=== PATIENT | male | born 1945 | race Caucasian/White ===

== ENCOUNTER 2017-06-18 17:20 | Inpatient (IN) | payer OTHER ==
[2017-06-18] MEDS ORDERED: FUROSEMIDE 40 MG/4 ML INJECTABLE VIAL IVPUSH ONE ×2 (18:33→22:31)
--- NOTE | 2017-06-18 18:37 | PDOC ---
History of Present Illness - History of Present Illness Initial Comments: 06/18/17 18:48 The patient is a 71 year old male, with a significant past medical history of diabetes, HTN, AV fistula shunt in left arm (placed 2 weeks ago), CHF, who presents to the emergency department with weakness, abdominal pain, and lower extremity edema. He kept on stating that he has a bad heart. He says he lives alone and takes care of himself. He stated that his palms and soles of his feet feel unusually warm. He says that he ran out of his water pills. He denies any recent cough fevers, chills, headache or dizziness. He denies any recent nausea, vomit, diarrhea or constipation. He denies any recent chest pain or shortness of breath. He denies any recent dysuria, frequency, urgency or hematuria. Allergies: [employer] Long Haul Truck Driver: Rhett Whaley PCP: Fiona Bermudez <Kailee Puga - Last Filed: 06/18/17 18:47> <Shanta Montanez - Last Filed: 06/21/17 22:35> - General Chief Complaint: Pain Stated Complaint: weakness,abd pain, edema Time Seen by Provider: 06/18/17 18:06 Past History <Kailee Puga - Last Filed: 06/18/17 18:47> - Past Medical History Cardiac Disorders: Yes Diabetes: Yes Disorders: Yes (kidney failure, left arm fistula (not on dialysis yet)) HTN: Yes - Suicide/Smoking/Psychosocial Hx Smoking History: Never smoked Information on smoking cessation initiated: No Hx Alcohol Use: No Drug/Substance Use Hx: No Substance Use Type: None <Shanta Montanez - Last Filed: 06/21/17 22:35> - Past Medical History Allergies/Adverse Reactions: Allergies Allergy/AdvReac Type Severity Reaction Status Date / Time No Known Allergies Allergy Verified 06/18/17 18:30 Home Medications: Ambulatory Orders Aspirin [ASA -] 81 mg PO DAILY 06/18/17 Hydralazine HCl 10 mg PO Q8H 06/18/17 Isosorbide Mononitrate 10 mg PO Q8H 06/18/17 Metoprolol Succinate [Toprol Xl -] 25 mg PO DAILY 06/18/17 Review of Systems - Review of Systems Able to Perform ROS?: Yes Comments:: 06/18/17 18:50 GENERAL/CONSTITUTIONAL: No fever or chills. +weakness. + swelling in legs. HEAD, EYES, EARS, NOSE AND THROAT: No change in vision. No ear pain or discharge. No sore throat. CARDIOVASCULAR: No chest pain or shortness of breath. RESPIRATORY: No cough, wheezing, or hemoptysis. GASTROINTESTINAL: + abdominal pain. No nausea, vomiting, diarrhea or constipation. GENITOURINARY: No dysuria, frequency, or change in urination. MUSCULOSKELETAL: No joint or muscle swelling or pain. No neck or back pain. SKIN: No rash NEUROLOGIC: No headache, vertigo, loss of consciousness, or change in strength/ sensation. ENDOCRINE: No increased thirst. No abnormal weight change. HEMATOLOGIC/LYMPHATIC: No anemia, easy bleeding, or history of blood clots. ALLERGIC/IMMUNOLOGIC: No hives or skin allergy. <Kailee Puga - Last Filed: 06/18/17 18:47> *Physical Exam - Vital Signs Last Vital Signs Temp Pulse Resp BP Pulse Ox 97.6 F 77 18 135/75 100 06/18/17 17:25 06/18/17 17:25 06/18/17 17:25 06/18/17 17:25 06/18/17 17:25 - Physical Exam Comments: 06/18/17 18:50 GENERAL: Awake, alert, and fully oriented, in no acute distress HEAD: No signs of trauma EYES: PERRLA, EOMI, sclera anicteric, conjunctiva clear ENT: Auricles normal inspection, hearing grossly normal, nares patent, oropharynx clear without exudates. Moist mucosa NECK: Normal ROM, supple, no lymphadenopathy, JVD, or masses LUNGS: +Bilateral rales, right worse than left. No wheezes, and no crackles HEART: Irregularly irregular heart rate. A-fib. No murmurs, rubs or gallops ABDOMEN: Soft, nontender, normoactive bowel sounds. No guarding, no rebound. No masses. No flank tenderness EXTREMITIES: + Bilateral pitting edema up to knee. Right more swollen than left. +Left upper arm has recently placed dialysis shunt (2 weeks ago). No clubbing or cyanosis. No cords, erythema, or tenderness NEUROLOGICAL: +Decreased ambulation. Cranial nerves II through XII grossly intact. Normal speech, normal gait . SKIN: +Hematoma on right arm.Warm, Dry, normal turgor, no rashes or lesions noted. <Kailee Puga - Last Filed: 06/18/17 18:47> - Vital Signs Last Vital Signs Temp Pulse Resp BP Pulse Ox 97.6 F 77 18 135/75 100 06/18/17 17:25 06/18/17 17:25 06/18/17 17:25 06/18/17 17:25 06/18/17 17:25 <Shanta Montanez - Last Filed: 06/21/17 22:35> ED Treatment Course - LABORATORY CBC & Chemistry Diagram: 06/21/17 18:30 06/21/17 06:40 <Shanta Montanez - Last Filed: 06/21/17 22:35> Medical Decision Making - Medical Decision Making 06/18/17 18:42 Pt comes with multiple problems and multiple complaints. He states that he has difficulty walking that his legs are swollen, that he has a bad heart and that he ran out of his water pill. States that he recently had a dialysis shunt placed in the left arm and that he needs to have dialysis. His PMD is Dr. Rhett Whaley (cardiology) His PCP is Fiona Bermudez . Pt recently moved to [place]. He seems to be in pain. Pt lives alone and cares for himself. Pt is clean and well kept. Today we will check basic labs. He has bilateral leg swelling and pain and I will check for DVTs bilaterally. Pt will be signed out to the night time ER doc, who will follow lab results and radiology results. <Shanta Montanez - Last Filed: 06/21/17 22:35> *DC/Admit/Observation/Transfer - Attestations Scribe Attestion: 06/18/17 18:51 Documentation prepared by Kailee Puga, acting as medical assistant ob gyn for Shanta Montanez MD. <Kailee Puga - Last Filed: 06/18/17 18:47> <Shanta Montanez - Last Filed: 06/21/17 22:35> Diagnosis at time of Disposition: CHF (congestive heart failure), Bilateral lower extremity edema
[2017-06-18] MEDS ORDERED: FUROSEMIDE 40 MG/4 ML INJECTABLE VIAL ONE (18:51)
[2017-06-18 18:56] LABS: BASOPHIL 0.7 % (0-2.0); EOSINOPHIL 1.8 % (0-4.5); MCH 29.1 pg (25.7-33.7); MCHC 33.4 g/dl (32.0-35.9); MEAN CELL VOLUME 87.2 fl (80-96); MEAN PLT VOLUME 7.1 fl (7.5-11.1); NEUTROPHILS 67.7 % (42.8-82.8); PLATELET COUNT 180 K/MM3 (134-434); RDW 16.1 % (11.9-15.9); WHITE BLOOD COUNT 5.8 K/mm3 (4.0-10.0)
[2017-06-18 19:31] LABS: ALBUMIN 3.2 g/dl (3.4-5.0); ANION GAP 16 (8-16); BILIRUBIN,TOTAL 0.4 mg/dL (0.2-1.0); CO2 18 mmol/L (21-32); CREATININE 6.5 mg/dL (0.7-1.3); GLUCOSE,RANDOM 136 mg/dL (74-106); SGOT/AST 17 U/L (15-37); SGPT/ALT 20 U/L (12-78); TOT PROT 6.8 g/dl (6.4-8.2)
[2017-06-18 19:47] LABS: ALK PHOS 122 U/L (45-117); CPK 94 IU/L (39-308); TROPONIN I 0.06 ng/ml (0.00-0.05)
--- NOTE | 2017-06-18 20:06 | PDOC ---
*Physical Exam - Vital Signs Last Vital Signs Temp Pulse Resp BP Pulse Ox 97.6 F 77 18 135/75 100 06/18/17 17:25 06/18/17 17:25 06/18/17 17:25 06/18/17 17:25 06/18/17 17:25 ED Treatment Course - LABORATORY CBC & Chemistry Diagram: 06/18/17 18:32 06/18/17 18:32 - ADDITIONAL ORDERS Additional order review: Laboratory Results 06/18/17 18:32 Sodium 141 Potassium 4.1 Chloride 107 Carbon Dioxide 18 L Anion Gap 16 BUN 124 H* Creatinine 6.5 H Creat Clearance w eGFR 8.45 Random Glucose 136 H Calcium 8.0 L Total Bilirubin 0.4 AST 17 ALT 20 Alkaline Phosphatase 122 H Creatine Kinase 94 Troponin I 0.06 H B-Natriuretic Peptide 28215.96 H Total Protein 6.8 Albumin 3.2 L 06/18/17 18:32 RBC 2.42 L MCV 87.2 MCHC 33.4 RDW 16.1 H MPV 7.1 L Neutrophils % 67.7 Lymphocytes % 21.0 Monocytes % 8.8 Eosinophils % 1.8 Basophils % 0.7 - Medications Given in the ED: ED Medications Discontinued Medications Generic Name Dose Route Start Last Admin Trade Name Freq PRN Reason Stop Dose Admin Furosemide 40 mg 06/18/17 18:33 06/18/17 18:55 Lasix Injection - IVPUSH 06/18/17 18:34 40 mg ONCE ONE Administration *DC/Admit/Observation/Transfer Diagnosis at time of Disposition: Congestive heart failure, Bilateral edema of lower extremity - Discharge Dispostion Condition at time of disposition: Stable Admit: Yes - Referrals Referrals: Fiona Bermudez MD [Primary Care Provider] - - Patient Instructions - Post Discharge Activity
[2017-06-18 20:56] LABS: MAGNESIUM 2.5 mg/dL (1.8-2.4); PHOSPHOROUS 8.3 mg/dL (2.5-4.9)
--- NOTE | 2017-06-18 22:42 | PN ---
Teaching Attending Note Name of Resident: Kiesha Ortega ATTENDING PHYSICIAN STATEMENT I saw and evaluated the patient. I reviewed the resident's note and discussed the case with the resident. I agree with the resident's findings and plan as documented. SUBJECTIVE: 71 year old male presents for worsening LE edema . Poor historian, refusing to discuss his medical health . States that he is feeling tired and cant speak. Apparently has recently placed AV fistula with plan to initiate HD in a month . Does not recall name of his portfolio architect PMD Dr Bermudez in [facility] however he recently moved to [place] and changed PMD Denies fever No prior records available PMH reports as positive when questioned about CHF DM HTN Renal insufficiency Anemia OBJECTIVE: Vital Signs Temperature 97.6 F 06/18/17 17:25 Pulse Rate 89 06/18/17 20:53 Respiratory Rate 19 06/18/17 20:53 Blood Pressure 143/75 06/18/17 20:53 O2 Sat by Pulse Oximetry (%) 100 06/18/17 17:25 RS - b/l rales ABD soft NT EXT 3+ edema CBC, BMP 06/18/17 18:32 06/18/17 18:32 CMP Sodium 141 mmol/L (136-145) 06/18/17 18:32 Potassium 4.1 mmol/L (3.5-5.1) 06/18/17 18:32 Chloride 107 mmol/L (98-107) 06/18/17 18:32 Carbon Dioxide 18 mmol/L (21-32) L 06/18/17 18:32 Anion Gap 16 (8-16) 06/18/17 18:32 BUN 124 mg/dL (7-18) H* 06/18/17 18:32 Creatinine 6.5 mg/dL (0.7-1.3) H 06/18/17 18:32 Creat Clearance w eGFR 8.45 (>60) 06/18/17 18:32 Random Glucose 136 mg/dL (74-106) H 06/18/17 18:32 Calcium 8.0 mg/dL (8.5-10.1) L 06/18/17 18:32 Phosphorus 8.3 mg/dL (2.5-4.9) H 06/18/17 18:32 Magnesium 2.5 mg/dL (1.8-2.4) H 06/18/17 18:32 Total Bilirubin 0.4 mg/dL (0.2-1.0) 06/18/17 18:32 AST 17 U/L (15-37) 06/18/17 18:32 ALT 20 U/L (12-78) 06/18/17 18:32 Alkaline Phosphatase 122 U/L (45-117) H 06/18/17 18:32 Creatine Kinase 94 IU/L (39-308) 06/18/17 18:32 Troponin I 0.06 ng/ml (0.00-0.05) H 06/18/17 18:32 B-Natriuretic Peptide 09054.96 pg/ml (5-125) H 06/18/17 18:32 Total Protein 6.8 g/dl (6.4-8.2) 06/18/17 18:32 Albumin 3.2 g/dl (3.4-5.0) L 06/18/17 18:32 cxr Mild cardiomegaly with bilateral increased interstitial markings that may represent mild pulmonary venous congestion. Right lung base consolidation/ pneumonia with a small right pleural effusion. There are also mild atelectatic changes in the left lung base with possible infiltrates. dopplers le There is no evidence of deep venous thromboses in both lower extremities. Soft tissue swelling in the popliteal fossa and calf region of both legs, left more than right EKG NSR 1st degree av block no prior EKG to compare ASSESSMENT AND PLAN: 1. Dyspnea - secondary to fluid overload. Factors could be worsening renal function , non compliance with diuretics and underlying exacerbation of heart failure ( unknown EF ) . Pneumonia reported on CXR . - Diurese Lasix 40 IV BID - strict I&O - O2 - telemetry - ECHO - obtain records - one dose of IV antibiotics for coverage of suspected CAP - will repeat CXR after diuretics and re evaluate for presence of RLL infiltrate 2. ESRD - nephrology evaluation 3. Anemia - AOCD - will need procrit - repeat cbc in am - transfuse if further drop / low threshold for transfusion however already fluid overloaded and unclear if diuresis will be effective 4. DM - starte with * units of Lantus and cover with SS 5. DVT PPX - heparin SQ
[2017-06-18] MEDS ORDERED: AZITHROMYCIN IVPB 500 MG in DEXTROSE 5%-WATER - 250 ML IVPB ONE (23:15)
[2017-06-18] MEDS ORDERED: CEFTRIAXONE 50 ML IVPB ONE (23:15)
--- NOTE | 2017-06-18 23:26 | HP ---
CHIEF COMPLAINT: toro LE edema, weakness PCP: Fiona Bennett Dust Box Worker: Rhett Mistry HISTORY OF PRESENT ILLNESS: 71yo M with PMH of chf, esrd (with Left arm AV fistula placed 2 weeks ago), dm, htn, anemia, cva 3 yrs ago, presents c/o toro LE edema x 1 day. Pt reports running out of his Furosemide yesterday. Pt reports recent hospitalization in [facility] for chest pain that came on suddenly, was unprovoked, and was relieved with O2. Pt also reports receiving a blood transfusion for his anemia during this hospitalization. Pt denies recent illness, sick contacts, fever, chills, cough, difficulty breathing, chest pain, palpitations, nausea, vomiting. ER course was notable for: (1) CXR -> possible Right lung base pna (2) Lasix 40mg IVpush (3) H/H 7.0/21.1, BUN/Cr 124/6.5, trop (+), bnp 62,000 PAST MEDICAL HISTORY: chf htn dm esrd, with Left arm AV fistula placed 2 weeks ago anemia cva 3 yrs ago, with no residual deficits PAST SURGICAL HISTORY: Left arm AV fistula placed 2 weeks ago Social History: Lives alone and cares for self. Smoking: never Alcohol: none Drugs: none Allergies No Known Allergies Allergy (Verified 06/18/17 18:30) HOME MEDICATIONS: Home Medications Medication Instructions Recorded Aspirin [ASA -] 81 mg PO DAILY 06/18/17 Hydralazine HCl 10 mg PO Q8H 06/18/17 Isosorbide Mononitrate 10 mg PO Q8H 06/18/17 Metoprolol Succinate [Toprol Xl -] 25 mg PO DAILY 06/18/17 REVIEW OF SYSTEMS CONSTITUTIONAL: Absent: fever, chills, diaphoresis HEENT: Present: c/o dry mucous membranes Absent: rhinorrhea, nasal congestion, throat swelling, difficulty swallowing, ear pain, visual changes CARDIOVASCULAR: Present: toro LE 1+ pitting edema and mild pain/numbness Absent: chest pain, syncope, palpitations, irregular heart rate, lightheadedness RESPIRATORY: Present: orthopnea Absent: cough, shortness of breath, stridor, hemoptysis GASTROINTESTINAL: Absent: abdominal pain, abdominal distension, nausea, vomiting, diarrhea, constipation, melena, hematochezia GENITOURINARY: Absent: dysuria, frequency, urgency, hematuria MUSCULOSKELETAL: Absent: myalgia, arthralgia SKIN: Absent: rash, itching, pallor HEMATOLOGIC/IMMUNOLOGIC: Absent: easy bleeding, easy bruising NEUROLOGIC: Absent: headache, focal weakness or paresthesias, dizziness PHYSICAL EXAMINATION Last Vital Signs Temp Pulse Resp BP Pulse Ox 97.6 F 89 19 143/75 100 06/18/17 17:25 06/18/17 20:53 06/18/17 20:53 06/18/17 20:53 06/18/17 17:25 GENERAL: Awake, alert, and fully oriented, in no acute distress. HEAD: Normal with no signs of trauma. EYES: Extraocular movements intact, sclera anicteric, conjunctiva clear. No lid lag. EARS, NOSE, THROAT: Oropharynx clear without exudates. NECK: Normal range of motion, supple without lymphadenopathy, JVD, or masses. LUNGS: toro rales appreciated. No accessory muscle use. HEART: Regular rate and rhythm, normal S1 and S2 without murmur, rub or gallop. ABDOMEN: Soft, nontender, not distended, normoactive bowel sounds, no guarding, no rebound, no masses. Ecchymosis noted from insulin injections per pt. UPPER EXTREMITIES: Left upper arm AV fistula (2 weeks old) for initiation of dialysis. LOWER EXTREMITIES: 2+ pulses, warm, well-perfused. No calf tenderness. 3+ pitting edema. NEUROLOGICAL: Cranial nerves II-XII intact. Normal speech. PSYCHIATRIC: Cooperative. Good eye contact. Appropriate mood and affect. SKIN: Warm, dry, normal turgor, no rashes or lesions noted. Laboratory Last Values WBC 5.8 K/mm3 (4.0-10.0) 06/18/17 18:32 RBC 2.42 M/mm3 (4.00-5.60) L 06/18/17 18:32 Hgb 7.0 GM/dL (11.7-16.9) L 06/18/17 18:32 Hct 21.1 % (35.4-49) L 06/18/17 18:32 MCV 87.2 fl (80-96) 06/18/17 18:32 MCH 29.1 pg (25.7-33.7) 06/18/17 18:32 MCHC 33.4 g/dl (32.0-35.9) 06/18/17 18:32 RDW 16.1 % (11.9-15.9) H 06/18/17 18:32 Plt Count 180 K/MM3 (134-434) 06/18/17 18:32 MPV 7.1 fl (7.5-11.1) L 06/18/17 18:32 Neutrophils % 67.7 % (42.8-82.8) 06/18/17 18:32 Lymphocytes % 21.0 % (8-40) 06/18/17 18:32 Monocytes % 8.8 % (3.8-10.2) 06/18/17 18:32 Eosinophils % 1.8 % (0-4.5) 06/18/17 18:32 Basophils % 0.7 % (0-2.0) 06/18/17 18:32 Sodium 141 mmol/L (136-145) 06/18/17 18:32 Potassium 4.1 mmol/L (3.5-5.1) 06/18/17 18:32 Chloride 107 mmol/L (98-107) 06/18/17 18:32 Carbon Dioxide 18 mmol/L (21-32) L 06/18/17 18:32 Anion Gap 16 (8-16) 06/18/17 18:32 BUN 124 mg/dL (7-18) H* 06/18/17 18:32 Creatinine 6.5 mg/dL (0.7-1.3) H 06/18/17 18:32 Creat Clearance w eGFR 8.45 (>60) 06/18/17 18:32 Random Glucose 136 mg/dL (74-106) H 06/18/17 18:32 Calcium 8.0 mg/dL (8.5-10.1) L 06/18/17 18:32 Phosphorus 8.3 mg/dL (2.5-4.9) H 06/18/17 18:32 Magnesium 2.5 mg/dL (1.8-2.4) H 06/18/17 18:32 Total Bilirubin 0.4 mg/dL (0.2-1.0) 06/18/17 18:32 AST 17 U/L (15-37) 06/18/17 18:32 ALT 20 U/L (12-78) 06/18/17 18:32 Alkaline Phosphatase 122 U/L (45-117) H 06/18/17 18:32 Creatine Kinase 94 IU/L (39-308) 06/18/17 18:32 Troponin I 0.06 ng/ml (0.00-0.05) H 06/18/17 18:32 B-Natriuretic Peptide 99282.96 pg/ml (5-125) H 06/18/17 18:32 Total Protein 6.8 g/dl (6.4-8.2) 06/18/17 18:32 Albumin 3.2 g/dl (3.4-5.0) L 06/18/17 18:32 IMAGIN06/18/17 EKG -> NSR, 1st degree AV block 06/18/17 CXR -> R lung base consolidation / possible pna, and small pleural effusion. Mild atelactatic changes in Left lower lung with possible infiltrates. Toro increased interstitial markings suggesting mild pulmonary venous congestion. Mild cardiomegaly. 06/18/17 Duplex toro LE -> no DVTs ASSESSMENT/PLAN: 71yo M with PMH of chf, esrd (with Left arm AV fistula placed 2 weeks ago), dm, htn, anemia, cva 3 yrs ago, presents c/o toro LE edema admitted to Telemetry for CHF exacerbation, ESRD. 1) dyspnea 2/2 fluid overload - likely multifactorial causes such as worsening renal function vs diuretics non-compliance vs CHF exacerbation - suspected Right lower lung CAP on CXR - Rocephin and Azithromycin - f/u CXR - Lasix given in ER, another dose of 40mg IVpush Lasix given overnight - strict I&O's - daily wts - 2L O2 via nasal cannula - f/u echo - Day Team to f/u with Dust Box Worker (Dr. Whaley) and/or [facility] regarding recent adm, medical records, most recent echo/stress test/cardiac work -up. - lipid panel - trend trops 2) esrd - hemodialysis anticipated, AV fistula recently placed - diurese and reassess need for dialysis - Renal Consult - consider procrit 2/2 anemia - elevated phosphorus noted, consider a phosphate binder such as Renvela 3) anemia of chronic disease - b12, folate, iron studies - type and screen - transfuse for hgb < 7 4) dm - f/u hgba1c - bgm achs - sliding scale insulin - Levemir 8U SQ HS, as pt reports taking Lantus 10U SQ HS at home 5) FEN - Fluids: po - Electrolytes: continue to monitor - Nutrition: diabetic, renal, low sodium diet 6) Prophylaxis - DVT prophylaxis with Heparin 5,000U SQ q8hr Visit type - Emergency Visit Emergency Visit: Yes ED Registration Date: 06/18/17 Care time: The patient presented to the Emergency Department on the above date and was hospitalized for further evaluation of their emergent condition. - New Patient This patient is new to me today: Yes Date on this admission: 06/18/17 - Critical Care Critical Care patient: No
[2017-06-19] MEDS: HEPARIN NA (PORCINE) 5,000 UNITS/ML 1ML VIAL SQ SCH ×4 (00:41→18:03)
[2017-06-19 02:47] LABS: MCH 29.6 pg (25.7-33.7); MCHC 34.2 g/dl (32.0-35.9); MEAN CELL VOLUME 86.5 fl (80-96); MEAN PLT VOLUME 7.5 fl (7.5-11.1); PLATELET COUNT 184 K/MM3 (134-434)
[2017-06-19] MEDS ORDERED: FUROSEMIDE 40 MG/4 ML INJECTABLE VIAL ONE (02:47)
[2017-06-19] MEDS ORDERED: HEPARIN NA (PORCINE) 5,000 UNITS/ML 1ML VIAL ONE (02:47)
[2017-06-19] MEDS ORDERED: AZITHROMYCIN IVPB 250 ML IVPB ONE (02:53)
[2017-06-19] MEDS ORDERED: CEFTRIAXONE 50 ML ONE (02:53)
[2017-06-19] MEDS: INSULIN SLIDING SCALE (NOVOLOG) 1 VIAL SQ SCH ×5 (03:09→21:13)
[2017-06-19 03:13] LABS: TROPONIN I 0.06 ng/ml (0.00-0.05)
[2017-06-19] MEDS ORDERED: INSULIN (NOVOLOG) ASPART 100 UNITS/ML 10ML VIAL ONE ×2 (03:16→21:05)
[2017-06-19 04:58] VITALS: BMI 22.2
[2017-06-19] MEDS ORDERED: ISOSORBIDE MONONITRATE 10 MG TABLET PO SCH (06:00)
[2017-06-19 07:01] LABS: BASOPHIL 0.7 % (0-2.0); EOSINOPHIL 2.3 % (0-4.5); MCH 29.1 pg (25.7-33.7); MCHC 33.3 g/dl (32.0-35.9); MEAN CELL VOLUME 87.5 fl (80-96); MEAN PLT VOLUME 7.5 fl (7.5-11.1); NEUTROPHILS 69.5 % (42.8-82.8); PLATELET COUNT 185 K/MM3 (134-434); WHITE BLOOD COUNT 6.6 K/mm3 (4.0-10.0)
[2017-06-19] MEDS: hydrALAZINE HCL 10 MG TABLET PO SCH ×3 (07:11→21:13)
[2017-06-19 07:12] LABS: ANION GAP 15 (8-16); CALCIUM 7.9 mg/dL (8.5-10.1); CO2 19 mmol/L (21-32); GLUCOSE,RANDOM 149 mg/dL (74-106)
[2017-06-19 07:26] LABS: ALK PHOS 117 U/L (45-117); BILIRUBIN,TOTAL 0.3 mg/dL (0.2-1.0); CHOLESTEROL 118 mg/dL (50-200); CREATININE 6.3 mg/dL (0.7-1.3); SGOT/AST 16 U/L (15-37); SGPT/ALT 18 U/L (12-78); TOT PROT 6.4 g/dl (6.4-8.2)
[2017-06-19] MEDS ORDERED: FUROSEMIDE 40 MG/4 ML INJECTABLE VIAL IVPUSH ONE (08:30)
[2017-06-19] MEDS: METOPROLOL SUCCINATE 25 MG TAB.SR.24H (FP) PO SCH (09:38)
[2017-06-19] MEDS: ASPIRIN 81 MG CHEWABLE TABLETS PO SCH (09:39)
[2017-06-19 10:47] LABS: TROPONIN I 0.06 ng/ml (0.00-0.05)
--- NOTE | 2017-06-19 10:56 | CON.NEP ---
Consult Consult Specialty:: Nephrology Referred by:: Dr. Bolivar Reason for Consultation:: CKD stage 5 with volume overload - History of Present Illness Chief Complaint: SOB History of Present Illness: This is a 71 year old gentleman with PMhx of CKD stage 5 not yet on dialysis, DM Type 2 > 20 years, Hypertension, CHF who presented to the ED with complaints of SOB and found to have fluid overload and BUN/Cr of 129/6.3. Pt had been following with a market sales manager in the city but could not recall his name. Had a AVF placed in the left arm 2 weeks ago. Pt reports running out of his lasix and having worsening swelling and sob for 2-3 days. Pt denies any N/V but is having diarrhea. Denies any confusion, lethargy or weakness. Denies any sleep disturbance. No flank pain. Does report urine output. - History Source History Provided By: Patient Limitations to Obtaining History: No Limitations - Past Medical History Cardio/Vascular: Yes: CHF, HTN Renal/: Yes: Renal Inusuff Endocrine: Yes: Diabetes Mellitus - Alcohol/Substance Use Hx Alcohol Use: No - Smoking History Smoking history: Never smoked Have you smoked in the past 12 months: No Home Medications - Allergies Allergies/Adverse Reactions: Allergies Allergy/AdvReac Type Severity Reaction Status Date / Time No Known Allergies Allergy Verified 06/18/17 18:30 - Home Medications Home Medications: Ambulatory Orders Aspirin [ASA -] 81 mg PO DAILY 06/18/17 Hydralazine HCl 10 mg PO Q8H 06/18/17 Isosorbide Mononitrate 10 mg PO Q8H 06/18/17 Metoprolol Succinate [Toprol Xl -] 25 mg PO DAILY 06/18/17 Family Disease History - Family Disease History Family History: Unremarkable Review of Systems - Review of Systems Constitutional: reports: No Symptoms Eyes: reports: No Symptoms HENT: reports: No Symptoms Neck: reports: No Symptoms Cardiovascular: reports: Edema, Shortness of Breath. denies: Chest Pain, Palpitations Respiratory: reports: Orthopnea, SOB, SOB on Exertion. denies: Hemoptysis, Wheezing Gastrointestinal: reports: Diarrhea. denies: Abdominal Pain, Constipation, Melena, Nausea, Vomiting Genitourinary: reports: No Symptoms Musculoskeletal: denies: Back Pain, Extremity Pain Neurological: denies: Change in LOC, Change in Speech, Confusion Nephrology Consult - Height Height: 6 ft - Weight Weight: 164 lb 2 oz - BMI Body Mass Index (BMI): 22.2 - Lab Results CBC,BMP: CBC, BMP 06/19/17 06:15 06/19/17 06:15 Anion Gap: Anion Gap Anion Gap 15 (8-16) 06/19/17 06:15 - Imaging Chest X-ray: Report Reviewed - Physical Examination Vital Signs: Vital Signs Temperature 97.6 F 06/19/17 09:02 Pulse Rate 100 H 06/19/17 09:02 Respiratory Rate 18 06/19/17 09:02 Blood Pressure 133/65 06/19/17 09:02 O2 Sat by Pulse Oximetry (%) 96 06/19/17 09:00 Constitutional: Yes: No Distress, Calm Eyes: Yes: Conjunctiva Clear HENT: Yes: Atraumatic, Normocephalic Neck: Yes: Supple Cardiovascular: Yes: Regular Rate and Rhythm, JVD, S1, S2. No: Murmur, Rub Respiratory: Yes: Regular, CTA Bilaterally. No: Rales, Rhonchi, SOB Gastrointestinal: Yes: Normal Bowel Sounds, Soft. No: Tenderness Renal/: No: Anuria, Bladder Distention, CVA Tenderness - Left, CVA Tenderness - Right, Larsen Present Access for Hemodialysis: AV Fistula Edema: Yes Edema: RLE: 2+ Neurological: Yes: Alert, Oriented Problem List - Problems (1) Bilateral lower extremity edema Code(s): R60.0 - LOCALIZED EDEMA (2) CHF (congestive heart failure) Code(s): I50.9 - HEART FAILURE, UNSPECIFIED (3) CKD (chronic kidney disease) stage 5, GFR less than 15 ml/min Code(s): N18.5 - CHRONIC KIDNEY DISEASE, STAGE 5 (4) Volume overload Code(s): E87.70 - FLUID OVERLOAD, UNSPECIFIED (5) Metabolic acidosis Code(s): E87.2 - ACIDOSIS (6) Anemia Code(s): D64.9 - ANEMIA, UNSPECIFIED Assessment/Plan 71 year old gentleman with PMhx of CKD stage 5 not yet on dialysis, DM Type 2 > 20 years, Hypertension, CHF who presented to the ED with complaints of SOB and found to have fluid overload and BUN/Cr of 129/6.3. #JAIMIE vs. Progressive CKD stage 5 with volume overload Attempted to call PMD but did not get a answer, called Filling And Stapling Machine Operator office to obtain labs and ECHO (awaiting fax) Check Urine studies and renal US to r/o obstruction If baseline labs are significantly better then the labs seen this admission will likely need dialysis this admission consulted vascular sx to eval and to schedule permacath placement Increase Lasix to 80mg IV BID Dose all meds for CrCl less then 10 #CHF continue IV lasix check ECHO (obtaining prior echo report from market sales manager) Trend daily weights #Acute vs. Chronic Anemia pt with normal MCV Check iron studies and stool occult blood likely anemia of CKD and will require EDWINA #DM Check Hgb A1C #Hypertension continue hydralazine #Anion gap Metabolic acidosis start sodium bicarbonate 650mg BID goal bicarb > 22 Thank you Will follow case discussed with Blurb Writer Ant Martino DO Current Medications Aspirin (Asa -) 81 mg PO DAILY [facility] Last Admin: 06/19/17 09:39 Dose: 81 mg Furosemide (Lasix Injection -) 20 mg IVPUSH ESCALATOR MECHANIC [facility] Stop: 06/19/17 14:00 Furosemide (Lasix Injection -) 80 mg IVPB BID@0600,1400 [facility] Heparin Sodium (Porcine) (Heparin -) 5,000 unit SQ Q8H-IV [facility] Last Admin: 06/19/17 02:42 Dose: 5,000 unit Hydralazine HCl (Apresoline -) 10 mg PO TID [facility] Last Admin: 06/19/17 07:11 Dose: 10 mg Insulin Aspart (Novolog Vial Sliding Scale -) 1 vial SQ ACHS [facility] PRN Reason: Protocol Last Admin: 06/19/17 07:11 Dose: 2 units Insulin Detemir (Levemir Vial) 8 units SQ HS [facility] Isosorbide Mononitrate (Ismo -) 10 mg PO TIDISORDIL [facility] Metoprolol Succinate (Toprol Xl -) 25 mg PO DAILY [facility] Last Admin: 06/19/17 09:38 Dose: 25 mg Sevelamer Carbonate (Renvela -) 800 mg PO TIDCM [facility]
[2017-06-19] MEDS ORDERED: FUROSEMIDE 40 MG/4 ML INJECTABLE VIAL IVPUSH SCH (11:00)
[2017-06-19 11:34] LABS: ACANTHOCYTES 1+
--- NOTE | 2017-06-19 11:53 | EKG ---
Test Reason : Blood Pressure : / mmHG Vent. Rate : 084 BPM Atrial Rate : 084 BPM P-R Int : 308 ms QRS Dur : 104 ms QT Int : 404 ms P-R-T Axes : 049 038 135 degrees QTc Int : 477 ms SINUS RHYTHM WITH MARKED SINUS ARRHYTHMIA WITH 1ST DEGREE A-V BLOCK T WAVE ABNORMALITY, CONSIDER INFERIOR ISCHEMIA PROLONGED QT ABNORMAL ECG WHEN COMPARED WITH ECG OF 18-JUN-2017 18:49, PREMATURE ATRIAL COMPLEXES ARE NO LONGER PRESENT T WAVE INVERSION NOW EVIDENT IN INFERIOR LEADS Confirmed by RAÚL DUGGAN MD ([id number]) on 06/19/2017 11:53:18 AM Referred By: Confirmed By:RAÚL DUGGAN MD
--- NOTE | 2017-06-19 11:58 | EKG ---
Test Reason : Blood Pressure : / mmHG Vent. Rate : 077 BPM Atrial Rate : 077 BPM P-R Int : 336 ms QRS Dur : 100 ms QT Int : 404 ms P-R-T Axes : 062 042 102 degrees QTc Int : 457 ms SINUS RHYTHM WITH 1ST DEGREE A-V BLOCK WITH PREMATURE ATRIAL COMPLEXES NONSPECIFIC T WAVE ABNORMALITY ABNORMAL ECG NO PREVIOUS ECGS AVAILABLE Confirmed by RAÚL DUGGAN MD ([id number]) on 06/19/2017 11:58:37 AM Referred By: Confirmed By:RAÚL DUGGAN MD
[2017-06-19] MEDS: SEVELAMER CARBONATE 800 MG TAB (FP) PO SCH ×2 (12:18→18:03)
[2017-06-19] MEDS: ISOSORBIDE MONONITRATE 20 MG TABLET PO SCH ×2 (12:25→18:03)
[2017-06-19 12:33] LABS: FERRITIN 220.816 ng/ml (16.4-293.9)
[2017-06-19] MEDS: FUROSEMIDE 100 MG/10 ML INJECTABLE VIAL IVPB SCH (14:23)
[2017-06-19 14:24] LABS: URINE APPEARANCE CLEAR; URINE BILIRUBIN NEGATIVE (NEGATIVE); URINE BLOOD 1+ (NEGATIVE); URINE COLOR LTYELLOW; URINE GLUCOSE (UA) 1+ (NEGATIVE); URINE KETONE NEGATIVE (NEGATIVE); URINE NITRITE NEGATIVE (NEGATIVE); URINE UROBILINOGEN NEGATIVE mg/dL (0.2-1.0)
[2017-06-19 14:28] LABS: URINE PROTEIN 2+ (NEGATIVE)
[2017-06-19 14:30] LABS: URINE MUCUS RARE; URINE RBC 1 /hpf (0-3); URINE WBC 3 /hpf (3-5)
--- NOTE | 2017-06-19 15:42 | PN ---
Physical Exam: SUBJECTIVE: Patient seen and examined Less dyspneic than on admission. Still c/o pain in legs. OBJECTIVE: Vital Signs Period Temp Pulse Resp BP Sys/Reeder Pulse Ox Last 24 Hr 97.0 F-97.8 F 75-100 17-20 133-146/65-75 92-96 GENERAL: The patient is awake, alert, and fully oriented, in mild acute distress. HEAD: Normal with no signs of trauma. Neck: JVD present EYES: PERRL, extraocular movements intact, sclera anicteric, conjunctiva clear. No ptosis. ENT: Ears normal, nares patent, oropharynx clear without exudates, moist mucous membranes. LUNGS: rales, wheezes, crackles, bilaterally HEART: Tachycardic, S1, S2, S3, with 2/6 RSB murmur, rub or gallop. ABDOMEN: Soft, nontender, nondistended, normoactive bowel sounds, no guarding, no rebound, no hepatosplenomegaly, no masses. EXTREMITIES: 2+ pulses, warm, well-perfused, bilateral pitting edema up to [place]son . NEUROLOGICAL: No facial droop, no neurological deficits. Cranial nerves II through XII grossly intact. Normal speech, gait not observed. PSYCH: Normal mood, normal affect. Laboratory Results - last 24 hr 06/19/17 06/19/17 06/19/17 02:37 02:37 02:37 WBC 5.0 RBC 2.50 L Hgb 7.4 L Hct 21.6 L MCV 86.5 MCH 29.6 MCHC 34.2 RDW 16.0 H Plt Count 184 MPV 7.5 Neutrophils % Lymphocytes % Monocytes % Eosinophils % Basophils % Acanthocytes (Spur) Fragmented RBCs Sodium Potassium Chloride Carbon Dioxide Anion Gap BUN Creatinine Creat Clearance w eGFR POC Glucometer Random Glucose Hemoglobin A1c % Calcium Ferritin Total Bilirubin AST ALT Alkaline Phosphatase Creatine Kinase 88 Troponin I 0.06 H Total Protein Albumin Triglycerides Cholesterol Total LDL Cholesterol HDL Cholesterol Vitamin B12 Serum Folate Urine Color Urine Appearance Urine pH Urine Protein Urine Glucose (UA) Urine Ketones Urine Blood Urine Nitrite Urine Bilirubin Urine Urobilinogen Urine RBC Urine WBC Urine Mucus U Random Total Protein Ur Random Urea Nitrogn Urine Creatinine Blood Type O POSITIVE Antibody Screen Negative Crossmatch See Detail 06/19/17 06/19/17 06/19/17 03:06 06:15 06:15 WBC 6.6 D RBC 2.38 L Hgb 6.9 L* Hct 20.9 L MCV 87.5 MCH 29.1 MCHC 33.3 RDW 16.0 H Plt Count 185 MPV 7.5 Neutrophils % 69.5 Lymphocytes % 19.4 Monocytes % 8.1 Eosinophils % 2.3 Basophils % 0.7 Acanthocytes (Spur) 1+ Fragmented RBCs 1+ Sodium 141 Potassium 3.6 Chloride 107 Carbon Dioxide 19 L Anion Gap 15 BUN 129 H* Creatinine 6.3 H Creat Clearance w eGFR 8.76 POC Glucometer [id number] Random Glucose 149 H Hemoglobin A1c % Calcium 7.9 L Ferritin Total Bilirubin 0.3 D AST 16 ALT 18 Alkaline Phosphatase 117 Creatine Kinase Troponin I Total Protein 6.4 Albumin 3.0 L Triglycerides 81 Cholesterol 118 Total LDL Cholesterol 57 HDL Cholesterol 45 Vitamin B12 Serum Folate 17 Urine Color Urine Appearance Urine pH Urine Protein Urine Glucose (UA) Urine Ketones Urine Blood Urine Nitrite Urine Bilirubin Urine Urobilinogen Urine RBC Urine WBC Urine Mucus U Random Total Protein Ur Random Urea Nitrogn Urine Creatinine Blood Type Antibody Screen Crossmatch 06/19/17 06/19/17 06/19/17 06:15 06:15 06:15 WBC RBC Hgb Hct MCV MCH MCHC RDW Plt Count MPV Neutrophils % Lymphocytes % Monocytes % Eosinophils % Basophils % Acanthocytes (Spur) Fragmented RBCs Sodium Potassium Chloride Carbon Dioxide Anion Gap BUN Creatinine Creat Clearance w eGFR POC Glucometer Random Glucose Hemoglobin A1c % 5.4 Calcium Ferritin 220.816 Total Bilirubin AST ALT Alkaline Phosphatase Creatine Kinase 76 Troponin I 0.06 H Total Protein Albumin Triglycerides Cholesterol Total LDL Cholesterol HDL Cholesterol Vitamin B12 1086 H Serum Folate Urine Color Urine Appearance Urine pH Urine Protein Urine Glucose (UA) Urine Ketones Urine Blood Urine Nitrite Urine Bilirubin Urine Urobilinogen Urine RBC Urine WBC Urine Mucus U Random Total Protein Ur Random Urea Nitrogn Urine Creatinine Blood Type Antibody Screen Crossmatch 06/19/17 06/19/17 06/19/17 08:54 11:09 11:17 WBC RBC Hgb Hct MCV MCH MCHC RDW Plt Count MPV Neutrophils % Lymphocytes % Monocytes % Eosinophils % Basophils % Acanthocytes (Spur) Fragmented RBCs Sodium Potassium Chloride Carbon Dioxide Anion Gap BUN Creatinine Creat Clearance w eGFR POC Glucometer 161 Random Glucose Hemoglobin A1c % Calcium Ferritin Total Bilirubin AST ALT Alkaline Phosphatase Creatine Kinase Troponin I Total Protein Albumin Triglycerides Cholesterol Total LDL Cholesterol HDL Cholesterol Vitamin B12 Serum Folate Urine Color Ltyellow Urine Appearance Clear Urine pH 5.0 Urine Protein 2+ H Urine Glucose (UA) 1+ H Urine Ketones Negative Urine Blood 1+ H Urine Nitrite Negative Urine Bilirubin Negative Urine Urobilinogen Negative Urine RBC 1 Urine WBC 3 Urine Mucus Rare U Random Total Protein Ur Random Urea Nitrogn Urine Creatinine Blood Type O POSITIVE Antibody Screen Crossmatch 06/19/17 06/19/17 06/19/17 11:17 11:17 11:17 WBC RBC Hgb Hct MCV MCH MCHC RDW Plt Count MPV Neutrophils % Lymphocytes % Monocytes % Eosinophils % Basophils % Acanthocytes (Spur) Fragmented RBCs Sodium Potassium Chloride Carbon Dioxide Anion Gap BUN Creatinine Creat Clearance w eGFR POC Glucometer Random Glucose Hemoglobin A1c % Calcium Ferritin Total Bilirubin AST ALT Alkaline Phosphatase Creatine Kinase Troponin I Total Protein Albumin Triglycerides Cholesterol Total LDL Cholesterol HDL Cholesterol Vitamin B12 Serum Folate Urine Color Urine Appearance Urine pH Urine Protein Urine Glucose (UA) Urine Ketones Urine Blood Urine Nitrite Urine Bilirubin Urine Urobilinogen Urine RBC Urine WBC Urine Mucus U Random Total Protein 209 H Ur Random Urea Nitrogn 553 Urine Creatinine 50.8 Blood Type Antibody Screen Crossmatch Echo: Mildly dilated L ventricle, mildly reduced L ventricular systemic function. Mild global hypokinesis of L ventricle . Normal size and function of R ventricle. Moderate MR, mild TR, severe pulmonary hypertension and pleural effusion. Active Medications Generic Name Dose Route Start Last Admin Trade Name Freq PRN Reason Stop Dose Admin Aspirin 81 mg 06/19/17 10:00 06/19/17 09:39 Asa - PO 81 mg DAILY ANDREW Administration Furosemide 80 mg 06/19/17 14:00 06/19/17 14:23 Lasix Injection - IVPB 80 mg BID@0600,1400 ANDREW Administration Heparin Sodium (Porcine) 5,000 unit 06/18/17 22:15 06/19/17 11:21 Heparin - SQ Not Given Q8H-IV ANDREW Hydralazine HCl 10 mg 06/19/17 06:00 06/19/17 14:01 Apresoline - PO 10 mg TID ANDREW Administration Insulin Aspart 1 vial 06/18/17 22:00 06/19/17 12:18 Novolog Vial Sliding Scale - SQ 2 units ACHS ANDREW Administration Protocol Insulin Detemir 8 units 06/19/17 22:00 Levemir Vial SQ HS ANDREW Isosorbide Mononitrate 10 mg 06/19/17 09:37 06/19/17 12:25 Ismo - PO 10 mg TIDISORDIL ANDREW Administration Metoprolol Succinate 25 mg 06/19/17 10:00 06/19/17 09:38 Toprol Xl - PO 25 mg DAILY ANDREW Administration Sevelamer Carbonate 800 mg 06/19/17 12:00 06/19/17 12:18 Renvela - PO 800 mg TIDCM ANDREW Administration ASSESSMENT/PLAN: 71 year old gentleman with PMhx of CKD stage 5 not yet on dialysis, DM Type 2 > 20 years, Hypertension, CHF who presented to the ED with complaints of SOB and found to have fluid overload and BUN/Cr of 129/6.3. # volume overload 2/2 ESRD R/O JAIMIE R/O PNA Per Dr Martino- called Microwave Supervisor office to obtain labs and ECHO (awaiting fax) Urine studies - Renal US - no obstruction Dr Martino is considering dialysis this admission Dr Martino-consulted vascular sx to eval and to schedule permacath placement NPO after midnight Lasix to 80mg IV BID Dose all meds for CrCl less then 10 Repeat CXR- worsening effusions- for dialysis tomorrow #CHF continue IV lasix check ECHO -hypokinesis documented Trend daily weights #Acute vs. Chronic Anemia Type and match done pt with normal MCV Check iron studies and stool occult blood likely anemia of CKD and will require EDWINA D/W Dr Martino- Patient is not hypoxic from the anemia, transfusion is on hold considering his volume status, it could be given before dialysis tomorrow #DM Hgb A1C #Hypertension continue hydralazine #Anion gap Metabolic acidosis sodium bicarbonate 650mg BID goal bicarb > 22 Visit type - Emergency Visit Emergency Visit: Yes ED Registration Date: 06/18/17 Care time: The patient presented to the Emergency Department on the above date and was hospitalized for further evaluation of their emergent condition. - New Patient This patient is new to me today: Yes Date on this admission: 06/19/17 - Critical Care Critical Care patient: No - Discharge Referral Referred to [facility] No
[2017-06-19 17:24] LABS: URINE LEUK ESTERASE Negative (NEGATIVE)
[2017-06-19] MEDS ORDERED: PT OWN MED DRAWER 7, Y5N ONE (17:26)
--- NOTE | 2017-06-19 17:29 | PN ---
Teaching Attending Note Name of Resident: Catherine Lee ATTENDING PHYSICIAN STATEMENT I saw and evaluated the patient. I reviewed the resident's note and discussed the case with the resident. I agree with the resident's findings and plan as documented. SUBJECTIVE: Patient denies any shortness of breath. No fever or chills, no nausea or vomiting. OBJECTIVE: Vital Signs Temperature 97.0 F L 06/19/17 14:04 Pulse Rate 76 06/19/17 14:04 Respiratory Rate 18 06/19/17 14:04 Blood Pressure 138/72 06/19/17 14:04 O2 Sat by Pulse Oximetry (%) 96 06/19/17 09:00 CBCD WBC 6.6 K/mm3 (4.0-10.0) D 06/19/17 06:15 RBC 2.38 M/mm3 (4.00-5.60) L 06/19/17 06:15 Hgb 6.9 GM/dL (11.7-16.9) L* 06/19/17 06:15 Hct 20.9 % (35.4-49) L 06/19/17 06:15 MCV 87.5 fl (80-96) 06/19/17 06:15 MCHC 33.3 g/dl (32.0-35.9) 06/19/17 06:15 RDW 16.0 % (11.9-15.9) H 06/19/17 06:15 Plt Count 185 K/MM3 (134-434) 06/19/17 06:15 MPV 7.5 fl (7.5-11.1) 06/19/17 06:15 CMP Sodium 141 mmol/L (136-145) 06/19/17 06:15 Potassium 3.6 mmol/L (3.5-5.1) 06/19/17 06:15 Chloride 107 mmol/L (98-107) 06/19/17 06:15 Carbon Dioxide 19 mmol/L (21-32) L 06/19/17 06:15 Anion Gap 15 (8-16) 06/19/17 06:15 BUN 129 mg/dL (7-18) H* 06/19/17 06:15 Creatinine 6.3 mg/dL (0.7-1.3) H 06/19/17 06:15 Creat Clearance w eGFR 8.76 (>60) 06/19/17 06:15 Random Glucose 149 mg/dL (74-106) H 06/19/17 06:15 Calcium 7.9 mg/dL (8.5-10.1) L 06/19/17 06:15 Total Bilirubin 0.3 mg/dL (0.2-1.0) D 06/19/17 06:15 AST 16 U/L (15-37) 06/19/17 06:15 ALT 18 U/L (12-78) 06/19/17 06:15 Alkaline Phosphatase 117 U/L (45-117) 06/19/17 06:15 Total Protein 6.4 g/dl (6.4-8.2) 06/19/17 06:15 Albumin 3.0 g/dl (3.4-5.0) L 06/19/17 06:15 CARDIAC ENZYMES Creatine Kinase 76 IU/L (39-308) 06/19/17 06:15 Troponin I 0.06 ng/ml (0.00-0.05) H 06/19/17 06:15 Current Medications Generic Name Dose Route Start Last Admin Trade Name Lvq PRN Reason Stop Dose Admin Aspirin 81 mg 06/19/17 10:00 06/19/17 09:39 Asa - PO 81 mg DAILY ANDREW Administration Furosemide 80 mg 06/19/17 14:00 06/19/17 14:23 Lasix Injection - IVPB 80 mg BID@0600,1400 ANDREW Administration Heparin Sodium (Porcine) 5,000 unit 06/18/17 22:15 06/19/17 11:21 Heparin - SQ Not Given Q8H-IV [facility] Hydralazine HCl 10 mg 06/19/17 06:00 06/19/17 14:01 Apresoline - PO 10 mg TID [facility] Administration Insulin Aspart 1 vial 06/18/17 22:00 06/19/17 17:01 Novolog Vial Sliding Scale - SQ Not Given ACHS [facility] Protocol Insulin Detemir 8 units 06/19/17 22:00 Levemir Vial SQ HS [facility] Isosorbide Mononitrate 10 mg 06/19/17 09:37 06/19/17 12:25 Ismo - PO 10 mg TIDISORDIL ANDREW Administration Metoprolol Succinate 25 mg 06/19/17 10:00 06/19/17 09:38 Toprol Xl - PO 25 mg DAILY ANDREW Administration Sevelamer Carbonate 800 mg 06/19/17 12:00 06/19/17 12:18 Renvela - PO 800 mg TIDCM ANDREW Administration Home Medications Medication Instructions Recorded Aspirin [ASA -] 81 mg PO DAILY 06/18/17 Hydralazine HCl 10 mg PO Q8H 06/18/17 Isosorbide Mononitrate 10 mg PO Q8H 06/18/17 Metoprolol Succinate [Toprol Xl -] 25 mg PO DAILY 06/18/17 PE: per resident's note. LUNG: positive for rales at the basis BL. Heart positive for S3, S1S2 positive cxr:Mild cardiomegaly with bilateral increased interstitial markings that may represent mild pulmonary venous congestion. Right lung base consolidation/ pneumonia with a small right pleural effusion. There are also mild atelectatic changes in the left lung base with possible infiltrates. Dopplers le :There is no evidence of deep venous thromboses in both lower extremities. 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 #JIAMIE with Progressive CKD stage 5 with volume overload, Nephrology consult appreciated. given IV LAsix , As per nephrology's notes will try to get his baseline labs. from his route returner. 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
--- NOTE | 2017-06-19 18:34 | PN ---
Progress Note (short form) - Note Progress Note: VAscular Surgery Pt seen and examined. Will place pc in am. NPO past midnight. Chato Flower DO
[2017-06-19 19:33] LABS: ANION GAP 16 (8-16); CO2 16 mmol/L (21-32); CREATININE 6.3 mg/dL (0.7-1.3); GLUCOSE,RANDOM 187 mg/dL (74-106)
[2017-06-19] MEDS ORDERED: INSULIN DETEMIR 100 UNITS/ML MDV SQ SCH (22:00)
[2017-06-20] MEDS ORDERED: diphenhydrAMINE HCL 25 MG CAPSULE (FP) PO ONE (00:15)
[2017-06-20] MEDS: HEPARIN NA (PORCINE) 5,000 UNITS/ML 1ML VIAL SQ SCH ×4 (03:01→22:34)
[2017-06-20] MEDS: hydrALAZINE HCL 10 MG TABLET PO SCH ×3 (05:50→21:50)
[2017-06-20] MEDS: FUROSEMIDE 100 MG/10 ML INJECTABLE VIAL IVPB SCH ×2 (05:50→16:42)
[2017-06-20] MEDS: INSULIN SLIDING SCALE (NOVOLOG) 1 VIAL SQ SCH ×4 (06:03→21:50)
[2017-06-20 06:06] LABS: SERUM IRON 27 ug/dL (38-169); TOTAL IRON BINDING CAPACITY 248 ug/dL (250-450); UIBC 221 ug/dL (111-343)
[2017-06-20 08:07] LABS: TRANSFERRIN 203 mg/dL (200-370)
--- NOTE | 2017-06-20 08:23 | PN ---
Physical Exam: SUBJECTIVE: Patient seen and examined Still compalining about pain in his legs, although he is less dyspneic. Being prepped for permacath-Dr Flower saw and then dialysis -Dr Martino confirmed. OBJECTIVE: Vital Signs Period Temp Pulse Resp BP Sys/Reeder Pulse Ox Last 24 Hr 97.0 F-98.1 F 76-100 18-20 124-144/65-81 96-96 GENERAL: The patient is awake, alert, and fully oriented, in no acute respiratory distress. EYES: sclera anicteric, conjunctiva clear ENT: moist mucous membranes. LUNGS: No wheezes, coarse crackles scattered bilaterally. HEART: Regular rate and rhythm, S1, S2, murmur RUSB, rub or gallop. ABDOMEN: Soft, nontender, nondistended, normoactive bowel sounds, no guarding, no rebound, no hepatosplenomegaly, no masses. EXTREMITIES: 2+ pulses, warm, well-perfused,2+ bilateral pitting edema up to shins. NEUROLOGICAL: AOx3, No facial droop. Cranial nerves II through XII grossly intact. Normal speech, gait not observed. PSYCH: Normal mood, normal affect. SKIN: upper arm healed bruises Laboratory Results - last 24 hr 06/19/17 06/19/17 06/19/17 02:37 06:15 06:15 WBC 6.6 D RBC 2.38 L Hgb 6.9 L* Hct 20.9 L MCV 87.5 MCH 29.1 MCHC 33.3 RDW 16.0 H Plt Count 185 MPV 7.5 Neutrophils % 69.5 Lymphocytes % 19.4 Monocytes % 8.1 Eosinophils % 2.3 Basophils % 0.7 Acanthocytes (Spur) 1+ Fragmented RBCs 1+ Sodium Potassium Chloride Carbon Dioxide Anion Gap BUN Creatinine POC Glucometer Random Glucose Hemoglobin A1c % 5.4 Calcium Iron TIBC Iron Saturation Ferritin Creatine Kinase Troponin I Vitamin B12 Urine Color Urine Appearance Urine pH Ur Specific [place] Urine Protein Urine Glucose (UA) Urine Ketones Urine Blood Urine Nitrite Urine Bilirubin Urine Urobilinogen Ur Leukocyte Esterase Urine RBC Urine WBC Urine Mucus U Random Total Protein Ur Random Urea Nitrogn Urine Creatinine Blood Type O POSITIVE Antibody Screen Negative Crossmatch See Detail 06/19/17 06/19/17 06/19/17 06:15 06:15 06:15 WBC RBC Hgb Hct MCV MCH MCHC RDW Plt Count MPV Neutrophils % Lymphocytes % Monocytes % Eosinophils % Basophils % Acanthocytes (Spur) Fragmented RBCs Sodium Potassium Chloride Carbon Dioxide Anion Gap BUN Creatinine POC Glucometer Random Glucose Hemoglobin A1c % Calcium Iron 27 L TIBC 248 L Iron Saturation 11 L Ferritin 220.816 Creatine Kinase 76 Troponin I 0.06 H Vitamin B12 1086 H Urine Color Urine Appearance Urine pH Ur Specific [place] Urine Protein Urine Glucose (UA) Urine Ketones Urine Blood Urine Nitrite Urine Bilirubin Urine Urobilinogen Ur Leukocyte Esterase Urine RBC Urine WBC Urine Mucus U Random Total Protein Ur Random Urea Nitrogn Urine Creatinine Blood Type Antibody Screen Crossmatch 06/19/17 06/19/17 06/19/17 08:54 11:09 11:17 WBC RBC Hgb Hct MCV MCH MCHC RDW Plt Count MPV Neutrophils % Lymphocytes % Monocytes % Eosinophils % Basophils % Acanthocytes (Spur) Fragmented RBCs Sodium Potassium Chloride Carbon Dioxide Anion Gap BUN Creatinine POC Glucometer 161 Random Glucose Hemoglobin A1c % Calcium Iron TIBC Iron Saturation Ferritin Creatine Kinase Troponin I Vitamin B12 Urine Color Ltyellow Urine Appearance Clear Urine pH 5.0 Ur Specific [place] 1.015 Urine Protein 2+ H Urine Glucose (UA) 1+ H Urine Ketones Negative Urine Blood 1+ H Urine Nitrite Negative Urine Bilirubin Negative Urine Urobilinogen Negative Ur Leukocyte Esterase Negative Urine RBC 1 Urine WBC 3 Urine Mucus Rare U Random Total Protein Ur Random Urea Nitrogn Urine Creatinine Blood Type O POSITIVE Antibody Screen Crossmatch 06/19/17 06/19/17 06/19/17 11:17 11:17 11:17 WBC RBC Hgb Hct MCV MCH MCHC RDW Plt Count MPV Neutrophils % Lymphocytes % Monocytes % Eosinophils % Basophils % Acanthocytes (Spur) Fragmented RBCs Sodium Potassium Chloride Carbon Dioxide Anion Gap BUN Creatinine POC Glucometer Random Glucose Hemoglobin A1c % Calcium Iron TIBC Iron Saturation Ferritin Creatine Kinase Troponin I Vitamin B12 Urine Color Urine Appearance Urine pH Ur Specific [place] Urine Protein Urine Glucose (UA) Urine Ketones Urine Blood Urine Nitrite Urine Bilirubin Urine Urobilinogen Ur Leukocyte Esterase Urine RBC Urine WBC Urine Mucus U Random Total Protein 209 H Ur Random Urea Nitrogn 553 Urine Creatinine 50.8 Blood Type Antibody Screen Crossmatch 06/19/17 06/19/17 06/19/17 15:37 18:10 21:09 WBC RBC Hgb Hct MCV MCH MCHC RDW Plt Count MPV Neutrophils % Lymphocytes % Monocytes % Eosinophils % Basophils % Acanthocytes (Spur) Fragmented RBCs Sodium 140 Potassium 4.1 Chloride 108 H Carbon Dioxide 16 L Anion Gap 16 BUN 123 H* Creatinine 6.3 H POC Glucometer 140 187 Random Glucose 187 H D Hemoglobin A1c % Calcium 8.0 L Iron TIBC Iron Saturation Ferritin Creatine Kinase Troponin I Vitamin B12 Urine Color Urine Appearance Urine pH Ur Specific [place] Urine Protein Urine Glucose (UA) Urine Ketones Urine Blood Urine Nitrite Urine Bilirubin Urine Urobilinogen Ur Leukocyte Esterase Urine RBC Urine WBC Urine Mucus U Random Total Protein Ur Random Urea Nitrogn Urine Creatinine Blood Type Antibody Screen Crossmatch 06/20/17 05:49 WBC RBC Hgb Hct MCV MCH MCHC RDW Plt Count MPV Neutrophils % Lymphocytes % Monocytes % Eosinophils % Basophils % Acanthocytes (Spur) Fragmented RBCs Sodium Potassium Chloride Carbon Dioxide Anion Gap BUN Creatinine POC Glucometer 139 Random Glucose Hemoglobin A1c % Calcium Iron TIBC Iron Saturation Ferritin Creatine Kinase Troponin I Vitamin B12 Urine Color Urine Appearance Urine pH Ur Specific [place] Urine Protein Urine Glucose (UA) Urine Ketones Urine Blood Urine Nitrite Urine Bilirubin Urine Urobilinogen Ur Leukocyte Esterase Urine RBC Urine WBC Urine Mucus U Random Total Protein Ur Random Urea Nitrogn Urine Creatinine Blood Type Antibody Screen Crossmatch Repeat CXR- worsening effusions ECHO -hypokinesis documented Active Medications Generic Name Dose Route Start Last Admin Trade Name Freq PRN Reason Stop Dose Admin Aspirin 81 mg 06/19/17 10:00 06/19/17 09:39 Asa - PO 81 mg DAILY ANDREW Administration Furosemide 80 mg 06/19/17 14:00 06/20/17 05:50 Lasix Injection - IVPB 80 mg BID@0600,1400 ANDREW Administration Heparin Sodium (Porcine) 5,000 unit 06/18/17 22:15 06/20/17 03:01 Heparin - SQ Not Given Q8H-IV ANDREW Hydralazine HCl 10 mg 06/19/17 06:00 06/20/17 05:50 Apresoline - PO 10 mg TID ANDREW Administration Insulin Aspart 1 vial 06/18/17 22:00 06/20/17 06:03 Novolog Vial Sliding Scale - SQ Not Given ACHS [facility] Protocol Insulin Detemir 8 units 06/19/17 22:00 06/19/17 21:13 Levemir Vial SQ 8 units HS ANDREW Administration Isosorbide Mononitrate 10 mg 06/19/17 09:37 10/12/17 18:03 Ismo - PO 10 mg TIDISORDIL ANDREW Administration Metoprolol Succinate 25 mg 06/19/17 10:00 06/19/17 09:38 Toprol Xl - PO 25 mg DAILY ANDREW Administration Sevelamer Carbonate 800 mg 06/19/17 12:00 06/19/17 18:03 Renvela - PO 800 mg TIDCM ANDREW Administration ASSESSMENT/PLAN: 71 year old gentleman with PMhx of CKD stage 5 not yet on dialysis, DM Type 2 > 20 years, Hypertension, CHF who presented to the ED with complaints of SOB and found to have fluid overload and BUN/Cr of 129/6.3. # volume overload : less pedal edema this am,creps reduced For permacath then dialysis today Renal US - no obstruction Cont. Lasix to 80mg IV BID Dose all meds for CrCl less then 10 #CHF continue IV lasix Trend daily weights #Acute vs. Chronic Anemia Type and match done pt with normal MCV iron studies not clear Fe def or ACD, maybe mixed picture 2/2 CKD and will require EDWINA #DM Hgb A1C #Hypertension continue hydralazine #Anion gap Metabolic acidosis sodium bicarbonate 650mg BID goal bicarb > 22 Visit type - Emergency Visit Emergency Visit: Yes ED Registration Date: 06/18/17 Care time: The patient presented to the Emergency Department on the above date and was hospitalized for further evaluation of their emergent condition. - New Patient This patient is new to me today: No - Critical Care Critical Care patient: No - Discharge Referral Referred to [facility] No
--- NOTE | 2017-06-20 09:19 | PN ---
Physical Exam: SUBJECTIVE: Patient seen and examined at bed side this morning. Complaints of chronic b/l lower extremity pain. Denies chest pain, sob, cough, palpitation, abdominal pain, nausea or vomiting. Last moved his bowel 2 days ago. No urinary symptoms. NPO since midnight for permacath placement today followed by Dialysis. As per RN, no acute overnight events. OBJECTIVE: Vital Signs Period Temp Pulse Resp BP Sys/Reeder Pulse Ox Last 24 Hr 97.0 F-98.1 F 76-90 18-20 124-144/67-81 96 GENERAL: Elderly male, is awake, alert, and fully oriented, in no acute distress. HEAD: Normal with no signs of trauma. EYES: EOM intact, pallor +, no icterus. ENT: Ears normal, moist mucous membranes. NECK: Supple. LUNGS: B/L breath sounds equal, occasional wheezes, b/l coarse breath sounds. HEART: Regular rate and rhythm, S1, S2 with grade 3/6 systolic murmur. ABDOMEN: Multiple superficial ecchymosis, Soft, nontender, nondistended, normoactive bowel sounds, no guarding, no rebound, no hepatosplenomegaly, no masses. UPPER EXTREMITIES: 2+ pulses, warm, well-perfused, no edema. LOWER EXTREMITIES: 2+ pulses, warm, well-perfused, B/L pitting edema. NEUROLOGICAL: No facial droop. Normal speech, gait not observed. PSYCH: Normal mood, normal affect. SKIN: Warm, dry, normal turgor, no rashes or lesions noted Laboratory Results - last 24 hr 06/19/17 06/19/17 06/19/17 02:37 06:15 06:15 WBC 6.6 D RBC 2.38 L Hgb 6.9 L* Hct 20.9 L MCV 87.5 MCH 29.1 MCHC 33.3 RDW 16.0 H Plt Count 185 MPV 7.5 Neutrophils % 69.5 Lymphocytes % 19.4 Monocytes % 8.1 Eosinophils % 2.3 Basophils % 0.7 Acanthocytes (Spur) 1+ Fragmented RBCs 1+ Sodium Potassium Chloride Carbon Dioxide Anion Gap BUN Creatinine POC Glucometer Random Glucose Hemoglobin A1c % 5.4 Calcium Iron TIBC Iron Saturation Transferrin Ferritin Creatine Kinase Troponin I Vitamin B12 Urine Color Urine Appearance Urine pH Ur Specific Avinger Urine Protein Urine Glucose (UA) Urine Ketones Urine Blood Urine Nitrite Urine Bilirubin Urine Urobilinogen Ur Leukocyte Esterase Urine RBC Urine WBC Urine Mucus U Random Total Protein Ur Random Urea Nitrogn Urine Creatinine Blood Type O POSITIVE Antibody Screen Negative Crossmatch See Detail 06/19/17 06/19/17 06/19/17 06:15 06:15 06:15 WBC RBC Hgb Hct MCV MCH MCHC RDW Plt Count MPV Neutrophils % Lymphocytes % Monocytes % Eosinophils % Basophils % Acanthocytes (Spur) Fragmented RBCs Sodium Potassium Chloride Carbon Dioxide Anion Gap BUN Creatinine POC Glucometer Random Glucose Hemoglobin A1c % Calcium Iron 27 L TIBC 248 L Iron Saturation 11 L Transferrin 203 Ferritin 220.816 Creatine Kinase 76 Troponin I 0.06 H Vitamin B12 1086 H Urine Color Urine Appearance Urine pH Ur Specific Avinger Urine Protein Urine Glucose (UA) Urine Ketones Urine Blood Urine Nitrite Urine Bilirubin Urine Urobilinogen Ur Leukocyte Esterase Urine RBC Urine WBC Urine Mucus U Random Total Protein Ur Random Urea Nitrogn Urine Creatinine Blood Type Antibody Screen Crossmatch 06/19/17 06/19/17 06/19/17 08:54 11:09 11:17 WBC RBC Hgb Hct MCV MCH MCHC RDW Plt Count MPV Neutrophils % Lymphocytes % Monocytes % Eosinophils % Basophils % Acanthocytes (Spur) Fragmented RBCs Sodium Potassium Chloride Carbon Dioxide Anion Gap BUN Creatinine POC Glucometer 161 Random Glucose Hemoglobin A1c % Calcium Iron TIBC Iron Saturation Transferrin Ferritin Creatine Kinase Troponin I Vitamin B12 Urine Color Ltyellow Urine Appearance Clear Urine pH 5.0 Ur Specific Avinger 1.015 Urine Protein 2+ H Urine Glucose (UA) 1+ H Urine Ketones Negative Urine Blood 1+ H Urine Nitrite Negative Urine Bilirubin Negative Urine Urobilinogen Negative Ur Leukocyte Esterase Negative Urine RBC 1 Urine WBC 3 Urine Mucus Rare U Random Total Protein Ur Random Urea Nitrogn Urine Creatinine Blood Type O POSITIVE Antibody Screen Crossmatch 06/19/17 06/19/17 06/19/17 11:17 11:17 11:17 WBC RBC Hgb Hct MCV MCH MCHC RDW Plt Count MPV Neutrophils % Lymphocytes % Monocytes % Eosinophils % Basophils % Acanthocytes (Spur) Fragmented RBCs Sodium Potassium Chloride Carbon Dioxide Anion Gap BUN Creatinine POC Glucometer Random Glucose Hemoglobin A1c % Calcium Iron TIBC Iron Saturation Transferrin Ferritin Creatine Kinase Troponin I Vitamin B12 Urine Color Urine Appearance Urine pH Ur Specific Avinger Urine Protein Urine Glucose (UA) Urine Ketones Urine Blood Urine Nitrite Urine Bilirubin Urine Urobilinogen Ur Leukocyte Esterase Urine RBC Urine WBC Urine Mucus U Random Total Protein 209 H Ur Random Urea Nitrogn 553 Urine Creatinine 50.8 Blood Type Antibody Screen Crossmatch 06/19/17 06/19/17 06/19/17 15:37 18:10 21:09 WBC RBC Hgb Hct MCV MCH MCHC RDW Plt Count MPV Neutrophils % Lymphocytes % Monocytes % Eosinophils % Basophils % Acanthocytes (Spur) Fragmented RBCs Sodium 140 Potassium 4.1 Chloride 108 H Carbon Dioxide 16 L Anion Gap 16 BUN 123 H* Creatinine 6.3 H POC Glucometer 140 187 Random Glucose 187 H D Hemoglobin A1c % Calcium 8.0 L Iron TIBC Iron Saturation Transferrin Ferritin Creatine Kinase Troponin I Vitamin B12 Urine Color Urine Appearance Urine pH Ur Specific Avinger Urine Protein Urine Glucose (UA) Urine Ketones Urine Blood Urine Nitrite Urine Bilirubin Urine Urobilinogen Ur Leukocyte Esterase Urine RBC Urine WBC Urine Mucus U Random Total Protein Ur Random Urea Nitrogn Urine Creatinine Blood Type Antibody Screen Crossmatch 06/20/17 05:49 WBC RBC Hgb Hct MCV MCH MCHC RDW Plt Count MPV Neutrophils % Lymphocytes % Monocytes % Eosinophils % Basophils % Acanthocytes (Spur) Fragmented RBCs Sodium Potassium Chloride Carbon Dioxide Anion Gap BUN Creatinine POC Glucometer 139 Random Glucose Hemoglobin A1c % Calcium Iron TIBC Iron Saturation Transferrin Ferritin Creatine Kinase Troponin I Vitamin B12 Urine Color Urine Appearance Urine pH Ur Specific Avinger Urine Protein Urine Glucose (UA) Urine Ketones Urine Blood Urine Nitrite Urine Bilirubin Urine Urobilinogen Ur Leukocyte Esterase Urine RBC Urine WBC Urine Mucus U Random Total Protein Ur Random Urea Nitrogn Urine Creatinine Blood Type Antibody Screen Crossmatch Active Medications Generic Name Dose Route Start Last Admin Trade Name Lvq PRN Reason Stop Dose Admin Aspirin 81 mg 06/19/17 10:00 06/19/17 09:39 Asa - PO 81 mg DAILY ANDREW Administration Furosemide 80 mg 06/19/17 14:00 06/20/17 05:50 Lasix Injection - IVPB 80 mg BID@0600,1400 ANDREW Administration Heparin Sodium (Porcine) 5,000 unit 06/18/17 22:15 06/20/17 03:01 Heparin - SQ Not Given Q8H-IV ANDREW Hydralazine HCl 10 mg 06/19/17 06:00 06/20/17 05:50 Apresoline - PO 10 mg TID ANDREW Administration Insulin Aspart 1 vial 06/18/17 22:00 06/20/17 06:03 Novolog Vial Sliding Scale - SQ Not Given ACHS [facility] Protocol Insulin Detemir 8 units 06/19/17 22:00 06/19/17 21:13 Levemir Vial SQ 8 units HS ANDREW Administration Isosorbide Mononitrate 10 mg 06/19/17 09:37 06/19/17 18:03 Ismo - PO 10 mg TIDISORDIL AND[facility] Administration Metoprolol Succinate 25 mg 06/19/17 10:00 06/19/17 09:38 Toprol Xl - PO 25 mg DAILY AND[facility] Administration Sevelamer Carbonate 800 mg 06/19/17 12:00 06/19/17 18:03 Renvela - PO 800 mg TIDCM ANDREW Administration ASSESSMENT/PLAN: Patient is a 86 year old Female with significant past medical hx of CAD, COPD/ asthma on home O2, dementia, pulmonary lymphoma s/p lobectomy, HTN, HLD, GERD, hypothyroidism, 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 1. Sepsis secondary to hospital acquired pneumonia-Improving 2. Acute on chronic kidney injury with fluid overload 3. Metabolic acidosis with anion gap 4. CHF 5. HTN 6. HLD 7. DM 8. COPD on home o2 9. Wegeners granulomatosis Acute on chronic kidney injury-CKD stage 5 with fluid overload On presentation creatinine was 6.5. patient refused to draw labs today. Will try to get labs when he goes for permacath placement Got records from [facility], old records with recent labs are attached in the chart. Plan: Permacath placement today, vascular surgeon has been consulted, NPO since midnight Dialysis today, patient verbalized understanding of the risks and benefits of Dialysis. No IV fluids Continue with IV Lasix 80mg BID (still looks volume overloaded-has bibasilar crackles and pitting edema), after dialysis would consider changing BID to once daily IV Lasix 80mg I's and O's Daily weight Avoid Nephrotoxic drugs Anion gap Metabolic acidosis Continue Sodium Bicarbonate 650mg PO BID Normocytic anemia most likely secondary to Kidney disease However, r/o other causes like GI source Plan is to transfuse one unit during dialysis today after permacath placement. Illness, Investigation and plan of care involving his kidney issues has been explained. He verbalized understanding. Case seen and discussed with Dr. Martino. Visit type - Emergency Visit Emergency Visit: Yes ED Registration Date: 06/18/17 Care time: The patient presented to the Emergency Department on the above date and was hospitalized for further evaluation of their emergent condition. - New Patient This patient is new to me today: Yes Date on this admission: 06/20/17 - Critical Care Critical Care patient: No
[2017-06-20] MEDS ORDERED: EPOETIN ALFA 10,000 UNIT/1 ML VIAL IVPUSH ONE ×2 (09:53→15:30)
[2017-06-20] MEDS ORDERED: SODIUM BICARBONATE 650 MG TABLET PO SCH (10:00)
[2017-06-20] MEDS: METOPROLOL SUCCINATE 25 MG TAB.SR.24H (FP) PO SCH (10:05)
[2017-06-20 10:41] LABS: MCH 29.1 pg (25.7-33.7); MCHC 33.6 g/dl (32.0-35.9); MEAN CELL VOLUME 86.8 fl (80-96); PLATELET COUNT 201 K/MM3 (134-434); RDW 15.9 % (11.9-15.9); WHITE BLOOD COUNT 7.2 K/mm3 (4.0-10.0)
[2017-06-20] MEDS: ASPIRIN 81 MG CHEWABLE TABLETS PO SCH (11:03)
[2017-06-20] MEDS: SEVELAMER CARBONATE 800 MG TAB (FP) PO SCH ×3 (11:03→18:17)
[2017-06-20] MEDS: ISOSORBIDE MONONITRATE 20 MG TABLET PO SCH ×3 (11:03→18:17)
[2017-06-20 11:06] LABS: ALBUMIN 3.2 g/dl (3.4-5.0); ANION GAP 12 (8-16); BILIRUBIN,TOTAL 0.5 mg/dL (0.2-1.0); CALCIUM 8.4 mg/dL (8.5-10.1); CO2 21 mmol/L (21-32); CREATININE 6.1 mg/dL (0.7-1.3); GLUCOSE,RANDOM 101 mg/dL (74-106); PHOSPHOROUS 7.4 mg/dL (2.5-4.9); SGOT/AST 12 U/L (15-37); SGPT/ALT 17 U/L (12-78)
[2017-06-20 11:07] LABS: ALK PHOS 118 U/L (45-117)
--- NOTE | 2017-06-20 11:16 | PN ---
Teaching Attending Note Name of Resident: Catherine Lee ATTENDING PHYSICIAN STATEMENT I saw and evaluated the patient. I reviewed the resident's note and discussed the case with the resident. I agree with the resident's findings and plan as documented. SUBJECTIVE: Patient continues to complain having BL lower extremity pain. Otherwise has no other complain except no appetite to eat. OBJECTIVE: Vital Signs Temperature 98.1 F 06/20/17 05:51 Pulse Rate 87 06/20/17 10:40 Respiratory Rate 20 06/20/17 05:51 Blood Pressure 124/67 06/20/17 05:51 O2 Sat by Pulse Oximetry (%) 97 06/20/17 10:40 CBCD WBC 7.2 K/mm3 (4.0-10.0) 06/20/17 10:25 RBC 2.64 M/mm3 (4.00-5.60) L 06/20/17 10:25 Hgb 7.7 GM/dL (11.7-16.9) L D 06/20/17 10:25 Hct 22.9 % (35.4-49) L 06/20/17 10:25 MCV 86.8 fl (80-96) 06/20/17 10:25 MCHC 33.6 g/dl (32.0-35.9) 06/20/17 10:25 RDW 15.9 % (11.9-15.9) 06/20/17 10:25 Plt Count 201 K/MM3 (134-434) 06/20/17 10:25 MPV 7.0 fl (7.5-11.1) L 06/20/17 10:25 CMP Sodium 141 mmol/L (136-145) 06/20/17 10:25 Potassium 3.8 mmol/L (3.5-5.1) 06/20/17 10:25 Chloride 108 mmol/L (98-107) H 06/20/17 10:25 Carbon Dioxide 21 mmol/L (21-32) D 06/20/17 10:25 Anion Gap 12 (8-16) 06/20/17 10:25 BUN 123 mg/dL (7-18) H* 06/19/17 18:10 Creatinine 6.1 mg/dL (0.7-1.3) H 06/20/17 10:25 Creat Clearance w eGFR 9.09 (>60) 06/20/17 10:25 Random Glucose 101 mg/dL (74-106) D 06/20/17 10:25 Calcium 8.4 mg/dL (8.5-10.1) L 06/20/17 10:25 Total Bilirubin 0.5 mg/dL (0.2-1.0) D 06/20/17 10:25 AST 12 U/L (15-37) L D 06/20/17 10:25 ALT 17 U/L (12-78) 06/20/17 10:25 Alkaline Phosphatase 118 U/L (45-117) H 06/20/17 10:25 Total Protein 7.0 g/dl (6.4-8.2) 06/20/17 10:25 Albumin 3.2 g/dl (3.4-5.0) L 06/20/17 10:25 CARDIAC ENZYMES Creatine Kinase 76 IU/L (39-308) 06/19/17 06:15 Troponin I 0.06 ng/ml (0.00-0.05) H 06/19/17 06:15 Current Medications Generic Name Dose Route Start Last Admin Trade Name Hans PRN Reason Stop Dose Admin Aspirin 81 mg 06/19/17 10:00 06/20/17 11:03 Asa - PO Not Given DAILY [facility] Epoetin Fransisco 10,000 unit 06/20/17 09:53 Procrit - IVPUSH 06/20/17 09:54 ONCE ONE Furosemide 80 mg 06/19/17 14:00 06/20/17 05:50 Lasix Injection - IVPB 80 mg BID@0600,1400 [facility] Administration Heparin Sodium (Porcine) 5,000 unit 06/18/17 22:15 06/20/17 11:04 Heparin - SQ Not Given Q8H-IV [facility] Hydralazine HCl 10 mg 06/19/17 06:00 06/20/17 05:50 Apresoline - PO 10 mg TID [facility] Administration Insulin Aspart 1 vial 06/18/17 22:00 06/20/17 06:03 Novolog Vial Sliding Scale - SQ Not Given ACHS [facility] Protocol Insulin Detemir 8 units 06/19/17 22:00 06/19/17 21:13 Levemir Vial SQ 8 units HS [facility] Administration Isosorbide Mononitrate 10 mg 06/19/17 09:37 06/20/17 11:03 Ismo - PO Not Given TIDISORDIL AND[facility] Metoprolol Succinate 25 mg 06/19/17 10:00 06/20/17 10:05 Toprol Xl - PO 25 mg DAILY ANDERW Administration Sevelamer Carbonate 800 mg 06/19/17 12:00 06/20/17 11:03 Renvela - PO Not Given TIDCM ANDREW Sodium Bicarbonate 650 mg 06/20/17 10:00 06/20/17 11:03 Sodium Bicarbonate - PO Not Given BID ANDREW Home Medications Medication Instructions Recorded Aspirin [ASA -] 81 mg PO DAILY 06/18/17 Hydralazine HCl 10 mg PO Q8H 06/18/17 Isosorbide Mononitrate 10 mg PO Q8H 06/18/17 Metoprolol Succinate [Toprol Xl -] 25 mg PO DAILY 06/18/17 PE: per resident's note. LUNG: positive for rales at the basis BL. Heart positive for S3, S1S2 positive cxr:Mild cardiomegaly with bilateral increased interstitial markings that may represent mild pulmonary venous congestion. Right lung base consolidation/ pneumonia with a small right pleural effusion. There are also mild atelectatic changes in the left lung base with possible infiltrates. Dopplers le :There is no evidence of deep venous thromboses in both lower extremities. 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 #JAIMIE with Progressive CKD stage 5 with volume overload, Nephrology consult appreciated. given IV Lasix , As per nephrology's notes will try to get his baseline labs. from his applications support engineer. Patient will have dialysis in am. is arranging the dialysis and the chair. hep.panel is pending. #Acute CHF continue IV lasix , daily weights #Anemia of chronic disease with normal MCV, will order iron studies and stool occult blood #DM: SS with coverage, check Hgb A1C #Hypertension continue hydralazine #Anion gap Metabolic acidosis , patient was started on sodium bicarbonate 650mg BID, goal bicarb > 22 Patient does not have chair, and Hepatitis panel is pending.
[2017-06-20 11:28] LABS: INR 1.17 (0.82-1.09); PROTHROMBIN TIME (PATIENT) 13.2 SEC (9.98-11.88)
[2017-06-20] MEDS ORDERED: LIDOCAINE HCL 1%, 10 MG/ML (20ML VIAL) ONE (12:08)
--- NOTE | 2017-06-20 12:17 | PN ---
Teaching Attending Note Name of Resident: Solange Beebe (Nephrology) ATTENDING PHYSICIAN STATEMENT I saw and evaluated the patient. I reviewed the resident's note and discussed the case with the resident. I agree with the resident's findings and plan as documented. SUBJECTIVE: Pt seen and examined at the bedside awake and alert no acute complaints no sob, chest pain pt is NPO for permacath placement today, dialysis to follow OBJECTIVE: Vital Signs Temperature 98.1 F 06/20/17 05:51 Pulse Rate 87 06/20/17 10:40 Respiratory Rate 20 06/20/17 05:51 Blood Pressure 124/67 06/20/17 05:51 O2 Sat by Pulse Oximetry (%) 97 06/20/17 10:40 Intake & Output 06/17/17 06/18/17 06/19/17 06/20/17 23:59 23:59 23:59 23:59 Intake Total 10 200 Output Total 300 Balance -290 200 Weight 165 lb 164 lb 2 oz 164 lb 6.4 oz NAD awake and alert RRR, No M/R Dec BS at lung bases soft NT/ND no bladder distension 1+ LE edema CBC, BMP 06/20/17 10:25 06/20/17 10:25 Current Medications Aspirin (Asa -) 81 mg PO DAILY [facility] Last Admin: 06/20/17 11:03 Dose: Not Given Epoetin Fransisco (Procrit -) 10,000 unit IVPUSH ONCE ONE Stop: 06/20/17 09:54 Furosemide (Lasix Injection -) 80 mg IVPB BID@0600,1400 [facility] Last Admin: 06/20/17 05:50 Dose: 80 mg Heparin Sodium (Porcine) (Heparin -) 5,000 unit SQ Q8H-IV ANDRE[facility] Last Admin: 06/20/17 11:04 Dose: Not Given Hydralazine HCl (Apresoline -) 10 mg PO TID [facility] Last Admin: 06/20/17 05:50 Dose: 10 mg Insulin Aspart (Novolog Vial Sliding Scale -) 1 vial SQ ACHS ANDREW PRN Reason: Protocol Last Admin: 06/20/17 11:48 Dose: Not Given Insulin Detemir (Levemir Vial) 8 units SQ HS [facility] Last Admin: 06/19/17 21:13 Dose: 8 units Isosorbide Mononitrate (Ismo -) 10 mg PO TIDISORDIL [facility] Last Admin: 06/20/17 11:03 Dose: Not Given Metoprolol Succinate (Toprol Xl -) 25 mg PO DAILY [facility] Last Admin: 06/20/17 10:05 Dose: 25 mg Sevelamer Carbonate (Renvela -) 800 mg PO TIDCM [facility] Last Admin: 06/20/17 11:48 Dose: Not Given Sodium Bicarbonate (Sodium Bicarbonate -) 650 mg PO BID [facility] Last Admin: 06/20/17 11:03 Dose: Not Given ASSESSMENT AND PLAN: 71 year old gentleman with PMhx of CKD stage 5 not yet on dialysis, DM Type 2 > 20 years, Hypertension, CHF who presented to the ED with complaints of SOB and found to have fluid overload and BUN/Cr of 129/6.3. #CKD stage 5 with nephrotic range proteinuria likely secondary to diabetic nephropathy Outside records obtained [facility] showing BUN > 100 and Cr > 5 on last admission a few weeks ago pt warrants dialysis and is agreeable to start the risks of dialysis including but not limited to bleeding, hypotension, weakness, anaphylaxis explained to the patient and he expressed understanding for permacath placement by Sx (AVF not mature yet) for Hd today, 2 hr treatment, followed by 2.5 hour Tx tomorrow UF as toleated once on dialysis can change Lasix to 80mg PO once daily #CHF continue IV lasix, transition to oral lasix once on dialysis #Acute vs. Chronic Anemia will transfuse 1 unit prbc with Hd today iron stuides show low iron saturation will give IV iron with subequent dialysis will need GI eval for screening colonoscopy if not already done #Anion gap Metabolic acidosis start sodium bicarbonate 650mg BID goal bicarb > 22 Ant Martino DO Problem List - Problems (1) Bilateral lower extremity edema Code(s): R60.0 - LOCALIZED EDEMA (2) CHF (congestive heart failure) Code(s): I50.9 - HEART FAILURE, UNSPECIFIED (3) CKD (chronic kidney disease) stage 5, GFR less than 15 ml/min Code(s): N18.5 - CHRONIC KIDNEY DISEASE, STAGE 5 (4) Volume overload Code(s): E87.70 - FLUID OVERLOAD, UNSPECIFIED (5) Metabolic acidosis Code(s): E87.2 - ACIDOSIS (6) Anemia Code(s): D64.9 - ANEMIA, UNSPECIFIED
[2017-06-20] MEDS ORDERED: MIDAZOLAM HCL 2 MG/2 ML SINGLE DOSE VIAL ONE (13:11)
[2017-06-20] MEDS ORDERED: ceFAZolin SODIUM 1 GM VIAL IVPB ONE ×2 (14:02)
[2017-06-20] MEDS ORDERED: LIDOCAINE HCL 1%, 10 MG/ML (50 mL VIAL) IJ ONE ×2 (14:07)
[2017-06-20] MEDS ORDERED: ceFAZolin SODIUM 1 GM VIAL ONE (14:20)
--- NOTE | 2017-06-20 14:25 | OP ---
Operative Note - Note: Operative Date: 06/20/17 Pre-Operative Diagnosis: ESRD Operation: insertion of permacath Post-Operative Diagnosis: Same as Pre-op Surgeon: Chato Flower Anesthesia: Fractional Estimated Blood Loss (mls): 20 Operative Report Dictated: Yes
[2017-06-20] MEDS ORDERED: INSULIN (NOVOLOG) ASPART 100 UNITS/ML 10ML VIAL ONE (20:47)
[2017-06-20] MEDS: INSULIN DETEMIR 100 UNITS/ML MDV SQ SCH (21:50)
[2017-06-20] MEDS: SODIUM BICARBONATE 650 MG TABLET PO SCH (21:51)
[2017-06-21] MEDS ORDERED: IRON SUCROSE INJECTION 100 MG in SODIUM CHLORIDE 95 ML IVPB ONE (06:00)
[2017-06-21] MEDS: hydrALAZINE HCL 10 MG TABLET PO SCH ×4 (06:10→21:34)
[2017-06-21] MEDS: FUROSEMIDE 40 MG/4 ML INJECTABLE VIAL IVPB SCH ×2 (06:10→06:49)
[2017-06-21] MEDS: INSULIN SLIDING SCALE (NOVOLOG) 1 VIAL SQ SCH ×4 (06:11→21:34)
[2017-06-21] MEDS ORDERED: MICROFIBRILLAR COLLAGEN 1 GM EACH TP ONE (06:47)
[2017-06-21] MEDS ORDERED: DESMOPRESSIN ACETATE 4 MCG/ML AMP IVPB ONE (07:38)
[2017-06-21 07:40] LABS: BASOPHIL 0.9 % (0-2.0); EOSINOPHIL 1.5 % (0-4.5); MCH 29.4 pg (25.7-33.7); MCHC 34.4 g/dl (32.0-35.9); MEAN CELL VOLUME 85.5 fl (80-96); MEAN PLT VOLUME 7.5 fl (7.5-11.1); NEUTROPHILS 71.8 % (42.8-82.8); PLATELET COUNT 167 K/MM3 (134-434); RDW 15.2 % (11.9-15.9); WHITE BLOOD COUNT 5.8 K/mm3 (4.0-10.0)
[2017-06-21] MEDS ORDERED: DESMOPRESSIN ACETATE 20 MCG in SODIUM CHLORIDE 50 ML IVPB ONE (07:45)
[2017-06-21 08:00] LABS: INR 1.15 (0.82-1.09)
[2017-06-21 08:03] LABS: ACTIVATED PTT 27.5 SECONDS (26.9-34.4)
[2017-06-21 08:19] LABS: ALBUMIN 2.6 g/dl (3.4-5.0); ALK PHOS 97 U/L (45-117); ANION GAP 11 (8-16); BILIRUBIN,TOTAL 0.7 mg/dL (0.2-1.0); CO2 24 mmol/L (21-32); CREATININE 4.6 mg/dL (0.7-1.3); GLUCOSE,RANDOM 94 mg/dL (74-106); MAGNESIUM 2.1 mg/dL (1.8-2.4); SGOT/AST 11 U/L (15-37); SGPT/ALT 12 U/L (12-78); TOT PROT 5.8 g/dl (6.4-8.2)
--- NOTE | 2017-06-21 08:27 | PN ---
Progress Note (short form) - Note Progress Note: Renal Follow up for CKD stage 5 now on dialysis Pt seen and examined at the bedside pt has been having bleeding from his permacath insertion site overnight pressure dressings have been applied but bleeding continued pt tolerated first dialysis well yesterday no acute complaints this am OBJECTIVE: Vital Signs Temperature 98.1 F 06/21/17 06:00 Pulse Rate 73 06/21/17 06:00 Respiratory Rate 16 06/21/17 06:00 Blood Pressure 138/58 06/21/17 06:00 O2 Sat by Pulse Oximetry (%) 98 06/20/17 21:00 Intake & Output 06/18/17 06/19/17 06/20/17 06/21/17 23:59 23:59 23:59 23:59 Intake Total 10 300 220 Output Total 300 820 Balance -290 -520 220 Weight 165 lb 164 lb 2 oz 164 lb 6.4 oz NAD awake and alert RRR, No M/R Dec BS at lung bases soft NT/ND ozzing blood from the permacath insertion site no bladder distension 1+ LE edema CBC, BMP 06/21/17 06:40 Laboratory Tests 06/21/17 06:40 BUN Pending Creatinine Pending Current Medications Aspirin (Asa -) 81 mg PO DAILY [facility] Fentanyl (Sublimaze Injection -) 25 mcg IVPUSH [id number] PRN PRN Reason: PAIN Stop: 06/23/17 13:51 Furosemide (Lasix Injection -) 80 mg IVPB BID@0600,1400 [facility] Last Admin: 06/21/17 06:49 Dose: Not Given Heparin Sodium (Porcine) (Heparin -) 5,000 unit SQ TID [facility] Last Admin: 06/20/17 22:34 Dose: Not Given Hydralazine HCl (Apresoline -) 10 mg PO TID [facility] Last Admin: 06/21/17 06:49 Dose: Not Given Iron Sucrose 100 mg/ Sodium (Chloride) 100 mls @ 200 mls/hr IVPB ONCE ONE Stop: 06/21/17 06:29 Insulin Aspart (Novolog Vial Sliding Scale -) 1 vial SQ ACHS ANDREW PRN Reason: Protocol Last Admin: 06/21/17 06:11 Dose: Not Given Insulin Detemir (Levemir Vial) 8 units SQ HS [facility] Last Admin: 06/20/17 21:50 Dose: 8 units Isosorbide Mononitrate (Ismo -) 10 mg PO TIDISORDIL [facility] Last Admin: 06/20/17 18:17 Dose: 10 mg Metoprolol Succinate (Toprol Xl -) 25 mg PO DAILY [facility] Sevelamer Carbonate (Renvela -) 800 mg PO TIDCM [facility] Last Admin: 06/20/17 18:17 Dose: 800 mg Sodium Bicarbonate (Sodium Bicarbonate -) 650 mg PO BID [facility] Last Admin: 06/20/17 21:51 Dose: 650 mg ASSESSMENT AND PLAN: 71 year old gentleman with PMhx of CKD stage 5 not yet on dialysis, DM Type 2 > 20 years, Hypertension, CHF who presented to the ED with complaints of SOB and found to have fluid overload and BUN/Cr of 129/6.3. #CKD stage 5 with nephrotic range proteinuria likely secondary to diabetic nephropathy tolerated first dialysis well w/o complication for 2nd dialysis today #Bleeding likely related to uremic platelet dysfunction to get DDAVP this am further dialysis to bring down BUN pressure dressing vascular sx follow up #CHF change lasix to 80mg PO daily #Acute vs. Chronic Anemia Hgb 7.7-> 7.1 despite 1 unit prbc transfusion blood loss from catheter site? will transfuse 2 additional units of blood today s/p epogen yesterday with HD #Anion gap Metabolic acidosis continue sodium bicarbonate 650mg BID goal bicarb > 22 Ant Martino DO Problem List - Problems (1) Bilateral lower extremity edema Code(s): R60.0 - LOCALIZED EDEMA (2) CHF (congestive heart failure) Code(s): I50.9 - HEART FAILURE, UNSPECIFIED (3) CKD (chronic kidney disease) stage 5, GFR less than 15 ml/min Code(s): N18.5 - CHRONIC KIDNEY DISEASE, STAGE 5 (4) Volume overload Code(s): E87.70 - FLUID OVERLOAD, UNSPECIFIED (5) Metabolic acidosis Code(s): E87.2 - ACIDOSIS (6) Anemia Code(s): D64.9 - ANEMIA, UNSPECIFIED
[2017-06-21] MEDS: SEVELAMER CARBONATE 800 MG TAB (FP) PO SCH ×3 (08:55→16:30)
[2017-06-21] MEDS: ISOSORBIDE MONONITRATE 20 MG TABLET PO SCH ×4 (08:55→17:00)
[2017-06-21] MEDS: METOPROLOL SUCCINATE 25 MG TAB.SR.24H (FP) PO SCH (09:20)
[2017-06-21] MEDS: ASPIRIN 81 MG CHEWABLE TABLETS PO SCH (09:20)
[2017-06-21] MEDS: SODIUM BICARBONATE 650 MG TABLET PO SCH ×2 (09:20→21:34)
--- NOTE | 2017-06-21 09:39 | PN ---
Progress Note (short form) - Note Progress Note: Anesthesia Post Op Pt seen and examined S;alert and awake O: Vital Signs Temperature 98.1 F 06/21/17 06:00 Pulse Rate 73 06/21/17 06:00 Respiratory Rate 16 06/21/17 06:00 Blood Pressure 138/58 06/21/17 06:00 O2 Sat by Pulse Oximetry (%) 98 06/20/17 21:00 CBC, BMP 06/21/17 06:40 06/21/17 06:40 A/P: Current Active Problems Anemia (Acute) Bilateral lower extremity edema (Acute) CHF (congestive heart failure) (Acute) CKD (chronic kidney disease) stage 5, GFR less than 15 ml/min (Acute) Metabolic acidosis (Acute) Volume overload (Acute) s/p permancath insertion woozing from the incision site to be evaluated Doing well post op otherwise Continue current care Medhat Pritchett MD
--- NOTE | 2017-06-21 13:20 | PN ---
Problem List - Problems (1) Anemia Assessment/Plan: anemia of chronic kidney disease follow up with renal recommendation Code(s): D64.9 - ANEMIA, UNSPECIFIED Qualifiers: Anemia type: due to chronic kidney disease Chronic kidney disease stage : on chronic dialysis Qualified Code(s): N18.6 - End stage renal disease ; N18.6 - End stage renal disease; N18.6 - End stage renal disease; N18.6 - End stage renal disease; D63.1 - Anemia in chronic kidney disease; D63.1 - Anemia in chronic kidney disease; Z99.2 - Dependence on renal dialysis; Z99.2 - Dependence on renal dialysis; Z99.2 - Dependence on renal dialysis; Z99.2 - Dependence on renal dialysis (2) Bilateral lower extremity edema Assessment/Plan: 2/2 fluid overload patient is imprved with dialysis Code(s): R60.0 - LOCALIZED EDEMA (3) CHF (congestive heart failure) Assessment/Plan: systolic dysfunction with EF of 45% will follow up with cardiology for medical optimization Code(s): I50.9 - HEART FAILURE, UNSPECIFIED Qualifiers: Congestive heart failure type: systolic (4) CKD (chronic kidney disease) stage 5, GFR less than 15 ml/min Code(s): N18.5 - CHRONIC KIDNEY DISEASE, STAGE 5 (5) Volume overload Code(s): E87.70 - FLUID OVERLOAD, UNSPECIFIED Qualifiers: Hypervolemia type: other Qualified Code(s): E87.79 - Other fluid overload; E87.79 - Other fluid overload (6) Bleeding at insertion site Assessment/Plan: patient is bleeding from the site of insertion of the perma-cath pressure dressing applied 1 unit pRBC was guiven during dialysis repeat the CBC in the evening labs DDAVP was given over night will repeat if needed Code(s): L76.82 - OTH POSTPROCEDURAL COMPLICATIONS OF SKIN, SUBCU
--- NOTE | 2017-06-21 15:49 | PN ---
Progress Note (short form) - Note Progress Note: Vascular Surgery Pt seen and examined. Bleeding from puncture site. Suture placed at site. no more bleeding. cont present care Chato dunlap DO
[2017-06-21 19:03] LABS: MCH 29.9 pg (25.7-33.7); MCHC 34.5 g/dl (32.0-35.9); MEAN CELL VOLUME 86.7 fl (80-96); MEAN PLT VOLUME 7.3 fl (7.5-11.1); PLATELET COUNT 164 K/MM3 (134-434); RDW 14.9 % (11.9-15.9); WHITE BLOOD COUNT 6.9 K/mm3 (4.0-10.0)
[2017-06-21] MEDS ORDERED: diphenhydrAMINE HCL 25 MG CAPSULE (FP) PO ONE (21:29)
[2017-06-21] MEDS: INSULIN DETEMIR 100 UNITS/ML MDV SQ SCH (21:37)
[2017-06-22] MEDS ORDERED: MICROFIBRILLAR COLLAGEN 1 GM EACH TP ONE ×2 (01:36→03:15)
[2017-06-22] MEDS: hydrALAZINE HCL 10 MG TABLET PO SCH ×3 (06:35→22:13)
[2017-06-22] MEDS: INSULIN SLIDING SCALE (NOVOLOG) 1 VIAL SQ SCH ×4 (06:37→22:14)
[2017-06-22 07:53] LABS: BASOPHIL 0.9 % (0-2.0); EOSINOPHIL 2.5 % (0-4.5); MCH 29.6 pg (25.7-33.7); MCHC 34.2 g/dl (32.0-35.9); MEAN CELL VOLUME 86.4 fl (80-96); MEAN PLT VOLUME 7.4 fl (7.5-11.1); NEUTROPHILS 60.1 % (42.8-82.8); PLATELET COUNT 171 K/MM3 (134-434); WHITE BLOOD COUNT 7.1 K/mm3 (4.0-10.0)
[2017-06-22] MEDS ORDERED: PT OWN MED DRAWER 7, Y5N ONE ×2 (08:14→09:50)
[2017-06-22] MEDS: SEVELAMER CARBONATE 800 MG TAB (FP) PO SCH ×3 (08:18→16:52)
[2017-06-22 08:22] LABS: ANION GAP 11 (8-16); CALCIUM 8.1 mg/dL (8.5-10.1); CO2 27 mmol/L (21-32); GLUCOSE,RANDOM 126 mg/dL (74-106); MAGNESIUM 2.2 mg/dL (1.8-2.4)
[2017-06-22 08:23] LABS: CREATININE 4.5 mg/dL (0.7-1.3); PHOSPHOROUS 3.8 mg/dL (2.5-4.9)
--- NOTE | 2017-06-22 09:27 | PN ---
Progress Note (short form) - Note Progress Note: Renal Follow up for CKD stage 5 now on dialysis Pt seen and examined at the bedside no acute complaints s/p 2nd HD yesterday w/o complication bleeding from catheter site is now resolved OBJECTIVE: Vital Signs Temperature 98 F 06/22/17 06:00 Pulse Rate 72 06/22/17 06:00 Respiratory Rate 19 06/22/17 06:00 Blood Pressure 152/76 06/22/17 06:00 O2 Sat by Pulse Oximetry (%) 98 06/21/17 21:00 Intake & Output 06/19/17 06/20/17 06/21/17 06/22/17 23:59 23:59 23:59 23:59 Intake Total 10 300 600 130 Output Total 300 820 200 Balance -290 -520 400 130 Weight 164 lb 2 oz 164 lb 6.4 oz NAD awake and alert RRR, No M/R Dec BS at lung bases soft NT/ND ozzing blood from the permacath insertion site no bladder distension 1+ LE edema CBC, BMP 06/22/17 05:15 06/22/17 05:15 Current Medications Aspirin (Asa -) 81 mg PO DAILY [facility] Last Admin: 06/21/17 09:20 Dose: Not Given Fentanyl (Sublimaze Injection -) 25 mcg IVPUSH [id number] PRN PRN Reason: PAIN Stop: 06/23/17 13:51 Furosemide (Lasix -) 80 mg PO DAILY [facility] Hydralazine HCl (Apresoline -) 10 mg PO TID [facility] Last Admin: 06/22/17 06:35 Dose: 10 mg Insulin Aspart (Novolog Vial Sliding Scale -) 1 vial SQ ACHS [facility] PRN Reason: Protocol Last Admin: 06/22/17 06:37 Dose: Not Given Insulin Detemir (Levemir Vial) 8 units SQ HS [facility] Last Admin: 06/21/17 21:37 Dose: 8 units Isosorbide Mononitrate (Ismo -) 10 mg PO TIDISORDIL [facility] Last Admin: 06/21/17 17:00 Dose: Not Given Metoprolol Succinate (Toprol Xl -) 25 mg PO DAILY [facility] Last Admin: 06/21/17 09:20 Dose: Not Given Sevelamer Carbonate (Renvela -) 800 mg PO TIDCM [facility] Last Admin: 06/22/17 08:18 Dose: 800 mg Sodium Bicarbonate (Sodium Bicarbonate -) 650 mg PO BID [facility] Last Admin: 06/21/17 21:34 Dose: 650 mg ASSESSMENT AND PLAN: 71 year old gentleman with PMhx of CKD stage 5 not yet on dialysis, DM Type 2 > 20 years, Hypertension, CHF who presented to the ED with complaints of SOB and found to have fluid overload and BUN/Cr of 129/6.3. #CKD stage 5 with nephrotic range proteinuria likely secondary to diabetic nephropathy now ESRD on HD s/p 2nd HD w/o complication plan for next HD tomorrow outpatient HD unit placement pending dose all meds for intermittent HD Renal Diet #Bleeding likely related to uremic platelet dysfunction no resolved s/p prbc transfusion #CHF lasix 80mg PO daily UF with HD as tolerated #Acute vs. Chronic Anemia Hgb improved s/p transfusion continue EDWINA with HD #Anion gap Metabolic acidosis improve s/p Hd d/c sodium bicarbonate Ant Martino DO Problem List - Problems (1) Bilateral lower extremity edema Code(s): R60.0 - LOCALIZED EDEMA (2) CHF (congestive heart failure) Code(s): I50.9 - HEART FAILURE, UNSPECIFIED Qualifiers: Congestive heart failure type: systolic (3) CKD (chronic kidney disease) stage 5, GFR less than 15 ml/min Code(s): N18.5 - CHRONIC KIDNEY DISEASE, STAGE 5 (4) Volume overload Code(s): E87.70 - FLUID OVERLOAD, UNSPECIFIED Qualifiers: Hypervolemia type: other Qualified Code(s): E87.79 - Other fluid overload; E87.79 - Other fluid overload (5) Metabolic acidosis Code(s): E87.2 - ACIDOSIS (6) Anemia Code(s): D64.9 - ANEMIA, UNSPECIFIED Qualifiers: Anemia type: due to chronic kidney disease Chronic kidney disease stage : on chronic dialysis Qualified Code(s): N18.6 - End stage renal disease ; N18.6 - End stage renal disease; N18.6 - End stage renal disease; N18.6 - End stage renal disease; D63.1 - Anemia in chronic kidney disease; D63.1 - Anemia in chronic kidney disease; Z99.2 - Dependence on renal dialysis; Z99.2 - Dependence on renal dialysis; Z99.2 - Dependence on renal dialysis; Z99.2 - Dependence on renal dialysis
[2017-06-22] MEDS: FUROSEMIDE 40 MG TABLET (FP) PO SCH (09:53)
[2017-06-22] MEDS: ASPIRIN 81 MG CHEWABLE TABLETS PO SCH (09:53)
[2017-06-22] MEDS: METOPROLOL SUCCINATE 25 MG TAB.SR.24H (FP) PO SCH (09:53)
[2017-06-22] MEDS: ISOSORBIDE MONONITRATE 20 MG TABLET PO SCH ×3 (09:54→17:35)
--- NOTE | 2017-06-22 11:08 | PN ---
Progress Note, Physician - Current Medication List Current Medications: Active Medications Aspirin (Asa -) 81 mg PO DAILY [facility] Last Admin: 06/22/17 09:53 Dose: 81 mg Epoetin [place]ans[place] (Procrit -) 20,000 unit IVPUSH ONCE ONE Stop: 06/23/17 06:01 Fentanyl (Sublimaze Injection -) 25 mcg IVPUSH [id number] PRN PRN Reason: PAIN Stop: 06/23/17 13:51 Furosemide (Lasix -) 80 mg PO DAILY [facility] Last Admin: 06/22/17 09:53 Dose: 80 mg Hydralazine HCl (Apresoline -) 10 mg PO TID [facility] Last Admin: 06/22/17 06:35 Dose: 10 mg Insulin Aspart (Novolog Vial Sliding Scale -) 1 vial SQ ACHS [facility] PRN Reason: Protocol Last Admin: 06/22/17 06:37 Dose: Not Given Insulin Detemir (Levemir Vial) 8 units SQ HS [facility] Last Admin: 06/21/17 21:37 Dose: 8 units Isosorbide Mononitrate (Ismo -) 10 mg PO TIDISORDIL [facility] Last Admin: 06/22/17 09:54 Dose: 10 mg Metoprolol Succinate (Toprol Xl -) 25 mg PO DAILY [facility] Last Admin: 06/22/17 09:53 Dose: 25 mg Sevelamer Carbonate (Renvela -) 800 mg PO TIDCM [facility] Last Admin: 06/22/17 08:18 Dose: 800 mg - Objective Vital Signs: Vital Signs Temperature 98 F 06/22/17 10:00 Pulse Rate 86 06/22/17 10:00 Respiratory Rate 18 06/22/17 10:00 Blood Pressure 145/64 06/22/17 10:00 O2 Sat by Pulse Oximetry (%) 98 06/21/17 21:00 Constitutional: Yes: Well Nourished, No Distress, Calm Eyes: Yes: WNL, Conjunctiva Clear, EOM Intact HENT: Yes: WNL, Atraumatic, Normocephalic Neck: Yes: WNL, Supple, Trachea Midline Cardiovascular: Yes: WNL, Regular Rate and Rhythm Respiratory: Yes: WNL, Regular, CTA Bilaterally Gastrointestinal: Yes: WNL, Normal Bowel Sounds Musculoskeletal: Yes: Other (patient has no oozing from the site of the insertion of the catheter) Edema: LUE: Trace, RUE: Trace, LLE: Trace, RLE: Trace Peripheral Pulses: Left Radial: 2+, Right Radial: 2+, Left Doralis Pedis: 2+, Right Dorsalis Pedis: 2+, Left Femoral: 2+, Right Femoral: 2+ Wound/Incision: Yes: Clean/Dry, Dressing Dry and Intact Neurological: Yes: WNL, Alert, Oriented Labs: CBC, BMP 06/22/17 05:15 06/22/17 05:15 INR, PTT INR 1.15 (0.82-1.09) H 06/21/17 06:40 Problem List - Problems (1) Anemia Assessment/Plan: chronic anemia 2/2 CKD will follow renal recommendation Code(s): D64.9 - ANEMIA, UNSPECIFIED Qualifiers: Anemia type: due to chronic kidney disease Chronic kidney disease stage : on chronic dialysis Qualified Code(s): N18.6 - End stage renal disease ; N18.6 - End stage renal disease; N18.6 - End stage renal disease; N18.6 - End stage renal disease; D63.1 - Anemia in chronic kidney disease; D63.1 - Anemia in chronic kidney disease; Z99.2 - Dependence on renal dialysis; Z99.2 - Dependence on renal dialysis; Z99.2 - Dependence on renal dialysis; Z99.2 - Dependence on renal dialysis (2) Bilateral lower extremity edema Assessment/Plan: resolved with dialysis Code(s): R60.0 - LOCALIZED EDEMA (3) CHF (congestive heart failure) Assessment/Plan: patient is clinically dry at this time, not in acute DCHF will continue medical therapy will continue toprol xl 25mg c.w hydralazine patient might benefit from an MARGARITA or ARB for his CHF but if cleared by renal Code(s): I50.9 - HEART FAILURE, UNSPECIFIED Qualifiers: Congestive heart failure type: systolic (4) Volume overload Assessment/Plan: patient is in normal state after dialysis Code(s): E87.70 - FLUID OVERLOAD, UNSPECIFIED Qualifiers: Hypervolemia type: other Qualified Code(s): E87.79 - Other fluid overload; E87.79 - Other fluid overload (5) Bleeding at insertion site Assessment/Plan: wound looks ood no blood was noted on the dressing hb is 8.9 dropped from 9.4, will repeat the hb in at 5pm and transfuse if needed Code(s): L76.82 - OTH POSTPROCEDURAL COMPLICATIONS OF SKIN, SUBCU
[2017-06-22 17:30] LABS: MCH 29.7 pg (25.7-33.7); MCHC 33.8 g/dl (32.0-35.9); MEAN CELL VOLUME 87.9 fl (80-96); MEAN PLT VOLUME 7.4 fl (7.5-11.1); PLATELET COUNT 165 K/MM3 (134-434); RDW 15.5 % (11.9-15.9); WHITE BLOOD COUNT 7.2 K/mm3 (4.0-10.0)
[2017-06-22] MEDS ORDERED: POTASSIUM CHLORIDE TABS 20 MEQ TABLET.ER (FP) PO ONE (18:03)
[2017-06-22] MEDS: INSULIN DETEMIR 100 UNITS/ML MDV SQ SCH (22:13)
[2017-06-23] MEDS: hydrALAZINE HCL 10 MG TABLET PO SCH (05:54)
[2017-06-23] MEDS: INSULIN SLIDING SCALE (NOVOLOG) 1 VIAL SQ SCH ×4 (06:11→21:25)
[2017-06-23 07:32] LABS: BASOPHIL 0.6 % (0-2.0); EOSINOPHIL 3.2 % (0-4.5); MCH 29.7 pg (25.7-33.7); MCHC 33.9 g/dl (32.0-35.9); MEAN CELL VOLUME 87.5 fl (80-96); MEAN PLT VOLUME 7.5 fl (7.5-11.1); NEUTROPHILS 67.3 % (42.8-82.8); PLATELET COUNT 185 K/MM3 (134-434); RDW 15.1 % (11.9-15.9)
[2017-06-23 07:47] LABS: MAGNESIUM 2.3 mg/dL (1.8-2.4)
[2017-06-23] MEDS ORDERED: PT OWN MED DRAWER 7, Y5N ONE (08:09)
[2017-06-23] MEDS: ISOSORBIDE MONONITRATE 20 MG TABLET PO SCH ×3 (08:40→17:21)
[2017-06-23 08:45] LABS: ANION GAP 13 (8-16); CALCIUM 8.1 mg/dL (8.5-10.1); CO2 27 mmol/L (21-32); CREATININE 4.8 mg/dL (0.7-1.3); GLUCOSE,RANDOM 103 mg/dL (74-106); PHOSPHOROUS 4.3 mg/dL (2.5-4.9)
[2017-06-23] MEDS: SEVELAMER CARBONATE 800 MG TAB (FP) PO SCH ×3 (08:45→17:20)
[2017-06-23] MEDS: ASPIRIN 81 MG CHEWABLE TABLETS PO SCH (09:46)
[2017-06-23] MEDS: FUROSEMIDE 40 MG TABLET (FP) PO SCH (10:42)
[2017-06-23] MEDS: METOPROLOL SUCCINATE 25 MG TAB.SR.24H (FP) PO SCH (10:42)
--- NOTE | 2017-06-23 11:37 | PN ---
Physical Exam: SUBJECTIVE: Patient seen and examined at bed side this morning. He complaints of chronic b/l lower extremity pain. Denies chest pain, sob, cough, palpitation , abdominal pain, nausea or vomiting. No urinary symptoms. As per RN, no acute overnight events. OBJECTIVE: Vital Signs Period Temp Pulse Resp BP Sys/Reeder Pulse Ox Last 24 Hr 97.8 F-98.8 F 71-97 18-20 129-155/59-76 94 GENERAL: Elderly male, is awake, alert, and fully oriented, in no acute distress. HEAD: Normal with no signs of trauma. EYES: EOM intact, pallor +, no icterus. ENT: Ears normal, moist mucous membranes. NECK: Supple. LUNGS: B/L breath sounds equal, b/l coarse breath sounds, no wheeze. HEART: Regular rate and rhythm, S1, S2 with grade 3/6 systolic murmur. ABDOMEN: Multiple superficial ecchymosis, Soft, nontender, nondistended, normoactive bowel sounds, no guarding, no rebound, no hepatosplenomegaly, no masses. UPPER EXTREMITIES: 2+ pulses, warm, well-perfused, no edema. LOWER EXTREMITIES: 2+ pulses, warm, well-perfused, B/L pitting edema. NEUROLOGICAL: No facial droop. Normal speech, gait not observed. PSYCH: Normal mood, normal affect. SKIN: Warm, dry, normal turgor, no rashes or lesions noted Laboratory Results - last 24 hr 06/22/17 06/22/17 06/22/17 11:52 16:50 17:15 WBC 7.2 RBC 2.96 L Hgb 8.8 L Hct 26.0 L MCV 87.9 MCH 29.7 MCHC 33.8 RDW 15.5 Plt Count 165 MPV 7.4 L Neutrophils % Lymphocytes % Monocytes % Eosinophils % Basophils % Sodium Potassium Chloride Carbon Dioxide Anion Gap BUN Creatinine POC Glucometer 212 150 Random Glucose Calcium Phosphorus Magnesium 06/22/17 06/23/17 06/23/17 22:11 05:37 06:35 WBC 8.0 RBC 3.13 L Hgb 9.3 L Hct 27.4 L MCV 87.5 MCH 29.7 MCHC 33.9 RDW 15.1 Plt Count 185 MPV 7.5 Neutrophils % 67.3 Lymphocytes % 19.7 D Monocytes % 9.2 Eosinophils % 3.2 Basophils % 0.6 Sodium Potassium Chloride Carbon Dioxide Anion Gap BUN Creatinine POC Glucometer 221 118 Random Glucose Calcium Phosphorus Magnesium 06/23/17 06/23/17 06:35 06:35 WBC RBC Hgb Hct MCV MCH MCHC RDW Plt Count MPV Neutrophils % Lymphocytes % Monocytes % Eosinophils % Basophils % Sodium 143 Cancelled Potassium 3.7 Cancelled Chloride 103 Cancelled Carbon Dioxide 27 Cancelled Anion Gap 13 Cancelled BUN 74 H Cancelled Creatinine 4.8 H Cancelled POC Glucometer Random Glucose 103 Cancelled Calcium 8.1 L Cancelled Phosphorus 4.3 Cancelled Magnesium 2.3 Active Medications Generic Name Dose Route Start Last Admin Trade Name Freq PRN Reason Stop Dose Admin Aspirin 81 mg 06/21/17 10:00 06/23/17 09:46 Asa - PO 81 mg DAILY [facility] Administration Epoetin Fransisco 20,000 unit 06/23/17 06:00 Procrit - IVPUSH 06/23/17 06:01 ONCE ONE Fentanyl 25 mcg 06/20/17 14:42 Sublimaze Injection - IVPUSH 06/23/17 13:51 [id number] PRN PAIN Furosemide 80 mg 06/22/17 10:00 06/22/17 09:53 Lasix - PO 80 mg DAILY [facility] Administration Insulin Aspart 1 vial 06/20/17 16:30 06/23/17 06:11 Novolog Vial Sliding Scale - SQ Not Given ACHS [facility] Protocol Insulin Detemir 8 units 06/20/17 22:00 06/22/17 22:13 Levemir Vial SQ 8 units HS [facility] Administration Isosorbide Mononitrate 10 mg 06/20/17 18:00 06/23/17 08:40 Ismo - PO 10 mg TIDISORDIL [facility] Administration Losartan Potassium 25 mg 06/23/17 10:00 Cozaar - PO DAILY [facility] Metoprolol Succinate 25 mg 06/21/17 10:00 06/22/17 09:53 Toprol Xl - PO 25 mg DAILY [facility] Administration Sevelamer Carbonate 800 mg 06/20/17 17:30 06/23/17 08:45 Renvela - PO 800 mg TIDCM [facility] Administration ASSESSMENT/PLAN: Patient is a 86 year old Female with significant past medical hx of CAD, COPD/ asthma on home O2, dementia, pulmonary lymphoma s/p lobectomy, HTN, HLD, GERD, hypothyroidism, 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 who presented with lightheadedness leading to a fall, was found to have sepsis likely secondary to HAP. 1. Sepsis secondary to hospital acquired pneumonia-Improving 2. Acute on chronic kidney injury with fluid overload 3. Normocytic Anemia 4. Metabolic acidosis with anion gap 5. CHF 6. HTN 7. HLD 8. DM 9. COPD on home o2 10. Wegeners granulomatosis Acute on chronic kidney injury-CKD stage 5 with fluid overload now on HD (s/p second HD without any complications) Permacath was placed this admission and HD was started and tolerating well on HD. Creatinine improving but still looks volume overloaded-has bibasilar crackles and b/l pitting edema No IV fluids Changed IV to PO Lasix 80mg Daily, post dialysis. I's and O's Daily weight Avoid Nephrotoxic drugs HD as outpatient, spoke with the nursing home social worker, they are working on finding an HD placement. Stable from renal stand point once outpatient HD is arranged. Hypertension-controlled Changed Hydralazine to Losartan 25mg PO Daily. Anion gap Metabolic acidosis Continue Sodium Bicarbonate 650mg PO BID Normocytic anemia requiring transfusion likely due to platelet dysfunction in the setting of uremia s/p Transfusion this admission. Most likely it will improve after dialysis. EPO to be given on dialysis days. Repeat CBC in am and to tranfuse if Hb < 7gm/dl Illness, Investigation and plan of care involving his kidney issues has been explained. He verbalized understanding. Case seen and discussed with Dr. Martino. Visit type - Emergency Visit Emergency Visit: Yes ED Registration Date: 06/18/17 Care time: The patient presented to the Emergency Department on the above date and was hospitalized for further evaluation of their emergent condition. - New Patient This patient is new to me today: No - Critical Care Critical Care patient: No
--- NOTE | 2017-06-23 11:40 | PN ---
Teaching Attending Note Name of Resident: Solange Beebe (Nephrology) ATTENDING PHYSICIAN STATEMENT I saw and evaluated the patient. I reviewed the resident's note and discussed the case with the resident. I agree with the resident's findings and plan as documented. SUBJECTIVE: Pt reports feeling unwell. Reports SOB and LE pain below the level of the knee. Last dialysis was Friday making urine OBJECTIVE: Vital Signs Temperature 97.8 F 06/23/17 10:00 Pulse Rate 97 H 06/23/17 10:00 Respiratory Rate 20 06/23/17 10:00 Blood Pressure 149/71 06/23/17 10:00 O2 Sat by Pulse Oximetry (%) 94 L 06/22/17 21:00 Intake & Output 06/20/17 06/21/17 06/22/17 06/23/17 23:59 23:59 23:59 23:59 Intake Total 300 600 670 50 Output Total 820 200 600 100 Balance -520 400 70 -50 Weight 164 lb 6.4 oz 160 lb NAD RRR, no M/R Dec BS at lung bases Soft NT/ND 1+ edema in LE bilaterally right IJ tunneled catheter in place CBC, BMP 06/23/17 06:35 06/23/17 06:35 Laboratory Tests 06/23/17 06:35 Calcium 8.1 L Phosphorus 4.3 Magnesium 2.3 Current Medications Aspirin (Asa -) 81 mg PO DAILY [facility] Last Admin: 06/23/17 09:46 Dose: 81 mg Epoetin [place]ans[place] (Procrit -) 20,000 unit IVPUSH ONCE ONE Stop: 06/23/17 06:01 Fentanyl (Sublimaze Injection -) 25 mcg IVPUSH [id number] PRN PRN Reason: PAIN Stop: 06/23/17 13:51 Furosemide (Lasix -) 80 mg PO DAILY [facility] Last Admin: 06/22/17 09:53 Dose: 80 mg Insulin Aspart (Novolog Vial Sliding Scale -) 1 vial SQ ACHS [facility] PRN Reason: Protocol Last Admin: 06/23/17 06:11 Dose: Not Given Insulin Detemir (Levemir Vial) 8 units SQ HS [facility] Last Admin: 06/22/17 22:13 Dose: 8 units Isosorbide Mononitrate (Ismo -) 10 mg PO TIDISORDIL [facility] Last Admin: 06/23/17 08:40 Dose: 10 mg Losartan Potassium (Cozaar -) 25 mg PO DAILY [facility] Metoprolol Succinate (Toprol Xl -) 25 mg PO DAILY [facility] Last Admin: 06/22/17 09:53 Dose: 25 mg Sevelamer Carbonate (Renvela -) 800 mg PO TIDCM [facility] Last Admin: 06/23/17 08:45 Dose: 800 mg ASSESSMENT AND PLAN: 71 year old gentleman with PMhx of CKD stage 5 not yet on dialysis, DM Type 2 > 20 years, Hypertension, CHF who presented to the ED with complaints of SOB and found to have fluid overload and BUN/Cr of 129/6.3. #CKD stage 5 with nephrotic range proteinuria likely secondary to diabetic nephropathy now ESRD on HD for Hd today wt planned 2.5-3L UF as tolerated continue Lasix 80mg Daily Start Losartan 25mg Daily outpatient HD unit placement pending #Bleeding likely related to uremic platelet dysfunction Hgb stable continue EDWINA with HD #CHF lasix 80mg PO daily UF with HD as tolerated #Acute vs. Chronic Anemia Hgb improved s/p transfusion continue EDWINA with HD Ant Martino DO Problem List - Problems (1) Bilateral lower extremity edema Code(s): R60.0 - LOCALIZED EDEMA (2) CHF (congestive heart failure) Code(s): I50.9 - HEART FAILURE, UNSPECIFIED (3) CKD (chronic kidney disease) stage 5, GFR less than 15 ml/min Code(s): N18.5 - CHRONIC KIDNEY DISEASE, STAGE 5 (4) Volume overload Code(s): E87.70 - FLUID OVERLOAD, UNSPECIFIED Qualifiers: Qualified Code(s): E87.79 - Other fluid overload; E87.79 - Other fluid overload (5) Metabolic acidosis Code(s): E87.2 - ACIDOSIS (6) Anemia Code(s): D64.9 - ANEMIA, UNSPECIFIED Qualifiers: Qualified Code(s): N18.6 - End stage renal disease; N18.6 - End stage renal disease; N18.6 - End stage renal disease; N18.6 - End stage renal disease ; D63.1 - Anemia in chronic kidney disease; D63.1 - Anemia in chronic kidney disease; Z99.2 - Dependence on renal dialysis; Z99.2 - Dependence on renal dialysis; Z99.2 - Dependence on renal dialysis; Z99.2 - Dependence on renal dialysis
[2017-06-23] MEDS ORDERED: EPOETIN ALFA 20,000 UNIT/1 ML VIAL IVPUSH ONE (12:30)
[2017-06-23] MEDS: LOSARTAN POTASSIUM 25 MG TABLET PO SCH (15:50)
--- NOTE | 2017-06-23 15:50 | PN ---
Teaching Attending Note Name of Resident: Catherine Lee ATTENDING PHYSICIAN STATEMENT I saw and evaluated the patient. I reviewed the resident's note and discussed the case with the resident. I agree with the resident's findings and plan as documented. SUBJECTIVE: c/o feeling week frustrated denies pain continues having SOB not ambulating past 2 days OBJECTIVE: Vital Signs Temperature 97.7 F 06/23/17 15:00 Pulse Rate 81 06/23/17 15:00 Respiratory Rate 18 06/23/17 15:00 Blood Pressure 141/74 06/23/17 15:00 O2 Sat by Pulse Oximetry (%) 94 L 06/22/17 21:00 NAD RRR, no M/R Dec BS at lung bases Soft NT/ND 1+ edema in LE bilaterally right IJ tunneled catheter in place CBC, BMP 06/23/17 06:35 06/23/17 06:35 ASSESSMENT AND PLAN: 1. Dyspnea - secondary to fluid overload. Factors could be worsening renal function , non compliance with diuretics and underlying exacerbation of heart failure ( unknown EF ) .Improved with HD and diuretics - c/w lasix daily 2. ESRD CKD stage 5 with nephrotic range proteinuria likely secondary to diabetic nephropathy Pcath placed on this admission s/p HD Left arm AVF - not mature HD outpatient 3. Anemia - AOCD - stable s/p transfusion 4. DM - c/w Insulin SS and Lantus D/C planning in progress. Awaiting Hepatitis Panel results to be placed in SNF with HD
--- NOTE | 2017-06-23 16:44 | PN ---
Physical Exam: SUBJECTIVE: Patient seen and examined Seen sitting up and eating. Was said to have been walking down the hallway over the weekend. Says is SOB when he lies down. No more bleeding from permacath site. OBJECTIVE: Vital Signs Period Temp Pulse Resp BP Sys/Reeder Pulse Ox Last 24 Hr 97.7 F-98.8 F 70-97 18-20 129-155/66-97 94 GENERAL: The patient is awake, alert. EYES: PERRL, extraocular movements intact, sclera anicteric, conjunctiva clear. No ptosis. ENT: moist mucous membranes. NECK: Catheter in place on R neck, blood stained tape in place. Clean gauze dressing above catheter, dry. supple neck. LUNGS: Reduced breath sounds , no wheezes, no crackles HEART: Regular rate and rhythm, S1, S2 without murmur, ABDOMEN: Soft, nontender, nondistended, normoactive bowel sounds EXTREMITIES: 2+ pulses, warm, well-perfused, bilateral pedal edema 1+. NEUROLOGICAL: Normal speech, gait not observed. PSYCH: Pt appears irritated. Laboratory Results - last 24 hr 06/22/17 06/22/17 06/22/17 16:50 17:15 22:11 WBC 7.2 RBC 2.96 L Hgb 8.8 L Hct 26.0 L MCV 87.9 MCH 29.7 MCHC 33.8 RDW 15.5 Plt Count 165 MPV 7.4 L Neutrophils % Lymphocytes % Monocytes % Eosinophils % Basophils % Sodium Potassium Chloride Carbon Dioxide Anion Gap BUN Creatinine POC Glucometer 150 221 Random Glucose Calcium Phosphorus Magnesium 06/23/17 06/23/17 06/23/17 05:37 06:35 06:35 WBC 8.0 RBC 3.13 L Hgb 9.3 L Hct 27.4 L MCV 87.5 MCH 29.7 MCHC 33.9 RDW 15.1 Plt Count 185 MPV 7.5 Neutrophils % 67.3 Lymphocytes % 19.7 D Monocytes % 9.2 Eosinophils % 3.2 Basophils % 0.6 Sodium 143 Potassium 3.7 Chloride 103 Carbon Dioxide 27 Anion Gap 13 BUN 74 H Creatinine 4.8 H POC Glucometer 118 Random Glucose 103 Calcium 8.1 L Phosphorus 4.3 Magnesium 2.3 06/23/17 06:35 WBC RBC Hgb Hct MCV MCH MCHC RDW Plt Count MPV Neutrophils % Lymphocytes % Monocytes % Eosinophils % Basophils % Sodium Cancelled Potassium Cancelled Chloride Cancelled Carbon Dioxide Cancelled Anion Gap Cancelled BUN Cancelled Creatinine Cancelled POC Glucometer Random Glucose Cancelled Calcium Cancelled Phosphorus Cancelled Magnesium Active Medications Generic Name Dose Route Start Last Admin Trade Name Hans PRN Reason Stop Dose Admin Aspirin 81 mg 06/21/17 10:00 06/23/17 09:46 Asa - PO 81 mg DAILY ANDREW Administration Furosemide 80 mg 06/22/17 10:00 06/22/17 09:53 Lasix - PO 80 mg DAILY ANDREW Administration Insulin Aspart 1 vial 06/20/17 16:30 06/23/17 15:51 Novolog Vial Sliding Scale - SQ Not Given ACHS ANDREW Protocol Insulin Detemir 8 units 06/20/17 22:00 06/22/17 22:13 Levemir Vial SQ 8 units HS ANDREW Administration Isosorbide Mononitrate 10 mg 06/20/17 18:00 06/23/17 08:40 Ismo - PO 10 mg TIDISORDIL ANDREW Administration Losartan Potassium 25 mg 06/23/17 10:00 06/23/17 15:50 Cozaar - PO 25 mg DAILY ANDREW Administration Metoprolol Succinate 25 mg 06/21/17 10:00 06/22/17 09:53 Toprol Xl - PO 25 mg DAILY ANDREW Administration Sevelamer Carbonate 800 mg 06/20/17 17:30 06/23/17 15:51 Renvela - PO 800 mg TIDCM ANDREW Administration ASSESSMENT/PLAN: 71 year old gentleman with PMhx of CKD stage 5 not yet on dialysis, DM Type 2 > 20 years, Hypertension, CHF who presented to the ED with complaints of SOB and found to have fluid overload and BUN/Cr of 129/6.3. # volume overload : In CKD stage 5 now on dialysis s/p hemodialysis 2 sessions Less overload, pedal edema improved, creps reduced On Lasix to 80mg daily Dose all meds for CrCl less then 10 #CHF continue lasix Trend daily weights # Anemia Stable s/p transfusion Received procrit #DM On Insulin #Hypertension continue hydralazine #Dispo Awaiting Hepatitis screen for d/c to SNF with dialysis Visit type - Emergency Visit Emergency Visit: Yes ED Registration Date: 06/18/17 Care time: The patient presented to the Emergency Department on the above date and was hospitalized for further evaluation of their emergent condition. - New Patient This patient is new to me today: No - Critical Care Critical Care patient: No - Discharge Referral Referred to [facility] No
[2017-06-23] MEDS: INSULIN DETEMIR 100 UNITS/ML MDV SQ SCH (21:25)
[2017-06-23] MEDS ORDERED: diphenhydrAMINE HCL 50 MG CAPSULE PO ONE (23:01)
[2017-06-23] MEDS ORDERED: diphenhydrAMINE HCL 25 MG CAPSULE (FP) PO ONE (23:15)
[2017-06-24] MEDS: INSULIN SLIDING SCALE (NOVOLOG) 1 VIAL SQ SCH ×2 (06:30→14:05)
[2017-06-24] MEDS: ISOSORBIDE MONONITRATE 20 MG TABLET PO SCH ×2 (08:17→14:02)
[2017-06-24] MEDS: SEVELAMER CARBONATE 800 MG TAB (FP) PO SCH ×2 (08:17→12:29)
--- NOTE | 2017-06-24 08:46 | PN ---
Physical Exam: SUBJECTIVE: Patient seen and examined Patient said to wander over the floors at night, refusing to sleep in bed. He complained about a bed alarm that he did not want. OBJECTIVE: Vital Signs Period Temp Pulse Resp BP Sys/Reeder Pulse Ox Last 24 Hr 97.7 F-98.6 F 70-97 18-20 133-158/63-97 97 GENERAL: The patient is awake, in no acute distress. EYES: sclera anicteric, conjunctiva clear. ENT:moist mucous membranes. NECK: Catheter inplace and dressing over neck on the R dry, no more bleeding. supple. LUNGS: Few creps lung bases HEART: Regular rate and rhythm, S1, S2 without murmur ABDOMEN: Soft, nontender, nondistended, normoactive bowel sounds EXTREMITIES: Bilateral pedal edema, 1+, not as tender. 2+ pulses, warm, well- perfused NEUROLOGICAL: Normal speech, gait not observed. PSYCH: Improved mood, better communication with me this am. Laboratory Results - last 24 hr 06/19/17 06/22/17 06/23/17 02:37 11:40 06:35 Sodium 143 Potassium 3.7 Chloride 103 Carbon Dioxide 27 Anion Gap 13 BUN 74 H Creatinine 4.8 H POC Glucometer Random Glucose 103 Calcium 8.1 L Phosphorus 4.3 Magnesium 2.3 Hepatitis A IgM Ab Hep Bs Antigen Hep Bs Ab Concentration Reactive Hep B Core IgM Ab Hepatitis C Ab (EIA) Blood Type O POSITIVE Antibody Screen Negative Crossmatch See Detail 06/23/17 06/23/17 06/23/17 10:30 16:46 21:17 Sodium Potassium Chloride Carbon Dioxide Anion Gap BUN Creatinine POC Glucometer 143 272 Random Glucose Calcium Phosphorus Magnesium Hepatitis A IgM Ab Negative Hep Bs Antigen Negative Hep Bs Ab Concentration Hep B Core IgM Ab Positive H Hepatitis C Ab (EIA) >11.0 H Blood Type Antibody Screen Crossmatch 06/24/17 05:37 Sodium Potassium Chloride Carbon Dioxide Anion Gap BUN Creatinine POC Glucometer 115 Random Glucose Calcium Phosphorus Magnesium Hepatitis A IgM Ab Hep Bs Antigen Hep Bs Ab Concentration Hep B Core IgM Ab Hepatitis C Ab (EIA) Blood Type Antibody Screen Crossmatch Active Medications Generic Name Dose Route Start Last Admin Trade Name Freq PRN Reason Stop Dose Admin Aspirin 81 mg 06/21/17 10:00 06/23/17 09:46 Asa - PO 81 mg DAILY ANDREW Administration Furosemide 80 mg 06/22/17 10:00 06/23/17 10:42 Lasix - PO Not Given DAILY ANDREW Insulin Aspart 1 vial 06/20/17 16:30 06/24/17 06:30 Novolog Vial Sliding Scale - SQ Not Given ACHS [facility] Protocol Insulin Detemir 8 units 06/20/17 22:00 06/23/17 21:25 Levemir Vial SQ 8 units HS ANDREW Administration Isosorbide Mononitrate 10 mg 06/20/17 18:00 06/24/17 08:17 Ismo - PO 10 mg TIDISORDIL ANDREW Administration Losartan Potassium 25 mg 06/23/17 10:00 06/23/17 15:50 Cozaar - PO 25 mg DAILY ANDREW Administration Metoprolol Succinate 25 mg 06/21/17 10:00 06/23/17 10:42 Toprol Xl - PO Not Given DAILY ANDREW Sevelamer Carbonate 800 mg 06/20/17 17:30 06/24/17 08:17 Renvela - PO 800 mg TIDCM ANDREW Administration ASSESSMENT/PLAN: 71 year old gentleman with PMhx of CKD stage 5 not yet on dialysis, DM Type 2 > 20 years, Hypertension, CHF who presented to the ED with complaints of SOB and found to have fluid overload and BUN/Cr of 129/6.3. # volume overload : In CKD stage 5 now on dialysis s/p hemodialysis 2 sessions Less overload, pedal edema improved, creps reduced On Lasix to 80mg daily Dose all meds for CrCl less then 10 D/W Dr Martino patient may be discharged #CHF continue lasix Trend daily weights # Anemia Stable s/p transfusion Receive procrit weekly with dialysis #DM Not diabetic - HgbA1c within normal- discontinue #Hypertension continue hydralazine losartan metoprolol #Chronic Bilateral lower extremity pain Could be neuropathic pain, but patient is not diabetic, could be osteoarthritis Gabapentin 100mg daily trial #Dispo d/c to SNF with dialysis
[2017-06-24] MEDS ORDERED: PT OWN MED DRAWER 7, Y5N ONE (10:07)
[2017-06-24] MEDS: METOPROLOL SUCCINATE 25 MG TAB.SR.24H (FP) PO SCH (10:08)
[2017-06-24] MEDS: LOSARTAN POTASSIUM 25 MG TABLET PO SCH (10:08)
[2017-06-24] MEDS: ASPIRIN 81 MG CHEWABLE TABLETS PO SCH (10:08)
[2017-06-24] MEDS: FUROSEMIDE 40 MG TABLET (FP) PO SCH (10:09)
[2017-06-24] MEDS ORDERED: GABAPENTIN 100 MG CAPSULE (FP) PO SCH (12:00)
[2017-06-24 14:22] VITALS: BP 141/64; PULSE 70; TEMP 98.9
--- NOTE | 2017-06-24 15:13 | DS ---
Physical Exam: SUBJECTIVE: Patient seen and examined Patient said to wander over the floors at night, refusing to sleep in bed. He complained about a bed alarm that he did not want. OBJECTIVE: Vital Signs Period Temp Pulse Resp BP Sys/Reeder Pulse Ox Last 24 Hr 97.8 F-98.9 F 70-92 19-20 119-158/58-75 97-97 PHYSICAL EXAM GENERAL: The patient is awake, in no acute distress. EYES: sclera anicteric, conjunctiva clear. ENT:moist mucous membranes. NECK: Catheter inplace and dressing over neck on the R dry, no more bleeding. supple. LUNGS: Few creps lung bases HEART: Regular rate and rhythm, S1, S2 without murmur ABDOMEN: Soft, nontender, nondistended, normoactive bowel sounds EXTREMITIES: Bilateral pedal edema, 1+, not as tender. 2+ pulses, warm, well- perfused NEUROLOGICAL: Normal speech, gait not observed. PSYCH: Improved mood, better communication with me this am. LABS Laboratory Results - last 24 hr 06/19/17 06/21/17 06/22/17 02:37 06:40 11:40 POC Glucometer Hepatitis A IgM Ab Hep Bs Antigen Hep Bs Ab Concentration Reactive Hep B Core IgM Ab Hepatitis C Ab (EIA) Blood Type O POSITIVE O POSITIVE Antibody Screen Negative Negative Crossmatch See Detail See Detail 06/23/17 06/23/17 06/23/17 10:30 16:46 21:17 POC Glucometer 143 272 Hepatitis A IgM Ab Negative Hep Bs Antigen Negative Hep Bs Ab Concentration Hep B Core IgM Ab Positive H Hepatitis C Ab (EIA) >11.0 H Blood Type Antibody Screen Crossmatch 06/24/17 06/24/17 05:37 11:01 POC Glucometer 115 206 Hepatitis A IgM Ab Hep Bs Antigen Hep Bs Ab Concentration Hep B Core IgM Ab Hepatitis C Ab (EIA) Blood Type Antibody Screen Crossmatch HOSPITAL COURSE: Date of Admission:06/18/17 Date of Discharge: 06/24/17 89 year old gentleman with PMhx of CKD stage 5 not yet on dialysis, DM Type 2 > 20 years, Hypertension, CHF who presented to the ED with complaints of SOB and found to have fluid overload and BUN/Cr of 129/6.3 at presentation # volume overload : In CKD stage 5 now on dialysis s/p hemodialysis 2 sessions Less overload, pedal edema improved, creps reduced On Lasix to 80mg daily Dose all meds for CrCl less then 10 D/W Dr Martino patient may be discharged Dialysis Schedule Friday, Friday, Friday #CHF continue lasix Trend daily weights # Anemia Stable s/p transfusion Receive procrit weekly with dialysis #DM Not diabetic - HgbA1c within normal- discontinue insulin #Hypertension continue hydralazine losartan metoprolol #Chronic Bilateral lower extremity pain Could be neuropathic pain, but patient is not diabetic Gabapentin 100mg daily trial #Dispo d/c to SNF to continue dialysis Minutes to complete discharge: 45 Discharge Summary Reason For Visit: BILATERAL EDEMA OF LOWER EXTREMITY Current Active Problems Volume overload (Acute) Anemia (Chronic) CHF (congestive heart failure) (Chronic) Condition: Improved - Instructions Diet, Activity, Other Instructions: You came in with a lot of fluid in your lungs and body because your kidneys were not working as well as they should You have been placed on lasix 80mg daily, a water pill to help control the fluid in your body You got a permacatheter put in and have had 2 sessions of hemodialysis since you have been here Your dialysis schedule is Friday, Friday, Friday You received medication to help with your low blood level-Procrit You were also transfused while here You were put on medicine to help with excess phosphorus in your body-sevelamir For your heart condition and high blood pressure, you were continued on metoprolol 25mg daily You are receiving hydralazine [id number] three times a day Losartan 25mg daily Aspirin 81 mg daily Please follow up with your post hole digger Follow up with your software systems engineer- Dr Rhett Whaley Follow up with your primary care doctor If you feel increasing breathless or you feel like your symptoms are not getting better, please go to your primary care doctor, or to the nearest emergency room Referrals: Fiona Bermudez MD [Primary Care Provider] - 1 Week (To follow up after the admission for your esrd and chf ) [facility]position: [facility] - Home Medications Comprehensive Discharge Medication List: Ambulatory Orders Aspirin [ASA -] 81 mg PO DAILY 06/18/17 Hydralazine HCl 10 mg PO Q8H 06/18/17 Isosorbide Mononitrate 10 mg PO Q8H 06/18/17 Metoprolol Succinate [Toprol XL -] 25 mg PO DAILY 06/18/17 Furosemide [Lasix -] 80 mg PO DAILY #20 tablet 06/24/17 Gabapentin [Neurontin -] 100 mg PO DAILY #30 mg 06/24/17 Losartan Potassium [Cozaar -] 25 mg PO DAILY #30 tablet 06/24/17 Sevelamer Carbonate [Renvela -] 800 mg PO TIDCM #21 tab 06/24/17 This patient is new to me today: No Emergency Visit: Yes ED Registration Date: 06/18/17 Care time: The patient presented to the Emergency Department on the above date and was hospitalized for further evaluation of their emergent condition. Critical Care patient: No - Discharge Referral Referred to [facility].: No
--- NOTE | 2017-06-24 15:22 | PN ---
Progress Note (short form) - Note Progress Note: Renal Follow up for CKD stage 5 now on dialysis Pt seen and examined at the bedside awake and alert continues to have pain in b/l LE extending from above he knee no pain with walking sob and edema are improved OBJECTIVE: Vital Signs Temperature 98.9 F 06/24/17 14:21 Pulse Rate 70 06/24/17 14:21 Respiratory Rate 20 06/24/17 14:21 Blood Pressure 141/64 06/24/17 14:21 O2 Sat by Pulse Oximetry (%) 97 06/24/17 10:31 Intake & Output 06/21/17 06/22/17 06/23/17 06/24/17 23:59 23:59 23:59 23:59 Intake Total 600 670 420 710 Output Total 200 600 350 275 Balance 400 70 70 435 Weight 160 lb 155 lb 12.8 oz NAD awake and alert RRR, No M/R Dec BS at lung bases soft NT/ND ozzing blood from the permacath insertion site no bladder distension 1+ LE edema CBC, BMP 06/23/17 06:35 06/23/17 06:35 Current Medications Aspirin (Asa -) 81 mg PO DAILY [facility] Last Admin: 06/24/17 10:08 Dose: 81 mg Furosemide (Lasix -) 80 mg PO DAILY [facility] Last Admin: 06/24/17 10:09 Dose: 80 mg Gabapentin (Neurontin -) 100 mg PO DAILY [facility] Last Admin: 06/24/17 12:29 Dose: 100 mg Isosorbide Mononitrate (Ismo -) 10 mg PO TIDISORDIL [facility] Last Admin: 06/24/17 14:02 Dose: 10 mg Losartan Potassium (Cozaar -) 25 mg PO DAILY [facility] Last Admin: 06/24/17 10:08 Dose: 25 mg Metoprolol Succinate (Toprol Xl -) 25 mg PO DAILY [facility] Last Admin: 06/24/17 10:08 Dose: 25 mg Sevelamer Carbonate (Renvela -) 800 mg PO TIDCM [facility] Last Admin: 06/24/17 12:29 Dose: 800 mg ASSESSMENT AND PLAN: 71 year old gentleman with PMhx of CKD stage 5 not yet on dialysis, DM Type 2 > 20 years, Hypertension, CHF who presented to the ED with complaints of SOB and found to have fluid overload and BUN/Cr of 129/6.3. 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 Chronic Anemia Hgb improved s/p transfusion continue EDWINA with HD #LE pain not a diabetic start gabapentin 100mg daily and monitor clinically Ant Martino DO Problem List - Problems (1) Bilateral lower extremity edema Code(s): R60.0 - LOCALIZED EDEMA (2) CHF (congestive heart failure) Code(s): I50.9 - HEART FAILURE, UNSPECIFIED Qualifiers: Congestive heart failure type: systolic (3) CKD (chronic kidney disease) stage 5, GFR less than 15 ml/min Code(s): N18.5 - CHRONIC KIDNEY DISEASE, STAGE 5 (4) Volume overload Code(s): E87.70 - FLUID OVERLOAD, UNSPECIFIED Qualifiers: Hypervolemia type: other Qualified Code(s): E87.79 - Other fluid overload; E87.79 - Other fluid overload (5) Metabolic acidosis Code(s): E87.2 - ACIDOSIS (6) Anemia Code(s): D64.9 - ANEMIA, UNSPECIFIED Qualifiers: Anemia type: due to chronic kidney disease Chronic kidney disease stage : on chronic dialysis Qualified Code(s): N18.6 - End stage renal disease ; N18.6 - End stage renal disease; N18.6 - End stage renal disease; N18.6 - End stage renal disease; D63.1 - Anemia in chronic kidney disease; D63.1 - Anemia in chronic kidney disease; Z99.2 - Dependence on renal dialysis; Z99.2 - Dependence on renal dialysis; Z99.2 - Dependence on renal dialysis; Z99.2 - Dependence on renal dialysis
--- NOTE | 2017-06-24 17:45 | PN ---
Teaching Attending Note Name of Resident: Catherine Lee ATTENDING PHYSICIAN STATEMENT I saw and evaluated the patient. I reviewed the resident's note and discussed the case with the resident. I agree with the resident's findings and plan as documented. SUBJECTIVE: Patient complains of chronic ankle pain. OBJECTIVE: Vital Signs Period Temp Pulse Resp BP Sys/Reeder Pulse Ox Last 24 Hr 97.8 F-98.9 F 70-92 19-20 119-158/58-75 97-97 HEART: S1S2, RRR LUNGS: Clear ABDOMEN: Soft, non-tender, non-distended, normal BS EXTREMITIES: Trace edema Current Medications Generic Name Dose Route Start Last Admin Trade Name Freq PRN Reason Stop Dose Admin Aspirin 81 mg 06/21/17 10:00 06/24/17 10:08 Asa - PO 81 mg DAILY ANDREW Administration Furosemide 80 mg 06/22/17 10:00 06/24/17 10:09 Lasix - PO 80 mg DAILY ANDREW Administration Gabapentin 100 mg 06/24/17 12:00 06/24/17 12:29 Neurontin - PO 100 mg DAILY ANDREW Administration Isosorbide Mononitrate 10 mg 06/20/17 18:00 06/24/17 14:02 Ismo - PO 10 mg TIDISORDIL ANDREW Administration Losartan Potassium 25 mg 06/23/17 10:00 06/24/17 10:08 Cozaar - PO 25 mg DAILY ANDREW Administration Metoprolol Succinate 25 mg 06/21/17 10:00 06/24/17 10:08 Toprol Xl - PO 25 mg DAILY ANDREW Administration Sevelamer Carbonate 800 mg 06/20/17 17:30 06/24/17 12:29 Renvela - PO 800 mg TIDCM ANDREW Administration ASSESSMENT AND PLAN: 1. ESRD - Had HD 06/21, 06/23 - Outpatient HD M/W/F at [facility] - Continue Renvela 2. Chronic systolic heart failure - Continue Lasix, HD for fluid management - Continue Cozaar 3. Anemia, likely secondary to CKD - Hemoglobin stable - Continue Procrit 4. HTN - Continue Cozaar, Toprol XL, Ismo, Lasix 5. History of CVA - Continue aspirin
--- NOTE | 2017-07-01 12:45 | OP ---
DATE OF OPERATION: 06/20/2017 PREOPERATIVE DIAGNOSIS: End-stage renal disease. POSTOPERATIVE DIAGNOSIS: End-stage renal disease. PROCEDURE: Insertion of Perma-Cath. SURGEON: Chato Blanco DO ANESTHESIA: Fractional. ESTIMATED BLOOD LOSS: 10 mL. INDICATIONS: The patient is a 71-year-old male with acute renal failure and needs temporary dialysis catheter placement. The patient was consented for the procedure understanding all risks, benefits, and alternatives and was then taken to the operating room. DESCRIPTION OF PROCEDURE: Once in the operating room, he was laid on the operating room table in supine manner. The area of the right neck and chest were prepped and draped in a sterile surgical manner. We then went ahead and under ultrasound guidance visualized the right internal jugular vein, and 10 mL of lidocaine 1% was injected there. We then took our micropuncture needle and punctured the right internal jugular vein under ultrasound guidance. Micropuncture wire was inserted under fluoroscopy. We then placed our 5-Malian sheath. We then placed a 0.035 floppy guidewire. We then injected 10 mL of lidocaine 1% above and below the clavicle. We then using our 11 blade made a 1-cm incision at the puncture site. Using a 15 blade, we made a 1-cm incision below the clavicle. We then tunneled the Perma-Cath up to the puncture site. We then placed our brachioradial sheath over the guidewire into the vein under fluoroscopy. The inner cannula and guidewire were removed. The catheter was placed inside the sheath. The sheath was broken away. The catheter was placed inside the vein. The neck of the catheter was nice and smooth. The tip of the catheter was located outside the right atrium. We then jeronimo back on each port of the catheter, and there was good flow. Heparinized saline was injected, and 2000 units of IV heparin was injected into each port. Using 4-0 Biosyn, 2 simple sutures were placed at the puncture site, 3-0 nylon was used, and the catheter was attached to the skin. Biopatch, Steri-Strips, 4x4s, and Tegaderms were placed. The patient tolerated the procedure well with no complications. The patient was transferred to the PACU in stable condition where a chest x-ray will be obtained. CHATO BLANCO DO MECHANICAL DESIGN TECHNICIAN/[id number]
== END 2017-06-24 17:56 | DRG 291 ==
LOC: JER 17:20 → JERBED 20:15 → OBSVTOIN 21:41 → J4W 06-19 03:40
PROVIDERS: ADMIT Internal Medicine; ATTEND Internal Medicine
PROC: B513YZA Fluoroscopy of Right Jugular Veins using Other Contrast, Guidance (ICD-10-PCS; 2017-06-20)
PROC: 3E043GC Introduction of Other Therapeutic Substance into Central Vein, Percutaneous Approach (ICD-10-PCS; 2017-06-20)
PROC: 5A1D70Z Performance of Urinary Filtration, Intermittent, Less than 6 Hours Per Day (ICD-10-PCS; 2017-06-20)
PROC: 30233N1 Transfusion of Nonautologous Red Blood Cells into Peripheral Vein, Percutaneous Approach (ICD-10-PCS; 2017-06-20)
PROC: 05HM33Z Insertion of Infusion Device into Right Internal Jugular Vein, Percutaneous Approach (ICD-10-PCS; principal; 2017-06-20 10:30)
DX: I13.2 Hypertensive heart and chronic kidney disease with heart failure and with stage 5 chronic kidney disease, or end stage renal disease (principal); N18.6 End stage renal disease; I50.21 Acute systolic (congestive) heart failure; J18.9 Pneumonia, unspecified organism; N17.8 Other acute kidney failure; E87.2 Acidosis; D63.1 Anemia in chronic kidney disease; E11.22 Type 2 diabetes mellitus with diabetic chronic kidney disease; I44.0 Atrioventricular block, first degree; R60.0 Localized edema; D69.1 Qualitative platelet defects; K21.9 Gastro-esophageal reflux disease without esophagitis; J44.9 Chronic obstructive pulmonary disease, unspecified; E78.5 Hyperlipidemia, unspecified; I25.10 Atherosclerotic heart disease of native coronary artery without angina pectoris; Z86.73 Personal history of transient ischemic attack (TIA), and cerebral infarction without residual deficits; Z99.81 Dependence on supplemental oxygen; Z91.15 Patient's noncompliance with renal dialysis; Z99.2 Dependence on renal dialysis
CPT/HCPCS: 36415; 36430; 71010-TC; 76000-TC; 76775-TC; 80048; 80053; 80061; 80074; 81003; 81015; 82550; 82570; 82607; 82728; 82746; 83036; 83540; 83550; 83721; 83735; 83880; 83970; 84100; 84156; 84466; 84484; 84540; 85025; 85027; 85610; 85730; 86706; 86707; 86850; 86900; 86901; 86922; 87086; 87340; 87522; 93005; 93010; 93306-TC; 93970-TC; 94760; 97116-GP; 97161-GP; 99284-25; G0378; J0885; J1644; J2597; P9038; P9058

== ENCOUNTER 2017-09-05 18:19 | Observation (INO) | payer OTHER, MEDICARE ==
--- NOTE | 2017-09-05 19:01 | PDOC ---
Attending Attestation - Resident Resident Name: Aleksey Ariza - ED Attending Attestation I have performed the following: I have examined & evaluated the patient, The case was reviewed & discussed with the resident, I agree w/resident's findings & plan, Exceptions are as noted - HPI HPI: 09/05/17 19:01 Unable to walk due to right groin pain - Physicial Exam PE: 09/05/17 19:01 VSS NAD - Medical Decision Making 09/05/17 19:[address] Ariza Assessment and Plan
[2017-09-05] MEDS ORDERED: morphine CARPU-JECT 4 MG/1 ML DISP.SYRIN IVPUSH ONE (19:17)
--- NOTE | 2017-09-05 19:45 | PDOC ---
History of Present Illness - General Chief Complaint: Pain Stated Complaint: PAIN Time Seen by Provider: 09/05/17 19:00 History Source: Patient Exam Limitations: No Limitations - History of Present Illness Initial Comments: 09/05/17 19:45 Patient is a 71M with PMH of CHF, ESRD on dialysis, htn, anemia, and cva 3 yrs ago is here today with pain in his inguinal region. Patient states that he had a sudden onset of pain along his right inguinal region that caused him to fall down several hours ago. He denies any trauma to the joint. He says that the pain continues now, and is very painful. Denies nausea, vomiting, fevers, and chills. Last bowel movement today. Patient still makes some urine, endorses some dysuria. Patient has a penile implant, placed 5 years ago. Denies sexual activity. Denies history of hernia. Denies LOC. Past History - Past Medical History Allergies/Adverse Reactions: Allergies Allergy/AdvReac Type Severity Reaction Status Date / Time No Known Allergies Allergy Verified 09/05/17 18:53 Home Medications: Ambulatory Orders Aspirin [ASA -] 81 mg PO DAILY 06/18/17 Hydralazine HCl 10 mg PO DAILY 06/18/17 Isosorbide Mononitrate 10 mg PO DAILY 06/18/17 Metoprolol Succinate [Toprol XL -] 25 mg PO DAILY 06/18/17 Losartan Potassium [Cozaar -] 25 mg PO DAILY #30 tablet 06/24/17 Cardiac Disorders: Yes COPD: No Diabetes: Yes Disorders: Yes (kidney failure, left arm fistula (not on dialysis yet)) HTN: Yes - Suicide/Smoking/Psychosocial Hx Smoking History: Never smoked Have you smoked in the past 12 months: No Information on smoking cessation initiated: No Hx Alcohol Use: No Drug/Substance Use Hx: No Substance Use Type: None Review of Systems - Review of Systems Comments:: 09/05/17 19:48 GENERAL/CONSTITUTIONAL: No fever or chills. HEAD, EYES, EARS, NOSE AND THROAT: No change in vision. No sore throat. CARDIOVASCULAR: No chest pain or shortness of breath RESPIRATORY: No cough, wheezing, or hemoptysis. GASTROINTESTINAL: No nausea, vomiting, diarrhea or constipation. GENITOURINARY: Positive for dysuria and frequency SKIN: No rash NEUROLOGIC: No headache, vertigo, loss of consciousness, or change in strength/ sensation. ENDOCRINE: No increased thirst. No abnormal weight change HEMATOLOGIC/LYMPHATIC: No anemia, easy bleeding, or history of blood clots. ALLERGIC/IMMUNOLOGIC: No hives or skin allergy. *Physical Exam - Vital Signs Last Vital Signs Temp Pulse Resp BP Pulse Ox 98.1 F 62 18 132/59 97 09/05/17 18:20 09/05/17 18:20 09/05/17 18:20 09/05/17 18:20 09/05/17 18:20 - Physical Exam Comments: 09/05/17 19:49 GENERAL: Awake, alert, and fully oriented, in no acute distress HEAD: No signs of trauma, normocephalic, atraumatic EYES: PERRLA, EOMI, sclera anicteric, conjunctiva clear ENT: Auricles normal inspection, hearing grossly normal, nares patent, oropharynx clear without exudates. Moist mucosa LUNGS: No distress, speaks full sentences, clear to auscultation bilaterally HEART: Regular rate and rhythm, normal S1 and S2, no murmurs, rubs or gallops, peripheral pulses normal and equal bilaterally. ABDOMEN: Soft, nontender, normoactive bowel sounds. No guarding, no rebound. No masses : Two testicles in scrotum, no other masses appreciated, tender to palpation along inguinal region on right side with possible mass. Testicles nontender, not swollen, not erythematous, no apparent torsion. Penile implant present. R HIP: Ranges hip, able to lift leg off bed. Nontender on lateral aspect of hip. No signs of trauma. EXTREMITIES: Normal inspection, Normal range of motion, no edema. No clubbing or cyanosis. NEUROLOGICAL: Cranial nerves II through XII grossly intact. Normal speech, normal gait, no focal sensorimotor deficits SKIN: Warm, Dry, normal turgor, no rashes or lesions noted. ED Treatment Course - LABORATORY CBC & Chemistry Diagram: 09/05/17 20:00 09/05/17 22:50 - RADIOLOGY Radiology Studies Ordered: Category Date Time Status ABDOMEN & PELVIS CT W/O CONTR [CT] Stat CT Scan 09/05/17 19:19 Ordered Medical Decision Making - Medical Decision Making 09/05/17 19:57 Patient is a 71M with PMH of CHF, ESRD on dialysis, htn, anemia, and cva 3 yrs ago is here today with possible inguinal hernia. Vital signs stable and normal, patient in pain. Will evaluate with abdominal labs and ct with po contrast, holding IV due to patient's dialysis status and low yield of IV contrast. Will treat with morphine. 09/06/17 00:00 Laboratory Tests 09/05/17 09/05/17 20:00 20:00 WBC 8.1 Hgb 11.1 L D Hct 33.2 L D Plt Count 224 D Potassium Cancelled BUN Cancelled Creatinine Cancelled Total Bilirubin Cancelled Lipase Cancelled CBC normal. K values normal. BUN/Cr as expected for ESRD patient. Lipase negative. CT scan pending. Signed out to Dr Luke. *DC/Admit/Observation/Transfer Diagnosis at time of Disposition: Abdominal pain - Referrals - Patient Instructions - Post Discharge Activity
[2017-09-05] MEDS ORDERED: ONDANSETRON 4 MG/2 ML VIAL IVPUSH ONE (20:11)
[2017-09-05] MEDS ORDERED: morphine CARPU-JECT 10 MG/1 ML DISP.SYRIN ONE (20:12)
[2017-09-05] MEDS ORDERED: ONDANSETRON 4 MG/2 ML VIAL ONE (20:13)
[2017-09-05 20:31] LABS: EOS % 1.8 % (0-4.5); HEMATOCRIT 33.2 % (35.4-49); HEMOGLOBIN 11.1 GM/dL (11.7-16.9); LYMPH % 12.6 % (8-40); MCH 28.7 pg (25.7-33.7); MCHC 33.4 g/dl (32.0-35.9); MEAN CELL VOLUME 85.7 fl (80-96); MEAN PLT VOLUME 7.6 fl (7.5-11.1); MONO % 8.2 % (3.8-10.2); NEUT % 76.4 % (42.8-82.8); PLATELET COUNT 224 K/MM3 (134-434); RBC 3.88 M/mm3 (4.00-5.60); RDW 15.9 % (11.9-15.9); WHITE BLOOD COUNT 8.1 K/mm3 (4.0-10.0)
[2017-09-05 23:24] LABS: ALBUMIN 3.1 g/dl (3.4-5.0); ALK PHOS 152 U/L (45-117); ANION GAP 12 (8-16); BILIRUBIN,TOTAL 0.4 mg/dL (0.2-1.0); BLOOD UREA NITROGEN 25 mg/dL (7-18); CALCIUM 8.2 mg/dL (8.5-10.1); CHLORIDE 96 mmol/L (98-107); CO2 30 mmol/L (21-32); CREATININE 3.4 mg/dL (0.7-1.3); GLUCOSE,RANDOM 197 mg/dL (74-106); POTASSIUM 4.4 mmol/L (3.5-5.1); SGOT/AST 9 U/L (15-37); SGPT/ALT 18 U/L (12-78); SODIUM 138 mmol/L (136-145); TOT PROT 6.5 g/dl (6.4-8.2)
--- NOTE | 2017-09-06 00:10 | PDOC ---
*Physical Exam - Vital Signs Last Vital Signs Temp Pulse Resp BP Pulse Ox 98.1 F 62 18 132/59 97 09/05/17 18:20 09/05/17 18:20 09/05/17 18:20 09/05/17 18:20 09/05/17 18:20 - Physical Exam Comments: 09/06/17 00:10 General Appearance: Nourished. No Apparent Distress HEENT: EOMI, CHERIE. No Pharyngeal Erythema, Tonsillar Exudate, Tonsillar Erythema Neck: No Cervical Lymphadenopathy Respiratory/Chest: Lungs Clear, Normal Breath Sounds. No Crackles, Rales, Rhonchi, Wheezing Cardiovascular: Regular Rhythm, Regular Rate. No Murmur, Gallops, Rubs Gastrointestinal/Abdominal: Normal Bowel Sounds, Soft. Mild tenderness to palpation over the right inguinal region. No Guarding, Rebound, Musculoskeletal: No CVA Tenderness Extremity: Normal Capillary Refill Integumentary: Normal Color, Dry, Warm Neurologic: Fully Oriented, Alert, Normal Mood/Affect, Normal Response, ED Treatment Course - LABORATORY CBC & Chemistry Diagram: 09/05/17 20:00 09/05/17 22:50 - ADDITIONAL ORDERS Additional order review: Laboratory Results 09/05/17 09/05/17 09/05/17 22:50 22:50 21:30 Sodium 138 Cancelled Potassium 4.4 Cancelled Chloride 96 L Cancelled Carbon Dioxide 30 Cancelled Anion Gap 12 Cancelled BUN 25 H D Cancelled Creatinine 3.4 H D Cancelled Creat Clearance w eGFR 17.84 Cancelled Random Glucose 197 H D Cancelled Calcium 8.2 L Cancelled Total Bilirubin 0.4 D Cancelled AST 9 L Cancelled ALT 18 D Cancelled Alkaline Phosphatase 152 H D Cancelled Total Protein 6.5 Cancelled Albumin 3.1 L Cancelled Lipase 175 Cancelled 09/05/17 20:00 Sodium Cancelled Potassium Cancelled Chloride Cancelled Carbon Dioxide Cancelled Anion Gap Cancelled BUN Cancelled Creatinine Cancelled Creat Clearance w eGFR Cancelled Random Glucose Cancelled Calcium Cancelled Total Bilirubin Cancelled AST Cancelled ALT Cancelled Alkaline Phosphatase Cancelled Total Protein Cancelled Albumin Cancelled Lipase Cancelled 09/05/17 20:00 RBC 3.88 L D MCV 85.7 MCHC 33.4 RDW 15.9 MPV 7.6 Neutrophils % 76.4 Lymphocytes % 12.6 D Monocytes % 8.2 Eosinophils % 1.8 Basophils % 1.0 - Medications Given in the ED: ED Medications Discontinued Medications Generic Name Dose Route Start Last Admin Trade Name Hans PRN Reason Stop Dose Admin Morphine Sulfate 4 mg 09/05/17 19:17 09/05/17 20:23 Morphine Injection - IVPUSH 09/05/17 19:18 4 mg ONCE ONE Administration Ondansetron HCl 4 mg 09/05/17 20:11 09/05/17 20:23 Zofran Injection IVPUSH 09/05/17 20:12 4 mg ONCE ONE Administration Progress Note - Progress Note Progress Note: Received sign out on the patient from Dr. Ariza. The patient is a 71 year old male with a history of CHF, ESRD on dialysis, htn, anemia, and cva 3 yrs ago who presents for evaluation of right inguinal abdominal pain. Patient is pending a CT abdomen pelvis for concerns of a possible hernia. Dispo pending CT. Medical Decision Making - Medical Decision Making 09/06/17 01:[address] scan demonstrated signs of CHF and a right lower lobe pneumonia as preliminarily read by the service station equipment mechanic radiologist pending official radiology read. We believe the patient requires admission at this time given his inability to ambulate and findings of pneumonia and CHF. We discussed with the hospitalist team who accepted the patient for admission. *DC/Admit/Observation/Transfer Diagnosis at time of Disposition: Abdominal pain Qualifiers: Abdominal location: unspecified location Qualified Code(s): R10.9 - Unspecified abdominal pain CHF (congestive heart failure) Qualifiers: Congestive heart failure type: unspecified congestive heart failure type Congestive heart failure chronicity: unspecified congestive heart failure chronicity Qualified Code(s): I50.9 - Heart failure, unspecified Pneumonia Qualifiers: Pneumonia type: due to unspecified organism Laterality: unspecified laterality Lung location: unspecified part of lung Qualified Code(s): J18.9 - Pneumonia, unspecified organism - Discharge Dispostion Condition at time of disposition: Guarded Admit: Yes - Referrals - Patient Instructions - Post Discharge Activity
[2017-09-06] MEDS ORDERED: CEFTRIAXONE 1 GM in DEXTROSE 5%-WATER - 50 ML IVPB ONE (00:56)
[2017-09-06] MEDS ORDERED: AZITHROMYCIN IVPB 500 MG in DEXTROSE 5%-WATER - 250 ML IVPB ONE (00:56)
[2017-09-06 01:40] LABS: CREATININE 3.3 mg/dL (0.7-1.3)
[2017-09-06 01:56] LABS: URINE APPEARANCE SLCLOUDY; URINE BILIRUBIN NEGATIVE (NEGATIVE); URINE BLOOD 1+ (NEGATIVE); URINE GLUCOSE (UA) 3+ (NEGATIVE); URINE KETONE NEGATIVE (NEGATIVE); URINE LEUK ESTERASE NEGATIVE (NEGATIVE); URINE NITRITE NEGATIVE (NEGATIVE); URINE UROBILINOGEN NEGATIVE mg/dL (0.2-1.0)
[2017-09-06] MEDS ORDERED: AZITHROMYCIN IVPB 250 ML IVPB ONE (02:00)
[2017-09-06] MEDS ORDERED: CEFTRIAXONE 1 GM/50 ML BAG ONE (02:01)
[2017-09-06 02:02] LABS: URINE COLOR DK YELLOW; URINE PROTEIN 3+ (NEGATIVE)
[2017-09-06 02:03] LABS: EPI CELLS RARE /HPF (FEW); URINE MUCUS RARE
--- NOTE | 2017-09-06 02:12 | HP ---
CHIEF COMPLAINT: "unable to stand due to b/l weakness of legs" PCP: Dr. Aidan Jaimes Picker: Dr. Judd Delaney HISTORY OF PRESENT ILLNESS: Patient is an 71 year old male presented to the ED via EMS with the chief complaint of " unable to stand due to b/l weakness of legs" x 1 day. As per the patient, he has had chronic leg weakness for the past 3 years, but was able to walk with the help of a walker. Yesterday, he was able to take a cab to the Dialysis center. This morning, he couldn't even move his legs. Complaints of right inguinal pain, radiating towards the right foot. Denies numbness or tingling sensation. Patient reports he fell on the road a week ago while walking, had slipped and fell, didn't hit his head. Didn't go the ED and he was feeling fine. Denies chest pain, sob, cough, palpitation, abdominal pain, nausea or vomiting, fever, chills, rigors, sweating. Bowel habit normal. Urinates minimal (has ESRD). Sleep/Appetite normal. Lives at home alone, uses a cane to walk. He was recently admitted at [facility] on 06/20/17 with the diagnosis of fluid overload , ESRD; Permacath was placed on 06/20/17. He had a f/up with Dr. Flower at wound care on 08/28/17 for evaluation of the left arm fistula which was placed about 2 months ago. At that time, he had mentioned about the fall and Lumbosacral x-ray was done which didn't show any acute fractures. ER course was notable for: (1) Afebrile, no leukocytosis (2) EKG: No acute ST or T wave changes (3) Abdominal/Pelvis CT (4) IV Azithromycin and Ceftriaxone Recent Travel: PAST MEDICAL HISTORY: DM, HTN, CHF, ESRD MWF (with Left arm AV fistula placed 2 months ago), Anemia, CVA 3 yrs ago PAST SURGICAL HISTORY:Left arm AV fistula placed Social History: Smoking: Denies Alcohol: Denies Drugs: Denies Family History: Non contributory Allergies No Known Allergies Allergy (Verified 09/05/17 18:53) HOME MEDICATIONS: Home Medications Medication Instructions Recorded Aspirin [ASA -] 81 mg PO DAILY 06/18/17 Hydralazine HCl 10 mg PO DAILY 06/18/17 Isosorbide Mononitrate 10 mg PO DAILY 06/18/17 Metoprolol Succinate [Toprol XL -] 25 mg PO DAILY 06/18/17 Losartan Potassium [Cozaar -] 25 mg PO DAILY #30 tablet 06/24/17 REVIEW OF SYSTEMS CONSTITUTIONAL: Present: Lower extremity weakness Absent: fever, chills, diaphoresis, generalized weakness, malaise, loss of appetite, weight change HEENT: Absent: rhinorrhea, nasal congestion, throat pain, throat swelling, difficulty swallowing, mouth swelling, ear pain, eye pain, visual changes CARDIOVASCULAR: Absent: chest pain, syncope, palpitations, irregular heart rate, lightheadedness , peripheral edema RESPIRATORY: Absent: cough, shortness of breath, dyspnea with exertion, orthopnea, wheezing, stridor, hemoptysis GASTROINTESTINAL: Absent: abdominal pain, abdominal distension, nausea, vomiting, diarrhea, constipation, melena, hematochezia GENITOURINARY: Absent: dysuria, frequency, urgency, hesitancy, hematuria, flank pain, genital pain MUSCULOSKELETAL: Absent: myalgia, arthralgia, joint swelling, back pain, neck pain SKIN: Absent: rash, itching, pallor HEMATOLOGIC/IMMUNOLOGIC: Absent: easy bleeding, easy bruising, lymphadenopathy, frequent infections ENDOCRINE: Absent: unexplained weight gain, unexplained weight loss, heat intolerance, cold intolerance NEUROLOGIC: Absent: headache, focal weakness or paresthesias, dizziness, unsteady gait, seizure, mental status changes, bladder or bowel incontinence PSYCHIATRIC: Absent: anxiety, depression, suicidal or homicidal ideation, hallucinations. PHYSICAL EXAMINATION Vital Signs - 24 hr 09/05/17 18:20 Temperature 98.1 F Pulse Rate 62 Respiratory 18 Rate Blood Pressure 132/59 O2 Sat by Pulse 97 Oximetry (%) GENERAL: Elderly male, Awake, alert, and fully oriented, in no acute distress. HEAD: Normal with no signs of trauma. EYES: EOM intact, no pallor or icterus. EARS, NOSE, THROAT: Ears normal. Moist mucous membranes. NECK: Supple. LUNGS: B/L Breath sounds equal, clear to auscultation bilaterally. No wheezes, and no crackles. No accessory muscle use. HEART: Regular rate and rhythm, normal S1 and S2 without murmur. Inguinal area: no rashes, pain during movement of hip. ABDOMEN: Soft, nontender, not distended, normoactive bowel sounds, no guarding, no rebound, no masses. No hepatomegaly or splenomegaly. MUSCULOSKELETAL: Normal range of motion at all joints. No bony deformities or tenderness. No CVA tenderness. UPPER EXTREMITIES: 2+ pulses, warm, well-perfused. No cyanosis. No clubbing. No peripheral edema. Left arm: Fistula-has a thrill + LEFT LOWER EXTREMITY: Power 5/5; 2+ pulses, warm, well-perfused. No calf tenderness. ++ pitting edema RIGHT LOWER EXTREMITY: Right straight leg raising test positive; Power 4/5; 2+ pulses, warm, well-perfused. No calf tenderness. ++ pitting edema. Pain during movement at inguinal area. NEUROLOGICAL: No facial droop. Cranial nerves II-XII intact. Normal speech. Gait not observed. PSYCHIATRIC: Cooperative. Good eye contact. Appropriate mood and affect. SKIN: Warm, dry, normal turgor, no rashes or lesions noted, normal capillary refill. Laboratory Results - last 24 hr 09/05/17 09/05/17 09/05/17 20:00 20:00 21:30 WBC 8.1 RBC 3.88 L D Hgb 11.1 L D Hct 33.2 L D MCV 85.7 MCH 28.7 MCHC 33.4 RDW 15.9 Plt Count 224 D MPV 7.6 Neutrophils % 76.4 Lymphocytes % 12.6 D Monocytes % 8.2 Eosinophils % 1.8 Basophils % 1.0 Sodium Cancelled Cancelled Potassium Cancelled Cancelled Chloride Cancelled Cancelled Carbon Dioxide Cancelled Cancelled Anion Gap Cancelled Cancelled BUN Cancelled Cancelled Creatinine Cancelled Cancelled Creat Clearance w eGFR Cancelled Cancelled Random Glucose Cancelled Cancelled Calcium Cancelled Cancelled Total Bilirubin Cancelled Cancelled AST Cancelled Cancelled ALT Cancelled Cancelled Alkaline Phosphatase Cancelled Cancelled Total Protein Cancelled Cancelled Albumin Cancelled Cancelled Lipase Cancelled Cancelled Urine Color Urine Appearance Urine pH Ur Specific [place] Urine Protein Urine Glucose (UA) Urine Ketones Urine Blood Urine Nitrite Urine Bilirubin Urine Urobilinogen Urine WBC (Auto) Urine RBC (Auto) Ur Epithelial Cells Urine Mucus 09/05/17 09/05/17 09/05/17 22:50 22:50 Unknown WBC RBC Hgb Hct MCV MCH MCHC RDW Plt Count MPV Neutrophils % Lymphocytes % Monocytes % Eosinophils % Basophils % Sodium 138 Potassium 4.4 Chloride 96 L Carbon Dioxide 30 Anion Gap 12 BUN 25 H 25 H D Creatinine 3.4 H 3.3 H D Creat Clearance w eGFR 17.84 Random Glucose 197 H D Calcium 8.2 L Total Bilirubin 0.4 D AST 9 L ALT 18 D Alkaline Phosphatase 152 H D Total Protein 6.5 Albumin 3.1 L Lipase 175 Urine Color Urine Appearance Urine pH Ur Specific [place] Urine Protein Urine Glucose (UA) Urine Ketones Urine Blood Urine Nitrite Urine Bilirubin Urine Urobilinogen Urine WBC (Auto) Urine RBC (Auto) Ur Epithelial Cells Urine Mucus 09/06/17 01:30 WBC RBC Hgb Hct MCV MCH MCHC RDW Plt Count MPV Neutrophils % Lymphocytes % Monocytes % Eosinophils % Basophils % Sodium Potassium Chloride Carbon Dioxide Anion Gap BUN Creatinine Creat Clearance w eGFR Random Glucose Calcium Total Bilirubin AST ALT Alkaline Phosphatase Total Protein Albumin Lipase Urine Color Dk yellow Urine Appearance Slcloudy Urine pH 5.0 Ur Specific [place] 1.022 Urine Protein 3+ H Urine Glucose (UA) 3+ H Urine Ketones Negative Urine Blood 1+ H Urine Nitrite Negative Urine Bilirubin Negative Urine Urobilinogen Negative Urine WBC (Auto) 11 Urine RBC (Auto) 3 Ur Epithelial Cells Rare Urine Mucus Rare Night hawk read: Abdominal/Pelvis CT: Mild to moderate left pleural effusion. b/l gyanecomastia, B/L inguinal hernia containing fat, no incarceration, small infiltrate in right lower lobe could be atelectasis vs pneumonia. ASSESSMENT/PLAN: Patient is an 71 year old male with significant past medical history of DM, HTN , CHF, ESRD MWF (with Left arm AV fistula placed 2 months ago), Anemia, CVA 3 yrs ago presented to the ED via EMS with the chief complaint of " unable to stand due to b/l weakness of legs" x 1 day. # B/L lower extremity weakness (Right> Left) Most likely secondary to chronic lower ext; likely to have questionable nerve impingement-right SLRT +; likely to be due to inguinal hernia Admit in Med/surg/ Obs Tylenol for pain control CT abdomen/Pelvis showed- b/l inguinal hernia containing fat Likely would need a rehab Physical therapy once stable # Unlikely pneumonia Although small infiltrate in RLL seen in CT, unlikely has PNA, since he is afebrile, no leukocytosis, lungs clear on ausculatation In the ED, was given IV Ceftriaxone and Azithromycin. Will monitor off antibiotics at this time. # ESRD MWF (through permacath, fistula isn't ready yet for use) Last dialysis was on Friday. Creatinine 3.3 on admission Avoid nephrotoxic drugs Dr. Martino consult requested for continuation of dialysis # Hypertension-controlled Continue Hydralazine 10mg PO Daily Continue Metoprolol 25mg PO Daily # Diabetes Mellitus A1c 5.4 done in 06/19/17; A1c could be affected by ESRD Continue ISS Takes Levemir 10 U at home, will continue Levemir 8 U Finger stick glucose monitoring Watch for hypoglyemic drugs. # CHF-not in exacerbation # CVA 3 yrs ago Continue Aspirin 81mg PO daily # FEN Not on IV fluids, tolerating PO Electrolytes WNL Sodium controlled diet # Prophylaxis For DVT: On Heparin 5000 IU sq TID For GI: Not indicated # Code Status: Full Code Illness, Investigation and plan of care explained to the patient. He verbalized understanding. Case discussed with Dr. Hernandez. Visit type - Emergency Visit Emergency Visit: Yes ED Registration Date: 09/06/17 Care time: The patient presented to the Emergency Department on the above date and was hospitalized for further evaluation of their emergent condition. - New Patient This patient is new to me today: Yes Date on this admission: 09/06/17 - Critical Care Critical Care patient: No
--- NOTE | 2017-09-06 03:34 | PN ---
Teaching Attending Note Name of Resident: Solange Beebe ATTENDING PHYSICIAN STATEMENT I saw and evaluated the patient. I reviewed the resident's note and discussed the case with the resident. I agree with the resident's findings and plan as documented. SUBJECTIVE: This is a 71 year old man with a history of HTN, chronic systolic heart failure, ESRD on HD, anemia, CVA who comes to the ER complaining of right inguinal pain which is making him unable to walk. He usually ambulates with the use of a cane or a walker. He reports falling about a week ago. He denies back pain, numbness/tingling, incontinence. OBJECTIVE: Vital Signs Period Temp Pulse Resp BP Sys/Reeder Pulse Ox Last 24 Hr 98.1 F 62 18 132/59 97 HEART: S1S2, RRR LUNGS: Clear ABDOMEN: Soft, non-tender, non-distended, normal BS EXTREMITIES: Trace edema, no inguinal nodes/masses/tenderness Laboratory Tests 09/05/17 09/05/17 09/05/17 20:00 20:00 21:30 WBC 8.1 RBC 3.88 L D Hgb 11.1 L D Hct 33.2 L D MCV 85.7 MCH 28.7 MCHC 33.4 RDW 15.9 Plt Count 224 D MPV 7.6 Neutrophils % 76.4 Lymphocytes % 12.6 D Monocytes % 8.2 Eosinophils % 1.8 Basophils % 1.0 Sodium Cancelled Cancelled Potassium Cancelled Cancelled Chloride Cancelled Cancelled Carbon Dioxide Cancelled Cancelled Anion Gap Cancelled Cancelled BUN Cancelled Cancelled Creatinine Cancelled Cancelled Creat Clearance w eGFR Cancelled Cancelled Random Glucose Cancelled Cancelled Calcium Cancelled Cancelled Total Bilirubin Cancelled Cancelled AST Cancelled Cancelled ALT Cancelled Cancelled Alkaline Phosphatase Cancelled Cancelled Total Protein Cancelled Cancelled Albumin Cancelled Cancelled Lipase Cancelled Cancelled Urine Color Urine Appearance Urine pH Ur Specific [place] Urine Protein Urine Glucose (UA) Urine Ketones Urine Blood Urine Nitrite Urine Bilirubin Urine Urobilinogen Urine WBC (Auto) Urine RBC (Auto) Ur Epithelial Cells Urine Mucus 09/05/17 09/05/17 09/05/17 22:50 22:50 Unknown WBC RBC Hgb Hct MCV MCH MCHC RDW Plt Count MPV Neutrophils % Lymphocytes % Monocytes % Eosinophils % Basophils % Sodium 138 Potassium 4.4 Chloride 96 L Carbon Dioxide 30 Anion Gap 12 BUN 25 H 25 H D Creatinine 3.4 H 3.3 H D Creat Clearance w eGFR 17.84 Random Glucose 197 H D Calcium 8.2 L Total Bilirubin 0.4 D AST 9 L ALT 18 D Alkaline Phosphatase 152 H D Total Protein 6.5 Albumin 3.1 L Lipase 175 Urine Color Urine Appearance Urine pH Ur Specific [place] Urine Protein Urine Glucose (UA) Urine Ketones Urine Blood Urine Nitrite Urine Bilirubin Urine Urobilinogen Urine WBC (Auto) Urine RBC (Auto) Ur Epithelial Cells Urine Mucus 09/06/17 01:30 WBC RBC Hgb Hct MCV MCH MCHC RDW Plt Count MPV Neutrophils % Lymphocytes % Monocytes % Eosinophils % Basophils % Sodium Potassium Chloride Carbon Dioxide Anion Gap BUN Creatinine Creat Clearance w eGFR Random Glucose Calcium Total Bilirubin AST ALT Alkaline Phosphatase Total Protein Albumin Lipase Urine Color Dk yellow Urine Appearance Slcloudy Urine pH 5.0 Ur Specific [place] 1.022 Urine Protein 3+ H Urine Glucose (UA) 3+ H Urine Ketones Negative Urine Blood 1+ H Urine Nitrite Negative Urine Bilirubin Negative Urine Urobilinogen Negative Urine WBC (Auto) 11 Urine RBC (Auto) 3 Ur Epithelial Cells Rare Urine Mucus Rare Home Medications Medication Instructions Recorded Aspirin [ASA -] 81 mg PO DAILY 06/18/17 Hydralazine HCl 10 mg PO DAILY 06/18/17 Isosorbide Mononitrate 10 mg PO DAILY 06/18/17 Metoprolol Succinate [Toprol XL -] 25 mg PO DAILY 06/18/17 Losartan Potassium [Cozaar -] 25 mg PO DAILY #30 tablet 06/24/17 ASSESSMENT AND PLAN: This is a 71 year old man with a history of HTN, chronic systolic heart failure , ESRD on HD, anemia, CVA who presents to the ER complaining of right groin pain and the inability to walk. 1. Right groin pain and inability to ambulate - CT shows bilateral inguinal hernias containing fat - LS spine x-rays show transitional S1 vertebra, lumbar spondylosis - Physical therapy - Consider CT/MRI of L-spine 2. Chronic systolic heart failure - Stable - Continue Cozaar, Toprol XL, Imdur, Hydralazine 3. HTN - Continue Cozaar, Hydralazine, Toprol XL 4. History of CVA - Continue aspirin 5. ESRD - Nephrology consult for HD
[2017-09-06] MEDS ORDERED: ACETAMINOPHEN 325 MG TABLET (FP) PO PRN (04:36)
[2017-09-06] MEDS: INSULIN SLIDING SCALE (NOVOLOG) 1 VIAL SQ SCH ×4 (06:26→22:13)
[2017-09-06] MEDS: HEPARIN NA (PORCINE) 5,000 UNITS/ML 1ML VIAL SQ SCH ×4 (06:29→22:14)
[2017-09-06 07:13] VITALS: BMI 20.6
[2017-09-06 08:46] LABS: HEMATOCRIT 31.7 % (35.4-49); HEMOGLOBIN 10.4 GM/dL (11.7-16.9); MCH 28.1 pg (25.7-33.7); MCHC 32.9 g/dl (32.0-35.9); MEAN CELL VOLUME 85.3 fl (80-96); MEAN PLT VOLUME 7.4 fl (7.5-11.1); PLATELET COUNT 180 K/MM3 (134-434); RBC 3.72 M/mm3 (4.00-5.60); WHITE BLOOD COUNT 6.6 K/mm3 (4.0-10.0)
[2017-09-06 08:57] LABS: ALBUMIN 2.8 g/dl (3.4-5.0); ANION GAP 7 (8-16); BLOOD UREA NITROGEN 28 mg/dL (7-18); CALCIUM 7.9 mg/dL (8.5-10.1); CHLORIDE 96 mmol/L (98-107); CO2 31 mmol/L (21-32); GLUCOSE,RANDOM 143 mg/dL (74-106); POTASSIUM 4.4 mmol/L (3.5-5.1); SODIUM 134 mmol/L (136-145)
[2017-09-06 09:15] LABS: ALK PHOS 144 U/L (45-117); BILIRUBIN,TOTAL 0.4 mg/dL (0.2-1.0); CREATININE 3.8 mg/dL (0.7-1.3); N-TERMINAL BNP 109874.53 pg/ml (5-125); SGOT/AST 6 U/L (15-37); SGPT/ALT 15 U/L (12-78); TOT PROT 6.2 g/dl (6.4-8.2)
[2017-09-06] MEDS ORDERED: PT OWN MED DRAWER 7, Y5N ONE ×2 (09:38→22:00)
[2017-09-06] MEDS: ASPIRIN 81 MG CHEWABLE TABLETS PO SCH (09:41)
[2017-09-06] MEDS: METOPROLOL SUCCINATE 25 MG TAB.SR.24H (FP) PO SCH (09:41)
[2017-09-06] MEDS: LOSARTAN POTASSIUM 25 MG TABLET PO SCH (09:41)
[2017-09-06] MEDS ORDERED: hydrALAZINE HCL 10 MG TABLET PO SCH (10:00)
[2017-09-06] MEDS ORDERED: ISOSORBIDE MONONITRATE 10 MG TABLET PO SCH (10:00)
--- NOTE | 2017-09-06 11:02 | EKG ---
Test Reason : Blood Pressure : / mmHG Vent. Rate : 064 BPM Atrial Rate : 064 BPM P-R Int : 274 ms QRS Dur : 094 ms QT Int : 458 ms P-R-T Axes : 032 009 110 degrees QTc Int : 472 ms SINUS RHYTHM WITH 1ST DEGREE A-V BLOCK VOLTAGE CRITERIA FOR LEFT VENTRICULAR HYPERTROPHY NONSPECIFIC T WAVE ABNORMALITY PROLONGED QT ABNORMAL ECG WHEN COMPARED WITH ECG OF 19-JUN-2017 02:42, T WAVE INVERSION NO LONGER EVIDENT IN INFERIOR LEADS T WAVE INVERSION NOW EVIDENT IN ANTERIOR LEADS CLINICAL CORRELATION IS RECOMMENDED Confirmed by ELIDA DIETRICH, DEVIN ([id number]) on 09/06/2017 11:01:36 AM Referred By: Confirmed By:DEVIN MARRERO MD
--- NOTE | 2017-09-06 11:03 | CON.NEP ---
Consult Consult Specialty:: Nephrology Referred by:: Dr. Landaverde Reason for Consultation:: ESRD on HD - History of Present Illness Chief Complaint: Groin pain and leg weakness History of Present Illness: This is a 71 year old gentleman with PMhx of ESRD on HD (recently started), Hypertension, Hepatitis C, CVA, CHF who presented with complaints of right sided groin pain and LE weakness. 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) Cardio/Vascular: Yes: CHF, HTN Renal/: Yes: Renal Failure, Renal Inusuff, Hemodialysis Endocrine: Yes: Diabetes Mellitus - Past Surgical History Past Surgical History: Yes: AV Fistula/Graft - Alcohol/Substance Use Hx Alcohol Use: No - Smoking History Smoking history: Never smoked Have you smoked in the past 12 months: No Home Medications - Allergies Allergies/Adverse Reactions: Allergies Allergy/AdvReac Type Severity Reaction Status Date / Time No Known Allergies Allergy Verified 09/05/17 18:53 - Home Medications Home Medications: Ambulatory Orders Aspirin [ASA -] 81 mg PO DAILY 06/18/17 Hydralazine HCl 10 mg PO DAILY 06/18/17 Isosorbide Mononitrate 10 mg PO DAILY 06/18/17 Metoprolol Succinate [Toprol XL -] 25 mg PO DAILY 06/18/17 Losartan Potassium [Cozaar -] 25 mg PO DAILY #30 tablet 06/24/17 Family Disease History - Family Disease History Family History: Unremarkable Review of Systems - Review of Systems Constitutional: reports: No Symptoms Eyes: reports: No Symptoms HENT: reports: No Symptoms Neck: reports: No Symptoms Cardiovascular: reports: No Symptoms Respiratory: reports: No Symptoms Gastrointestinal: reports: No Symptoms Genitourinary: reports: No Symptoms Neurological: reports: Weakness Nephrology Consult - Height Height: 6 ft - Weight Weight: 68.974 kg - BMI Body Mass Index (BMI): 20.6 - Lab Results CBC,BMP: CBC, BMP 09/06/17 07:45 09/06/17 07:45 Anion Gap: Anion Gap Anion Gap 7 (8-16) L 09/06/17 07:45 - Imaging Chest X-ray: Report Reviewed Cat Scan: Report Reviewed - Physical Examination Vital Signs: Vital Signs Temperature 98.8 F 09/06/17 08:28 Pulse Rate 63 09/06/17 08:28 Respiratory Rate 18 09/06/17 08:28 Blood Pressure 132/66 09/06/17 08:28 O2 Sat by Pulse Oximetry (%) 96 09/06/17 08:40 Constitutional: Yes: No Distress, Calm, Poor Hygeine HENT: Yes: Atraumatic Neck: Yes: Supple Cardiovascular: Yes: Regular Rate and Rhythm Respiratory: Yes: Regular, CTA Bilaterally Gastrointestinal: Yes: Normal Bowel Sounds, Soft. No: Tenderness Renal/: No: Anuria, Bladder Distention Extremities: No: Cold, Cool, Cyanosis Edema: No Assessment/Plan 71 year old gentleman with PMhx of ESRD on HD (recently started), Hypertension, Hepatitis C, CVA, CHF who presented with complaints of right sided groin pain and LE weakness. #Going pain with inguinal hernia offical read of CT pending if pt does have hernia, would consider surgical evalulation #LE weakness f/u x-rays of hip Consider MRI of L spine Neurology evaluation physical therapy eval #ESRD on HD for dialysis tomorrow as inpatient dose all meds for intermittent Hd fluid and salt restriction #Hypertension continue LOsartan, metoprolol can d/c hydralazine #CKD related Anemia on long acting EDWINA from outpatient HD unit trend h/H #Renal Osteodystrophy trend Ca and Phos Thank you Ant Martino DO Current Medications Acetaminophen (Tylenol -) 650 mg PO Q6H PRN PRN Reason: FEVER OR PAIN Aspirin (Asa -) 81 mg PO DAILY [facility] Last Admin: 09/06/17 09:41 Dose: 81 mg Heparin Sodium (Porcine) (Heparin -) 5,000 unit SQ TID [facility] Last Admin: 09/06/17 06:29 Dose: 5,000 unit Hydralazine HCl (Apresoline -) 10 mg PO DAILY [facility] Insulin Aspart (Novolog Vial Sliding Scale -) 1 vial SQ ACHS [facility] PRN Reason: Protocol Last Admin: 09/06/17 06:26 Dose: Not Given Insulin Detemir (Levemir Vial) 8 units SQ HS [facility] Isosorbide Mononitrate (Ismo -) 10 mg PO DAILY [facility] Losartan Potassium (Cozaar -) 25 mg PO DAILY [facility] Last Admin: 09/06/17 09:41 Dose: 25 mg Metoprolol Succinate (Toprol Xl -) 25 mg PO DAILY [facility] Last Admin: 09/06/17 09:41 Dose: 25 mg
[2017-09-06] MEDS: ISOSORBIDE MONONITRATE 20 MG TABLET PO SCH (12:20)
--- NOTE | 2017-09-06 17:08 | PN ---
Physical Exam: SUBJECTIVE: Patient seen and examined at the bedside. Was asking to sign out AMA for 1 hour and then return back to the hospital. Patient understood when told this would not be allowed since it is a safety risk. Patient in agreement to stay after POC discussed. OBJECTIVE: Vital Signs Period Temp Pulse Resp BP Sys/Reeder Pulse Ox Last 24 Hr 97.6 F-98.8 F 62-74 18-20 132-138/59-71 96-99 GENERAL: The patient is awake, alert, and fully oriented, in no acute distress. HEAD: Normal with no signs of trauma. EYES: PERRL, extraocular movements intact, sclera anicteric, conjunctiva clear. No ptosis. ENT: Ears normal, nares patent, oropharynx clear without exudates, moist mucous membranes. NECK: Trachea midline, full range of motion, supple. LUNGS: Breath sounds equal, clear to auscultation bilaterally, no wheezes HEART: Regular rate and rhythm, S1, S2 without murmur, rub or gallop. ABDOMEN: Soft, nontender, nondistended, normoactive bowel sounds, no guarding, no rebound, no hepatosplenomegaly, no masses. EXTREMITIES: + bruit thrill on left upper arm fistula, dialysis through right shiley catheter NEUROLOGICAL: Normal speech, slow gait with RW, fall risk PSYCH: Normal mood, normal affect. SKIN: Warm, dry, normal turgor, no rashes or lesions noted Laboratory Results - last 24 hr 09/05/17 09/05/17 09/05/17 20:00 20:00 21:30 WBC 8.1 RBC 3.88 L D Hgb 11.1 L D Hct 33.2 L D MCV 85.7 MCH 28.7 MCHC 33.4 RDW 15.9 Plt Count 224 D MPV 7.6 Neutrophils % 76.4 Lymphocytes % 12.6 D Monocytes % 8.2 Eosinophils % 1.8 Basophils % 1.0 Sodium Cancelled Cancelled Potassium Cancelled Cancelled Chloride Cancelled Cancelled Carbon Dioxide Cancelled Cancelled Anion Gap Cancelled Cancelled BUN Cancelled Cancelled Creatinine Cancelled Cancelled Creat Clearance w eGFR Cancelled Cancelled POC Glucometer Random Glucose Cancelled Cancelled Calcium Cancelled Cancelled Total Bilirubin Cancelled Cancelled AST Cancelled Cancelled ALT Cancelled Cancelled Alkaline Phosphatase Cancelled Cancelled B-Natriuretic Peptide Total Protein Cancelled Cancelled Albumin Cancelled Cancelled Lipase Cancelled Cancelled Urine Color Urine Appearance Urine pH Ur Specific [place] Urine Protein Urine Glucose (UA) Urine Ketones Urine Blood Urine Nitrite Urine Bilirubin Urine Urobilinogen Ur Leukocyte Esterase Urine WBC (Auto) Urine RBC (Auto) Ur Epithelial Cells Urine Mucus 09/05/17 09/05/17 09/05/17 22:50 22:50 Unknown WBC RBC Hgb Hct MCV MCH MCHC RDW Plt Count MPV Neutrophils % Lymphocytes % Monocytes % Eosinophils % Basophils % Sodium 138 Potassium 4.4 Chloride 96 L Carbon Dioxide 30 Anion Gap 12 BUN 25 H 25 H D Creatinine 3.4 H 3.3 H D Creat Clearance w eGFR 17.84 POC Glucometer Random Glucose 197 H D Calcium 8.2 L Total Bilirubin 0.4 D AST 9 L ALT 18 D Alkaline Phosphatase 152 H D B-Natriuretic Peptide Total Protein 6.5 Albumin 3.1 L Lipase 175 Urine Color Urine Appearance Urine pH Ur Specific [place] Urine Protein Urine Glucose (UA) Urine Ketones Urine Blood Urine Nitrite Urine Bilirubin Urine Urobilinogen Ur Leukocyte Esterase Urine WBC (Auto) Urine RBC (Auto) Ur Epithelial Cells Urine Mucus 09/06/17 09/06/17 09/06/17 01:30 06:24 07:45 WBC 6.6 RBC 3.72 L Hgb 10.4 L Hct 31.7 L MCV 85.3 MCH 28.1 MCHC 32.9 RDW 16.0 H Plt Count 180 MPV 7.4 L Neutrophils % Lymphocytes % Monocytes % Eosinophils % Basophils % Sodium Potassium Chloride Carbon Dioxide Anion Gap BUN Creatinine Creat Clearance w eGFR POC Glucometer 157 Random Glucose Calcium Total Bilirubin AST ALT Alkaline Phosphatase B-Natriuretic Peptide Total Protein Albumin Lipase Urine Color Dk yellow Urine Appearance Slcloudy Urine pH 5.0 Ur Specific [place] 1.022 Urine Protein 3+ H Urine Glucose (UA) 3+ H Urine Ketones Negative Urine Blood 1+ H Urine Nitrite Negative Urine Bilirubin Negative Urine Urobilinogen Negative Ur Leukocyte Esterase Negative Urine WBC (Auto) 11 Urine RBC (Auto) 3 Ur Epithelial Cells Rare Urine Mucus Rare 09/06/17 09/06/17 09/06/17 07:45 11:31 16:26 WBC RBC Hgb Hct MCV MCH MCHC RDW Plt Count MPV Neutrophils % Lymphocytes % Monocytes % Eosinophils % Basophils % Sodium 134 L Potassium 4.4 Chloride 96 L Carbon Dioxide 31 Anion Gap 7 L BUN 28 H Creatinine 3.8 H Creat Clearance w eGFR 15.69 POC Glucometer 173 197 Random Glucose 143 H D Calcium 7.9 L Total Bilirubin 0.4 AST 6 L D ALT 15 Alkaline Phosphatase 144 H B-Natriuretic Peptide 499818.53 H Total Protein 6.2 L Albumin 2.8 L Lipase Urine Color Urine Appearance Urine pH Ur Specific [place] Urine Protein Urine Glucose (UA) Urine Ketones Urine Blood Urine Nitrite Urine Bilirubin Urine Urobilinogen Ur Leukocyte Esterase Urine WBC (Auto) Urine RBC (Auto) Ur Epithelial Cells Urine Mucus Active Medications Generic Name Dose Route Start Last Admin Trade Name Freq PRN Reason Stop Dose Admin Acetaminophen 650 mg 09/06/17 04:36 Tylenol - PO Q6H PRN FEVER OR PAIN Aspirin 81 mg 09/06/17 10:00 09/06/17 09:41 Asa - PO 81 mg DAILY [facility] Administration Heparin Sodium (Porcine) 5,000 unit 09/06/17 06:00 09/06/17 13:34 Heparin - SQ Not Given TID [facility] Heparin Sodium (Porcine) 1,000 unit 09/07/17 06:00 Heparin - IVPUSH 09/07/17 06:01 ONCE ONE Insulin Aspart 1 vial 09/06/17 07:00 09/06/17 16:27 Novolog Vial Sliding Scale - SQ Not Given ACHS [facility] Protocol Insulin Detemir 8 units 09/06/17 22:00 Levemir Vial SQ HS [facility] Isosorbide Mononitrate 10 mg 09/06/17 10:46 09/06/17 12:20 Ismo - PO 10 mg DAILY [facility] Administration Losartan Potassium 25 mg 09/06/17 10:00 09/06/17 09:41 Cozaar - PO 25 mg DAILY [facility] Administration Metoprolol Succinate 25 mg 09/06/17 10:00 09/06/17 09:41 Toprol Xl - PO 25 mg DAILY [facility] Administration ASSESSMENT/PLAN: Patient is an 71 year old male with a significant past medical history of diabetes mellitus, HTN, CHF, ESRD MWF (with Left arm AV fistula placed 2 months ago), Anemia, CVA 3 yrs ago. He presented to the ED via EMS with c/o of bilateral lower extremity weakness with difficulty ambulation. Patient also reports fall at home 2 weeks ago. As per the patient, he has had chronic leg weakness for the past 3 years, but was able to walk with the help of a walker. Yesterday, he was able to take a cab to the Dialysis center. This morning, he couldn't even move his legs. Complaints of right inguinal pain, radiating towards the right foot. Denies numbness or tingling sensation. Lives at home alone, uses a cane to walk. Able to ambulate with a slow steady gait. High risk for falls. Neuro: Bilateral lower extremity weakness, acute on chronic MRI of lumbar spine to rule out possible nerve impingement Continue Tylenol PRN for pain control CT of abd/pelvis shows bilateral inguinal hernias containing fat, will consult surgery Due to risk of falls, pt would need to be evaluated by PT for possible rehab placement PT ordered CVA, chronic On ASA daily Pulm: Small infiltrate on RLL identified in CT scan Given Azithromycin and Ceftriaxone in ED Afebrile, WBC stable, tolerating room air Monitor off antibiotics Renal: ESRD via right permacath, left arm fistula maturing, left arm precautions Dialysis tomorrow Monitor labs Renal diet Cardiology: Hypertension, controlled CHF, not in acute exacerbation On Metoprolol 25mg PO Daily Endocrine Diabetes Mellitus BGMs, monitor blood sugars On Levemir F.E.N. Fluids: tolerating PO Electrolytes: monitor daily Nutrition: renal diet Prophylaxis: DVT: Heparin 5000 TID GI: deferred
--- NOTE | 2017-09-06 19:44 | CON.NEURO ---
Consult Reason for Consultation:: LEG WEAKNESS - History of Present Illness History of Present Illness: Patient is an 71 year old male presented to the ED via EMS with the chief complaint of " unable to stand due to b/l weakness of legs" x 3 day. As per the patient, he has had chronic leg weakness for the past 3 years post stroke , but was able to walk with the help of a walker. Yesterday, he was able to take a cab to the Dialysis center. This morning, he couldn't even move his legs. Complaints of LBP radiating towards the right foot; pain level 9/10. Denies numbness or tingling sensation. Patient reports he fell on the road a week ago while walking, had slipped and fell, didn't hit his head. Lives at home alone, uses a cane to walk. He denies any headache, visual symptoms or dysarthria .He has h/o DM for 20 years. 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) Cardio/Vascular: Yes: CHF, HTN Renal/: Yes: Renal Failure, Renal Inusuff, Hemodialysis Endocrine: Yes: Diabetes Mellitus - Past Surgical History Past Surgical History: Yes: AV Fistula/Graft - Alcohol/Substance Use Hx Alcohol Use: No - Smoking History Smoking history: Never smoked Have you smoked in the past 12 months: No Home Medications - Allergies Allergies/Adverse Reactions: Allergies Allergy/AdvReac Type Severity Reaction Status Date / Time No Known Allergies Allergy Verified 09/05/17 18:53 - Home Medications Home Medications: Ambulatory Orders Aspirin [ASA -] 81 mg PO DAILY 06/18/17 Hydralazine HCl 10 mg PO DAILY 06/18/17 Isosorbide Mononitrate 10 mg PO DAILY 06/18/17 Metoprolol Succinate [Toprol XL -] 25 mg PO DAILY 06/18/17 Losartan Potassium [Cozaar -] 25 mg PO DAILY #30 tablet 06/24/17 Review of Systems - Review of Systems Constitutional: reports: Weakness (All 14 organs were reviewed and -ve beside HPI.) Eyes: reports: No Symptoms HENT: reports: No Symptoms Neck: reports: No Symptoms Cardiovascular: reports: No Symptoms Respiratory: reports: No Symptoms Physical Exam-Neuro Vital Signs: Vital Signs Temperature 98.0 F 09/06/17 12:00 Pulse Rate 70 09/06/17 12:00 Respiratory Rate 18 09/06/17 12:00 Blood Pressure 126/70 09/06/17 12:00 O2 Sat by Pulse Oximetry (%) 96 09/06/17 16:00 Constitutional: Yes: Well Nourished, Mild Distress Neck: Yes: Supple Cardiovascular: Yes: Regular Rate and Rhythm Respiratory: Yes: CTA Bilaterally Musculoskeletal: Yes: Back Pain Edema: No Psychiatric: Yes: Alert, Oriented Labs: CBC, BMP 09/06/17 07:45 09/06/17 07:45 - Neuro Exam Level Of Consciousness: Yes: Alert, Oriented to Person, Oriented to Place, Oriented to Time Eyes: Yes: PERRLA Speech: WNL Cranial Nerves II-XII Intact: Yes DTR's: 1+ Left Bicep, 1+ Right Bicep, 1+ Left Tricep, 1+ Right Tricep, 1+ Left Brachioradialis, 1+ Right Brachioradialis, 1+ Left Achilles, 1+ Right Achilles Response to light touch: Normal Motor Strength: 3/5: Right Leg (R LE 3-/5 proximally and distally otherwise no focal weakness) Gait: Other (Imbalance , uses walker.) Problem List - Problems (1) Diabetes Code(s): E11.9 - TYPE 2 DIABETES MELLITUS WITHOUT COMPLICATIONS Qualifiers: Diabetes mellitus type: type 2 (2) Stroke Code(s): I63.9 - CEREBRAL INFARCTION, UNSPECIFIED (3) Polyneuropathy Code(s): G62.9 - POLYNEUROPATHY, UNSPECIFIED (4) Back pain Code(s): M54.9 - DORSALGIA, UNSPECIFIED (5) ESRD (end stage renal disease) Code(s): N18.6 - END STAGE RENAL DISEASE Assessment/Plan 71 y/o WM w h/o stroke w old residual leg weakness, DM, ESRD p/w LBP gait dysfunction. Old residual leg weakness from prior stroke 3 years ago ; On exam R LE 3-/5 ,no sensory level , no cuada equina syndrome ;? Lumbasacral radiculopathy in the setting of diabetic poly neuropathy . -MRI-LS pending result -Will obtain [facility] wo for baseline -PT/OT -Fall precautions -EMG as OP -Neuropathy w/u including B12, vit D, TSH, SPEP Health maintenance per primary team. Thank you. Azam Bangura MD
[2017-09-06] MEDS ORDERED: INSULIN (NOVOLOG) ASPART 100 UNITS/ML 10ML VIAL ONE (22:02)
[2017-09-06] MEDS: INSULIN DETEMIR 100 UNITS/ML MDV SQ SCH (22:14)
[2017-09-07] MEDS: HEPARIN NA (PORCINE) 5,000 UNITS/ML 1ML VIAL SQ SCH ×3 (06:07→21:40)
[2017-09-07] MEDS: INSULIN SLIDING SCALE (NOVOLOG) 1 VIAL SQ SCH ×4 (06:08→21:41)
[2017-09-07] MEDS ORDERED: PT OWN MED DRAWER 7, Y5N ONE ×2 (07:05→12:53)
[2017-09-07] MEDS ORDERED: HEPARIN NA (PORCINE) 5,000 UNITS/ML 1ML VIAL IVPUSH ONE (08:00)
--- NOTE | 2017-09-07 08:53 | CONSULT ---
- Consultation REQUESTING PROVIDER: [employer] CONSULT REQUEST: We have been asked to surgically evaluate this patient for right groin pain. PCP:Maurilio Hutchison NP HISTORY OF PRESENT ILLNESS: CTSP for evaluation of right groin pain; there is a recent h/o a fall; pain started 3 days ago;he ambulates w/a walker; he has # medical comorbid conditions; w/u was done; he has difficulty voiding w/ hesitancy and urgency and probable overflow incontinence. PMHx: BPH?;CHF;HTN PSHx: ? Home Medications Medication Instructions Recorded Aspirin [ASA -] 81 mg PO DAILY 06/18/17 Hydralazine HCl 10 mg PO DAILY 06/18/17 Isosorbide Mononitrate 10 mg PO DAILY 06/18/17 Metoprolol Succinate [Toprol XL -] 25 mg PO DAILY 06/18/17 Losartan Potassium [Cozaar -] 25 mg PO DAILY #30 tablet 06/24/17 Allergies Allergy/AdvReac Type Severity Reaction Status Date / Time No Known Allergies Allergy Verified 09/05/17 18:53 PHYSICAL EXAM: GENERAL: Awake, alert, and fully oriented, in no acute distress. HEAD: Normal with no signs of trauma. EYES: sclera anicteric, conjunctiva clear. NECK: Normal ROM, supple without lymphadenopathy, JVD, or masses. ABDOMEN: Soft, nontender, not distended, normoactive bowel sounds, no guarding, no rebound, no masses. No organomegaly. Easily reducible small right inguinal hernia; no clinical left inguinal hernia; he refused ISABEL; genitalia normal; he has a penile prosthesis. MUSCULOSKELETAL: Normal ROM at all joints. No bony deformities or tenderness. No CVA tenderness. UPPER EXTREMITIES: 2+ pulses, warm, well-perfused. No cyanosis. Cap refill <2 seconds. No peripheral edema. LOWER EXTREMITIES: 2+ pulses, warm, well-perfused. No calf tenderness. No peripheral edema. NEUROLOGICAL: Normal speech, gait not observed. PSYCH: Cooperative. Good eye contact. Appropriate mood and affect. SKIN: Warm, dry, normal turgor, no rashes or lesions noted. Vital Signs Temperature 97.8 F 09/07/17 06:00 Pulse Rate 66 09/07/17 06:00 Respiratory Rate 20 09/07/17 06:00 Blood Pressure 130/67 09/07/17 06:00 O2 Sat by Pulse Oximetry (%) 96 09/06/17 16:00 Lab Results WBC 6.6 K/mm3 (4.0-10.0) 09/06/17 07:45 RBC 3.72 M/mm3 (4.00-5.60) L 09/06/17 07:45 Hgb 10.4 GM/dL (11.7-16.9) L 09/06/17 07:45 Hct 31.7 % (35.4-49) L 09/06/17 07:45 MCV 85.3 fl (80-96) 09/06/17 07:45 MCHC 32.9 g/dl (32.0-35.9) 09/06/17 07:45 RDW 16.0 % (11.9-15.9) H 09/06/17 07:45 Plt Count 180 K/MM3 (134-434) 09/06/17 07:45 Sodium 134 mmol/L (136-145) L 09/06/17 07:45 Potassium 4.4 mmol/L (3.5-5.1) 09/06/17 07:45 Chloride 96 mmol/L (98-107) L 09/06/17 07:45 Carbon Dioxide 31 mmol/L (21-32) 09/06/17 07:45 Anion Gap 7 (8-16) L 09/06/17 07:45 BUN 28 mg/dL (7-18) H 09/06/17 07:45 Creatinine 3.8 mg/dL (0.7-1.3) H 09/06/17 07:45 Random Glucose 143 mg/dL (74-106) H D 09/06/17 07:45 Calcium 7.9 mg/dL (8.5-10.1) L 09/06/17 07:45 CT scan a/p reviewed IMP: right hip.groin pain; most likely musculoskeletal in origin PLAN: I doubt the cause of his pain is this easily reducible RIH; it has probably been present for some time and the result of his probable BPH; the hernia does not appear to be interfering w/his ADL; he sould be w/u'ed fpr other causes of the pain; nevertheless given his comorbidities; I would not repair this hernia even on an elective basis. Shaheen Tiwari MD FACS Visit type - Case Type Case Type: ED Admission - Emergency Emergency Visit: Yes ED Registration Date: 09/06/17 Care time: The patient presented to the Emergency Department on the above date and was hospitalized for further evaluation of their emergent condition. - New patient This patient is new to me today: Yes Date on this admission: 09/07/17 - Critical Care Critical Care patient: No
--- NOTE | 2017-09-07 09:35 | PN ---
Progress Note (short form) - Note Progress Note: Renal Follow up for ESRD on HD Pt seen and examined during dialysis Catheter with good flow UF goal ~2.5L as tolerated no sob, chest pain, abd pain still has discomfort in the groin when moving his legs Vital Signs Temperature 98.8 F 09/07/17 08:55 Pulse Rate 68 09/07/17 09:00 Respiratory Rate 18 09/07/17 09:00 Blood Pressure 131/69 09/07/17 09:00 O2 Sat by Pulse Oximetry (%) 96 09/06/17 16:00 Intake & Output 09/04/17 09/05/17 09/06/17 09/07/17 23:59 23:59 23:59 23:59 Weight 77.111 kg 68.974 kg NAD awake and alert No LE edema CBC, BMP 09/06/17 07:45 09/06/17 07:45 Current Medications Acetaminophen (Tylenol -) 650 mg PO Q6H PRN PRN Reason: FEVER OR PAIN Aspirin (Asa -) 81 mg PO DAILY [facility] Last Admin: 09/06/17 09:41 Dose: 81 mg Heparin Sodium (Porcine) (Heparin -) 5,000 unit SQ TID [facility] Last Admin: 09/07/17 06:07 Dose: 5,000 unit Insulin Aspart (Novolog Vial Sliding Scale -) 1 vial SQ ACHS [facility] PRN Reason: Protocol Last Admin: 09/07/17 06:08 Dose: Not Given Insulin Detemir (Levemir Vial) 8 units SQ HS [facility] Last Admin: 09/06/17 22:14 Dose: 8 units Isosorbide Mononitrate (Ismo -) 10 mg PO DAILY [facility] Last Admin: 09/06/17 12:20 Dose: 10 mg Losartan Potassium (Cozaar -) 25 mg PO DAILY [facility] Last Admin: 09/06/17 09:41 Dose: 25 mg Metoprolol Succinate (Toprol Xl -) 25 mg PO DAILY [facility] Last Admin: 09/06/17 09:41 Dose: 25 mg 71 year old gentleman with PMhx of ESRD on HD (recently started), Hypertension, Hepatitis C, CVA, CHF who presented with complaints of right sided groin pain and LE weakness. #Going pain with inguinal hernia seen by general surgery, no acute surgical intervention warrented #LE weakness MRI of L spine read pending Neurology following #ESRD on HD tolerating dalysis well today #Hypertension continue LOsartan, metoprolol #CKD related Anemia on long acting EDWINA from outpatient HD unit trend h/H #Renal Osteodystrophy trend Ca and Phos Thank you Ant Martino DO
[2017-09-07 10:37] LABS: ANION GAP 11 (8-16); BLOOD UREA NITROGEN 44 mg/dL (7-18); CALCIUM 7.8 mg/dL (8.5-10.1); CHLORIDE 96 mmol/L (98-107); CO2 26 mmol/L (21-32); CREATININE 5.5 mg/dL (0.7-1.3); GLUCOSE,RANDOM 209 mg/dL (74-106); PHOSPHOROUS 5.7 mg/dL (2.5-4.9); POTASSIUM 4.9 mmol/L (3.5-5.1); SODIUM 133 mmol/L (136-145)
[2017-09-07 10:41] LABS: HEMOGLOBIN 10.3 GM/dL (11.7-16.9); MCHC 32.2 g/dl (32.0-35.9); MEAN CELL VOLUME 86.8 fl (80-96); PLATELET COUNT 209 K/MM3 (134-434); RBC 3.68 M/mm3 (4.00-5.60); RDW 16.3 % (11.9-15.9); WHITE BLOOD COUNT 6.1 K/mm3 (4.0-10.0)
[2017-09-07 12:23] LABS: ANION GAP 15 (8-16); BLOOD UREA NITROGEN 42 mg/dL (7-18); CALCIUM 8.3 mg/dL (8.5-10.1); CHLORIDE 96 mmol/L (98-107); CO2 25 mmol/L (21-32); CREATININE 5.6 mg/dL (0.7-1.3); GLUCOSE,RANDOM 121 mg/dL (74-106); MAGNESIUM 2.4 mg/dL (1.8-2.4); PHOSPHOROUS 5.7 mg/dL (2.5-4.9); POTASSIUM 4.8 mmol/L (3.5-5.1); SODIUM 136 mmol/L (136-145)
[2017-09-07] MEDS: GABAPENTIN 100 MG CAPSULE (FP) PO SCH (12:55)
[2017-09-07] MEDS: LOSARTAN POTASSIUM 25 MG TABLET PO SCH (12:55)
[2017-09-07] MEDS: ASPIRIN 81 MG CHEWABLE TABLETS PO SCH (12:55)
[2017-09-07] MEDS: METOPROLOL SUCCINATE 25 MG TAB.SR.24H (FP) PO SCH (12:55)
[2017-09-07] MEDS: ISOSORBIDE MONONITRATE 20 MG TABLET PO SCH (12:56)
[2017-09-07] MEDS ORDERED: LORazepam 0.5 MG TABLET PO ONE (15:15)
--- NOTE | 2017-09-07 16:39 | PN ---
Physical Exam: SUBJECTIVE: Patient seen, limied exam. He was angry at me because I did not allow him to leave yesterday for one hour and then return to the hospital. Assured him that this was not safe and that he is a high risk for falls with injury. He continues to be agitated at staff and sheet writer despite de-escalation efforts. He is a high fall risk and does not comply with RW and standby assist. Being helped to the bathroom and with ambulation agitates him and he becomes verbally abusive. He allowed me to examine him but limited, refused lung auscultation. OBJECTIVE: Patient is alert and oriented x 3, able to make his own decisions. He presents with bilateral lower ext weakness and falls at home. It is not safe for patient to be discharged unless he signs out AMA. I spoke to him about the possibility of leaving AMA but he refused that, wants to stay Prior to discharge he needs to be assessed by PT as he may need rehab for lower ext weakness if it does not improve with Neurontin. Vital Signs Period Temp Pulse Resp BP Sys/Reeder Pulse Ox Last 24 Hr 97.8 F-98.8 F 59-74 18-20 128-162/55-76 GENERAL: The patient is awake, alert, and fully oriented, in no acute distress. HEAD: Normal with no signs of trauma. EYES: PERRL, extraocular movements intact, sclera anicteric, conjunctiva clear. No ptosis. ENT: Ears normal, nares patent, oropharynx clear without exudates, moist mucous membranes. NECK: Trachea midline, full range of motion, supple. HEART: Regular rate and rhythm, S1, S2 without murmur, rub or gallop. ABDOMEN: Soft, nontender, nondistended, normoactive bowel sounds, no guarding, no rebound, no hepatosplenomegaly, no masses. EXTREMITIES: + bruit thrill on left upper arm fistula, dialysis through right shiley catheter NEUROLOGICAL: Normal speech, slow gait with RW, high fall risk PSYCH: Normal mood, normal affect. SKIN: Warm, dry, normal turgor, no rashes or lesions noted Laboratory Results - last 24 hr 09/06/17 09/06/17 09/07/17 16:26 22:13 06:00 WBC RBC Hgb Hct MCV MCH MCHC RDW Plt Count MPV Sodium 136 Potassium 4.8 Chloride 96 L Carbon Dioxide 25 Anion Gap 15 BUN 42 H D Creatinine 5.6 H D POC Glucometer 197 156 Random Glucose 121 H Calcium 8.3 L Phosphorus 5.7 H D Magnesium 2.4 Vitamin B12 977 H D TSH 1.65 Hepatitis C Antibody 09/07/17 09/07/17 09/07/17 06:05 08:51 09:00 WBC RBC Hgb Hct MCV MCH MCHC RDW Plt Count MPV Sodium Potassium Chloride Carbon Dioxide Anion Gap BUN Creatinine POC Glucometer 130 Random Glucose Calcium Phosphorus Magnesium Vitamin B12 Cancelled TSH Cancelled Hepatitis C Antibody Cancelled 09/07/17 09/07/17 09:00 09:00 WBC 6.1 RBC 3.68 L Hgb 10.3 L Hct 32.0 L MCV 86.8 MCH 28.0 MCHC 32.2 RDW 16.3 H Plt Count 209 MPV 8.0 Sodium 133 L Potassium 4.9 Chloride 96 L Carbon Dioxide 26 Anion Gap 11 BUN 44 H Creatinine 5.5 H POC Glucometer Random Glucose 209 H D Calcium 7.8 L Phosphorus 5.7 H Magnesium Vitamin B12 TSH Hepatitis C Antibody Active Medications Generic Name Dose Route Start Last Admin Trade Name Freq PRN Reason Stop Dose Admin Acetaminophen 650 mg 09/06/17 04:36 Tylenol - PO Q6H PRN FEVER OR PAIN Aspirin 81 mg 09/06/17 10:00 09/07/17 12:55 Asa - PO 81 mg DAILY [facility]REW Administration Gabapentin 100 mg 09/07/17 10:00 09/07/17 12:55 Neurontin - PO 100 mg DAILY [facility] Administration Heparin Sodium (Porcine) 5,000 unit 09/06/17 06:00 09/07/17 15:29 Heparin - SQ Not Given TID [facility] Insulin Aspart 1 vial 09/06/17 07:00 09/07/17 11:00 Novolog Vial Sliding Scale - SQ Not Given ACHS [facility] Protocol Insulin Detemir 8 units 09/06/17 22:00 09/06/17 22:14 Levemir Vial SQ 8 units HS [facility] Administration Isosorbide Mononitrate 10 mg 09/06/17 10:46 09/07/17 12:56 Ismo - PO 10 mg DAILY [facility]W Administration Losartan Potassium 25 mg 09/06/17 10:00 09/07/17 12:55 Cozaar - PO 25 mg DAILY [facility] Administration Metoprolol Succinate 25 mg 09/06/17 10:00 09/07/17 12:55 Toprol Xl - PO 25 mg DAILY [facility]RE[facility] Administration ASSESSMENT/PLAN: Patient is an 71 year old male with a significant past medical history of diabetes mellitus, HTN, CHF, ESRD MWF (with Left arm AV fistula placed 2 months ago), Anemia, CVA 3 yrs ago. He presented to the ED via EMS with c/o of bilateral lower extremity weakness with difficulty ambulation. Patient also reports falls at home 2 weeks ago but denies any recent falls at home. As per the patient, he has had chronic leg weakness for the past 3 years, but was able to walk with the help of a walker. Yesterday, he was able to take a cab to the Dialysis center. This morning, he couldn't even move his legs. He also complaints of right inguinal pain, radiating towards the right foot. Denies numbness or tingling sensation. Lives at home alone, uses a cane to walk. Able to ambulate with a slow steady gait but often refuses a RW, refuses stand by help. High risk for falls. Goal is to maintain safety. Imaging: CT of abd/pelvis: extensive atherosclerotic coronary artery calcifications, interstitial pulmonary vascular congestion, left pleural effusion, small right pleural effusion, hepatic cirrhosis, splenomegaly, bilateral inguinal hernias containing fat. MRI of lumbar spine: degenerative disease predominant L4-L5 with a tear of the annulus and small midline subligamentous herniation lateralizing toward the right indenting slightly on the right L5 nerve root evident on t2 image #23 with bulging No evidence of spondyloysis or severe stenosis Suspicious finding of round nodule in the right lung base with large left pleural effusion, CT recommended Neuro: Bilateral lower extremity weakness, acute on chronic MRI of lumbar spine above Continue Tylenol PRN for pain control CT of abd/pelvis shows bilateral inguinal hernias containing fat, surgical notes reviewed Due to risk of falls, pt would need to be evaluated by PT for possible rehab placement Started on Neurontin High fall risk patient Unsteady gait and often refuses to use walker PT ordered CVA, chronic On ASA daily Pulm: Small infiltrate on RLL identified in CT scan Given Azithromycin and Ceftriaxone in ED Afebrile, WBC stable, tolerating room air Monitor off antibiotics Renal: ESRD via right permacath, left arm fistula maturing, left arm precautions Dialysis today, no issues Monitor labs Renal diet Cardiology: Hypertension, controlled CHF, not in acute exacerbation On Metoprolol 25mg PO Daily Endocrine Diabetes Mellitus BGMs, monitor blood sugars On Levemir F.E.N. Fluids: tolerating PO Electrolytes: monitor daily Nutrition: renal diet Prophylaxis: DVT: Heparin 5000 TID GI: deferred Disposition: Needs PT evaluation prior to d/c in order to maintain safety. full code. Visit type - Emergency Visit Emergency Visit: Yes ED Registration Date: 09/06/17 Care time: The patient presented to the Emergency Department on the above date and was hospitalized for further evaluation of their emergent condition. - New Patient This patient is new to me today: No - Critical Care Critical Care patient: No - Discharge Referral Referred to [facility] No
--- NOTE | 2017-09-07 20:57 | PN ---
Progress Note, Physician History of Present Illness: Patient is an 71 year old male presented to the ED via EMS with the chief complaint of " unable to stand due to b/l weakness of legs" x 3 day. As per the patient, he has had chronic leg weakness for the past 3 years post stroke , but was able to walk with the help of a walker. Yesterday, he was able to take a cab to the Dialysis center. This morning, he couldn't even move his legs. Complaints of LBP radiating towards the right foot; pain level 9/10. Denies numbness or tingling sensation. Patient reports he fell on the road a week ago while walking, had slipped and fell, didn't hit his head. Lives at home alone, uses a cane to walk. He denies any headache, visual symptoms or dysarthria .He has h/o DM for 20 years. F/U today; He still c/o LBP . - Current Medication List Current Medications: Active Medications Acetaminophen (Tylenol -) 650 mg PO Q6H PRN PRN Reason: FEVER OR PAIN Aspirin (Asa -) 81 mg PO DAILY [facility] Last Admin: 09/07/17 12:55 Dose: 81 mg Gabapentin (Neurontin -) 100 mg PO DAILY [facility] Last Admin: 09/07/17 12:55 Dose: 100 mg Heparin Sodium (Porcine) (Heparin -) 5,000 unit SQ TID [facility] Last Admin: 09/07/17 15:29 Dose: Not Given Insulin Aspart (Novolog Vial Sliding Scale -) 1 vial SQ ACHS [facility] PRN Reason: Protocol Last Admin: 09/07/17 17:13 Dose: Not Given Insulin Detemir (Levemir Vial) 8 units SQ HS [facility] Last Admin: 09/06/17 22:14 Dose: 8 units Isosorbide Mononitrate (Ismo -) 10 mg PO DAILY [facility] Last Admin: 09/07/17 12:56 Dose: 10 mg Losartan Potassium (Cozaar -) 25 mg PO DAILY [facility] Last Admin: 09/07/17 12:55 Dose: 25 mg Metoprolol Succinate (Toprol Xl -) 25 mg PO DAILY [facility] Last Admin: 09/07/17 12:55 Dose: 25 mg - Objective Vital Signs: Vital Signs Temperature 98.0 F 09/07/17 12:50 Pulse Rate 67 09/07/17 12:50 Respiratory Rate 20 09/07/17 12:50 Blood Pressure 150/73 09/07/17 12:50 O2 Sat by Pulse Oximetry (%) 96 09/06/17 16:00 Eyes: Yes: Occular Prosthesis Labs: CBC, BMP 09/07/17 09:00 09/07/17 09:00 Problem List - Problems (1) Diabetes Code(s): E11.9 - TYPE 2 DIABETES MELLITUS WITHOUT COMPLICATIONS Qualifiers: Diabetes mellitus type: type 2 (2) Stroke Code(s): I63.9 - CEREBRAL INFARCTION, UNSPECIFIED (3) Polyneuropathy Code(s): G62.9 - POLYNEUROPATHY, UNSPECIFIED (4) Back pain Code(s): M54.9 - DORSALGIA, UNSPECIFIED (5) ESRD (end stage renal disease) Code(s): N18.6 - END STAGE RENAL DISEASE Assessment/Plan - Neuro Exam Level Of Consciousness: Yes: Alert, Oriented to Person, Oriented to Place, Oriented to Time Eyes: Yes: PERRLA Speech: WNL Cranial Nerves II-XII Intact: Yes DTR's: 1+ Left Bicep, 1+ Right Bicep, 1+ Left Tricep, 1+ Right Tricep, 1+ Left Brachioradialis, 1+ Right Brachioradialis, 1+ Left Achilles, 1+ Right Achilles Response to light touch: Normal Motor Strength: 3/5: Right Leg (R LE 3-/5 proximally and distally otherwise no focal weakness) Gait: Other (Imbalance , uses walker.) Problem List - Problems (1) Diabetes Code(s): E11.9 - TYPE 2 DIABETES MELLITUS WITHOUT COMPLICATIONS Qualifiers: Diabetes mellitus type: type 2 (2) Stroke Code(s): I63.9 - CEREBRAL INFARCTION, UNSPECIFIED (3) Polyneuropathy Code(s): G62.9 - POLYNEUROPATHY, UNSPECIFIED (4) Back pain Code(s): M54.9 - DORSALGIA, UNSPECIFIED (5) ESRD (end stage renal disease) Code(s): N18.6 - END STAGE RENAL DISEASE Assessment/Plan 71 y/o WM w h/o stroke w old residual leg weakness, DM, ESRD p/w LBP gait dysfunction. Old residual leg weakness from prior stroke 3 years ago ; On exam R LE 3-/5 ,no sensory level , no cuada equina syndrome ;? Lumbasacral radiculopathy in the setting of diabetic poly neuropathy . -MRI-LS indicated disc bulge and R L5 nerve root pressure. - Need neuro surgical consultation for possible intervention. -Will obtain [facility] wo for baseline -PT/OT -Fall precautions -EMG as OP -Neuropathy w/u including B12, vit D, TSH, SPEP Health maintenance per primary team. Thank you. Azam Bangura MD
[2017-09-07] MEDS: INSULIN DETEMIR 100 UNITS/ML MDV SQ SCH (21:41)
[2017-09-08] MEDS: INSULIN SLIDING SCALE (NOVOLOG) 1 VIAL SQ SCH ×4 (06:24→21:54)
[2017-09-08] MEDS: HEPARIN NA (PORCINE) 5,000 UNITS/ML 1ML VIAL SQ SCH ×3 (06:25→21:53)
[2017-09-08 09:00] LABS: HEMATOCRIT 30.6 % (35.4-49); HEMOGLOBIN 10.1 GM/dL (11.7-16.9); LYMPH % 31.5 % (8-40); MCH 28.2 pg (25.7-33.7); MCHC 33.1 g/dl (32.0-35.9); MEAN CELL VOLUME 85.2 fl (80-96); MEAN PLT VOLUME 7.6 fl (7.5-11.1); MONO % 9.4 % (3.8-10.2); NEUT % 54.1 % (42.8-82.8); PLATELET COUNT 186 K/MM3 (134-434); RBC 3.59 M/mm3 (4.00-5.60); RDW 16.1 % (11.9-15.9); WHITE BLOOD COUNT 5.9 K/mm3 (4.0-10.0)
[2017-09-08 09:29] LABS: ALBUMIN 2.7 g/dl (3.4-5.0); ANION GAP 11 (8-16); BLOOD UREA NITROGEN 32 mg/dL (7-18); CHLORIDE 102 mmol/L (98-107); CO2 27 mmol/L (21-32); CREATININE 4.1 mg/dL (0.7-1.3); GLUCOSE,RANDOM 108 mg/dL (74-106); POTASSIUM 4.3 mmol/L (3.5-5.1); SGOT/AST 9 U/L (15-37); SGPT/ALT 18 U/L (12-78); SODIUM 140 mmol/L (136-145)
[2017-09-08 09:31] LABS: ALK PHOS 130 U/L (45-117); BILIRUBIN,TOTAL 0.6 mg/dL (0.2-1.0)
[2017-09-08] MEDS ORDERED: PT OWN MED DRAWER 7, Y5N ONE (09:58)
[2017-09-08] MEDS: ASPIRIN 81 MG CHEWABLE TABLETS PO SCH (10:00)
[2017-09-08] MEDS: GABAPENTIN 100 MG CAPSULE (FP) PO SCH (10:00)
[2017-09-08] MEDS: METOPROLOL SUCCINATE 25 MG TAB.SR.24H (FP) PO SCH (10:00)
[2017-09-08] MEDS: LOSARTAN POTASSIUM 25 MG TABLET PO SCH (10:00)
[2017-09-08] MEDS: ISOSORBIDE MONONITRATE 20 MG TABLET PO SCH (10:00)
--- NOTE | 2017-09-08 10:30 | PN ---
Progress Note (short form) - Note Progress Note: Renal Follow up for ESRD on HD Pt seen and examined at the bedside continues to have pain in right groin no N/V, Abd pain has pain in b/l LE as well no sob, chest pain Vital Signs Temperature 98.2 F 09/08/17 10:18 Pulse Rate 71 09/08/17 10:18 Respiratory Rate 18 09/08/17 10:18 Blood Pressure 152/74 09/08/17 10:18 O2 Sat by Pulse Oximetry (%) 96 09/06/17 16:00 Intake & Output 09/05/17 09/06/17 09/07/17 09/08/17 23:59 23:59 23:59 23:59 Intake Total 550 450 Output Total 1 Balance 550 449 Weight 77.111 kg 68.974 kg NAD awake and alert No LE edema CBC, BMP 09/08/17 07:28 09/08/17 07:28 Current Medications Acetaminophen (Tylenol -) 650 mg PO Q6H PRN PRN Reason: FEVER OR PAIN Aspirin (Asa -) 81 mg PO DAILY [facility] Last Admin: 09/08/17 10:00 Dose: 81 mg Gabapentin (Neurontin -) 100 mg PO DAILY [facility] Last Admin: 09/08/17 10:00 Dose: 100 mg Heparin Sodium (Porcine) (Heparin -) 5,000 unit SQ TID [facility] Last Admin: 09/08/17 06:25 Dose: Not Given Insulin Aspart (Novolog Vial Sliding Scale -) 1 vial SQ ACHS [facility] PRN Reason: Protocol Last Admin: 09/08/17 06:24 Dose: Not Given Insulin Detemir (Levemir Vial) 8 units SQ HS [facility] Last Admin: 09/07/17 21:41 Dose: 8 units Isosorbide Mononitrate (Ismo -) 10 mg PO DAILY [facility] Last Admin: 09/08/17 10:00 Dose: 10 mg Losartan Potassium (Cozaar -) 25 mg PO DAILY [facility] Last Admin: 09/08/17 10:00 Dose: 25 mg Metoprolol Succinate (Toprol Xl -) 25 mg PO DAILY [facility] Last Admin: 09/08/17 10:00 Dose: 25 mg 71 year old gentleman with PMhx of ESRD on HD (recently started), Hypertension, Hepatitis C, CVA, CHF who presented with complaints of right sided groin pain and LE weakness. #Going pain with inguinal hernia surgical follow up pain control #LE weakness/Neuropathy Neurology follow up MRI findings noted PT continue gabapentin #ESRD on HD s/p dialysis yesterday #Hypertension continue LOsartan, metoprolol #CKD related Anemia on long acting EDWINA from outpatient HD unit trend h/H #Renal Osteodystrophy trend Ca and Phos Thank you Ant Martino DO
--- NOTE | 2017-09-08 13:45 | PN ---
Physical Exam: SUBJECTIVE: Patient seen at bedside. Opened eyes, initially said "not good" to how do you feel. Then closed his eyes, refused to answer any more questions. Refused physical exam. OBJECTIVE: Vital Signs Period Temp Pulse Resp BP Sys/Reeder Pulse Ox Last 24 Hr 98.2 F-98.6 F 68-71 18-20 120-152/54-74 97 Laboratory Results - last 24 hr 09/07/17 09/07/17 09/07/17 09:00 17:12 21:40 WBC RBC Hgb Hct MCV MCH MCHC RDW Plt Count MPV Neutrophils % Lymphocytes % Monocytes % Eosinophils % Basophils % Sodium Potassium Chloride Carbon Dioxide Anion Gap BUN Creatinine Creat Clearance w eGFR POC Glucometer 147 194 Random Glucose Calcium Total Bilirubin AST ALT Alkaline Phosphatase Total Protein Albumin Hepatitis C Antibody Cancelled 09/08/17 09/08/17 07:28 07:28 WBC 5.9 RBC 3.59 L Hgb 10.1 L Hct 30.6 L MCV 85.2 MCH 28.2 MCHC 33.1 RDW 16.1 H Plt Count 186 MPV 7.6 Neutrophils % 54.1 D Lymphocytes % 31.5 D Monocytes % 9.4 Eosinophils % 4.0 D Basophils % 1.0 Sodium 140 Potassium 4.3 Chloride 102 Carbon Dioxide 27 Anion Gap 11 BUN 32 H D Creatinine 4.1 H D Creat Clearance w eGFR 14.38 POC Glucometer Random Glucose 108 H D Calcium 8.0 L Total Bilirubin 0.6 D AST 9 L D ALT 18 Alkaline Phosphatase 130 H Total Protein 6.0 L Albumin 2.7 L Hepatitis C Antibody Active Medications Generic Name Dose Route Start Last Admin Trade Name Lvq PRN Reason Stop Dose Admin Acetaminophen 650 mg 09/06/17 04:36 Tylenol - PO Q6H PRN FEVER OR PAIN Aspirin 81 mg 09/06/17 10:00 09/08/17 10:00 Asa - PO 81 mg DAILY ANDRE[facility] Administration Gabapentin 100 mg 09/07/17 10:00 09/08/17 10:00 Neurontin - PO 100 mg DAILY [facility] Administration Heparin Sodium (Porcine) 5,000 unit 09/06/17 06:00 09/08/17 06:25 Heparin - SQ Not Given TID [facility] Insulin Aspart 1 vial 09/06/17 07:00 09/08/17 11:37 Novolog Vial Sliding Scale - SQ Not Given ACHS [facility] Protocol Insulin Detemir 8 units 09/06/17 22:00 09/07/17 21:41 Levemir Vial SQ 8 units HS [facility] Administration Isosorbide Mononitrate 10 mg 09/06/17 10:46 09/08/17 10:00 Ismo - PO 10 mg DAILY [facility] Administration Losartan Potassium 25 mg 09/06/17 10:00 09/08/17 10:00 Cozaar - PO 25 mg DAILY [facility] Administration Metoprolol Succinate 25 mg 09/06/17 10:00 09/08/17 10:00 Toprol Xl - PO 25 mg DAILY ANDREW Administration ASSESSMENT/PLAN 71 year-old male with a PMH significant for HTN, systolic heart failure, ESRD on HD (M,W,F), 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 Admitted for right inguinal pain and bilateral lower extremity weakness. Bilateral inguinal hernias Right inguinal pain --09/05 CTAP shows bilateral inguinal hernias containing fat, and a right inguinal hernia containing a small portion of small bowel loop --right inguinal hernia is reducible --seen and evaluated by surgery, no surgical intervention indicated Bilateral lower extremity weakness h/o CVA --likely multifactorial, the result of CVA three years ago with residual leg weakness, diabetic neuropathy, and L4-L5 annulus tear, midline herniation, and mild L5 nerve root impingement --will need outpatient followup, EMG --needs PT evaluation --neurology following IDDM Diabetic polyneuropathy --TSH wnl, B12 elevated, Vit D, SPEP pending --Levemir 8U at bedtime --Novolog sliding scale coverage --continue gabapentin Hypertension --continue losartan, Toprol XL Systolic heart failure --HD for volume control --continue losartan, isosorbide ESRD on HD (M,W,F) --last dialyzed 09/07 via right permacath Pulmonary vascular congestion --09/05 CTAP: left pleural effusion, small right pleural effusion, vascular congestion --CT chest done, pending dictation Pulmonary nodule right lung base --seen on 09/06 MRI LSS --CT chest done,pending dictation --afebrile, no leukocytosis, observe off antibiotics Agitation --review of chart and conversation with nurses on floor, periods of agitation and verbal and physical aggressiveness --today he is quite ccalm but refusing physical exam --psych consult placed FEN Fluids: PO intake adequate Electrolytes: replete as indicated Nutrition: renal diet DVT prophylaxis: subq heparin, oob, ambulation Physical therapy evaluation Dispo: needs PT evaluation to assess discharge needs; continues to require inpatient care. Full code. Visit type - Emergency Visit Emergency Visit: Yes ED Registration Date: 09/06/17 Care time: The patient presented to the Emergency Department on the above date and was hospitalized for further evaluation of their emergent condition. - New Patient This patient is new to me today: Yes Date on this admission: 09/08/17 - Critical Care Critical Care patient: No
[2017-09-08] MEDS: INSULIN DETEMIR 100 UNITS/ML MDV SQ SCH (21:53)
--- NOTE | 2017-09-09 05:52 | PN ---
Physical Exam: SUBJECTIVE: Patient seen and examined OBJECTIVE: Vital Signs Period Temp Pulse Resp BP Sys/Reeder Pulse Ox Last 24 Hr 97.9 F-98.6 F 65-75 18-20 120-152/52-74 96-97 GENERAL: The patient is awake, alert, and fully oriented, in no acute distress. HEAD: Normal with no signs of trauma. EYES: PERRL, extraocular movements intact, sclera anicteric, conjunctiva clear. No ptosis. ENT: Ears normal, nares patent, oropharynx clear without exudates, moist mucous membranes. NECK: Trachea midline, full range of motion, supple. LUNGS: Breath sounds equal, clear to auscultation bilaterally, no wheezes, no crackles, no accessory muscle use. HEART: Regular rate and rhythm, S1, S2 without murmur, rub or gallop. ABDOMEN: Soft, nontender, nondistended, normoactive bowel sounds, no guarding, no rebound, no hepatosplenomegaly, no masses. EXTREMITIES: 2+ pulses, warm, well-perfused, no edema. NEUROLOGICAL: Cranial nerves II through XII grossly intact. Normal speech, gait not observed. PSYCH: Normal mood, normal affect. SKIN: Warm, dry, normal turgor, no rashes or lesions noted Laboratory Results - last 24 hr 09/08/17 09/08/17 09/08/17 07:28 07:28 21:51 WBC 5.9 RBC 3.59 L Hgb 10.1 L Hct 30.6 L MCV 85.2 MCH 28.2 MCHC 33.1 RDW 16.1 H Plt Count 186 MPV 7.6 Neutrophils % 54.1 D Lymphocytes % 31.5 D Monocytes % 9.4 Eosinophils % 4.0 D Basophils % 1.0 Sodium 140 Potassium 4.3 Chloride 102 Carbon Dioxide 27 Anion Gap 11 BUN 32 H D Creatinine 4.1 H D Creat Clearance w eGFR 14.38 POC Glucometer 173 Random Glucose 108 H D Calcium 8.0 L Total Bilirubin 0.6 D AST 9 L D ALT 18 Alkaline Phosphatase 130 H Total Protein 6.0 L Albumin 2.7 L Active Medications Generic Name Dose Route Start Last Admin Trade Name Freq PRN Reason Stop Dose Admin Acetaminophen 650 mg 09/06/17 04:36 Tylenol - PO Q6H PRN FEVER OR PAIN Aspirin 81 mg 09/06/17 10:00 09/08/17 10:00 Asa - PO 81 mg DAILY [facility] Administration Gabapentin 100 mg 09/07/17 10:00 09/08/17 10:00 Neurontin - PO 100 mg DAILY [facility] Administration Heparin Sodium (Porcine) 5,000 unit 09/06/17 06:00 09/08/17 21:53 Heparin - SQ 5,000 unit TID [facility] Administration Insulin Aspart 1 vial 09/06/17 07:00 09/08/17 21:54 Novolog Vial Sliding Scale - SQ Not Given ACHS [facility] Protocol Insulin Detemir 8 units 09/06/17 22:00 09/08/17 21:53 Levemir Vial SQ 8 units HS [facility] Administration Isosorbide Mononitrate 10 mg 09/06/17 10:46 09/08/17 10:00 Ismo - PO 10 mg DAILY [facility] Administration Losartan Potassium 25 mg 09/06/17 10:00 09/08/17 10:00 Cozaar - PO 25 mg DAILY [facility] Administration Metoprolol Succinate 25 mg 09/06/17 10:00 09/08/17 10:00 Toprol Xl - PO 25 mg DAILY [facility] Administration ASSESSMENT/PLAN: 71 year-old male with a PMH significant for HTN, systolic heart failure, ESRD on HD (M,W,F), 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 Admitted for right inguinal pain and bilateral lower extremity weakness. Bilateral inguinal hernias Right inguinal pain --09/05 CTAP shows bilateral inguinal hernias containing fat, and a right inguinal hernia containing a small portion of small bowel loop --right inguinal hernia is reducible --seen and evaluated by surgery, no surgical intervention indicated Bilateral lower extremity weakness h/o CVA --likely multifactorial, the result of CVA three years ago with residual leg weakness, diabetic neuropathy, and L4-L5 annulus tear, midline herniation, and mild L5 nerve root impingement --will need outpatient followup, EMG --needs PT evaluation --neurology following IDDM Diabetic polyneuropathy --TSH wnl, B12 elevated, Vit D, SPEP pending --Levemir 8U at bedtime --Novolog sliding scale coverage --continue gabapentin Hypertension --continue losartan, Toprol XL Systolic heart failure --HD for volume control --continue losartan, isosorbide ESRD on HD (M,W,F) --last dialyzed 09/07 via right permacath Pulmonary vascular congestion --09/05 CTAP: left pleural effusion, small right pleural effusion, vascular congestion --CT chest done, pending dictation Pulmonary nodule right lung base --seen on 09/06 MRI LSS --CT chest done,pending dictation --afebrile, no leukocytosis, observe off antibiotics Agitation --review of chart and conversation with nurses on floor, periods of agitation and verbal and physical aggressiveness --today he is quite ccalm but refusing physical exam --psych consult placed FEN Fluids: PO intake adequate Electrolytes: replete as indicated Nutrition: renal diet DVT prophylaxis: subq heparin, oob, ambulation Physical therapy evaluation Dispo: needs PT evaluation to assess discharge needs; continues to require inpatient care. Full code.
[2017-09-09] MEDS: HEPARIN NA (PORCINE) 5,000 UNITS/ML 1ML VIAL SQ SCH ×3 (06:27→21:40)
--- NOTE | 2017-09-09 06:39 | HOSP ---
Subjective - Review of Symptoms Events since last encounter: Nurse called to report pt c/o a "funny feeling in his chest" Subjective: Pt reports not feeling well. When asked if he is having chest pain, he said, "yes." I then asked him to describe it and he stated "I cant talk right now." Speaking without any respiratory distress. When asked if he was having a fluttering in his chest he again answered yes. He denied abdominal pain but answered affirmative to SOB. Cardiovascular: Yes: Chest Pain, Palpitations Physical Examination Vital Signs: Vital Signs Temperature 98.0 F 09/09/17 05:56 Pulse Rate 76 09/09/17 05:56 Respiratory Rate 20 09/09/17 05:56 Blood Pressure 148/76 09/09/17 05:56 O2 Sat by Pulse Oximetry (%) 96 09/08/17 18:00 Constitutional: Yes: No Distress, Calm Cardiovascular: Yes: Regular Rate and Rhythm, S1, S2. No: Murmur Respiratory: Yes: CTA Bilaterally Gastrointestinal: Yes: Normal Bowel Sounds, Soft. No: Tenderness Labs: CBC, BMP 09/08/17 07:28 09/08/17 07:28 ECG: Sinus rhythm with first degree av block Vent rate64, QTC 447 Voltage criteria for LVH TWI lead 1, 2, v5, v6, present on previous ECG Hospitalist Encounter Assessment: Chest pain - ECG unchanged from previous - troponin and chest xray ordered - transfer to tele
[2017-09-09] MEDS: INSULIN SLIDING SCALE (NOVOLOG) 1 VIAL SQ SCH ×4 (07:24→21:41)
--- NOTE | 2017-09-09 07:56 | PN ---
Progress Note (short form) - Note Progress Note: 71 year old male presented to the ED via EMS with the chief complaint of " unable to stand due to b/l weakness of legs" x 3 day. As per the patient, he has had chronic leg weakness for the past 3 years post stroke , but was able to walk with the help of a walker. Yesterday, he was able to take a cab to the Dialysis center. This morning, he couldn't even move his legs. Complaints of LBP radiating towards the right foot; pain level 9/10. Denies numbness or tingling sensation. Patient reports he fell on the road a week ago while walking, had slipped and fell, didn't hit his head. Lives at home alone, uses a cane to walk. He denies any headache, visual symptoms or dysarthria .He has h/o DM for 20 years. C/o R groin pain and chest pressure -nurse aware MRI Impression: No suspicious pathologic bone replacement lumbar vertebrae, vertebral compression or paraspinal mass Degenerative disease predominant L4-5 with a tear of the annulus and a small midline subligamentous herniation lateralizing toward the right indenting slightly on the right L5 nerve root evident on T2 image #23 with bulging annulus toward the right foramen. No evidence otherwise of spondylolisthesis, spondylolysis or severe stenosis. Suspicious finding of a round nodule in the right lung base evident on coronal image #11 with large left pleural effusion CT scan of the chest is recommended for further evaluation. - Current Medication List Current Medications: Active Medications Acetaminophen (Tylenol -) 650 mg PO Q6H PRN PRN Reason: FEVER OR PAIN Aspirin (Asa -) 81 mg PO DAILY [facility] Last Admin: 09/07/17 12:55 Dose: 81 mg Gabapentin (Neurontin -) 100 mg PO DAILY [facility] Last Admin: 09/07/17 12:55 Dose: 100 mg Heparin Sodium (Porcine) (Heparin -) 5,000 unit SQ TID [facility] Last Admin: 09/07/17 15:29 Dose: Not Given Insulin Aspart (Novolog Vial Sliding Scale -) 1 vial SQ ACHS [facility] PRN Reason: Protocol Last Admin: 09/07/17 17:13 Dose: Not Given Insulin Detemir (Levemir Vial) 8 units SQ HS [facility] Last Admin: 09/06/17 22:14 Dose: 8 units Isosorbide Mononitrate (Ismo -) 10 mg PO DAILY [facility] Last Admin: 09/07/17 12:56 Dose: 10 mg Losartan Potassium (Cozaar -) 25 mg PO DAILY [facility] Last Admin: 09/07/17 12:55 Dose: 25 mg Metoprolol Succinate (Toprol Xl -) 25 mg PO DAILY [facility] Last Admin: 09/07/17 12:55 Dose: 25 mg - Objective Vital Signs: Vital Signs Temperature 98.0 F 09/09/17 05:56 Pulse Rate 76 09/09/17 05:56 Respiratory Rate 20 09/09/17 05:56 Blood Pressure 148/76 09/09/17 05:56 O2 Sat by Pulse Oximetry (%) 96 09/08/17 18:00 Labs: CBC, BMP 09/07/17 09:00 09/07/17 09:00 Problem List - Problems (1) Diabetes Code(s): E11.9 - TYPE 2 DIABETES MELLITUS WITHOUT COMPLICATIONS Qualifiers: Diabetes mellitus type: type 2 (2) Stroke Code(s): I63.9 - CEREBRAL INFARCTION, UNSPECIFIED (3) Polyneuropathy Code(s): G62.9 - POLYNEUROPATHY, UNSPECIFIED (4) Back pain Code(s): M54.9 - DORSALGIA, UNSPECIFIED (5) ESRD (end stage renal disease) Code(s): N18.6 - END STAGE RENAL DISEASE Assessment/Plan - Neuro Exam Level Of Consciousness: Yes: Alert, Oriented to Person, Oriented to Place, Oriented to Time Eyes: Yes: PERRLA Speech: WNL Cranial Nerves II-XII Intact: Yes DTR's: 1+ Left Bicep, 1+ Right Bicep, 1+ Left Tricep, 1+ Right Tricep, 1+ Left Brachioradialis, 1+ Right Brachioradialis, 1+ Left Achilles, 1+ Right Achilles Response to light touch: Normal Motor Strength: 3/5: Right Leg (R LE 3-/5 proximally and distally otherwise no focal weakness) Gait: Other (Imbalance , uses walker.) Problem List - Problems (1) Diabetes Code(s): E11.9 - TYPE 2 DIABETES MELLITUS WITHOUT COMPLICATIONS Qualifiers: Diabetes mellitus type: type 2 (2) Stroke Code(s): I63.9 - CEREBRAL INFARCTION, UNSPECIFIED (3) Polyneuropathy Code(s): G62.9 - POLYNEUROPATHY, UNSPECIFIED (4) Back pain Code(s): M54.9 - DORSALGIA, UNSPECIFIED (5) ESRD (end stage renal disease) Code(s): N18.6 - END STAGE RENAL DISEASE Assessment/Plan 71 y/o WM w h/o stroke w old residual leg weakness, DM, ESRD p/w LBP gait dysfunction. Old residual leg weakness from prior stroke 3 years ago ; On exam R LE 3-/5 ,no sensory level , no cuada equina syndrome ;? Lumbasacral radiculopathy in the setting of diabetic poly neuropathy . -MRI-LS indicated disc bulge and R L5 nerve root pressure. pain c/o seems more related to groin pain, ? hernia. Dr. Garay
[2017-09-09 08:08] LABS: EOS % 4.3 % (0-4.5); HEMATOCRIT 30.4 % (35.4-49); HEMOGLOBIN 9.9 GM/dL (11.7-16.9); LYMPH % 26.3 % (8-40); MCHC 32.6 g/dl (32.0-35.9); MEAN CELL VOLUME 86.1 fl (80-96); MEAN PLT VOLUME 7.4 fl (7.5-11.1); NEUT % 59.4 % (42.8-82.8); PLATELET COUNT 180 K/MM3 (134-434); RBC 3.53 M/mm3 (4.00-5.60); RDW 15.6 % (11.9-15.9); WHITE BLOOD COUNT 5.8 K/mm3 (4.0-10.0)
[2017-09-09 08:29] LABS: CHLORIDE 101 mmol/L (98-107); POTASSIUM 4.2 mmol/L (3.5-5.1); SODIUM 137 mmol/L (136-145)
[2017-09-09 08:39] LABS: ALBUMIN 2.7 g/dl (3.4-5.0); ALK PHOS 135 U/L (45-117); ANION GAP 8 (8-16); BILIRUBIN,TOTAL 0.5 mg/dL (0.2-1.0); BLOOD UREA NITROGEN 48 mg/dL (7-18); CALCIUM 7.8 mg/dL (8.5-10.1); CO2 28 mmol/L (21-32); GLUCOSE,RANDOM 125 mg/dL (74-106); MAGNESIUM 2.3 mg/dL (1.8-2.4); SGOT/AST 8 U/L (15-37); SGPT/ALT 14 U/L (12-78)
[2017-09-09] MEDS: GABAPENTIN 100 MG CAPSULE (FP) PO SCH (10:23)
[2017-09-09] MEDS: LOSARTAN POTASSIUM 25 MG TABLET PO SCH (10:23)
[2017-09-09] MEDS: ASPIRIN 81 MG CHEWABLE TABLETS PO SCH (10:23)
[2017-09-09] MEDS: METOPROLOL SUCCINATE 25 MG TAB.SR.24H (FP) PO SCH (10:23)
[2017-09-09] MEDS: ISOSORBIDE MONONITRATE 20 MG TABLET PO SCH (12:25)
--- NOTE | 2017-09-09 12:45 | PN ---
Progress Note (short form) - Note Progress Note: Renal Follow up for ESRD on HD Pt seen and examined at the bedside pain in right groin contniues no n/v, abd pain pain in distal legs unchanged no SOB, chest pain Vital Signs Temperature 98.2 F 09/09/17 09:00 Pulse Rate 78 09/09/17 09:00 Respiratory Rate 16 09/09/17 09:00 Blood Pressure 146/78 09/09/17 09:00 O2 Sat by Pulse Oximetry (%) 96 09/08/17 18:00 Intake & Output 09/06/17 09/07/17 09/08/17 09/09/17 23:59 23:59 23:59 23:59 Intake Total 550 1630 100 Output Total 1 Balance 550 1629 100 Weight 68.974 kg NAD awake and alert No LE edema CBC, BMP 09/09/17 07:34 09/09/17 07:34 Current Medications Acetaminophen (Tylenol -) 650 mg PO Q6H PRN PRN Reason: FEVER OR PAIN Last Admin: 09/09/17 10:28 Dose: 650 mg Aspirin (Asa -) 81 mg PO DAILY [facility] Last Admin: 09/09/17 10:23 Dose: 81 mg Gabapentin (Neurontin -) 100 mg PO DAILY [facility] Last Admin: 09/09/17 10:23 Dose: 100 mg Heparin Sodium (Porcine) (Heparin -) 5,000 unit SQ TID [facility] Last Admin: 09/09/17 06:27 Dose: 5,000 unit Insulin Aspart (Novolog Vial Sliding Scale -) 1 vial SQ ACHS [facility] PRN Reason: Protocol Last Admin: 09/09/17 12:25 Dose: Not Given Insulin Detemir (Levemir Vial) 8 units SQ HS [facility] Last Admin: 09/08/17 21:53 Dose: 8 units Isosorbide Mononitrate (Ismo -) 10 mg PO DAILY [facility] Last Admin: 09/09/17 12:25 Dose: 10 mg Losartan Potassium (Cozaar -) 25 mg PO DAILY [facility] Last Admin: 09/09/17 10:23 Dose: 25 mg Metoprolol Succinate (Toprol Xl -) 25 mg PO DAILY [facility] Last Admin: 09/09/17 10:23 Dose: 25 mg 71 year old gentleman with PMhx of ESRD on HD (recently started), Hypertension, Hepatitis C, CVA, CHF who presented with complaints of right sided groin pain and LE weakness. #Going pain with inguinal hernia surgical follow up pain control #LE weakness/Neuropathy Neurology follow up MRI findings noted PT continue gabapentin (pt reported having syncope on gabapentin before, will monitor closely as inpatient) #ESRD on HD for dialysis tomorrow #Hypertension continue LOsartan, metoprolol #CKD related Anemia on long acting EDWINA from outpatient HD unit trend h/H #Renal Osteodystrophy trend Ca and Phos Thank you Ant Martino DO
--- NOTE | 2017-09-09 18:04 | CON.PSY ---
Psychiatry Consult Chief Complaint: 71 year old white male with a history of multiple chronic medical conditions including CVA and on Dialysis. Patient seen for an evaluation of capacity to make informed decisions at this time. Patient has no history of any on going Psych problems. 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 Sees friends occasionally. Symptoms: reports: Irritability - Previous Psychiatric Treatment Outpatient: None Inpatient: None - Previous Substance Abuse Treatment Outpatient: None Inpatient: None - Current Medications Current Medications: Active Medications Acetaminophen (Tylenol -) 650 mg PO Q6H PRN PRN Reason: FEVER OR PAIN Last Admin: 09/09/17 10:28 Dose: 650 mg Aspirin (Asa -) 81 mg PO DAILY [facility] Last Admin: 09/09/17 10:23 Dose: 81 mg Gabapentin (Neurontin -) 100 mg PO DAILY [facility] Last Admin: 09/09/17 10:23 Dose: 100 mg Heparin Sodium (Porcine) (Heparin -) 5,000 unit SQ TID [facility] Last Admin: 09/09/17 15:10 Dose: 5,000 unit Heparin Sodium (Porcine) (Heparin -) 1,000 unit IVPUSH ONCE ONE Stop: 09/10/17 06:01 Insulin Aspart (Novolog Vial Sliding Scale -) 1 vial SQ ACHS [facility] PRN Reason: Protocol Last Admin: 09/09/17 17:00 Dose: Not Given Insulin Detemir (Levemir Vial) 8 units SQ HS [facility] Last Admin: 09/08/17 21:53 Dose: 8 units Isosorbide Mononitrate (Ismo -) 10 mg PO DAILY [facility] Last Admin: 09/09/17 12:25 Dose: 10 mg Losartan Potassium (Cozaar -) 25 mg PO DAILY [facility] Last Admin: 09/09/17 10:23 Dose: 25 mg Metoprolol Succinate (Toprol Xl -) 25 mg PO DAILY [facility] Last Admin: 09/09/17 10:23 Dose: 25 mg - Allergies Allergies: Allergies Allergy/AdvReac Type Severity Reaction Status Date / Time No Known Allergies Allergy Verified 09/05/17 18:53 - Current Living Status Usual Living Arrangement: Alone - Current Mental Status Evaluation Appearance: Well Groomed Attitude: Cooperative - Affect Affect: Constrictive Appropriateness: Appropriate to Content - Mood Mood: Euthymic - Speech/Language Expressive: Coherent - Psychomotor Activity Psychomotor Activity: Slowed - Thought Process Thought Process: Intact - Thought Content Hallucinations: Absent Delusions: Absent - Self Perception Self Perception: No Impairment - Cognition Attention: Alert Orientation: Time Memory, Immediate Recall: Intact Memory, Short Term: 2/3 Memory, Remote with Promptin/3 - Concentration Serial Sevens Intact: No Simple Calculations Intact: No - Abstraction Proverb Interpretation: Intact Judgement: Intact - Insight Insight: Intact - Impulse Control Impulse Control: Good Control - Suicidal Ideation Suicidal Ideation: No - Homicidal Ideation Homicidal Ideation: No Assessment/Plan 1) Patient is not exhibiting any acute Psych symptoms or behaviour at this time. 2) Patient appears to be cognitively intact and is able to comprehend at this time. #) patient has the functional capacity to make informed decisions at this time, He is safe to go home on his own volition.
[2017-09-09] MEDS: INSULIN DETEMIR 100 UNITS/ML MDV SQ SCH (21:39)
[2017-09-10] MEDS: HEPARIN NA (PORCINE) 5,000 UNITS/ML 1ML VIAL SQ SCH (06:30)
[2017-09-10] MEDS: INSULIN SLIDING SCALE (NOVOLOG) 1 VIAL SQ SCH ×2 (06:30→11:36)
[2017-09-10] MEDS: METOPROLOL SUCCINATE 25 MG TAB.SR.24H (FP) PO SCH (09:36)
[2017-09-10] MEDS: LOSARTAN POTASSIUM 25 MG TABLET PO SCH (09:36)
[2017-09-10] MEDS: GABAPENTIN 100 MG CAPSULE (FP) PO SCH (09:36)
[2017-09-10] MEDS: ASPIRIN 81 MG CHEWABLE TABLETS PO SCH (09:36)
[2017-09-10] MEDS: ISOSORBIDE MONONITRATE 20 MG TABLET PO SCH (09:37)
--- NOTE | 2017-09-10 09:41 | EKG ---
Test Reason : Blood Pressure : / mmHG Vent. Rate : 064 BPM Atrial Rate : 064 BPM P-R Int : 284 ms QRS Dur : 096 ms QT Int : 434 ms P-R-T Axes : 032 014 135 degrees QTc Int : 447 ms SINUS RHYTHM WITH 1ST DEGREE A-V BLOCK VOLTAGE CRITERIA FOR LEFT VENTRICULAR HYPERTROPHY T WAVE ABNORMALITY, CONSIDER LATERAL ISCHEMIA ABNORMAL ECG Confirmed by MD Mike, Guero ([id number]) on 09/10/2017 9:40:57 AM Referred By: Confirmed By:Guero Mckeon MD
[2017-09-10 10:52] LABS: HEMATOCRIT 31.1 % (35.4-49); HEMOGLOBIN 10.3 GM/dL (11.7-16.9); MCH 28.4 pg (25.7-33.7); MEAN CELL VOLUME 85.9 fl (80-96); MEAN PLT VOLUME 7.7 fl (7.5-11.1); PLATELET COUNT 191 K/MM3 (134-434); RBC 3.63 M/mm3 (4.00-5.60); RDW 15.8 % (11.9-15.9); WHITE BLOOD COUNT 6.5 K/mm3 (4.0-10.0)
[2017-09-10 11:11] LABS: ANION GAP 12 (8-16); BLOOD UREA NITROGEN 60 mg/dL (7-18); CALCIUM 7.9 mg/dL (8.5-10.1); CHLORIDE 102 mmol/L (98-107); CO2 23 mmol/L (21-32); CREATININE 5.4 mg/dL (0.7-1.3); GLUCOSE,RANDOM 152 mg/dL (74-106); PHOSPHOROUS 5.5 mg/dL (2.5-4.9); POTASSIUM 4.6 mmol/L (3.5-5.1); SODIUM 137 mmol/L (136-145)
[2017-09-10] MEDS ORDERED: HEPARIN NA (PORCINE) 5,000 UNITS/ML 1ML VIAL IVPUSH ONE (11:15)
--- NOTE | 2017-09-10 11:17 | DS ---
Physical Exam: SUBJECTIVE: Patient seen and examined OBJECTIVE: Vital Signs Period Temp Pulse Resp BP Sys/Reeder Pulse Ox Last 24 Hr 97.3 F-98.3 F 59-69 16-18 130-165/59-79 95-95 PHYSICAL EXAM GENERAL: The patient is awake, alert, and fully oriented, in no acute distress. HEAD: Normal with no signs of trauma. EYES: PERRL, extraocular movements intact, sclera anicteric, conjunctiva clear. ENT: Ears normal, nares patent, oropharynx clear without exudates, moist mucous membranes. NECK: Trachea midline, full range of motion, supple. LUNGS: Breath sounds equal, clear to auscultation bilaterally, no wheezes, no crackles, no accessory muscle use. HEART: Regular rate and rhythm, S1, S2 without murmur, rub or gallop. ABDOMEN: Soft, nontender, nondistended, normoactive bowel sounds, no guarding, no rebound, no hepatosplenomegaly, no masses. EXTREMITIES: 2+ pulses, warm, well-perfused, no edema. NEUROLOGICAL: Cranial nerves II through XII grossly intact. Normal speech, gait not observed. PSYCH: Normal mood, normal affect. SKIN: Warm, dry, normal turgor, no rashes or lesions noted. LABS Laboratory Results - last 24 hr 09/07/17 09/09/17 09/09/17 09:00 12:24 13:30 WBC RBC Hgb Hct MCV MCH MCHC RDW Plt Count MPV Sodium Potassium Chloride Carbon Dioxide Anion Gap BUN Creatinine POC Glucometer 176 Random Glucose Calcium Phosphorus Troponin I 0.04 Hepatitis C Antibody >11.0 H 09/09/17 09/09/17 09/10/17 15:40 21:41 06:29 WBC RBC Hgb Hct MCV MCH MCHC RDW Plt Count MPV Sodium Potassium Chloride Carbon Dioxide Anion Gap BUN Creatinine POC Glucometer 143 187 150 Random Glucose Calcium Phosphorus Troponin I Hepatitis C Antibody 09/10/17 09/10/17 10:00 10:00 WBC 6.5 RBC 3.63 L Hgb 10.3 L Hct 31.1 L MCV 85.9 MCH 28.4 MCHC 33.0 RDW 15.8 Plt Count 191 MPV 7.7 Sodium 137 Potassium 4.6 Chloride 102 Carbon Dioxide 23 Anion Gap 12 BUN 60 H D Creatinine 5.4 H POC Glucometer Random Glucose 152 H D Calcium 7.9 L Phosphorus 5.5 H Troponin I Hepatitis C Antibody HOSPITAL COURSE: Date of Admission:09/06/17 Date of Discharge: 09/10/17 Discharge Summary Reason For Visit: ABDOMINAL PAIN PNEUMONIA CHF Current Active Problems Abdominal pain (Acute) Back pain (Acute) Diabetes (Acute) ESRD (end stage renal disease) (Acute) Pneumonia (Acute) Polyneuropathy (Acute) Stroke (Acute) CHF (congestive heart failure) (Chronic) Condition: Improved - Instructions Diet, Activity, Other Instructions: It is recommended you follow up with neurologist Dr. Sanju Garay for further evaluation of your chronic back and leg pain. Return to the emergency department for any new or worsening symptoms Referrals: Sanju Garay DO [Staff Physician] - 1 Week Disposition: HOME - Home Medications Comprehensive Discharge Medication List: Ambulatory Orders Aspirin [ASA -] 81 mg PO DAILY 06/18/17 Hydralazine HCl 10 mg PO DAILY 06/18/17 Isosorbide Mononitrate 10 mg PO DAILY 06/18/17 Metoprolol Succinate [Toprol XL -] 25 mg PO DAILY 06/18/17 Losartan Potassium [Cozaar -] 25 mg PO DAILY #30 tablet 06/24/17 - Discharge Referral Referred to [facility] No
--- NOTE | 2017-09-10 12:31 | PN ---
Progress Note (short form) - Note Progress Note: Renal Follow up for ESRD on HD Pt seen and examined during dialysis BP stable Goal UF is 2L continues to have groin pain, LE weakness and pain Vital Signs Temperature 98.1 F 09/10/17 10:00 Pulse Rate 67 09/10/17 12:05 Respiratory Rate 18 09/10/17 12:05 Blood Pressure 143/67 09/10/17 12:05 O2 Sat by Pulse Oximetry (%) 95 09/10/17 04:00 Intake & Output 09/07/17 09/08/17 09/09/17 09/10/17 23:59 23:59 23:59 23:59 Intake Total 550 1630 660 Output Total 1 700 600 Balance 550 1629 -40 -600 NAD awake and alert No LE edema CBC, BMP 09/10/17 10:00 09/10/17 10:00 Current Medications Acetaminophen (Tylenol -) 650 mg PO Q6H PRN PRN Reason: FEVER OR PAIN Last Admin: 09/09/17 10:28 Dose: 650 mg Aspirin (Asa -) 81 mg PO DAILY [facility] Last Admin: 09/10/17 09:36 Dose: 81 mg Gabapentin (Neurontin -) 100 mg PO DAILY [facility] Last Admin: 09/10/17 09:36 Dose: 100 mg Heparin Sodium (Porcine) (Heparin -) 5,000 unit SQ TID [facility] Last Admin: 09/10/17 06:30 Dose: 5,000 unit Insulin Aspart (Novolog Vial Sliding Scale -) 1 vial SQ ACHS [facility] PRN Reason: Protocol Last Admin: 09/10/17 11:36 Dose: Not Given Insulin Detemir (Levemir Vial) 8 units SQ HS [facility] Last Admin: 09/09/17 21:39 Dose: 8 units Isosorbide Mononitrate (Ismo -) 10 mg PO DAILY [facility] Last Admin: 09/10/17 09:37 Dose: 10 mg Losartan Potassium (Cozaar -) 25 mg PO DAILY [facility] Last Admin: 09/10/17 09:36 Dose: 25 mg Metoprolol Succinate (Toprol Xl -) 25 mg PO DAILY [facility] Last Admin: 09/10/17 09:36 Dose: 25 mg 71 year old gentleman with PMhx of ESRD on HD (recently started), Hypertension, Hepatitis C, CVA, CHF who presented with complaints of right sided groin pain and LE weakness. #Going pain with inguinal hernia pain persists surgical follow up #LE weakness/Neuropathy Physical therapy as tolerated pain control neurology follow up #ESRD on HD tolerating dialysis well w/o issue using dialysis catheter AVF not ready to use yet #Hypertension continue LOsartan, metoprolol #CKD related Anemia Hgb at goal #Renal Osteodystrophy trend Ca and Phos Thank you Ant Martino DO
[2017-09-10 14:11] LABS: HBSAG SCREEN Negative (Negative); HEP A AB, IGM Negative (Negative); HEP B CORE AB, TOT Positive (Negative)
[2017-09-10 14:54] VITALS: BP 122/64; PULSE 72; TEMP 97.3
== END 2017-09-10 15:18 | disposition home or self-care (01) ==
LOC: JER 18:19 → JERBED 09-06 01:24 → J6S 09-06 05:08 → J4W 09-09 06:47
PROVIDERS: ADMIT Internal Medicine; ATTEND Nurse Practitioner Acute Care
PROC: 3E03329 Introduction of Other Anti-infective into Peripheral Vein, Percutaneous Approach (ICD-10-PCS; principal; 2017-09-06)
PROC: 3E033NZ Introduction of Analgesics, Hypnotics, Sedatives into Peripheral Vein, Percutaneous Approach (ICD-10-PCS; 2017-09-06)
PROC: 3E033GC Introduction of Other Therapeutic Substance into Peripheral Vein, Percutaneous Approach (ICD-10-PCS; 2017-09-06)
PROC: 3E013VG Introduction of Insulin into Subcutaneous Tissue, Percutaneous Approach (ICD-10-PCS; 2017-09-06)
PROC: 3E013GC Introduction of Other Therapeutic Substance into Subcutaneous Tissue, Percutaneous Approach (ICD-10-PCS; 2017-09-06)
DX: R10.31 Right lower quadrant pain (principal); R26.2 Difficulty in walking, not elsewhere classified; I50.22 Chronic systolic (congestive) heart failure; I12.0 Hypertensive chronic kidney disease with stage 5 chronic kidney disease or end stage renal disease; E11.22 Type 2 diabetes mellitus with diabetic chronic kidney disease; N18.6 End stage renal disease; K40.90 Unilateral inguinal hernia, without obstruction or gangrene, not specified as recurrent; I44.0 Atrioventricular block, first degree; D64.9 Anemia, unspecified; B18.2 Chronic viral hepatitis C; Z99.89 Dependence on other enabling machines and devices; Z99.2 Dependence on renal dialysis; Z86.73 Personal history of transient ischemic attack (TIA), and cerebral infarction without residual deficits; Z79.82 Long term (current) use of aspirin; Z79.4 Long term (current) use of insulin; G62.9 Polyneuropathy, unspecified; M54.9 Dorsalgia, unspecified; I63.9 Cerebral infarction, unspecified; J81.1 Chronic pulmonary edema; R91.1 Solitary pulmonary nodule; R45.1 Restlessness and agitation
CPT/HCPCS: 36415; 71045-TC; 71250-TC; 72148-TC; 73502-TC-LT; 73502-TC-RT; 74176-TC; 80048; 80053; 81003; 81015; 82550; 82565; 82607; 83690; 83735; 83880; 84100; 84443; 84484; 84520; 85025; 85027; 86704; 86706; 86708; 86803; 87040; 87340; 87522; 93005; 93010; 96365; 96367; 96372; 96375; 96376; 97116-GP; 97161-GP; 99284-25; G0378; J1644

== ENCOUNTER 2017-10-07 05:20 | Inpatient (IN) | payer OTHER, MEDICARE ==
--- NOTE | 2017-10-07 05:50 | PDOC ---
History of Present Illness - General Chief Complaint: Pain, Acute Stated Complaint: LEG PAIN Time Seen by Provider: 10/07/17 05:41 History Source: Patient - History of Present Illness Initial Comments: 10/07/17 05:53 72 year old male with b/l lower extremity pain x 3 years that is worse today. patient with history of IDDM, chronic neuropathy on HD m/W/F. patient reports that since dialysis yesterday patient has more pain to his lower extremity and increased pain with weight bearing. patient normally takes Gabapentin for the neuropathy. 10/07/17 06:09 Past History - Past Medical History Allergies/Adverse Reactions: Allergies Allergy/AdvReac Type Severity Reaction Status Date / Time No Known Allergies Allergy Verified 10/07/17 05:35 Home Medications: Ambulatory Orders Aspirin [ASA -] 81 mg PO DAILY 06/18/17 Hydralazine HCl 10 mg PO DAILY 06/18/17 Isosorbide Mononitrate 10 mg PO DAILY 06/18/17 Losartan Potassium [Cozaar -] 25 mg PO DAILY #30 tablet 06/24/17 Metoprolol Succinate 25 mg PO DAILY #120 tab.er.24h 09/29/17 Insulin (Levemir) [Levemir Flexpen -] 8 units SQ DAILY 10/07/17 Anemia: Yes Cardiac Disorders: Yes COPD: No Diabetes: Yes Disorders: Yes (kidney failure, left arm fistula (not on dialysis yet)) HTN: Yes - Suicide/Smoking/Psychosocial Hx Smoking History: Never smoked Have you smoked in the past 12 months: No Information on smoking cessation initiated: No Hx Alcohol Use: No Drug/Substance Use Hx: No Substance Use Type: None Review of Systems - Review of Systems Able to Perform ROS?: Yes Is the patient limited Yi proficient: No Musculoskeletal: Yes: Other (b/l lower extremity pain) *Physical Exam - Vital Signs Last Vital Signs Temp Pulse Resp BP Pulse Ox 97.3 F L 66 18 134/70 100 10/07/17 05:33 10/07/17 05:33 10/07/17 05:33 10/07/17 05:33 10/07/17 05:33 - Physical Exam General Appearance: Yes: Appropriately Dressed Respiratory/Chest: positive: Lungs Clear, Normal Breath Sounds Gastrointestinal/Abdominal: positive: Normal Bowel Sounds, Soft Extremity: positive: Normal Capillary Refill, Other (+ pedal pulse). negative: Pedal Edema Integumentary: positive: Normal Color, Dry, Warm Neurologic: positive: Fully Oriented, Alert Heart Score/ECG Review - ECG Intrepretation Comment:: 10/07/17 07:06 Sinus rhythm with 1st degree AV block. T wave abnormality consider lateral ischemia : NSR 67bpm Progress Note - Progress Note Progress Note: A: diabetic neuropathy P: pain control gabapentin *DC/Admit/Observation/Transfer Diagnosis at time of Disposition: Diabetic neuropathy Qualifiers: Diabetes mellitus type: type 2 Diabetes mellitus complication detail: diabetic polyneuropathy Qualified Code(s): E11.42 - Type 2 diabetes mellitus with diabetic polyneuropathy - Referrals - Patient Instructions - Post Discharge Activity
[2017-10-07] MEDS ORDERED: oxyCODONE HCL 5 MG TABLET PO ONE (06:08)
[2017-10-07] MEDS ORDERED: GABAPENTIN 300 MG CAPSULE (FP) PO ONE (06:08)
[2017-10-07] MEDS ORDERED: oxyCODONE HCL 5 MG TABLET ONE (06:46)
[2017-10-07] MEDS ORDERED: GABAPENTIN 100 MG CAPSULE (FP) ONE (06:47)
[2017-10-07] MEDS ORDERED: ASPIRIN 81 MG CHEWABLE TABLETS PO ONE (07:12)
[2017-10-07] MEDS ORDERED: ASPIRIN 81 MG CHEWABLE TABLETS ONE (07:25)
--- NOTE | 2017-10-07 07:30 | PDOC ---
ED Treatment Course - LABORATORY CBC & Chemistry Diagram: 10/07/17 07:29 10/07/17 07:29 - RADIOLOGY Radiology Studies Ordered: Category Date Time Status CHEST X-RAY PORTABLE* [RAD] Stat Radiology 10/07/17 07:23 Ordered - Medications Given in the ED: ED Medications Discontinued Medications Generic Name Dose Route Start Last Admin Trade Name Hans PRN Reason Stop Dose Admin Gabapentin 300 mg 10/07/17 06:08 10/07/17 06:47 Neurontin - PO 10/07/17 06:09 300 mg ONCE ONE Administration Oxycodone HCl 5 mg 10/07/17 06:08 10/07/17 06:47 Roxicodone - PO 10/07/17 06:09 5 mg ONCE ONE Administration Progress Note - Progress Note Progress Note: I have received report from JAMES Ryder regarding this patient. Pt's initial chief complaint: b/l lower extremity pain Pt's work up completed prior to sign out: pain control, EKG Pt treatment given from prior staff: gabapentin, oxycodone Pt plan to be completed: awaiting labs Dispo: Pending Medical Decision Making - Medical Decision Making A/P: 72 y/o male with b/l LE pain x 3 years that is worse today. He does admit he normally takes gabapentin for his neuropathy but hasn't taken it. Patient has history of IDDM, chronic neuropathy, on HD m//. JAMES Ryder provided the patient with pain control. However, after medication the patient began c/o chest pain. EKG, CXR and cardiac labs ordered. 1st troponin negative Will draw 2nd troponin at 2pm Patient's potassium is 5.7. Spoke with Dr. Gibbs and he states he will dialyze the patient while he is admitted to obs. Dr. Garvey is [facility]. Patient states his chest pain and leg pain are improved but still present. *DC/Admit/Observation/Transfer Diagnosis at time of Disposition: Hyperkalemia Diabetic neuropathy Qualifiers: Diabetes mellitus type: type 2 Diabetes mellitus complication detail: diabetic polyneuropathy Qualified Code(s): E11.42 - Type 2 diabetes mellitus with diabetic polyneuropathy Chest pain Qualifiers: Chest pain type: unspecified Qualified Code(s): R07.9 - Chest pain, unspecified - Discharge Dispostion Condition at time of disposition: Stable Admit: Yes - Referrals Referrals: Maciej Hernandez MD [Primary Care Provider] - - Patient Instructions - Post Discharge Activity
[2017-10-07 08:15] LABS: BASO % 0.4 % (0-2.0); EOS % 3.8 % (0-4.5); HEMATOCRIT 40.6 % (35.4-49); HEMOGLOBIN 13.5 GM/dL (11.7-16.9); LYMPH % 22.9 % (8-40); MCH 28.6 pg (25.7-33.7); MCHC 33.3 g/dl (32.0-35.9); MEAN CELL VOLUME 85.8 fl (80-96); MEAN PLT VOLUME 7.4 fl (7.5-11.1); MONO % 6.3 % (3.8-10.2); NEUT % 66.6 % (42.8-82.8); PLATELET COUNT 185 K/MM3 (134-434); RBC 4.73 M/mm3 (4.00-5.60); RDW 17.9 % (11.9-15.9); WHITE BLOOD COUNT 6.8 K/mm3 (4.0-10.0)
[2017-10-07 08:32] LABS: INR 1.04 (0.82-1.09); PROTHROMBIN TIME (PATIENT) 11.8 SEC (9.98-11.88)
[2017-10-07 08:34] LABS: ANION GAP 10 (8-16); BILIRUBIN,TOTAL 0.7 mg/dL (0.2-1.0); BLOOD UREA NITROGEN 36 mg/dL (7-18); CHLORIDE 95 mmol/L (98-107); CO2 24 mmol/L (21-32); CREATININE 4.5 mg/dL (0.7-1.3); GLUCOSE,RANDOM 136 mg/dL (74-106); MAGNESIUM 2.5 mg/dL (1.8-2.4); POTASSIUM 5.7 mmol/L (3.5-5.1); SGOT/AST 13 U/L (15-37); SGPT/ALT 14 U/L (12-78); SODIUM 129 mmol/L (136-145); TOT PROT 8.2 g/dl (6.4-8.2)
[2017-10-07 08:37] LABS: ALK PHOS 164 U/L (45-117)
[2017-10-07] MEDS ORDERED: SODIUM POLYSTYRENE SULFONATE 15 GM/60 ML BOTTLE PO ONE (11:45)
[2017-10-07 11:54] VITALS: BMI 22.4
[2017-10-07] MEDS ORDERED: SODIUM POLYSTYRENE SULFONATE 15 GM/60 ML BOTTLE ONE (11:54)
--- NOTE | 2017-10-07 12:19 | HP ---
CHIEF COMPLAINT: difficulty ambulating, chest pain PCP: HISTORY OF PRESENT ILLNESS: Patient is an 72 year old male with a significant past medical history of diabetes mellitus, HTN, CHF, ESRD with dialysis on MWF (with Left arm AV fistula placed 3 months ago), anemia, CVA 3 yrs ago. He presented to the ED via EMS with c/o of bilateral lower extremity weakness with difficulty ambulation. Patient also reports a falls at home 3 weeks ago. He is noted to have a very large purple bruise on his left upper extremity. He denies trauma. As per the patient, he has had chronic leg weakness for the past 3 years, but was able to walk with the help of a walker. He comes in today because walking at home has become more difficult. He usually takes a cab to the dialysis center but reports that this is becoming more difficult because of his leg weakness. He also complaints of right inguinal pain. Denies numbness or tingling sensation. Patient lives at home alone, uses a cane to walk. Patient was recently admitted between 09/06/2017 - 09/10/2017 for bilateral lower extremity weakness and MRI imaging was done. He was sent home on Gabapentin and a neurologist referral. However, patient reports non compliance with the Gabapentin. During ER workup, patient complained of chest pain and a cardiac workup was initiated. Will continue to monitor on tele as patient has multiple risk factors. Will ask cardiology to follow. ER course was notable for: (1) K. 5.7 (2) Trop neg. x 1 (3) Creat 4.5, K.5.7 dialysis initiated Recent Travel: PAST MEDICAL HISTORY: PAST SURGICAL HISTORY: Social History: Smoking: n/a Alcohol:n/a Drugs: n/a Family History: Allergies No Known Allergies Allergy (Verified 10/07/17 05:35) HOME MEDICATIONS: Home Medications Medication Instructions Recorded Aspirin [ASA -] 81 mg PO DAILY 06/18/17 Hydralazine HCl 10 mg PO DAILY 06/18/17 Isosorbide Mononitrate 10 mg PO DAILY 06/18/17 Losartan Potassium [Cozaar -] 25 mg PO DAILY #30 tablet 06/24/17 Metoprolol Succinate 25 mg PO DAILY #120 tab.er.24h 09/29/17 REVIEW OF SYSTEMS CONSTITUTIONAL: Absent: fever, chills, diaphoresis, generalized weakness, malaise, loss of appetite, weight change HEENT: Absent: rhinorrhea, nasal congestion, throat pain, throat swelling, difficulty swallowing, mouth swelling, ear pain, eye pain, visual changes CARDIOVASCULAR: Absent: syncope, palpitations, irregular heart rate, lightheadedness, peripheral edema RESPIRATORY: Absent: cough, shortness of breath, dyspnea with exertion, orthopnea, wheezing, stridor, hemoptysis GASTROINTESTINAL: Absent: abdominal pain, abdominal distension, nausea, vomiting, diarrhea, constipation, melena, hematochezia GENITOURINARY: Absent: dysuria, frequency, urgency, hesitancy, hematuria, flank pain, genital pain MUSCULOSKELETAL: Absent: myalgia, arthralgia, joint swelling, back pain, neck pain HEMATOLOGIC/IMMUNOLOGIC: Absent: easy bleeding, easy bruising, lymphadenopathy, frequent infections ENDOCRINE: PHYSICAL EXAMINATION Vital Signs - 24 hr 10/07/17 10/07/17 10/07/17 05:33 07:31 11:50 Temperature 97.3 F L 98.5 F Pulse Rate 66 Pulse Rate [ 61 71 Left Radial] Respiratory 18 16 16 Rate Blood Pressure 134/70 Blood Pressure 142/70 131/65 [Right Arm] O2 Sat by Pulse 100 100 98 Oximetry (%) 10/07/17 11:51 Temperature 97.9 F Pulse Rate Pulse Rate [ Left Radial] Respiratory Rate Blood Pressure Blood Pressure [Right Arm] O2 Sat by Pulse Oximetry (%) GENERAL: The patient is awake, alert, and fully oriented, in no acute distress HEAD: Normal with no signs of trauma. EYES: PERRL, extraocular movements intact, sclera anicteric, conjunctiva clear. No ptosis. ENT: Ears normal, nares patent, oropharynx clear without exudates, moist mucous membranes. NECK: Trachea midline, full range of motion, supple. LUNGS: Breath sounds equal, clear to auscultation bilaterally, no wheezes HEART: Regular rate and rhythm, S1, S2 without murmur, rub or gallop. ABDOMEN: Soft, nontender, nondistended, normoactive bowel sounds, no guarding, no rebound, no hepatosplenomegaly, no masses. EXTREMITIES: + bruit thrill on left upper arm fistula, dialysis through right shiley catheter, left upper arm with moderate sized purple bruise, present on adm. NEUROLOGICAL: Normal speech,, fall risk, patient reports lower extremity weakness PSYCH: Normal mood, normal affect. Laboratory Results - last 24 hr 10/07/17 10/07/17 10/07/17 07:29 07:29 07:29 WBC 6.8 RBC 4.73 D Hgb 13.5 D Hct 40.6 D MCV 85.8 MCH 28.6 MCHC 33.3 RDW 17.9 H D Plt Count 185 MPV 7.4 L Neutrophils % 66.6 Lymphocytes % 22.9 Monocytes % 6.3 Eosinophils % 3.8 Basophils % 0.4 PT with INR 11.80 INR 1.04 Sodium 129 L Potassium 5.7 H D Chloride 95 L Carbon Dioxide 24 Anion Gap 10 BUN 36 H D Creatinine 4.5 H Creat Clearance w eGFR 12.88 Random Glucose 136 H Calcium 9.0 Magnesium 2.5 H Total Bilirubin 0.7 D AST 13 L D ALT 14 Alkaline Phosphatase 164 H D Creatine Kinase 58 Troponin I 0.03 Total Protein 8.2 D Albumin 4.0 D ASSESSMENT/PLAN: Patient is an 72 year old male with a significant past medical history of diabetes mellitus, HTN, CHF, ESRD with dialysis on MWF (with Left arm AV fistula placed 3 months ago), anemia, CVA 3 yrs ago. He presented to the ED via EMS with c/o of bilateral lower extremity weakness with difficulty ambulation. Patient also reports a falls at home 3 weeks ago. He is noted to have a very large purple bruise on his left upper extremity. He denies trauma. As per the patient, he has had chronic leg weakness for the past 3 years, but was able to walk with the help of a walker. He comes in today because walking at home has become more difficult. He usually takes a cab to the dialysis center but reports that this is becoming more difficult because of his leg weakness. He also complaints of right inguinal pain. Denies numbness or tingling sensation. Patient lives at home alone, uses a cane to walk. Patient was recently admitted between 09/06/2017 - 09/10/2017 for bilateral lower extremity weakness and MRI imaging was done. He was sent home on Gabapentin and a neurologist referral. However, patient reports non compliance with the Gabapentin. During ER workup, patient complained of chest pain and a cardiac workup was initiated. Will continue to monitor on tele as patient has multiple risk factors. Will ask cardiology to follow. Imagin09/06/2017: MRI of lumbar spine: degenerative disease predominant L4-L5 with a tear of the annulus and small midline subligamentous herniation lateralizing toward the right indenting slightly on the right L5 nerve root evident on t2 image #23 with bulging No evidence of spondyloysis or severe stenosis Suspicious finding of round nodule in the right lung base with large left pleural effusion, CT recommended EKG: SR with 1st degree av blodk, minimal voltage criteria for LVH, ma be normal variant. T wave abnormality, consider lateral ischemia. Neuro: Bilateral lower extremity weakness, acute on chronic MRI of lumbar spine above Continue Tylenol PRN for pain control, restart Neurontin and monitor Physical therapy, fall precautions Due to risk of falls, pt would need to be evaluated by PT for possible rehab placement Re-sarted on Neurontin High fall risk patient Unsteady gait and often refuses to use walker PT ordered Multiple falls Carotid doppler, TSH, Monitor on tele Consider neuro consult while inpatient Moniitor Orthostatics CVA, chronic On ASA daily Cardiology: Hypertension, controlled CHF, not in acute exacerbation On Metoprolol 25mg PO Daily Chest pain, now resolved Rule out ACS Tropx negative x 2 Monitor on tele Cardiology consult (multiple risk factors) Monitor orthostatics Renal: ESRD via right permacath, left arm fistula maturing, left arm precautions Dialysis today, no issues, tolerated well Monitor labs Renal diet Endocrine Diabetes Mellitus BGMs, monitor blood sugars F.E.N. Fluids: tolerating PO Electrolytes: monitor daily Nutrition: renal diet Prophylaxis: DVT: Heparin 5000 TID GI: deferred Disposition: full code. Visit type - Emergency Visit Emergency Visit: Yes ED Registration Date: 10/07/17 Care time: The patient presented to the Emergency Department on the above date and was hospitalized for further evaluation of their emergent condition. - New Patient This patient is new to me today: No - Critical Care Critical Care patient: No
--- NOTE | 2017-10-07 13:48 | EKG ---
Test Reason : Blood Pressure : / mmHG Vent. Rate : 067 BPM Atrial Rate : 067 BPM P-R Int : 312 ms QRS Dur : 098 ms QT Int : 408 ms P-R-T Axes : 061 046 130 degrees QTc Int : 431 ms SINUS RHYTHM WITH 1ST DEGREE A-V BLOCK MINIMAL VOLTAGE CRITERIA FOR LVH, MAY BE NORMAL VARIANT T WAVE ABNORMALITY, CONSIDER LATERAL ISCHEMIA ABNORMAL ECG WHEN COMPARED WITH ECG OF 09-SEP-2017 06:17, T WAVE INVERSION LESS EVIDENT IN LATERAL LEADS Confirmed by MD CHRISTOPHER, RIVAS ([id number]) on 10/07/2017 1:47:29 PM Referred By: Confirmed By:RIVAS WHITE MD
[2017-10-07] MEDS ORDERED: LORazepam 0.5 MG TABLET PO PRN (18:21)
[2017-10-07] MEDS: INSULIN SLIDING SCALE (NOVOLOG) 1 VIAL SQ SCH ×2 (18:38→21:48)
[2017-10-07] MEDS ORDERED: LORazepam 2 MG/ML SDV VIAL ONE (20:33)
[2017-10-07] MEDS ORDERED: LORazepam 2 MG/ML SDV VIAL IVPUSH PRN (20:41)
--- NOTE | 2017-10-07 20:42 | HOSP ---
Subjective - Review of Symptoms Events since last encounter: called to see pt as he is agitated, combative with staff and attempting to climb out of bed unsafely. Physical Examination Vital Signs: Vital Signs Temperature 97 F L 10/07/17 15:10 Pulse Rate 84 10/07/17 18:54 Respiratory Rate 18 10/07/17 18:54 Blood Pressure 122/70 10/07/17 18:54 O2 Sat by Pulse Oximetry (%) 97 10/07/17 15:07 Cardiovascular: Yes: Regular Rate and Rhythm Respiratory: Yes: CTA Bilaterally Gastrointestinal: Yes: Normal Bowel Sounds, Soft Labs: CBC, BMP 10/07/17 07:29 10/07/17 07:29 Hospitalist Encounter Assessment: agitation/danger to self and staff - ativan 1mg IVP now and q8h PRN - mari and wrist restraints.
[2017-10-07] MEDS ORDERED: LORazepam 2 MG/ML SDV VIAL IM ONE (20:45)
[2017-10-08] MEDS: INSULIN SLIDING SCALE (NOVOLOG) 1 VIAL SQ SCH ×4 (06:37→22:33)
[2017-10-08] MEDS: GABAPENTIN 100 MG CAPSULE (FP) PO SCH ×3 (06:37→22:33)
[2017-10-08 07:20] LABS: BASO % 0.9 % (0-2.0); EOS % 4.2 % (0-4.5); HEMATOCRIT 38.8 % (35.4-49); HEMOGLOBIN 13.1 GM/dL (11.7-16.9); LYMPH % 28.1 % (8-40); MCH 28.9 pg (25.7-33.7); MCHC 33.8 g/dl (32.0-35.9); MEAN CELL VOLUME 85.3 fl (80-96); MEAN PLT VOLUME 7.3 fl (7.5-11.1); MONO % 9.2 % (3.8-10.2); NEUT % 57.6 % (42.8-82.8); PLATELET COUNT 154 K/MM3 (134-434); RBC 4.55 M/mm3 (4.00-5.60); RDW 17.8 % (11.9-15.9); WHITE BLOOD COUNT 5.8 K/mm3 (4.0-10.0)
[2017-10-08 08:16] LABS: ALBUMIN 3.5 g/dl (3.4-5.0); CALCIUM 8.3 mg/dL (8.5-10.1); CHLORIDE 101 mmol/L (98-107); SODIUM 138 mmol/L (136-145)
[2017-10-08 08:20] LABS: ANION GAP 11 (8-16); CO2 26 mmol/L (21-32); CREATININE 4.3 mg/dL (0.7-1.3); GLUCOSE,RANDOM 150 mg/dL (74-106); MAGNESIUM 2.4 mg/dL (1.8-2.4); SGPT/ALT 15 U/L (12-78)
[2017-10-08 08:46] LABS: ALK PHOS 144 U/L (45-117); BILIRUBIN,TOTAL 0.5 mg/dL (0.2-1.0); BLOOD UREA NITROGEN 29 mg/dL (7-18); CHOLESTEROL 120 mg/dL (50-200); SGOT/AST 12 U/L (15-37); TOT PROT 7.1 g/dl (6.4-8.2)
[2017-10-08] MEDS ORDERED: PT OWN MED DRAWER 7, Y5N ONE (08:53)
[2017-10-08 09:09] LABS: LDL CHOLESTEROL (ONLY SJRH) 60 mg/dL (5-100)
[2017-10-08 09:17] LABS: HDL CHOLESTEROL 58 mg/dL (40-60)
[2017-10-08] MEDS ORDERED: ISOSORBIDE MONONITRATE 20 MG TABLET PO SCH (10:00)
[2017-10-08 11:00] LABS: TRIGLYCERIDES 105 mg/dL (35-160)
[2017-10-08] MEDS: metoPROLOL SUCCINATE 25 MG TAB.SR.24H (FP) PO SCH (11:06)
[2017-10-08] MEDS: hydrALAZINE HCL 10 MG TABLET PO SCH (11:06)
[2017-10-08] MEDS: HEPARIN NA (PORCINE) 5,000 UNITS/ML 1ML VIAL SQ SCH ×2 (11:06→22:33)
[2017-10-08] MEDS: LOSARTAN POTASSIUM 25 MG TABLET PO SCH (11:06)
[2017-10-08] MEDS: ASPIRIN 81 MG CHEWABLE TABLETS PO SCH (11:07)
--- NOTE | 2017-10-08 11:33 | CON.CARD ---
Consult Consult Specialty:: Cardiology Referred by:: Hospitalist Medicine Reason for Consultation:: Chest pain - History of Present Illness Chief Complaint: Bilateral lower extremity weakness History of Present Illness: Patient is an 72 year old male with a significant past medical history of diabetes mellitus, HTN, CHF, ESRD with dialysis on MWF (with Left arm AV fistula placed 3 months ago), anemia, CVA 3 yrs ago who presented to the ED via EMS with c/o of progressive bilateral lower extremity weakness with difficulty ambulation. Patient also reported falls at home 3 weeks ago. He is noted to have a very large purple bruise on his left upper extremity. As per the patient , he has had chronic leg weakness for the past 3 years, but was able to walk with the help of a walker. He comes in today because walking at home has become more difficult. He usually takes a cab to the dialysis center but reports that this is becoming more difficult because of his leg weakness. He also complaints of right inguinal pain. Denies numbness or tingling sensation. Patient lives at home alone, uses a cane or walker to ambulate. Neurology evaluation earlier this month suspected lumbosacral radiculopathy in setting of diabetic polyneuropathy, noncompliant with gabapentin. During ER workup, patient complained of chest pressure without associated dyspnea, near or true syncope, orthopnea, PND or LE edema, ruled out for DE. He also reported similar chest pressure 1.2.2017. Agitated overnight, mari vest placed. 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 (Right side CVA with residual weakness of LLE) Cardio/Vascular: Yes: CHF, HTN Renal/: Yes: Renal Inusuff, Renal Inusuff, Hemodialysis Endocrine: Yes: Diabetes Mellitus - Past Surgical History Past Surgical History: Yes: AV Fistula/Graft - Alcohol/Substance Use Hx Alcohol Use: No - Smoking History Smoking history: Never smoked Have you smoked in the past 12 months: No - Social History Usual Living Arrangement: Alone Home Medications - Allergies Allergies/Adverse Reactions: Allergies Allergy/AdvReac Type Severity Reaction Status Date / Time No Known Allergies Allergy Verified 10/07/17 05:35 - Home Medications Home Medications: Ambulatory Orders Aspirin [ASA -] 81 mg PO DAILY 06/18/17 Hydralazine HCl 10 mg PO DAILY 06/18/17 Isosorbide Mononitrate 10 mg PO DAILY 06/18/17 Losartan Potassium [Cozaar -] 25 mg PO DAILY #30 tablet 06/24/17 Metoprolol Succinate 25 mg PO DAILY #120 tab.er.24h 09/29/17 - Risk Factors Known Risk Factors: Yes: Diabetes Mellitus, Hypertension Vital Signs: Vital Signs Temperature 98.1 F 10/08/17 10:00 Pulse Rate 87 10/08/17 10:00 Respiratory Rate 18 10/08/17 10:00 Blood Pressure 126/68 10/08/17 10:00 O2 Sat by Pulse Oximetry (%) 96 10/08/17 09:00 Constitutional: Yes: No Distress, Calm Neck: Yes: Supple Respiratory: Yes: Regular, Diminished Gastrointestinal: Yes: Normal Bowel Sounds, Soft Cardiovascular: Yes: Regular Rate and Rhythm JVD: No Carotid Bruit: No Heart Sounds: Yes: S1, S2 Murmur: Yes: Systolic Murmur, Grade 1 Edema: No - Other Data Labs, Other Data: CBC, BMP 10/08/17 06:55 10/08/17 06:55 INR, PTT INR 1.04 (0.82-1.09) 10/07/17 07:29 Troponin, BNP 10/07/17 16:00 Troponin I 0.03 Troponin, BNP 10/07/17 16:00 Troponin I 0.03 NSR @ 67 1st deg AVB, min criteria LVH Imaging - Results Chest X-ray: Report Reviewed (NAD) Problem List - Problems (1) Hypertensive cardiomyopathy Code(s): I11.9 - HYPERTENSIVE HEART DISEASE WITHOUT HEART FAILURE; I43 - CARDIOMYOPATHY IN DISEASES CLASSIFIED ELSEWHERE Qualifiers: Heart failure presence: without heart failure Qualified Code(s): I11.9 - Hypertensive heart disease without heart failure; I43 - Cardiomyopathy in diseases classified elsewhere; I43 - Cardiomyopathy in diseases classified elsewhere; I43 - Cardiomyopathy in diseases classified elsewhere; I43 - Cardiomyopathy in diseases classified elsewhere (2) Chest pain Code(s): R07.9 - CHEST PAIN, UNSPECIFIED Qualifiers: Chest pain type: other chest pain Qualified Code(s): R07.89 - Other chest pain; R07.8 - Other chest pain (3) Diabetic neuropathy Code(s): E11.40 - TYPE 2 DIABETES MELLITUS WITH DIABETIC NEUROPATHY, UNSP Qualifiers: Diabetes mellitus type: type 2 Diabetes mellitus complication detail: diabetic polyneuropathy Qualified Code(s): E11.42 - Type 2 diabetes mellitus with diabetic polyneuropathy (4) Hyperkalemia Code(s): E87.5 - HYPERKALEMIA (5) AV fistula Code(s): I77.0 - ARTERIOVENOUS FISTULA, ACQUIRED (6) Diabetes Code(s): E11.9 - TYPE 2 DIABETES MELLITUS WITHOUT COMPLICATIONS Qualifiers: Diabetes mellitus type: type 2 Diabetes mellitus longterm insulin use: without adjunct faculty for medical terminology use Chronic kidney disease stage: on chronic dialysis (7) ESRD (end stage renal disease) Code(s): N18.6 - END STAGE RENAL DISEASE (8) Polyneuropathy Code(s): G62.9 - POLYNEUROPATHY, UNSPECIFIED (9) Anemia Code(s): D64.9 - ANEMIA, UNSPECIFIED Qualifiers: Anemia type: due to chronic kidney disease Chronic kidney disease stage: on chronic dialysis Qualified Code(s): N18.6 - End stage renal disease (10) Diastolic dysfunction Code(s): I51.9 - HEART DISEASE, UNSPECIFIED (11) Gait disturbance Code(s): R26.9 - UNSPECIFIED ABNORMALITIES OF GAIT AND MOBILITY Assessment/Plan 06/19/2017 Echo: Mildly dilated LV with mild decrease in LV fxn, mod MR, severe pulm HTN 09/06/2017: MRI of lumbar spine: degenerative disease predominant L4-L5 with a tear of the annulus and small midline subligamentous herniation lateralizing toward the right indenting slightly on the right L5 nerve root evident on t2 image #23 with bulging No evidence of spondyloysis or severe stenosis Suspicious finding of round nodule in the right lung base with large left pleural effusion, CT recommended 1. Progressive lower extremity weakness suspect lumbosacral radiculopathy in setting of diabetic polyneuropathy 2. Chest pain syndrome 3. HTN/HCVD 4. Diastolic dysfunction 5. ESRD->HD via LUE AVF 6. Cerebrovascular disease 7. Anemia of chronic kidney disease 8. Type 2 DM P: 1. Ruled out DE 2. Neurontin, PT for gait training, likely SNF placement 3. Continue ASA 81 mg daily, increase ISMO 10 bid, hydralazine 10 bid, losartan 25 qd with monitor K level, Toprol XL 25 qd 4. HD per renal 5. Pharmacologic stress testing r/o ischemia, may be performed as outpatient 6. Thank you for consultative opportunity
--- NOTE | 2017-10-08 13:42 | CON.NEP ---
Consult Consult Specialty:: Nephrology Referred by:: JAMES Leon Reason for Consultation:: ESRD on HD/Hyperkalemia - History of Present Illness Chief Complaint: Lower extremity weakness and pain History of Present Illness: This is a 72 year old gentleman with PMhx of ESRD on HD (MWF), Hypertension, DM , CHF, CVA who presented with complaints of LE weakness and pain. Pt has hx of LE pain suspected to be from diabetic neuropathy but his symptoms are getting worse. Pt was able to ambulate with walker but cannot any longer. Pt was on gabapentin. Pt s/p dialysis as inpatient yesterday. No CP, SOb, abd pain, N/V/ D. 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 (Right side CVA with residual weakness of LLE) Cardio/Vascular: Yes: CHF, HTN Renal/: Yes: Renal Failure, Renal Inusuff, Hemodialysis Endocrine: Yes: Diabetes Mellitus - Past Surgical History Past Surgical History: Yes: AV Fistula/Graft - Alcohol/Substance Use Hx Alcohol Use: No - Smoking History Smoking history: Never smoked Have you smoked in the past 12 months: No - Social History Usual Living Arrangement: Alone Home Medications - Allergies Allergies/Adverse Reactions: Allergies Allergy/AdvReac Type Severity Reaction Status Date / Time No Known Allergies Allergy Verified 10/07/17 05:35 - Home Medications Home Medications: Ambulatory Orders Aspirin [ASA -] 81 mg PO DAILY 06/18/17 Hydralazine HCl 10 mg PO DAILY 06/18/17 Isosorbide Mononitrate 10 mg PO DAILY 06/18/17 Losartan Potassium [Cozaar -] 25 mg PO DAILY #30 tablet 06/24/17 Metoprolol Succinate 25 mg PO DAILY #120 tab.er.24h 09/29/17 Family Disease History - Family Disease History Family History: Unremarkable Review of Systems - Review of Systems Constitutional: reports: No Symptoms Eyes: reports: No Symptoms HENT: reports: No Symptoms Neck: reports: No Symptoms Cardiovascular: reports: No Symptoms Respiratory: reports: No Symptoms Gastrointestinal: reports: No Symptoms Musculoskeletal: reports: Muscle Pain Integumentary: reports: No Symptoms Neurological: reports: Unsteady Gait, Weakness Nephrology Consult - Height Height: 6 ft - Weight Weight: 74.843 kg - BMI Body Mass Index (BMI): 22.4 - Lab Results CBC,BMP: CBC, BMP 10/08/17 06:55 10/08/17 06:55 Anion Gap: Anion Gap Anion Gap 11 (8-16) 10/08/17 06:55 - Imaging Chest X-ray: Report Reviewed - Physical Examination Vital Signs: Vital Signs Temperature 98.1 F 10/08/17 10:00 Pulse Rate 87 10/08/17 10:00 Respiratory Rate 18 10/08/17 10:00 Blood Pressure 126/68 10/08/17 10:00 O2 Sat by Pulse Oximetry (%) 96 10/08/17 09:00 Constitutional: Yes: Well Nourished, No Distress Eyes: Yes: Conjunctiva Clear HENT: Yes: Atraumatic Neck: Yes: Supple Cardiovascular: Yes: Regular Rate and Rhythm Respiratory: Yes: Regular, CTA Bilaterally Gastrointestinal: Yes: Normal Bowel Sounds, Soft Renal/: No: Anuria Extremities: No: Cold, Cool, Cyanosis Neurological: Yes: Alert, Oriented Assessment/Plan 72 year old gentleman with PMhx of ESRD on HD (MWF), Hypertension, DM, CHF, CVA who presented with complaints of LE weakness and pain. #LE weakness and Pain r/o radiculopathy vs. 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
[2017-10-08] MEDS ORDERED: ISOSORBIDE MONONITRATE 10 MG TABLET PO SCH (17:00)
--- NOTE | 2017-10-08 22:43 | PN ---
Physical Exam: SUBJECTIVE: Patient seen. Refused physical examination. Agitated, cursing. OBJECTIVE: Vital Signs Period Temp Pulse Resp BP Sys/Reeder Pulse Ox Last 24 Hr 97.7 F-98.5 F 80-90 18-20 119-132/62-81 96 Laboratory Results - last 24 hr 10/08/17 10/08/17 10/08/17 06:24 06:55 06:55 WBC 5.8 RBC 4.55 Hgb 13.1 Hct 38.8 MCV 85.3 MCH 28.9 MCHC 33.8 RDW 17.8 H Plt Count 154 MPV 7.3 L Neutrophils % 57.6 Lymphocytes % 28.1 D Monocytes % 9.2 Eosinophils % 4.2 Basophils % 0.9 Sodium 138 Potassium 4.0 D Chloride 101 Carbon Dioxide 26 Anion Gap 11 BUN 29 H Creatinine 4.3 H Creat Clearance w eGFR 13.57 POC Glucometer 129 Random Glucose 150 H Hemoglobin A1c % Calcium 8.3 L Magnesium 2.4 Total Bilirubin 0.5 D AST 12 L ALT 15 Alkaline Phosphatase 144 H Total Protein 7.1 Albumin 3.5 Triglycerides 105 D Cholesterol 120 Total LDL Cholesterol 60 HDL Cholesterol 58 D TSH 1.20 D 10/08/17 10/08/17 10/08/17 06:55 06:55 11:16 WBC RBC Hgb Hct MCV MCH MCHC RDW Plt Count MPV Neutrophils % Lymphocytes % Monocytes % Eosinophils % Basophils % Sodium Potassium Chloride Carbon Dioxide Anion Gap BUN Creatinine Creat Clearance w eGFR POC Glucometer 147 Random Glucose Hemoglobin A1c % 6.0 D Calcium Magnesium Total Bilirubin AST ALT Alkaline Phosphatase Total Protein Albumin Triglycerides Cancelled Cholesterol Cancelled Total LDL Cholesterol Cancelled HDL Cholesterol Cancelled TSH 10/08/17 17:09 WBC RBC Hgb Hct MCV MCH MCHC RDW Plt Count MPV Neutrophils % Lymphocytes % Monocytes % Eosinophils % Basophils % Sodium Potassium Chloride Carbon Dioxide Anion Gap BUN Creatinine Creat Clearance w eGFR POC Glucometer 156 Random Glucose Hemoglobin A1c % Calcium Magnesium Total Bilirubin AST ALT Alkaline Phosphatase Total Protein Albumin Triglycerides Cholesterol Total LDL Cholesterol HDL Cholesterol TSH Active Medications Generic Name Dose Route Start Last Admin Trade Name Freq PRN Reason Stop Dose Admin Aspirin 81 mg 10/08/17 10:00 10/08/17 11:07 Asa - PO 81 mg DAILY ANDREW Administration Gabapentin 100 mg 10/08/17 06:00 10/08/17 22:33 Neurontin - PO 100 mg TID ANDREW Administration Heparin Sodium (Porcine) 5,000 unit 10/08/17 10:00 10/08/17 22:33 Heparin - SQ 5,000 unit BID ANDREW Administration Hydralazine HCl 10 mg 10/08/17 10:00 10/08/17 11:06 Apresoline - PO 10 mg DAILY ANDREW Administration Insulin Aspart 1 vial 10/07/17 16:30 10/08/17 22:33 Novolog Vial Sliding Scale - SQ Not Given ACHS [facility] Protocol Isosorbide Mononitrate 10 mg 10/08/17 17:00 10/08/17 17:07 Ismo - PO 10 mg BIDISMO ANDREW Administration Lorazepam 1 mg 10/07/17 20:41 10/07/17 20:48 Ativan Injection - IVPUSH 1 mg Q8H PRN Administration AGITATION Losartan Potassium 25 mg 10/08/17 10:00 10/08/17 11:06 Cozaar - PO 25 mg DAILY ANDREW Administration Metoprolol Succinate 25 mg 10/08/17 10:00 10/08/17 11:06 Toprol Xl - PO 25 mg DAILY ANDREW Administration ASSESSMENT/PLAN 71 year-old male with a PMH significant for HTN, systolic heart failure, ESRD on HD (M,W,F), 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 Admitted for right inguinal pain and bilateral lower extremity weakness. Bilateral inguinal hernias Right inguinal pain --09/05 CTAP shows bilateral inguinal hernias containing fat, and a right inguinal hernia containing a small portion of small bowel loop --right inguinal hernia is reducible --seen and evaluated by surgery during last admission, no surgical intervention Bilateral lower extremity weakness h/o CVA --likely multifactorial, the result of CVA three years ago with residual leg weakness, diabetic neuropathy, and L4-L5 annulus tear, midline herniation, and mild L5 nerve root impingement --EMG outpatient v. inpatient --neuro consult --neurosurgery consult --PT evaluation IDDM --Novolog sliding scale coverage Diabetic polyneuropathy --continue gabapentin Hypertension --continue losartan, Toprol XL Systolic heart failure --HD for volume control --continue losartan, isosorbide ESRD on HD (M,W,F) --last dialyzed 10/07 Agitation --review of chart and conversation with nurses on floor, periods of agitation and verbal and physical aggressiveness involving kicking and biting; similar pattern during last admission --was seen and evaluated by psych Dr. Norton on 09/09; found cognitively intact with functional capacity to make informed decisions FEN Fluids: PO intake adequate Electrolytes: replete as indicated Nutrition: renal diet DVT prophylaxis: subq heparin, oob, ambulation Dispo: continues to require inpatient care. Full code. Visit type - Emergency Visit Emergency Visit: Yes ED Registration Date: 10/07/17 Care time: The patient presented to the Emergency Department on the above date and was hospitalized for further evaluation of their emergent condition. - New Patient This patient is new to me today: Yes Date on this admission: 10/09/17 - Critical Care Critical Care patient: No
[2017-10-09] MEDS: GABAPENTIN 100 MG CAPSULE (FP) PO SCH ×3 (05:38→21:40)
[2017-10-09] MEDS: INSULIN SLIDING SCALE (NOVOLOG) 1 VIAL SQ SCH ×4 (06:49→21:40)
[2017-10-09] MEDS: hydrALAZINE HCL 10 MG TABLET PO SCH (09:03)
[2017-10-09] MEDS: ASPIRIN 81 MG CHEWABLE TABLETS PO SCH (09:03)
[2017-10-09] MEDS: ISOSORBIDE MONONITRATE 20 MG TABLET PO SCH ×2 (09:03→17:28)
[2017-10-09] MEDS: metoPROLOL SUCCINATE 25 MG TAB.SR.24H (FP) PO SCH (09:03)
[2017-10-09] MEDS: LOSARTAN POTASSIUM 25 MG TABLET PO SCH (09:03)
[2017-10-09] MEDS: HEPARIN NA (PORCINE) 5,000 UNITS/ML 1ML VIAL SQ SCH ×2 (09:04→21:40)
--- NOTE | 2017-10-09 09:31 | PN ---
Progress Note, Physician Chief Complaint: Events noted Sitting and not in distress History of Present Illness: Patient was seen and examined. Awake and alert. Chart was reviewed Denies chest pain, SOB or palpitations - Current Medication List Current Medications: Active Medications Aspirin (Asa -) 81 mg PO DAILY [facility] Last Admin: 10/09/17 09:03 Dose: 81 mg Gabapentin (Neurontin -) 100 mg PO TID [facility] Last Admin: 10/09/17 05:38 Dose: 100 mg Heparin Sodium (Porcine) (Heparin -) 5,000 unit SQ BID [facility] Last Admin: 10/09/17 09:04 Dose: 5,000 unit Hydralazine HCl (Apresoline -) 10 mg PO DAILY [facility] Last Admin: 10/09/17 09:03 Dose: 10 mg Insulin Aspart (Novolog Vial Sliding Scale -) 1 vial SQ ACHS [facility] PRN Reason: Protocol Last Admin: 10/09/17 06:49 Dose: Not Given Isosorbide Mononitrate (Ismo -) 10 mg PO BIDISMO [facility] Last Admin: 10/09/17 09:03 Dose: 10 mg Lorazepam (Ativan Injection -) 1 mg IVPUSH Q8H PRN PRN Reason: AGITATION Last Admin: 10/07/17 20:48 Dose: 1 mg Losartan Potassium (Cozaar -) 25 mg PO DAILY [facility] Last Admin: 10/09/17 09:03 Dose: 25 mg Metoprolol Succinate (Toprol Xl -) 25 mg PO DAILY [facility] Last Admin: 10/09/17 09:03 Dose: 25 mg - Objective Vital Signs: Vital Signs Temperature 98.2 F 10/09/17 05:00 Pulse Rate 66 10/09/17 05:00 Respiratory Rate 16 10/09/17 05:00 Blood Pressure 138/64 10/09/17 05:00 O2 Sat by Pulse Oximetry (%) 98 10/08/17 21:00 Eyes: Yes: PERRL HENT: Yes: Atraumatic Neck: Yes: Supple Cardiovascular: Yes: Regular Rate and Rhythm, Murmur (Soft SM), S1, S2 Respiratory: Yes: CTA Bilaterally Gastrointestinal: Yes: Normal Bowel Sounds, Soft. No: Tenderness Edema: No Labs: CBC, BMP 10/08/17 06:55 10/08/17 06:55 Problem List - Problems (1) Chest pain Code(s): R07.9 - CHEST PAIN, UNSPECIFIED Qualifiers: Chest pain type: other chest pain Qualified Code(s): R07.89 - Other chest pain; R07.8 - Other chest pain (2) Diabetic neuropathy Code(s): E11.40 - TYPE 2 DIABETES MELLITUS WITH DIABETIC NEUROPATHY, UNSP Qualifiers: Diabetes mellitus type: type 2 Diabetes mellitus complication detail: diabetic polyneuropathy Qualified Code(s): E11.42 - Type 2 diabetes mellitus with diabetic polyneuropathy (3) Diastolic dysfunction Code(s): I51.9 - HEART DISEASE, UNSPECIFIED (4) Gait disturbance Code(s): R26.9 - UNSPECIFIED ABNORMALITIES OF GAIT AND MOBILITY (5) Hypertensive cardiomyopathy Code(s): I11.9 - HYPERTENSIVE HEART DISEASE WITHOUT HEART FAILURE; I43 - CARDIOMYOPATHY IN DISEASES CLASSIFIED ELSEWHERE Qualifiers: Heart failure presence: without heart failure Qualified Code(s): I11.9 - Hypertensive heart disease without heart failure; I43 - Cardiomyopathy in diseases classified elsewhere; I43 - Cardiomyopathy in diseases classified elsewhere; I43 - Cardiomyopathy in diseases classified elsewhere; I43 - Cardiomyopathy in diseases classified elsewhere (6) AV fistula Code(s): I77.0 - ARTERIOVENOUS FISTULA, ACQUIRED (7) Diabetes Code(s): E11.9 - TYPE 2 DIABETES MELLITUS WITHOUT COMPLICATIONS Qualifiers: Diabetes mellitus type: type 2 Diabetes mellitus intermediate manager insulin use: without longterm use Chronic kidney disease stage: on chronic dialysis (8) ESRD (end stage renal disease) Code(s): N18.6 - END STAGE RENAL DISEASE (9) Polyneuropathy Code(s): G62.9 - POLYNEUROPATHY, UNSPECIFIED (10) Anemia Code(s): D64.9 - ANEMIA, UNSPECIFIED Qualifiers: Anemia type: due to chronic kidney disease Chronic kidney disease stage: on chronic dialysis Qualified Code(s): N18.6 - End stage renal disease Assessment/Plan 1. Progressive lower extremity weakness suspect lumbosacral radiculopathy in setting of diabetic polyneuropathy 2. Chest pain syndrome 3. HTN/HCVD 4. Diastolic dysfunction 5. ESRD on HD via left arm AVF 6. Cerebrovascular disease 7. Anemia of chronic kidney disease 8. Type 2 DM PLAN: 1. Troponins are negative 2. PT for gait training and Neuro input to follow 3. Continue ASA 81 mg daily, Ismo 10 bid, Hydralazine 10 bid, Losartan 25 qd with monitor K level andToprol XL 25 qd 4. HD per renal 5. Pharmacologic stress testing to r/o ischemia which may be performed as outpatient 6. Eventual possible SNF Further plans are to follow Jerod Messer MD
--- NOTE | 2017-10-09 09:42 | CONSULT ---
Consult - text type - Consultation Consultation Note: Neurology HISTORY OF PRESENT ILLNESS: Patient is an 72 year old male with a significant past medical history of diabetes mellitus, HTN, CHF, ESRD with dialysis on MWF (with Left arm AV fistula placed 3 months ago), anemia, CVA 3 yrs ago. He presented to the ED via EMS with c/o of bilateral lower extremity weakness with difficulty ambulation. Patient also reports a falls at home 3 weeks ago. He was noted to have a very large purple bruise on his left upper extremity. He denies trauma. As per the patient, he has had chronic leg weakness for the past 3 years, but was able to walk with the help of a walker. He usually takes a cab to the dialysis center but reports that this is becoming more difficult because of his leg weakness. Patient was recently admitted between 09/06/2017 - 09/10/2017 for bilateral lower extremity weakness and MRI imaging was done. L spine MRI showed possible L5 nerve root impingement. He was sent home on Gabapentin and a neurologist referral. However, patient reports non compliance with the Gabapentin. He is getting cardiac work up as well. Past History - Past Medical History Allergies/Adverse Reactions: Allergies Allergy/AdvReac Type Severity Reaction Status Date / Time No Known Allergies Allergy Verified 10/07/17 05:35 Home Medication List Medication Instructions Recorded Confirmed Type Aspirin [ASA -] 81 mg PO DAILY 06/18/17 10/07/17 History Hydralazine HCl 10 mg PO DAILY 06/18/17 10/07/17 History Isosorbide Mononitrate 10 mg PO DAILY 06/18/17 10/07/17 History Active Medications Generic Name Dose Route Start Last Admin Trade Name Hans PRN Reason Stop Dose Admin Aspirin 81 mg 10/08/17 10:10/09/17 09:03 Asa - PO 81 mg DAILY ANDREW Administration Gabapentin 100 mg 10/08/17 06:00 10/09/17 05:38 Neurontin - PO 100 mg TID ANDREW Administration Heparin Sodium (Porcine) 5,000 unit 10/08/17 10:10/09/17 09:04 Heparin - SQ 5,000 unit BID ANDREW Administration Hydralazine HCl 10 mg 10/08/17 10:10/09/17 09:03 Apresoline - PO 10 mg DAILY ANDREW Administration Insulin Aspart 1 vial 10/07/17 16:30 10/09/17 06:49 Novolog Vial Sliding Scale - SQ Not Given ACHS [facility] Protocol Isosorbide Mononitrate 10 mg 10/09/17 10:00 10/09/17 09:03 Ismo - PO 10 mg BIDISMO ANDREW Administration Lorazepam 1 mg 10/07/17 20:41 10/07/17 20:48 Ativan Injection - IVPUSH 1 mg Q8H PRN Administration AGITATION Losartan Potassium 25 mg 10/08/17 10:00 10/09/17 09:03 Cozaar - PO 25 mg DAILY ANDREW Administration Metoprolol Succinate 25 mg 10/08/17 10:00 10/09/17 09:03 Toprol Xl - PO 25 mg DAILY ANDREW Administration Anemia: Yes Cardiac Disorders: Yes COPD: No Diabetes: Yes Disorders: Yes (kidney failure, left arm fistula (not on dialysis yet)) HTN: Yes - Suicide/Smoking/Psychosocial Hx Smoking History: Never smoked Have you smoked in the past 12 months: No Information on smoking cessation initiated: No Hx Alcohol Use: No Drug/Substance Use Hx: No Substance Use Type: None REVIEW OF SYSTEMS CONSTITUTIONAL: Absent: fever, chills, diaphoresis, generalized weakness, malaise, loss of appetite, weight change HEENT: Absent: rhinorrhea, nasal congestion, throat pain, throat swelling, difficulty swallowing, mouth swelling, ear pain, eye pain, visual changes CARDIOVASCULAR: Absent: syncope, palpitations, irregular heart rate, lightheadedness, peripheral edema RESPIRATORY: Absent: cough, shortness of breath, dyspnea with exertion, orthopnea, wheezing, stridor, hemoptysis GASTROINTESTINAL: Absent: abdominal pain, abdominal distension, nausea, vomiting, diarrhea, constipation, melena, hematochezia GENITOURINARY: Absent: dysuria, frequency, urgency, hesitancy, hematuria, flank pain, genital pain MUSCULOSKELETAL: Absent: myalgia, arthralgia, joint swelling, back pain, neck pain HEMATOLOGIC/IMMUNOLOGIC: Absent: easy bleeding, easy bruising, lymphadenopathy, frequent infections ENDOCRINE: PHYSICAL EXAMINATION CBCD WBC 5.8 K/mm3 (4.0-10.0) 10/08/17 06:55 RBC 4.55 M/mm3 (4.00-5.60) 10/08/17 06:55 Hgb 13.1 GM/dL (11.7-16.9) 10/08/17 06:55 Hct 38.8 % (35.4-49) 10/08/17 06:55 MCV 85.3 fl (80-96) 10/08/17 06:55 MCHC 33.8 g/dl (32.0-35.9) 10/08/17 06:55 RDW 17.8 % (11.9-15.9) H 10/08/17 06:55 Plt Count 154 K/MM3 (134-434) 10/08/17 06:55 MPV 7.3 fl (7.5-11.1) L 10/08/17 06:55 CMP Sodium 138 mmol/L (136-145) 10/08/17 06:55 Potassium 4.0 mmol/L (3.5-5.1) D 10/08/17 06:55 Chloride 101 mmol/L (98-107) 10/08/17 06:55 Carbon Dioxide 26 mmol/L (21-32) 10/08/17 06:55 Anion Gap 11 (8-16) 10/08/17 06:55 BUN 29 mg/dL (7-18) H 10/08/17 06:55 Creatinine 4.3 mg/dL (0.7-1.3) H 10/08/17 06:55 Creat Clearance w eGFR 13.57 (>60) 10/08/17 06:55 Random Glucose 150 mg/dL (74-106) H 10/08/17 06:55 Calcium 8.3 mg/dL (8.5-10.1) L 10/08/17 06:55 Total Bilirubin 0.5 mg/dL (0.2-1.0) D 10/08/17 06:55 AST 12 U/L (15-37) L 10/08/17 06:55 ALT 15 U/L (12-78) 10/08/17 06:55 Alkaline Phosphatase 144 U/L (45-117) H 10/08/17 06:55 Total Protein 7.1 g/dl (6.4-8.2) 10/08/17 06:55 Albumin 3.5 g/dl (3.4-5.0) 10/08/17 06:55 CARDIAC ENZYMES Creatine Kinase 58 IU/L (39-308) 10/07/17 07:29 Troponin I 0.03 ng/ml (0.00-0.05) 10/07/17 16:00 GENERAL: The patient is awake, alert, and fully oriented, in no acute distress HEAD: Normal with no signs of trauma. EYES: PERRL, extraocular movements intact, sclera anicteric, conjunctiva clear. No ptosis. ENT: Ears normal, nares patent, oropharynx clear without exudates, moist mucous membranes. NECK: Trachea midline, full range of motion, supple. LUNGS: Breath sounds equal, clear to auscultation bilaterally, no wheezes HEART: Regular rate and rhythm, S1, S2 without murmur, rub or gallop. ABDOMEN: Soft, nontender, nondistended, normoactive bowel sounds, no guarding, no rebound, no hepatosplenomegaly, no masses. EXTREMITIES: + bruit thrill on left upper arm fistula, dialysis through right shiley catheter, left upper arm with moderate sized purple bruise, present on adm. NEUROLOGICAL: Normal speech,, moves all extremties but limited lower extremity strength, sensory intact, gait deferred PSYCH: Normal mood, normal affect. CBCD WBC 5.8 K/mm3 (4.0-10.0) 10/08/17 06:55 RBC 4.55 M/mm3 (4.00-5.60) 10/08/17 06:55 Hgb 13.1 GM/dL (11.7-16.9) 10/08/17 06:55 Hct 38.8 % (35.4-49) 10/08/17 06:55 MCV 85.3 fl (80-96) 10/08/17 06:55 MCHC 33.8 g/dl (32.0-35.9) 10/08/17 06:55 RDW 17.8 % (11.9-15.9) H 10/08/17 06:55 Plt Count 154 K/MM3 (134-434) 10/08/17 06:55 MPV 7.3 fl (7.5-11.1) L 10/08/17 06:55 CMP Sodium 138 mmol/L (136-145) 10/08/17 06:55 Potassium 4.0 mmol/L (3.5-5.1) D 10/08/17 06:55 Chloride 101 mmol/L (98-107) 10/08/17 06:55 Carbon Dioxide 26 mmol/L (21-32) 10/08/17 06:55 Anion Gap 11 (8-16) 10/08/17 06:55 BUN 29 mg/dL (7-18) H 10/08/17 06:55 Creatinine 4.3 mg/dL (0.7-1.3) H 10/08/17 06:55 Creat Clearance w eGFR 13.57 (>60) 10/08/17 06:55 Calcium 8.3 mg/dL (8.5-10.1) L 10/08/17 06:55 Total Bilirubin 0.5 mg/dL (0.2-1.0) D 10/08/17 06:55 AST 12 U/L (15-37) L 10/08/17 06:55 ALT 15 U/L (12-78) 10/08/17 06:55 Alkaline Phosphatase 144 U/L (45-117) H 10/08/17 06:55 Total Protein 7.1 g/dl (6.4-8.2) 10/08/17 06:55 Albumin 3.5 g/dl (3.4-5.0) 10/08/17 06:55 MRI L spine reviewed ASSESSMENT/PLAN: 72 year old male with a significant past medical history of diabetes mellitus, HTN, CHF, ESRD with dialysis on MWF (with Left arm AV fistula placed 3 months ago), anemia, CVA 3 yrs ago. He presented to the ED via EMS with c/o of bilateral lower extremity weakness with difficulty ambulation. Patient also reports a falls at home 3 weeks ago. He was noted to have a very large purple bruise on his left upper extremity. He denies trauma. As per the patient, he has had chronic leg weakness for the past 3 years, but was able to walk with the help of a walker. He usually takes a cab to the dialysis center but reports that this is becoming more difficult because of his leg weakness. L spine MRI showed possible L5 nerve root impingement. Will order EMG/NCS to further evaluate On kit 100Tid, can increase to 300 TID Physical therapy may be of benefit Also with DM, will need to rule out neuropathy as he reports numbness and tingling EMG will help with this Tight diabetic control, goal A1C < 6 Fall precautions Aide at bedside requesting rolling walker with seat May benefit from short term rehab Dialysis per renal
[2017-10-09 11:31] LABS: MCH 28.4 pg (25.7-33.7); MCHC 32.6 g/dl (32.0-35.9); MEAN CELL VOLUME 87.3 fl (80-96); MEAN PLT VOLUME 7.6 fl (7.5-11.1); PLATELET COUNT 148 K/MM3 (134-434); RBC 4.23 M/mm3 (4.00-5.60); RDW 17.9 % (11.9-15.9); WHITE BLOOD COUNT 6.1 K/mm3 (4.0-10.0)
[2017-10-09 12:19] LABS: ANION GAP 10 (8-16); BLOOD UREA NITROGEN 48 mg/dL (7-18); CALCIUM 7.6 mg/dL (8.5-10.1); CHLORIDE 100 mmol/L (98-107); CO2 25 mmol/L (21-32); CREATININE 5.9 mg/dL (0.7-1.3); GLUCOSE,RANDOM 176 mg/dL (74-106); PHOSPHOROUS 5.7 mg/dL (2.5-4.9); POTASSIUM 4.2 mmol/L (3.5-5.1); SODIUM 135 mmol/L (136-145)
[2017-10-09 14:43] LABS: CREATININE 2.5 mg/dL (0.7-1.3)
--- NOTE | 2017-10-09 15:05 | PN ---
Progress Note (short form) - Note Progress Note: NEUROSURGERY CONSULT DICTATED Chart reviewed History obtained Pt examined H/o DM, HTN, CHF, ESRD on HD MWF (with Left arm AV fistula placed 3 months ago) , anemia, CVA 3 yrs ago c/o of bilateral lower extremity weakness with difficulty ambulation. Patient also reports a falls at home 3 weeks ago. He denies other trauma. LBP to B thigh, leg. + numbness and tingling with subjective weakness for the past 3 years. No fever, chill or recent infection. Patient was recently admitted between in early 09/2017 for bilateral lower extremity weakness and MRI imaging was done. L spine MRI showed possible L5 nerve root impingement. He was sent home on Gabapentin and a neurologist referral. Non compliant with the Gabapentin. Still makes some urine; no incontinence. Back vs leg pain 70-30. PE; AF, VSS HEENT- NC/AT; Neck- supple; Cor- RR; R chest dialysis catheter; Lungs- CTA B; Abd- benign; Ext- no sign of DVT, L biceps area ecchymosis Speech normal CN- intact; Motor-4+-5 B UE/LE; Sensation- intact LT, vibration B UE/LE; DTR- hyporeflexia B; difficulty moving about LS Spine MRI 09/2017: Mild DDD L3-4, L4-5 > L5-S1; mild broad L3-4 dsic bulge with R > L L3-4 foramenal stenosis; small central and R paracentral disc protrusion with minimal thecal sac impingement; mild L and R foramenal stenosis , no sign of discitis or osteomyelitis; no severe stenosis at any level LS spine disease is generally mild and not generally considered surgical EMG/NCS to r/o radiculopathy vs peripheral neuropathy Baseline ESR/CRP/blood cultures If no infection consider pain management injections
--- NOTE | 2017-10-09 15:29 | PN ---
Progress Note (short form) - Note Progress Note: Renal follow up for ESRD on HD Pt seen and examined at the bedside s/p dialysis earlier today BP stable throughout the treatment pt did report feeling dizzy during HD no improvement in LE pain no sob, chest pain, abd pain Vital Signs Temperature 97.8 F 10/09/17 14:00 Pulse Rate 77 10/09/17 14:00 Respiratory Rate 18 10/09/17 13:28 Blood Pressure 98/35 10/09/17 14:00 O2 Sat by Pulse Oximetry (%) 98 10/09/17 09:00 NAD RRR CTA no LE edema CBC, BMP 10/09/17 10:00 10/09/17 13:20 Laboratory Tests 10/09/17 10:00 Potassium 4.2 BUN 48 H D Creatinine 5.9 H D Calcium 7.6 L Phosphorus 5.7 H Current Medications Aspirin (Asa -) 81 mg PO DAILY [facility] Last Admin: 10/09/17 09:03 Dose: 81 mg Gabapentin (Neurontin -) 100 mg PO TID [facility] Last Admin: 10/09/17 13:44 Dose: 100 mg Heparin Sodium (Porcine) (Heparin -) 5,000 unit SQ BID [facility] Last Admin: 10/09/17 09:04 Dose: 5,000 unit Hydralazine HCl (Apresoline -) 10 mg PO DAILY [facility] Last Admin: 10/09/17 09:03 Dose: 10 mg Insulin Aspart (Novolog Vial Sliding Scale -) 1 vial SQ ACHS [facility] PRN Reason: Protocol Last Admin: 10/09/17 11:44 Dose: 2 units Isosorbide Mononitrate (Ismo -) 10 mg PO BIDISMO [facility] Last Admin: 10/09/17 09:03 Dose: 10 mg Lorazepam (Ativan Injection -) 1 mg IVPUSH Q8H PRN PRN Reason: AGITATION Last Admin: 10/07/17 20:48 Dose: 1 mg Losartan Potassium (Cozaar -) 25 mg PO DAILY [facility] Last Admin: 10/09/17 09:03 Dose: 25 mg Metoprolol Succinate (Toprol Xl -) 25 mg PO DAILY [facility] Last Admin: 10/09/17 09:03 Dose: 25 mg 72 year old gentleman with PMhx of ESRD on HD (MWF), Hypertension, DM, CHF, CVA who presented with complaints of LE weakness and pain. #LE weakness and Pain Neurosuergy and Neurology following pt on max dose of gabapentin for renal function physical therapy pain control #ESRD on HD with mild hyperkalemia s/p dialysis sudhir today will plan for next dialysis on Friday with plan to resume MWF schedule next week #Chest pain r/o aCS MD ruled out cardiology following #DM Type 2 continue insulin sliding scale #Renal Osteodystrophy phos remains elevated, will start renvela TID with meals Ant Martino DO
--- NOTE | 2017-10-09 16:09 | PN ---
Physical Exam: SUBJECTIVE: Patient seen and examined OBJECTIVE: Vital Signs Period Temp Pulse Resp BP Sys/Reeder Pulse Ox Last 24 Hr 97.5 F-98.5 F 60-84 16-20 98-139/35-73 98-98 GENERAL: The patient is awake, alert, and fully oriented, in no acute distress. HEAD: Normal with no signs of trauma. EYES: PERRL, extraocular movements intact, sclera anicteric, conjunctiva clear. No ptosis. ENT: Ears normal, nares patent, oropharynx clear without exudates, moist mucous membranes. NECK: Trachea midline, full range of motion, supple. LUNGS: Breath sounds equal, clear to auscultation bilaterally, no wheezes, no crackles, no accessory muscle use. HEART: Regular rate and rhythm, S1, S2 without murmur, rub or gallop. ABDOMEN: Soft, nontender, nondistended, normoactive bowel sounds, no guarding, no rebound, no hepatosplenomegaly, no masses. EXTREMITIES: 2+ pulses, warm, well-perfused, no edema. NEUROLOGICAL: Cranial nerves II through XII grossly intact. Normal speech, gait not observed. PSYCH: Normal mood, normal affect. SKIN: Warm, dry, normal turgor, no rashes or lesions noted Laboratory Results - last 24 hr 10/07/17 10/08/17 10/08/17 15:30 17:09 22:32 WBC RBC Hgb Hct MCV MCH MCHC RDW Plt Count MPV Sodium Potassium Chloride Carbon Dioxide Anion Gap BUN Creatinine POC Glucometer 156 144 Random Glucose Calcium Phosphorus Hepatitis C Antibody >11.0 H 10/09/17 10/09/17 10/09/17 05:36 10:00 10:00 WBC 6.1 RBC 4.23 Hgb 12.0 Hct 37.0 MCV 87.3 MCH 28.4 MCHC 32.6 RDW 17.9 H Plt Count 148 MPV 7.6 Sodium 135 L Potassium 4.2 Chloride 100 Carbon Dioxide 25 Anion Gap 10 BUN 48 H D Creatinine 5.9 H D POC Glucometer 142 Random Glucose 176 H Calcium 7.6 L Phosphorus 5.7 H Hepatitis C Antibody 10/09/17 10/09/17 10/09/17 11:44 13:20 13:20 WBC RBC Hgb Hct MCV MCH MCHC RDW Plt Count MPV Sodium Potassium Chloride Carbon Dioxide Anion Gap BUN Cancelled 18 D Creatinine 2.5 H D POC Glucometer 164 Random Glucose Calcium Phosphorus Hepatitis C Antibody Active Medications Generic Name Dose Route Start Last Admin Trade Name Hans PRN Reason Stop Dose Admin Aspirin 81 mg 10/08/17 10:00 10/09/17 09:03 Asa - PO 81 mg DAILY ANDREW Administration Gabapentin 100 mg 10/08/17 06:00 10/09/17 13:44 Neurontin - PO 100 mg TID ANDREW Administration Heparin Sodium (Porcine) 5,000 unit 10/08/17 10:00 10/09/17 09:04 Heparin - SQ 5,000 unit BID ANDREW Administration Hydralazine HCl 10 mg 10/08/17 10:00 10/09/17 09:03 Apresoline - PO 10 mg DAILY ANDREW Administration Insulin Aspart 1 vial 10/07/17 16:30 10/09/17 11:44 Novolog Vial Sliding Scale - SQ 2 units ACHS ANDREW Administration Protocol Isosorbide Mononitrate 10 mg 10/09/17 10:00 10/09/17 09:03 Ismo - PO 10 mg BIDISMO ANDREW Administration Lorazepam 1 mg 10/07/17 20:41 10/07/17 20:48 Ativan Injection - IVPUSH 1 mg Q8H PRN Administration AGITATION Losartan Potassium 25 mg 10/08/17 10:00 10/09/17 09:03 Cozaar - PO 25 mg DAILY ANDREW Administration Metoprolol Succinate 25 mg 10/08/17 10:00 10/09/17 09:03 Toprol Xl - PO 25 mg DAILY ANDREW Administration Sevelamer Carbonate 800 mg 10/09/17 17:30 Renvela - PO TIDCM COUNTS INCLUDE 234 BEDS AT THE [facility] ASSESSMENT/PLAN 71 year-old male with a PMH significant for HTN, systolic heart failure, ESRD on HD (M,W,F), 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 Admitted for right inguinal pain and bilateral lower extremity weakness. 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 Norton on 09/09; found cognitively intact with functional capacity to make informed decisions --has been much calmer and cooperative past 24-48 hours --d/c restraints --d/c 1:1 FEN Fluids: PO intake adequate Electrolytes: replete as indicated Nutrition: renal diet DVT prophylaxis: subq heparin, oob, ambulation Dispo: has been accepted to [facility], bed available on Thursday 10/12 at 11:30am; patient will continue receiving dialysis there. Full code. Visit type - Emergency Visit Emergency Visit: Yes ED Registration Date: 10/09/17 Care time: The patient presented to the Emergency Department on the above date and was hospitalized for further evaluation of their emergent condition. - New Patient This patient is new to me today: No - Critical Care Critical Care patient: No
--- NOTE | 2017-10-09 16:21 | CONS ---
DATE OF CONSULTATION: 10/09/2017 REQUESTING: CHRISTIE Gorman MANAGER ENDOSCOPY: Aleksey Monreal MD, Neurosurgery CHIEF COMPLAINT: Subjective bilateral lower extremities weakness with difficulty ambulating. HISTORY OF PRESENT ILLNESS: The patient is a 72-year-old right-handed male with a history of hypertension, diabetes, congestive heart failure, CVA, end-stage renal disease, on hemodialysis, who complains of 3+ year history of progressive bilateral lower extremity weakness, numbness, and tingling. He also has complained of chronic lower back pain with sciatica radiating down through bilateral lower extremities. He was recently admitted a month ago for similar symptoms. MRI at that time demonstrated mild degenerative disease. Presently his back versus leg pain is 70/30. Pain is worse with exertion. He was previously on gabapentin, which helped his symptoms somewhat but he has not been compliant with the medication, by report. He has no fever, chills, or any recent infections. Of note is that he started hemodialysis approximately 4 months ago. Past medical history is significant for hypertension, congestive heart failure, diabetes, end-stage renal disease on hemodialysis, stroke, anemia. His current medications include Cozaar, subcutaneous heparin, Neurontin, Ativan, Toprol XL, hydralazine, insulin, isosorbide mononitrate, baby aspirin. There is no known drug allergy. Family history is noncontributory. In terms of social history, he does not smoke or drink. He is retired and disabled. Review of systems is otherwise negative for other major cardiovascular, head and neck, pulmonary, gastrointestinal, genitourinary, endocrinological, neurological, or psychological problem except for the above. PHYSICAL EXAMINATION: Vital Signs: Temperature is 97.8. Blood pressure 98/35, previously was 120/64. Pulse rate was 77. HEENT: Normocephalic, atraumatic. Anicteric. Neck: Supple, with no carotid bruit. He is supple in the neck. Coronary: Regular rhythm. Lungs: Clear bilaterally. Abdomen: Benign. Extremities: No signs of DVT. He has a left biceps area ecchymosis. His dialysis catheter is in the right chest area. Neurologic: He is awake, alert, and oriented x3. His speech is intact. Cranial nerves examination is intact, 2-12. Motor examination shows 4+ to 5/5 strength in the bilateral upper and lower extremities. There is no significant increased tone. Sensory examination is intact to light touch, pinprick, and vibratory sensation. Deep tendon reflexes are hyporeflexive throughout. His gait is somewhat hunched over and he has difficulty maneuvering around because of his complaint of pain and subjective weakness. MRI of the lumbar spine from August 07, 2017, demonstrated mild degenerative disk disease at L3-4 and L4-5. There is mild disk bulge at L3-4 with mild right greater than left L3 foraminal narrowing. There is also broad-based disk bulge at L4-5 with small central disk protrusion, slight extension to the right. There is also only mild foraminal narrowing, left greater than right, at this level. There is no spondylolisthesis. There is no severe stenosis at any level. There is mild spondylosis of the facets throughout. Canal itself is relatively spacious. There is an incidental finding of possible right lung base nodule. CT scan of the chest from September 08, 2017, demonstrated possible interstitial edema; a 3 x 2.5 cm pleural-based mass-like opacity in the right lung base was consistent with atelectasis, pneumonia, or neoplasm. The exact pathology is not delineated. IMPRESSION: 1. Mild lumbar degenerative disk disease at L4-5 greater than L3-4. 2. End-stage renal disease, on hemodialysis. 3. Hypertension and congestive heart failure. 4. Diabetes with probable diabetic peripheral neuropathy. 5. History of cerebrovascular disease. RECOMMENDATIONS: The patient presents with 3+ year history of progressive lower extremity weakness and numbness. He also has chronic lower back pain and sciatica. MRI of the lumbar spine done a month ago demonstrated very mild degenerative disk disease and certainly no significant spinal stenosis. His symptoms are not reasonably explained by the relatively mild MRI findings. An EMG and nerve conduction study of lower extremities is reasonable to rule out radiculopathy versus peripheral neuropathy. I am also recommending baseline ESR and C-reactive protein as well as blood culture to rule out ongoing indolent infections. If there are no signs of infection, pain management consult could be obtained to consider epidural steroid injection to treat his back pain sciatica. No surgical intervention is generally indicated for such relatively mild MRI findings. The above was discussed with patient at the bedside. The pros and cons of treatment approaches were discussed and all questions were answered. ALEKSEY MONREAL M.D. [id number]
[2017-10-09 16:31] LABS: HBSAG SCREEN Negative (Negative); HEP A AB, IGM Negative (Negative); HEP B CORE AB, TOT Positive (Negative)
[2017-10-09] MEDS: SEVELAMER CARBONATE 800 MG TAB (FP) PO SCH (17:28)
[2017-10-10] MEDS: INSULIN SLIDING SCALE (NOVOLOG) 1 VIAL SQ SCH ×4 (06:11→21:27)
[2017-10-10] MEDS: GABAPENTIN 100 MG CAPSULE (FP) PO SCH (06:12)
[2017-10-10 07:23] LABS: ANION GAP 12 (8-16); BLOOD UREA NITROGEN 44 mg/dL (7-18); CHLORIDE 101 mmol/L (98-107); CO2 29 mmol/L (21-32); GLUCOSE,RANDOM 133 mg/dL (74-106); MAGNESIUM 2.3 mg/dL (1.8-2.4); POTASSIUM 3.8 mmol/L (3.5-5.1); SODIUM 142 mmol/L (136-145)
[2017-10-10 07:26] LABS: CREATININE 6.3 mg/dL (0.7-1.3); PHOSPHOROUS 5.8 mg/dL (2.5-4.9)
[2017-10-10] MEDS ORDERED: PT OWN MED DRAWER 7, Y5N ONE (08:11)
[2017-10-10] MEDS: SEVELAMER CARBONATE 800 MG TAB (FP) PO SCH ×3 (08:13→16:48)
--- NOTE | 2017-10-10 08:30 | PN ---
Progress Note (short form) - Note Progress Note: NEUROSURGERY LBP somewhat better PE: AF, VSS HEENT- NC/AT; Neck- supple; Cor- RR; R chest dialysis catheter; Lungs- CTA B; Abd- benign; Ext- no sign of DVT, L biceps area ecchymosis Speech normal Sitting up in chair; aide at bedside CN- intact; Motor-4+-5 B UE/LE; Sensation- intact LT, vibration B UE/LE; DTR- hyporeflexia B; difficulty moving about LS Spine MRI 09/2017: Mild DDD L3-4, L4-5 > L5-S1; mild broad L3-4 dsic bulge with R > L L3-4 foramenal stenosis; small central and R paracentral disc protrusion with minimal thecal sac impingement; mild L and R foramenal stenosis , no sign of discitis or osteomyelitis; no severe stenosis at any level LS spine disease is generally mild and not generally considered surgical EMG/NCS to r/o radiculopathy vs peripheral neuropathy ESR/CRP/blood cultures pending If no infection consider pain management injections
--- NOTE | 2017-10-10 09:48 | PN ---
Physical Exam: SUBJECTIVE: Patient seen and examined OBJECTIVE: Vital Signs Period Temp Pulse Resp BP Sys/Reeder Pulse Ox Last 24 Hr 97.2 F-98.5 F 60-85 18-20 92-127/35-70 99 GENERAL: The patient is awake, alert, and fully oriented, in no acute distress. HEAD: Normal with no signs of trauma. EYES: PERRL, extraocular movements intact, sclera anicteric, conjunctiva clear. No ptosis. ENT: Ears normal, nares patent, oropharynx clear without exudates, moist mucous membranes. NECK: Trachea midline, full range of motion, supple. LUNGS: Breath sounds equal, clear to auscultation bilaterally, no wheezes, no crackles, no accessory muscle use. HEART: Regular rate and rhythm, S1, S2 without murmur, rub or gallop. ABDOMEN: Soft, nontender, nondistended, normoactive bowel sounds, no guarding, no rebound, no hepatosplenomegaly, no masses. EXTREMITIES: 2+ pulses, warm, well-perfused, no edema. NEUROLOGICAL: Cranial nerves II through XII grossly intact. Normal speech, gait not observed. PSYCH: Normal mood, normal affect. SKIN: Warm, dry, normal turgor, no rashes or lesions noted Laboratory Results - last 24 hr 10/07/17 10/09/17 10/09/17 15:30 10:00 10:00 WBC 6.1 RBC 4.23 Hgb 12.0 Hct 37.0 MCV 87.3 MCH 28.4 MCHC 32.6 RDW 17.9 H Plt Count 148 MPV 7.6 Sodium 135 L Potassium 4.2 Chloride 100 Carbon Dioxide 25 Anion Gap 10 BUN 48 H D Creatinine 5.9 H D POC Glucometer Random Glucose 176 H Calcium 7.6 L Phosphorus 5.7 H Magnesium C-Reactive Protein Hep A IgM Ab Confirm Negative Hepatitis A Ab Total Positive H Hep Bs Antigen Negative Hep Bs Antibody Reactive Hep B Core Total Ab Positive H 10/09/17 10/09/17 10/09/17 11:44 13:20 13:20 WBC RBC Hgb Hct MCV MCH MCHC RDW Plt Count MPV Sodium Potassium Chloride Carbon Dioxide Anion Gap BUN Cancelled 18 D Creatinine 2.5 H D POC Glucometer 164 Random Glucose Calcium Phosphorus Magnesium C-Reactive Protein Hep A IgM Ab Confirm Hepatitis A Ab Total Hep Bs Antigen Hep Bs Antibody Hep B Core Total Ab 10/09/17 10/09/17 10/10/17 17:26 21:38 05:35 WBC RBC Hgb Hct MCV MCH MCHC RDW Plt Count MPV Sodium 142 Potassium 3.8 Chloride 101 Carbon Dioxide 29 Anion Gap 12 BUN 44 H D Creatinine 6.3 H D POC Glucometer 173 128 Random Glucose 133 H D Calcium 8.0 L Phosphorus 5.8 H Magnesium 2.3 C-Reactive Protein < 0.3 Hep A IgM Ab Confirm Hepatitis A Ab Total Hep Bs Antigen Hep Bs Antibody Hep B Core Total Ab 10/10/17 10/10/17 05:35 05:58 WBC RBC Hgb Hct MCV MCH MCHC RDW Plt Count MPV Sodium Potassium Chloride Carbon Dioxide Anion Gap BUN Creatinine POC Glucometer 131 Random Glucose Calcium Phosphorus Magnesium C-Reactive Protein Cancelled Hep A IgM Ab Confirm Hepatitis A Ab Total Hep Bs Antigen Hep Bs Antibody Hep B Core Total Ab Active Medications Generic Name Dose Route Start Last Admin Trade Name Freq PRN Reason Stop Dose Admin Aspirin 81 mg 10/08/17 10:00 10/09/17 09:03 Asa - PO 81 mg DAILY ANDREW Administration Gabapentin 100 mg 10/08/17 06:00 10/10/17 06:12 Neurontin - PO 100 mg TID ANDREW Administration Heparin Sodium (Porcine) 5,000 unit 10/08/17 10:00 10/09/17 21:40 Heparin - SQ 5,000 unit BID ANDREW Administration Hydralazine HCl 10 mg 10/08/17 10:00 10/09/17 09:03 Apresoline - PO 10 mg DAILY ANDREW Administration Insulin Aspart 1 vial 10/07/17 16:30 10/10/17 06:11 Novolog Vial Sliding Scale - SQ Not Given ACHS [facility] Protocol Isosorbide Mononitrate 10 mg 10/09/17 10:00 10/09/17 17:28 Ismo - PO 10 mg BIDISMO ANDREW Administration Lorazepam 1 mg 10/07/17 20:41 10/07/17 20:48 Ativan Injection - IVPUSH 1 mg Q8H PRN Administration AGITATION Losartan Potassium 25 mg 10/08/17 10:00 10/09/17 09:03 Cozaar - PO 25 mg DAILY ANDREW Administration Metoprolol Succinate 25 mg 10/08/17 10:00 10/09/17 09:03 Toprol Xl - PO 25 mg DAILY ANDREW Administration Sevelamer Carbonate 800 mg 10/09/17 17:30 10/10/17 08:13 Renvela - PO 800 mg TIDCM ANDREW Administration ASSESSMENT/PLAN: 71 year-old male with a PMH significant for HTN, systolic heart failure, ESRD on HD (M,W,F), 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 Admitted for right inguinal pain and bilateral lower extremity weakness. 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 Norton on 09/09; found cognitively intact with functional capacity to make informed decisions --has been much calmer and cooperative past 24-48 hours --d/c restraints --d/c 1:1 FEN Fluids: PO intake adequate Electrolytes: replete as indicated Nutrition: renal diet DVT prophylaxis: subq heparin, oob, ambulation Dispo: has been accepted to [facility], bed available on Thursday 10/12 at 11:30am; patient will continue receiving dialysis there. Full code. Visit type - Emergency Visit Emergency Visit: Yes ED Registration Date: 10/09/17 Care time: The patient presented to the Emergency Department on the above date and was hospitalized for further evaluation of their emergent condition. - New Patient This patient is new to me today: No - Critical Care Critical Care patient: No
[2017-10-10] MEDS: hydrALAZINE HCL 10 MG TABLET PO SCH (10:01)
[2017-10-10] MEDS: metoPROLOL SUCCINATE 25 MG TAB.SR.24H (FP) PO SCH (10:01)
[2017-10-10] MEDS: HEPARIN NA (PORCINE) 5,000 UNITS/ML 1ML VIAL SQ SCH ×2 (10:01→21:27)
[2017-10-10] MEDS: LOSARTAN POTASSIUM 25 MG TABLET PO SCH (10:01)
[2017-10-10] MEDS: ASPIRIN 81 MG CHEWABLE TABLETS PO SCH (10:01)
--- NOTE | 2017-10-10 10:01 | PN ---
Progress Note (short form) - Note Progress Note: Neurology HISTORY OF PRESENT ILLNESS: Patient is an 72 year old male with a significant past medical history of diabetes mellitus, HTN, CHF, ESRD with dialysis on MWF (with Left arm AV fistula placed 3 months ago), anemia, CVA 3 yrs ago. He presented to the ED via EMS with c/o of bilateral lower extremity weakness with difficulty ambulation. Patient also reports a falls at home 3 weeks ago. He was noted to have a very large purple bruise on his left upper extremity. He denies trauma. As per the patient, he has had chronic leg weakness for the past 3 years, but was able to walk with the help of a walker. He usually takes a cab to the dialysis center but reports that this is becoming more difficult because of his leg weakness. Patient was recently admitted between 09/06/2017 - 09/10/2017 for bilateral lower extremity weakness and MRI imaging was done. L spine MRI showed possible L5 nerve root impingement. He was sent home on Gabapentin and a neurologist referral. However, patient reports non compliance with the Gabapentin. Seen by Dr. Sanchez regarding MRI and note reviewed, no neurosrugical intervention. He completed EMG/NCS and showed axonal changes consistent with uremia/diabetes and no evidence of radiculopathy (nerve root dysfunction). Active Medications Aspirin (Asa -) 81 mg PO DAILY [facility] Last Admin: 10/09/17 09:03 Dose: 81 mg Gabapentin (Neurontin -) 300 mg PO TID [facility] Heparin Sodium (Porcine) (Heparin -) 5,000 unit SQ BID [facility] Last Admin: 10/09/17 21:40 Dose: 5,000 unit Hydralazine HCl (Apresoline -) 10 mg PO DAILY [facility] Last Admin: 10/09/17 09:03 Dose: 10 mg Insulin Aspart (Novolog Vial Sliding Scale -) 1 vial SQ ACHS [facility] PRN Reason: Protocol Last Admin: 10/10/17 06:11 Dose: Not Given Isosorbide Mononitrate (Ismo -) 10 mg PO BIDISMO [facility] Last Admin: 10/09/17 17:28 Dose: 10 mg Lorazepam (Ativan Injection -) 1 mg IVPUSH Q8H PRN PRN Reason: AGITATION Last Admin: 10/07/17 20:48 Dose: 1 mg Losartan Potassium (Cozaar -) 25 mg PO DAILY [facility] Last Admin: 10/09/17 09:03 Dose: 25 mg Metoprolol Succinate (Toprol Xl -) 25 mg PO DAILY [facility] Last Admin: 10/09/17 09:03 Dose: 25 mg Sevelamer Carbonate (Renvela -) 800 mg PO TIDCM [facility] Last Admin: 10/10/17 08:13 Dose: 800 mg PHYSICAL EXAMINATION Vital Signs Period Temp Pulse Resp BP Sys/Reeder Pulse Ox Last 24 Hr 97.2 F-98.5 F 60-85 18-20 92-127/35-70 99 GENERAL: The patient is awake, alert, and fully oriented, in no acute distress HEAD: Normal with no signs of trauma. EYES: PERRL, extraocular movements intact, sclera anicteric, conjunctiva clear. No ptosis. ENT: Ears normal, nares patent, oropharynx clear without exudates, moist mucous membranes. NECK: Trachea midline, full range of motion, supple. LUNGS: Breath sounds equal, clear to auscultation bilaterally, no wheezes HEART: Regular rate and rhythm, S1, S2 without murmur, rub or gallop. ABDOMEN: Soft, nontender, nondistended, normoactive bowel sounds, no guarding, no rebound, no hepatosplenomegaly, no masses. EXTREMITIES: + bruit thrill on left upper arm fistula, dialysis through right shiley catheter, left upper arm with moderate sized purple bruise, present on adm. NEUROLOGICAL: Normal speech,, moves all extremties but limited lower extremity strength, sensory intact, gait deferred PSYCH: Normal mood, normal affect. CBCD WBC 6.1 K/mm3 (4.0-10.0) 10/09/17 10:00 RBC 4.23 M/mm3 (4.00-5.60) 10/09/17 10:00 Hgb 12.0 GM/dL (11.7-16.9) 10/09/17 10:00 Hct 37.0 % (35.4-49) 10/09/17 10:00 MCV 87.3 fl (80-96) 10/09/17 10:00 MCHC 32.6 g/dl (32.0-35.9) 10/09/17 10:00 RDW 17.9 % (11.9-15.9) H 10/09/17 10:00 Plt Count 148 K/MM3 (134-434) 10/09/17 10:00 MPV 7.6 fl (7.5-11.1) 10/09/17 10:00 CMP Sodium 142 mmol/L (136-145) 10/10/17 05:35 Potassium 3.8 mmol/L (3.5-5.1) 10/10/17 05:35 Chloride 101 mmol/L (98-107) 10/10/17 05:35 Carbon Dioxide 29 mmol/L (21-32) 10/10/17 05:35 Anion Gap 12 (8-16) 10/10/17 05:35 BUN 44 mg/dL (7-18) H D 10/10/17 05:35 Creatinine 6.3 mg/dL (0.7-1.3) H D 10/10/17 05:35 Creat Clearance w eGFR 13.57 (>60) 10/08/17 06:55 Calcium 8.0 mg/dL (8.5-10.1) L 10/10/17 05:35 Total Bilirubin 0.5 mg/dL (0.2-1.0) D 10/08/17 06:55 AST 12 U/L (15-37) L 10/08/17 06:55 ALT 15 U/L (12-78) 10/08/17 06:55 Alkaline Phosphatase 144 U/L (45-117) H 10/08/17 06:55 Total Protein 7.1 g/dl (6.4-8.2) 10/08/17 06:55 Albumin 3.5 g/dl (3.4-5.0) 10/08/17 06:55 MRI L spine reviewed EMG/NCS ASSESSMENT/PLAN: 72 year old male with a significant past medical history of diabetes mellitus, HTN, CHF, ESRD with dialysis on MWF (with Left arm AV fistula placed 3 months ago), anemia, CVA 3 yrs ago. He presented to the ED via EMS with c/o of bilateral lower extremity weakness with difficulty ambulation. Patient also reports a falls at home 3 weeks ago. He was noted to have a very large purple bruise on his left upper extremity. He denies trauma. As per the patient, he has had chronic leg weakness for the past 3 years, but was able to walk with the help of a walker. He usually takes a cab to the dialysis center but reports that this is becoming more difficult because of his leg weakness. L spine MRI showed possible L5 nerve root impingement. NSGY note reviewed, no surgical intervention EMG/NCS reviewed and c/w peripheral neuropathy, no sign of radiculopathy On kit 300Tid, reports improvement in symptoms Physical therapy may be of benefit, consider short term rehab if patient amenable Tight diabetic control, goal A1C < 6 Fall precautions Dialysis per renal
[2017-10-10] MEDS: ISOSORBIDE MONONITRATE 20 MG TABLET PO SCH ×2 (10:02→16:48)
--- NOTE | 2017-10-10 10:29 | PN ---
Progress Note, Physician History of Present Illness: Tolerating PT with increased lower extremity strength, denies further chest discomfort. - Current Medication List Current Medications: Active Medications Aspirin (Asa -) 81 mg PO DAILY [facility] Last Admin: 10/10/17 10:01 Dose: 81 mg Gabapentin (Neurontin -) 300 mg PO TID [facility] Heparin Sodium (Porcine) (Heparin -) 5,000 unit SQ BID [facility] Last Admin: 10/10/17 10:01 Dose: 5,000 unit Hydralazine HCl (Apresoline -) 10 mg PO DAILY [facility] Last Admin: 10/10/17 10:01 Dose: 10 mg Insulin Aspart (Novolog Vial Sliding Scale -) 1 vial SQ ACHS [facility] PRN Reason: Protocol Last Admin: 10/10/17 06:11 Dose: Not Given Isosorbide Mononitrate (Ismo -) 10 mg PO BIDISMO [facility] Last Admin: 10/10/17 10:02 Dose: 10 mg Lorazepam (Ativan Injection -) 1 mg IVPUSH Q8H PRN PRN Reason: AGITATION Last Admin: 10/07/17 20:48 Dose: 1 mg Losartan Potassium (Cozaar -) 25 mg PO DAILY [facility] Last Admin: 10/10/17 10:01 Dose: 25 mg Metoprolol Succinate (Toprol Xl -) 25 mg PO DAILY [facility] Last Admin: 10/10/17 10:01 Dose: 25 mg Sevelamer Carbonate (Renvela -) 800 mg PO TIDCM [facility] Last Admin: 10/10/17 08:13 Dose: 800 mg - Objective Vital Signs: Vital Signs Temperature 98 F 10/10/17 09:22 Pulse Rate 84 10/10/17 09:22 Respiratory Rate 18 10/10/17 09:22 Blood Pressure 112/70 10/10/17 09:22 O2 Sat by Pulse Oximetry (%) 99 10/09/17 21:00 Constitutional: Yes: No Distress, Calm, Thin Neck: Yes: Supple Cardiovascular: Yes: Regular Rate and Rhythm Respiratory: Yes: Regular, Diminished, On Nasal O2 Gastrointestinal: Yes: Normal Bowel Sounds, Soft Edema: No Labs: CBC, BMP 10/09/17 10:00 10/10/17 05:35 INR, PTT INR 1.04 (0.82-1.09) 10/07/17 07:29 - ....Imaging EKG: Report Reviewed (Blocked PAC overnight) Problem List - Problems (1) Hypertensive cardiomyopathy Code(s): I11.9 - HYPERTENSIVE HEART DISEASE WITHOUT HEART FAILURE; I43 - CARDIOMYOPATHY IN DISEASES CLASSIFIED ELSEWHERE Qualifiers: Heart failure presence: without heart failure Qualified Code(s): I11.9 - Hypertensive heart disease without heart failure; I43 - Cardiomyopathy in diseases classified elsewhere; I43 - Cardiomyopathy in diseases classified elsewhere; I43 - Cardiomyopathy in diseases classified elsewhere; I43 - Cardiomyopathy in diseases classified elsewhere (2) Chest pain Code(s): R07.9 - CHEST PAIN, UNSPECIFIED Qualifiers: Chest pain type: other chest pain Qualified Code(s): R07.89 - Other chest pain; R07.8 - Other chest pain (3) Diabetic neuropathy Code(s): E11.40 - TYPE 2 DIABETES MELLITUS WITH DIABETIC NEUROPATHY, UNSP Qualifiers: Diabetes mellitus type: type 2 Diabetes mellitus complication detail: diabetic polyneuropathy Qualified Code(s): E11.42 - Type 2 diabetes mellitus with diabetic polyneuropathy (4) Hyperkalemia Code(s): E87.5 - HYPERKALEMIA (5) AV fistula Code(s): I77.0 - ARTERIOVENOUS FISTULA, ACQUIRED (6) Diabetes Code(s): E11.9 - TYPE 2 DIABETES MELLITUS WITHOUT COMPLICATIONS Qualifiers: Diabetes mellitus type: type 2 Diabetes mellitus backup operator insulin use: without backup operator use Chronic kidney disease stage: on chronic dialysis (7) ESRD (end stage renal disease) Code(s): N18.6 - END STAGE RENAL DISEASE (8) Polyneuropathy Code(s): G62.9 - POLYNEUROPATHY, UNSPECIFIED (9) Anemia Code(s): D64.9 - ANEMIA, UNSPECIFIED Qualifiers: Anemia type: due to chronic kidney disease Chronic kidney disease stage: on chronic dialysis Qualified Code(s): N18.6 - End stage renal disease (10) Diastolic dysfunction Code(s): I51.9 - HEART DISEASE, UNSPECIFIED (11) Gait disturbance Code(s): R26.9 - UNSPECIFIED ABNORMALITIES OF GAIT AND MOBILITY Assessment/Plan 1. Progressive lower extremity weakness c/w diabetic peripheral neuropathy 2. Chest pain syndrome 3. HTN/HCVD 4. Diastolic dysfunction 5. ESRD on HD via left arm AVF 6. Cerebrovascular disease 7. Anemia of chronic kidney disease 8. Type 2 DM 9. Blocked PAC PLAN: 1. Troponins are negative 2. PT for gait training and Neuro input appreciated 3. Continue ASA 81 mg daily, Ismo 10 bid, Hydralazine 10 bid, Losartan 25 qd with monitor K level and Toprol XL 25 qd 4. HD per renal 5. Pharmacologic stress testing to r/o ischemia which may be performed as outpatient 6. Eventual possible SNF
--- NOTE | 2017-10-10 10:51 | CONS ---
DATE OF CONSULTATION: 10/10/2017 REFERRING PHYSICIAN: Francisco Farnsworth MD HISTORY OF PRESENT ILLNESS: The patient is a 72-year-old man with past medical history of chronic kidney disease, end-stage renal disease on hemodialysis, longstanding diabetes, small disk herniation L4-L5 with possible L5 nerve impingement on MRI who presents with bilateral lower extremity weakness. The patient states that over the last 6 months he has developed numbness in his lower extremities. This approximately coincides with the timeframe that he was started on hemodialysis. He notes numbness and tingling in his hands left more than right as well as numbness below the knees in the bilateral lower extremities. He has difficulty with fine motor coordination and balance, and he has fallen. The patient does have back pain, which can go down his right lower extremity to the lateral ankle. Again, he feels generally weak. The patient was referred for electrodiagnostic evaluation. Of note, he was recently hospitalized in August and underwent an MRI of the lumbar spine, which did demonstrate degenerative changes at L4-L5 with annular tear and a small midline herniation slightly to the right with possible right L5 nerve root impingement, but no severe canal stenosis was noted. The patient's blood work was reviewed. As of yesterday's blood work, a CBC was normal, WBC 6.1, hemoglobin 12, platelet count 148, INR normal at 1.04 on admission. Chemistry as of today had elevated BUN 44, creatinine 6.3. Otherwise, normal sodium 142, potassium 3.8, chloride 101, and CO2 of 29. On admission, he had a normal TSH of 1.20, albumin 3.5. Hemoglobin A1C was normal at 6 on October 08. PAST MEDICAL/SURGICAL HISTORY: As above. Also hypertension, congestive heart failure, AV fistula, anemia, possible CVA. SOCIAL HISTORY: Per the patient, lives alone in an apartment. No stairs. He has a cane and also possibly a walker at home, but when he fell, he was not using an assistive device. REVIEW OF SYSTEMS: No current lightheadedness or dizziness. No blurry vision or double vision. No nausea, vomiting, difficulty swallowing, difficulty chewing. No chest pain or shortness of breath. Again, he gets numbness and tingling in the left more than right upper limb as well as numbness in both lower extremities below the knees. Some back pain radiating down the right lower extremity at times but generalized weakness in the lower extremities. Difficulty with fine motor coordination as noted above. No skin rash, but he does have ecchymosis posterior thigh. PHYSICAL EXAMINATION: General: A thin, elderly man seen lying on a stretcher in no acute distress. HEENT: Normocephalic and atraumatic. His extraocular muscles appear full. He has no obvious facial weakness. No oral ulcers. Dry mucous membranes. Neck: Supple. Extremities: Without any pitting edema or calf tenderness. Wrists without any deformity. Neuromuscular: He is awake, alert, oriented x3. Cranial nerves are grossly intact. He has some distal weakness in the intrinsic and thenar muscles in both hands with slightly diminished sensation distally in the fingertips. Also demonstrated sensation to pinprick below the knees. Decreased cold temperature and vibration in the lower extremities. Absent reflexes in the lower extremities. Fairly good distal strength and dorsiflexion and plantar flexion. He has atrophy of the intrinsics in the feet, but no atrophy noted in the hands. Antigravity strength in both lower extremities. Some mild tenderness in the lumbosacral paraspinals of the back but no advanced scoliosis noted. Unable to stand or ambulate him as he is on a stretcher. Results of EMG nerve conduction studies, please refer to report for details. OVERALL IMPRESSION: 1. 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 Uremia seems much more likely as the timing that he went on hemodialysis coincides with some of the development of symptoms in his lower extremities. 2. No electrodiagnostic evidence of lumbosacral radiculopathy in the lower extremities or right cervical radiculopathy. 3. No definite mononeuropathy such as carpal tunnel syndrome, ulnar neuropathy, or perineal neuropathy in the right lower extremity at the fibular head. 4. Gait disorder. 5. End-stage renal disease on hemodialysis. 6. History of arteriovenous fistula left upper extremity. 7. History of diabetes for 25 years. 8. History of hypertension. 9. Possible history of cerebrovascular accident. 10. History of anemia but currently normal complete blood count. PLAN/SUGGESTION: 1. Follow up with Dr. Farnsworth from Neurology. 2. Follow up with Dr. Sanchez. 3. Physical therapy for balance transfers, gait training, strengthening, reconditioning with a walker. 4. Safety fall precautions. 5. Diabetic foot precaution. 6. Patient is on gabapentin. 7. Consider outpatient physical therapy for his lower back versus inpatient rehabilitation in a long-term facility based on his response to therapy and safety concerns. Thank you for this referral. LIYA HARO M.D. [id number]
--- NOTE | 2017-10-10 14:15 | PN ---
Progress Note (short form) - Note Progress Note: Renal follow up for ESRD on HD Pt seen and examined at the bedside awake and alert no acute complaints no sob, chest pain leg pain is improved not ambulating as of yet s/p dialysis yesterday Vital Signs Temperature 98 F 10/10/17 09:22 Pulse Rate 84 10/10/17 09:22 Respiratory Rate 18 10/10/17 09:22 Blood Pressure 112/70 10/10/17 09:22 O2 Sat by Pulse Oximetry (%) 99 10/10/17 09:00 Intake & Output 10/07/17 10/08/17 10/09/17 10/10/17 23:59 23:59 23:59 23:59 Intake Total 450 820 740 0 Output Total 0 0 Balance 450 820 740 0 Weight 74.843 kg 74.843 kg NAD RRR CTA no LE edema CBC, BMP 10/09/17 10:00 10/10/17 05:35 Current Medications Aspirin (Asa -) 81 mg PO DAILY [facility] Last Admin: 10/10/17 10:01 Dose: 81 mg Gabapentin (Neurontin -) 300 mg PO TID [facility] Heparin Sodium (Porcine) (Heparin -) 5,000 unit SQ BID [facility] Last Admin: 10/10/17 10:01 Dose: 5,000 unit Hydralazine HCl (Apresoline -) 10 mg PO DAILY [facility] Last Admin: 10/10/17 10:01 Dose: 10 mg Insulin Aspart (Novolog Vial Sliding Scale -) 1 vial SQ ACHS [facility] PRN Reason: Protocol Last Admin: 10/10/17 11:36 Dose: 2 units Isosorbide Mononitrate (Ismo -) 10 mg PO BIDISMO [facility] Last Admin: 10/10/17 10:02 Dose: 10 mg Lorazepam (Ativan Injection -) 1 mg IVPUSH Q8H PRN PRN Reason: AGITATION Last Admin: 10/07/17 20:48 Dose: 1 mg Losartan Potassium (Cozaar -) 25 mg PO DAILY [facility] Last Admin: 10/10/17 10:01 Dose: 25 mg Metoprolol Succinate (Toprol Xl -) 25 mg PO DAILY [facility] Last Admin: 10/10/17 10:01 Dose: 25 mg Sevelamer Carbonate (Renvela -) 800 mg PO TIDCM [facility] Last Admin: 10/10/17 11:37 Dose: 800 mg 72 year old gentleman with PMhx of ESRD on HD (MWF), Hypertension, DM, CHF, CVA who presented with complaints of LE weakness and pain. 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
[2017-10-10] MEDS: GABAPENTIN 300 MG CAPSULE (FP) PO SCH ×2 (14:20→21:27)
--- NOTE | 2017-10-10 14:21 | DS ---
Physical Exam: SUBJECTIVE: Patient seen and examined OBJECTIVE: Vital Signs Period Temp Pulse Resp BP Sys/Reeder Pulse Ox Last 24 Hr 97.2 F-98.5 F 63-85 18-20 92-126/42-70 99-99 PHYSICAL EXAM GENERAL: The patient is awake, alert, and fully oriented. No apparent distress. LUNGS: Breath sounds equal, clear to auscultation bilaterally, no wheezes, no crackles, no accessory muscle use. HEART: Regular rate and rhythm, S1, S2 without murmur, rub or gallop. ABDOMEN: Soft, nontender, nondistended, normoactive bowel sounds, no guarding, no rebound, no hepatosplenomegaly, no masses. EXTREMITIES: 2+ pulses, warm, well-perfused, no edema. NEUROLOGICAL: Cranial nerves II through XII grossly intact. Normal speech, gait not observed. PSYCH: Normal mood, normal affect. SKIN: Warm, dry, normal turgor, no rashes or lesions noted. LABS Laboratory Results - last 24 hr 10/07/17 10/09/17 10/09/17 15:30 13:20 13:20 ESR Sodium Potassium Chloride Carbon Dioxide Anion Gap BUN Cancelled 18 D Creatinine 2.5 H D POC Glucometer Random Glucose Calcium Phosphorus Magnesium C-Reactive Protein Hep A IgM Ab Confirm Negative Hepatitis A Ab Total Positive H Hep Bs Antigen Negative Hep Bs Antibody Reactive Hep B Core Total Ab Positive H 10/09/17 10/09/17 10/10/17 17:26 21:38 05:35 ESR Sodium 142 Potassium 3.8 Chloride 101 Carbon Dioxide 29 Anion Gap 12 BUN 44 H D Creatinine 6.3 H D POC Glucometer 173 128 Random Glucose 133 H D Calcium 8.0 L Phosphorus 5.8 H Magnesium 2.3 C-Reactive Protein < 0.3 Hep A IgM Ab Confirm Hepatitis A Ab Total Hep Bs Antigen Hep Bs Antibody Hep B Core Total Ab 10/10/17 10/10/17 10/10/17 05:35 05:35 05:58 ESR 12 Sodium Potassium Chloride Carbon Dioxide Anion Gap BUN Creatinine POC Glucometer 131 Random Glucose Calcium Phosphorus Magnesium C-Reactive Protein Cancelled Hep A IgM Ab Confirm Hepatitis A Ab Total Hep Bs Antigen Hep Bs Antibody Hep B Core Total Ab 10/10/17 11:35 ESR Sodium Potassium Chloride Carbon Dioxide Anion Gap BUN Creatinine POC Glucometer 167 Random Glucose Calcium Phosphorus Magnesium C-Reactive Protein Hep A IgM Ab Confirm Hepatitis A Ab Total Hep Bs Antigen Hep Bs Antibody Hep B Core Total Ab HOSPITAL COURSE: Date of Admission:10/09/17 Date of Discharge: 10/10/17 71 year-old male with a PMH significant for HTN, systolic heart failure, ESRD on HD (M,W,F), 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 Admitted for right inguinal pain and bilateral lower extremity weakness. 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 Norton on 09/09; found cognitively intact with functional capacity to make informed decisions --has been much calmer and cooperative past 24-48 hours --d/c restraints --d/c 1:1 FEN Fluids: PO intake adequate Electrolytes: replete as indicated Nutrition: renal diet DVT prophylaxis: subq heparin, oob, ambulation Dispo: has been accepted to [facility], bed available on Thursday 10/12 at 11:30am; patient will continue receiving dialysis there. Full code. Minutes to complete discharge: 35 Discharge Summary Reason For Visit: POLYNEUROPATHY,CP,HYPERKALEMIA Current Active Problems Chest pain (Acute) Diabetic neuropathy (Acute) Diastolic dysfunction (Acute) Gait disturbance (Acute) Hyperkalemia (Acute) Hypertensive cardiomyopathy (Acute) Condition: Stable - Instructions Diet, Activity, Other Instructions: Patient is planned for discharge on 10/12 at 11:30am to [facility]. Patient has been going there regularly for outpatient dialysis. Referrals: Gwyn Robins MD [Staff Physician] - Disposition: [facility] - Home Medications Comprehensive Discharge Medication List: Ambulatory Orders Aspirin [ASA -] 81 mg PO DAILY 06/18/17 Hydralazine HCl 10 mg PO DAILY 06/18/17 Isosorbide Mononitrate 10 mg PO DAILY 06/18/17 Losartan Potassium [Cozaar -] 25 mg PO DAILY #30 tablet 06/24/17 Metoprolol Succinate 25 mg PO DAILY #120 tab.er.24h 09/29/17 This patient is new to me today: No Emergency Visit: Yes ED Registration Date: 10/09/17 Care time: The patient presented to the Emergency Department on the above date and was hospitalized for further evaluation of their emergent condition. Critical Care patient: No - Discharge Referral Referred to [facility] No
--- NOTE | 2017-10-10 15:35 | HOL ---
Hook-up date: 2017-10-09 15:02:00 Duration: 23:14:00 Test Indications: SECONDARY AV BLOCK Medications: 93120 QRS complexes 73 Ventricular ectopics which represent <1 % of total QRS comp. 141 Supraventricular ectopics which represent <1 % of total QRS comp. * Paced QRS complexs which represent % of total QRS comp. * % of Time Classified as Noise VENTRICULAR ECTOPY 73 Isolated 0 Bigeminal Cycles 0 Couplets 0 Runs 0 Beats in Runs * Beats LONGEST at * BPM at :: -- * Beats FASTEST at * BPM at :: -- SUPRAVENTRICULAR ECTOPY 105 Isolated 7 Couplets 6 Runs 22 Beats in Runs 6 Beats LONGEST at 112 BPM at 17:52:35 2017-10-09 6 Beats FASTEST at 112 BPM at 17:52:35 2017-10-09 HEART RATES 49 MIN at 03:26:05 2017-10-10 71 AVG 110 MAX at 18:10:50 2017-10-09 LONGEST RR 1.936 secs at 03:23:54 2017-10-10 1.The underlying rhythm is NSR with first degree AV block. The average heart rate was 71bpm (minimum: 49bpm, maximum: 110bpm, sinus tachycardia) 2. There were frequent atrial premature complexes. 3. Episodes of type I, 2nd degree AV block (Wenkebach) during sleeping hours (3AM). 4. Rare, single VPCS. 5. The longest recorded pause was 1.9 seconds. No diary entries. Confirmed by CHRIS CHAUDHRY MD ([id number]) on 10/10/2017 3:35:03 PM Referred By: SAEED LOZOYA DR Overread By: CHRIS CHAUDHRY MD
[2017-10-11] MEDS: GABAPENTIN 300 MG CAPSULE (FP) PO SCH ×3 (06:32→21:46)
[2017-10-11] MEDS: INSULIN SLIDING SCALE (NOVOLOG) 1 VIAL SQ SCH ×4 (06:33→21:47)
[2017-10-11] MEDS: SEVELAMER CARBONATE 800 MG TAB (FP) PO SCH ×3 (08:43→16:51)
--- NOTE | 2017-10-11 08:51 | PN ---
Progress Note (short form) - Note Progress Note: Chief Complaint: Events noted, notes reviewed, denies any chest pain or dyspnea , HD session initiated at the bedside History of Present Illness: Seen and examined ion telemetry. Events noted, notes reviewed, denies any chest pain or dyspnea, HD session initiated at the bedside Echocardiography dated 06/19/2017 revealed dilated LV with mildly reduced LV EF , moderate MR, mild TR, with severe pulmonary HTN RVSP of 72.5 mmHg - Current Medication List Current Medications Aspirin (Asa -) 81 mg PO DAILY [facility] Last Admin: 10/10/17 10:01 Dose: 81 mg Gabapentin (Neurontin -) 300 mg PO TID [facility] Last Admin: 10/11/17 06:32 Dose: 300 mg Heparin Sodium (Porcine) (Heparin -) 5,000 unit SQ BID [facility] Last Admin: 10/10/17 21:27 Dose: 5,000 unit Hydralazine HCl (Apresoline -) 10 mg PO DAILY [facility] Last Admin: 10/10/17 10:01 Dose: 10 mg Insulin Aspart (Novolog Vial Sliding Scale -) 1 vial SQ ACHS [facility] PRN Reason: Protocol Last Admin: 10/11/17 06:33 Dose: Not Given Isosorbide Mononitrate (Ismo -) 10 mg PO BIDISMO [facility] Last Admin: 10/10/17 16:48 Dose: 10 mg Losartan Potassium (Cozaar -) 25 mg PO DAILY [facility] Last Admin: 10/10/17 10:01 Dose: 25 mg Metoprolol Succinate (Toprol Xl -) 25 mg PO DAILY [facility] Last Admin: 10/10/17 10:01 Dose: 25 mg Sevelamer Carbonate (Renvela -) 800 mg PO TIDCM [facility] Last Admin: 10/11/17 08:43 Dose: Not Given Review of Systems Cardiovascular: As noted above Respiratory: denies: denies: Cough or Sputum Production Gastrointestinal: denies: Nausea, Vomiting, Diarrhea, Constipation or Abdominal Discomfort Musculoskeletal: No Symptoms Reported Endocrine: No Symptoms Reported - Objective Vital Signs: Last Vital Signs Temp Pulse Resp BP Pulse Ox 97.1 F L 58 L 18 129/53 99 10/11/17 05:45 10/11/17 05:45 10/11/17 05:45 10/11/17 05:45 10/10/17 21:00 Intake & Output 01/3110/09/17 10/10/17 10/11/17 23:59 23:59 23:59 23:59 Intake Total 820 740 0 Output Total 0 Balance 820 740 0 Weight 165 lb Constitutional: No Distress, Calm, Thin Neck: Supple Negative JVD No Bruit Cardiovascular: S1 S2 Regular Rate and Rhythm Respiratory: Diminished Breath Sounds at the Bases Gastrointestinal: Soft Benign Normal Bowel Sounds Ext: No Edema Labs: CBC, BMP 10/09/17 10:00 10/10/17 05:35 Assessment/Plan ASSESSMENT: 1. Progressive lower extremity weakness consistent with diabetic peripheral neuropathy 2. Chest pain syndrome, atypical for CAD angina pectoris in patient with known CAD angina pectoris 3. Systolic/diastolic LV dysfunction with calss 0 NYHA classification LV failure , compensated/euvolemic 4. Moderate MR 5. Mild TR with severe degree of pulmonary HTN, RVSP of 72.5 mmHg 6. HTN/HCVD 7. DM 8. History of CVA 9. ESRD on HD 10. Anemia of chronic kidney disease PLAN: 1. Continue ASA 2. Continue Ismo 3. Recommend D/C Hydralazine and, 4. Continue Cozaar and titrate dosage as tolerated, hemodynamics permitting 5. Continue Toprol XL 6. Pharmacologic (Adenosine) MPI to rule out ischemia can may be performed as outpatient unless symptoms recur 7. HD as per renal service Taco Savage M.D.
[2017-10-11 09:13] LABS: HEMATOCRIT 36.5 % (35.4-49); HEMOGLOBIN 12.1 GM/dL (11.7-16.9); MCH 28.8 pg (25.7-33.7); MCHC 33.1 g/dl (32.0-35.9); MEAN CELL VOLUME 87.2 fl (80-96); MEAN PLT VOLUME 7.7 fl (7.5-11.1); PLATELET COUNT 149 K/MM3 (134-434); RBC 4.19 M/mm3 (4.00-5.60); RDW 18.1 % (11.9-15.9); WHITE BLOOD COUNT 6.8 K/mm3 (4.0-10.0)
--- NOTE | 2017-10-11 10:12 | PN ---
Progress Note (short form) - Note Progress Note: NEUROSURGERY Undergoing HD PE: AF, VSS HEENT- NC/AT; Neck- supple; Cor- RR; R chest dialysis catheter; Lungs- CTA B; Abd- benign; Ext- no sign of DVT, L biceps area ecchymosis Speech normal Sitting up in chair; aide at bedside CN- intact; Motor-4+-5 B UE/LE; Sensation- intact LT, vibration B UE/LE; DTR- hyporeflexia B; difficulty moving about ESR 12 LS Spine MRI 09/2017: Mild DDD L3-4, L4-5 > L5-S1; mild broad L3-4 dsic bulge with R > L L3-4 foramenal stenosis; small central and R paracentral disc protrusion with minimal thecal sac impingement; mild L and R foramenal stenosis , no sign of discitis or osteomyelitis; no severe stenosis at any level EMG/NCS c/w peripheral neuropathy LS spine disease is generally mild and not generally considered surgical If no infection consider pain management injections
[2017-10-11 10:14] LABS: ANION GAP 13 (8-16); BLOOD UREA NITROGEN 67 mg/dL (7-18); CALCIUM 7.6 mg/dL (8.5-10.1); CHLORIDE 98 mmol/L (98-107); CO2 25 mmol/L (21-32); GLUCOSE,RANDOM 173 mg/dL (74-106); PHOSPHOROUS 5.9 mg/dL (2.5-4.9); POTASSIUM 4.1 mmol/L (3.5-5.1); SODIUM 136 mmol/L (136-145)
[2017-10-11 10:59] LABS: CREATININE 7.8 mg/dL (0.7-1.3)
--- NOTE | 2017-10-11 11:02 | PN ---
Progress Note (short form) - Note Progress Note: Renal follow up for ESRD on HD Pt seen and examined during dialysis BP stable catheter with good flow UF goal is 2L no sob, chest pain continues to have weakness in LE pain is much better Vital Signs Temperature 98.2 F 10/11/17 07:55 Pulse Rate 60 10/11/17 10:30 Respiratory Rate 18 10/11/17 10:30 Blood Pressure 139/60 10/11/17 10:30 O2 Sat by Pulse Oximetry (%) 99 10/11/17 10:10 Intake & Output 10/08/17 10/09/17 10/10/17 10/11/17 23:59 23:59 23:59 23:59 Intake Total 820 740 0 10 Output Total 0 Balance 820 740 0 10 Weight 74.843 kg NAD RRR CTA no LE edema CBC, BMP 10/11/17 07:30 10/11/17 07:29 Current Medications Aspirin (Asa -) 81 mg PO DAILY [facility] Last Admin: 10/10/17 10:01 Dose: 81 mg Gabapentin (Neurontin -) 300 mg PO TID [facility] Last Admin: 10/11/17 06:32 Dose: 300 mg Heparin Sodium (Porcine) (Heparin -) 5,000 unit SQ BID [facility] Last Admin: 10/10/17 21:27 Dose: 5,000 unit Insulin Aspart (Novolog Vial Sliding Scale -) 1 vial SQ ACHS [facility] PRN Reason: Protocol Last Admin: 10/11/17 06:33 Dose: Not Given Isosorbide Mononitrate (Ismo -) 10 mg PO BIDISMO [facility] Last Admin: 10/10/17 16:48 Dose: 10 mg Losartan Potassium (Cozaar -) 50 mg PO DAILY [facility] Metoprolol Succinate (Toprol Xl -) 25 mg PO DAILY [facility] Sevelamer Carbonate (Renvela -) 800 mg PO TIDCM [facility] Last Admin: 10/11/17 08:43 Dose: Not Given 72 year old gentleman with PMhx of ESRD on HD (MWF), Hypertension, DM, CHF, CVA who presented with complaints of LE weakness and pain. #LE weakness and Pain Neurosuergy and Neurology following on gabapentin, titrated by neurology physical therapy pain control #ESRD on HD with mild hyperkalemia tolerating dialysis well today UF as tolerated will continue HD 3x weekly #Chest pain r/o aCS OR ruled out cardiology following #DM Type 2 continue insulin sliding scale #Renal Osteodystrophy continue renvela TID with meals renal diet Ant Martino DO
[2017-10-11] MEDS: ASPIRIN 81 MG CHEWABLE TABLETS PO SCH (12:23)
[2017-10-11] MEDS: ISOSORBIDE MONONITRATE 20 MG TABLET PO SCH ×2 (12:24→16:50)
[2017-10-11] MEDS: HEPARIN NA (PORCINE) 5,000 UNITS/ML 1ML VIAL SQ SCH ×2 (12:24→21:46)
[2017-10-11] MEDS: LOSARTAN POTASSIUM 50 MG TABLET (FP) PO SCH (12:24)
[2017-10-11] MEDS: metoPROLOL SUCCINATE 25 MG TAB.SR.24H (FP) PO SCH (12:25)
[2017-10-12] MEDS: GABAPENTIN 300 MG CAPSULE (FP) PO SCH ×2 (06:48→13:15)
[2017-10-12] MEDS: INSULIN SLIDING SCALE (NOVOLOG) 1 VIAL SQ SCH ×2 (06:48→13:13)
[2017-10-12] MEDS ORDERED: PT OWN MED DRAWER 7, Y5N ONE (08:42)
[2017-10-12] MEDS: LOSARTAN POTASSIUM 50 MG TABLET (FP) PO SCH (09:08)
[2017-10-12] MEDS: SEVELAMER CARBONATE 800 MG TAB (FP) PO SCH ×2 (09:14→13:15)
[2017-10-12] MEDS: HEPARIN NA (PORCINE) 5,000 UNITS/ML 1ML VIAL SQ SCH (09:15)
[2017-10-12] MEDS: metoPROLOL SUCCINATE 25 MG TAB.SR.24H (FP) PO SCH (09:19)
[2017-10-12 09:49] VITALS: BP 127/50; PULSE 72; TEMP 97.6
[2017-10-12] MEDS ORDERED: ISOSORBIDE MONONITRATE 20 MG TABLET PO SCH (10:00)
[2017-10-12] MEDS ORDERED: ASPIRIN 81 MG CHEWABLE TABLETS PO SCH (10:00)
--- NOTE | 2017-10-12 10:15 | PN ---
Progress Note (short form) - Note Progress Note: Chief Complaint: Events noted, notes reviewed, denies any chest pain or dyspnea , transferred to floor care History of Present Illness: Seen and examined. Events noted, notes reviewed, denies any chest pain or dyspnea, transferred to floor care Echocardiography dated 06/19/2017 revealed dilated LV with mildly reduced LV EF , moderate MR, mild TR, with severe pulmonary HTN RVSP of 72.5 mmHg - Current Medication List Current Medications Aspirin (Asa -) 81 mg PO DAILY [facility] Last Admin: 10/12/17 09:08 Dose: 81 mg Gabapentin (Neurontin -) 300 mg PO TID [facility] Last Admin: 10/12/17 06:48 Dose: 300 mg Heparin Sodium (Porcine) (Heparin -) 5,000 unit SQ BID [facility] Last Admin: 10/12/17 09:15 Dose: 5,000 unit Insulin Aspart (Novolog Vial Sliding Scale -) 1 vial SQ ACHS [facility] PRN Reason: Protocol Last Admin: 10/12/17 06:48 Dose: Not Given Isosorbide Mononitrate (Ismo -) 10 mg PO BIDISMO [facility] Last Admin: 10/12/17 09:11 Dose: 10 mg Losartan Potassium (Cozaar -) 50 mg PO DAILY [facility] Last Admin: 10/12/17 09:08 Dose: 50 mg Metoprolol Succinate (Toprol Xl -) 25 mg PO DAILY [facility] Last Admin: 10/12/17 09:19 Dose: 25 mg Sevelamer Carbonate (Renvela -) 800 mg PO TIDCM [facility] Last Admin: 10/12/17 09:14 Dose: 800 mg Review of Systems Cardiovascular: As noted above Respiratory: denies: denies: Cough or Sputum Production Gastrointestinal: denies: Nausea, Vomiting, Diarrhea, Constipation or Abdominal Discomfort Musculoskeletal: No Symptoms Reported Endocrine: No Symptoms Reported - Objective Vital Signs: Last Vital Signs Temp Pulse Resp BP Pulse Ox 97.6 F 72 18 127/50 96 10/12/17 09:48 10/12/17 09:48 10/12/17 09:48 10/12/17 09:48 10/12/17 09:00 Intake & Output 10/09/17 10/10/17 10/11/17 10/12/17 23:59 23:59 23:59 23:59 Intake Total 740 0 830 Output Total 75 Balance 740 0 755 Constitutional: No Distress, Calm, Thin Neck: Supple Negative JVD No Bruit Cardiovascular: S1 S2 Regular Rate and Rhythm Respiratory: Diminished Breath Sounds at the Bases Gastrointestinal: Soft Benign Normal Bowel Sounds Ext: No Edema Labs: CBC, BMP 10/11/17 07:30 10/11/17 11:30 Assessment/Plan ASSESSMENT: 1. Progressive lower extremity weakness consistent with diabetic peripheral neuropathy 2. Chest pain syndrome, atypical for CAD angina pectoris in patient with known CAD angina pectoris 3. Systolic/diastolic LV dysfunction with calss 0 NYHA classification LV failure , compensated/euvolemic 4. Moderate MR 5. Mild TR with severe degree of pulmonary HTN, RVSP of 72.5 mmHg 6. HTN/HCVD 7. DM 8. History of CVA 9. ESRD on HD 10. Anemia of chronic kidney disease PLAN: 1. Continue ASA 2. Continue Ismo 3. Continue Cozaar, hemodynamics permitting 4. Continue Toprol XL 5. Pharmacologic (Adenosine) MPI to rule out ischemia can may be performed as outpatient unless symptoms recur 6. HD as per renal service Taco Savage M.D.
--- NOTE | 2017-10-12 11:41 | PN ---
Progress Note (short form) - Note Progress Note: NEUROSURGERY No new complaints Pain better PE: AF, VSS HEENT- NC/AT; Neck- supple; Cor- RR; R chest dialysis catheter; Lungs- CTA B; Abd- benign; Ext- no sign of DVT Speech normal CN- intact; Motor-4+-5 B UE/LE; Sensation- intact LT, vibration B UE/LE; DTR- hyporeflexia B; difficulty moving about ESR 12 LS Spine MRI 09/2017: Mild DDD L3-4, L4-5 > L5-S1; mild broad L3-4 dsic bulge with R > L L3-4 foramenal stenosis; small central and R paracentral disc protrusion with minimal thecal sac impingement; mild L and R foramenal stenosis , no sign of discitis or osteomyelitis; no severe stenosis at any level EMG/NCS c/w peripheral neuropathy, which is the likely cause of his gait difficulty LS spine degenerative disease mild and non-surgical Cont Neurontin Consider pain management injections if persistent pain
== END 2017-10-12 14:54 | DRG 73 ==
LOC: JER 05:20 → JERBED 11:10 → J4W 14:55 → OBSVTOIN 10-09 16:14 → J5S 10-11 17:55
PROVIDERS: ADMIT Internal Medicine; ATTEND Nurse Practitioner Acute Care
PROC: 5A1D70Z Performance of Urinary Filtration, Intermittent, Less than 6 Hours Per Day (ICD-10-PCS; principal; 2017-10-11)
DX: E11.42 Type 2 diabetes mellitus with diabetic polyneuropathy (principal); N18.6 End stage renal disease; I13.2 Hypertensive heart and chronic kidney disease with heart failure and with stage 5 chronic kidney disease, or end stage renal disease; I50.22 Chronic systolic (congestive) heart failure; I69.354 Hemiplegia and hemiparesis following cerebral infarction affecting left non-dominant side; E11.22 Type 2 diabetes mellitus with diabetic chronic kidney disease; Z99.2 Dependence on renal dialysis; Z91.15 Patient's noncompliance with renal dialysis; Z79.4 Long term (current) use of insulin; Z79.84 Long term (current) use of oral hypoglycemic drugs; I44.0 Atrioventricular block, first degree; Z91.81 History of falling; R45.1 Restlessness and agitation; I27.20 Pulmonary hypertension, unspecified; R07.89 Other chest pain; D63.1 Anemia in chronic kidney disease; E87.5 Hyperkalemia; N25.0 Renal osteodystrophy; K40.20 Bilateral inguinal hernia, without obstruction or gangrene, not specified as recurrent; I34.0 Nonrheumatic mitral (valve) insufficiency; I25.119 Atherosclerotic heart disease of native coronary artery with unspecified angina pectoris
CPT/HCPCS: 36415; 71045-TC-FY; 80048; 80053; 80061; 82550; 82565; 82962; 83036; 83721; 83735; 84100; 84443; 84484; 84520; 85025; 85027; 85610; 85651; 86140; 86704; 86706; 86708; 86803; 87340; 93005; 93010; 93225; 93226; 93880-TC; 95860-TC; 97116-GP; 97161-GP; 99285-25; G0378; J1644

== ENCOUNTER 2017-12-10 17:17 | Inpatient (IN) | payer OTHER, MEDICARE ==
--- NOTE | 2017-12-10 17:55 | PDOC ---
History of Present Illness - General Chief Complaint: Injury Stated Complaint: FALL Time Seen by Provider: 12/10/17 17:44 - History of Present Illness Initial Comments: 12/10/17 17:50 72 yo M with h/o NIDDM, HTN, CHF, ESRD with dialysis on MWF (with Left arm AV fistula ), CVA 3 yrs ago who p/w left arm pain s/p fall. Patient reports falling earlier today in dialysis during ambulation with walker. Reports landing on both knees and then falling onto left arm. Now with mid L arm/ humerus pain, worse with touch, movement, and wt bearing. Denies LOC or head, neck, back trauma or pain. Pt. reports vertiginous symptoms prior to fall. Endorses unprovoked transient spinning sensation ( now resolved). Pt. states that he had one episode of non bloody, bilious emesis this AM. Also endorses dysruria x 1 week, with absent hematuria. Patient able to produce urine. Denies F/C, ABDULLAHI, vision changes, CP, palpitations, wheezing, orthopnea, leg swelling, SOB, abdominal pain, diarrhea, constipation, urinary complaints, weakness, lightheadedness, sensory changes. Denies anticoagulation. Past History - Past Medical History Allergies/Adverse Reactions: Allergies Allergy/AdvReac Type Severity Reaction Status Date / Time No Known Allergies Allergy Verified 12/10/17 18:35 Home Medications: Ambulatory Orders Aspirin [ASA -] 81 mg PO DAILY 06/18/17 Hydralazine HCl 10 mg PO DAILY 06/18/17 Isosorbide Mononitrate 10 mg PO DAILY 06/18/17 Gabapentin [Neurontin -] 300 mg PO TID #90 capsule 10/10/17 Insulin Sliding Scale [Novolog Vial Sliding Scale -] 1 vial SQ ACHS #1 units 10/26 Sevelamer Carbonate [Renvela -] 800 mg PO TIDCM #90 tab 10/10/17 Losartan Potassium [Cozaar -] 50 mg PO DAILY #30 tablet 10/12/17 Metoprolol Succinate [Toprol Xl -] 25 mg PO DAILY #30 tab.sr.24h 10/12/17 Anemia: Yes Cardiac Disorders: Yes COPD: No Diabetes: Yes Disorders: Yes (kidney failure, left arm fistula (not on dialysis yet)) HTN: Yes - Suicide/Smoking/Psychosocial Hx Smoking History: Never smoked Have you smoked in the past 12 months: No Hx Alcohol Use: No Drug/Substance Use Hx: No Substance Use Type: None Review of Systems - Review of Systems Comments:: 12/10/17 17:52 GENERAL/CONSTITUTIONAL: No fever or chills. No weakness. HEAD, EYES, EARS, NOSE AND THROAT: No change in vision. No ear pain or discharge. No sore throat. CARDIOVASCULAR: No chest pain or shortness of breath RESPIRATORY: No cough, wheezing, or hemoptysis. GASTROINTESTINAL: No nausea, vomiting, diarrhea or constipation. GENITOURINARY: No dysuria, frequency, or change in urination. MUSCULOSKELETAL: L humerus pain. No neck or back pain. SKIN: No rash NEUROLOGIC: No headache, vertigo, loss of consciousness, or change in strength/ sensation. ENDOCRINE: No increased thirst. No abnormal weight change HEMATOLOGIC/LYMPHATIC: No anemia, easy bleeding, or history of blood clots. ALLERGIC/IMMUNOLOGIC: No hives or skin allergy. *Physical Exam - Physical Exam Comments: 12/10/17 17:53 GENERAL: Awake, alert, and fully oriented, in no acute distress HEAD: No signs of trauma, normocephalic, atraumatic EYES: PERRLA, EOMI, sclera anicteric, conjunctiva clear ENT: Auricles normal inspection, hearing grossly normal, nares patent, oropharynx clear without exudates. Moist mucosa NECK: Normal ROM, supple, no lymphadenopathy, JVD, or masses LUNGS: No distress, speaks full sentences, clear to auscultation bilaterally HEART: Regular rate and rhythm, normal S1 and S2, no murmurs, rubs or gallops, peripheral pulses normal and equal bilaterally. R sided chest port. ABDOMEN: Soft, nontender, normoactive bowel sounds. No guarding, no rebound. No masses EXTREMITIES :Left arm guarding. Left lateral humeral ttp. Absent left shoulder, forearm, or hand deformity. Pain with passive and active ROM. Mobility limted d/ t pain. Ab Normal inspection, Normal range of motion, no edema. No clubbing or cyanosis. Left AV fistula. BL Knee echymosysis. Nml BL joint laxity with absent varus, valgus deformity. Absent tibial plateua ttp. Neg ant. and post drawer test. Neg joint effusion. NEUROLOGICAL: Neg Nystagmus. Cranial nerves II through XII grossly intact. Normal speech, normal gait, no focal sensorimotor deficits SKIN: Warm, Dry, normal turgor, no rashes or lesions noted. ED Treatment Course - LABORATORY CBC & Chemistry Diagram: 12/10/17 18:42 12/10/17 18:42 Medical Decision Making - Medical Decision Making 12/10/17 18:28 72 yo M with h/o NIDDM, HTN, CHF, ESRD with dialysis on MWF (with Left arm AV fistula ) able to produce urine, anemia, CVA 3 yrs ago who p/w left arm pain s/ p fall today in dialysis during ambulation with walker. Transient episode of vertigo prior to fall. Reports landing on both knees and then falling onto left arm. Now with mid L arm/humerus pain, worse with touch, movement, and wt bearing. 1 episode of emesis this AM. Dysruria x 1 week, with absent hematuria. Denies F/C, LOC, head, neck, back trauma or pain ABDULLAHI, vision changes, CP, palpitations, wheezing, orthopnea, leg swelling, SOB, abdominal pain, diarrhea, constipation, urinary complaints, weakness, lightheadedness, sensory changes. HDS. Physical exam with left midhumeral ttp. and decreased ROM. Will evaluate for fracture and potential precipitators of fall including underlying electrolyte abnormality, metabolic acid-base disturbance, infection ( urinary source suspected). DDx also includes CVA/TIA, vasovagal syncope, cardiogenic syncope, hypovolemia. ED Course: CBC, CMP, Cardiac Pr., UA, Urine Cx, PT/INR EKG, CXR L ELBOW, FOREARM, HUMERUS, SHOULDER RAD EKG: NSR with Pr prolongation ~298 ms, LVH. Absent FREDDIE. 12/10/17 19:01 Pt. signed out to Dr. Ariza. Pt is stable and pending labs and imaging. *DC/Admit/Observation/Transfer Diagnosis at time of Disposition: Fall - Referrals Referrals: Rachel Zhang MD [Non Staff, Medical] - Evaristo Franklin MD [Staff Physician] - Manas Pisano MD [Staff Physician] - - Patient Instructions Additional Instructions: Please return to the emergency department with any new or worsening symptoms or concerns. Please follow up with your primary care physician within 3 days. Please follow up with orthopedic physician within one week. - Post Discharge Activity
--- NOTE | 2017-12-10 18:22 | PDOC ---
Attending Attestation - HPI HPI: 12/10/17 19:49 The patient is a 72 year old male with pmh of NIDDM, CHF, ESRD (dialysis MWF), CVA who presents to the ED s/p fall today. The patient states that he went to his dialysis treatment earlier today and completed his treatment. He reports that tripped on the sidewalk when leaving his treatment where after he fell and hit his left arm on the floor. He also reports that he felt dizzy prior to falling. The patient reports his left arm pain is worsened with palpation. The patient also reports chronic leg pain (He is able to bend his knees ). The patient denies any other complaints. He denies any head injury or LOC He denies any chest pain or SOB. He denies any neck or back pain He denies any pain in hips Documentation prepared by Serge Christopher, acting as resident medical officer for Nuha Marie DO. - Physicial Exam PE: 12/10/17 19:49 GENERAL: Awake, alert, and fully oriented, in no acute distress HEAD: No signs of trauma EYES: PERRLA, EOMI, sclera anicteric, conjunctiva clear ENT: Auricles normal inspection, hearing grossly normal, nares patent, oropharynx clear without exudates. Moist mucosa NECK: Normal ROM, supple, no lymphadenopathy, JVD, or masses LUNGS: Breath sounds equal, clear to auscultation bilaterally. No wheezes, and no crackles HEART: Regular rate and rhythm, normal S1 and S2, no murmurs, rubs or gallops ABDOMEN: Soft, nontender, normoactive bowel sounds. No guarding, no rebound. No masses EXTREMITIES: (+) Tenderness in left mid humerus and left distal humerus,No wrist tenderness. No hand tenderness. Left upper extremity av fistula with bruit and thrill . Normal range of motion of lower extremities. No edema. No clubbing or cyanosis. No cords, erythema. No C,T,L spine tenderness. No external sign of trauma. Pelvis stable. NEUROLOGICAL: Cranial nerves II through XII grossly intact. Normal speech, normal gait SKIN: Warm, Dry, normal turgor, no rashes or lesions noted. <Serge Christopher - Last Filed: 12/10/17 21:35> - Resident Resident Name: Phill Angel - ED Attending Attestation I have performed the following: I have examined & evaluated the patient, The case was reviewed & discussed with the resident, I agree w/resident's findings & plan, Exceptions are as noted - Medical Decision Making 12/10/17 18:22 I, Dr. Nuha Marie, DO, attest that this document has been prepared under my direction and personally reviewed by me in its entirety. I further attest, that it accurately reflects all work, treatment, procedures and medical decision -making performed by me. 12/10/17 19:39 a/p: 72yo ESRD male with mechanical fall while walking on the sidewalk -L humerus pain - suspect poss distal fracture vs elbow fx -will obtain xray -pain control -no head injury -no c/t/L spine ttp -no pelvis ttp -will check ua -will monitor and reassess 12/10/17 22:18 pt with L humerus fx, will place in a sling 12/10/17 22:18 pt walks with a walker will be difficult to walk with the broken arm will keep in obs pending PT eval in AM case discussed with Dr. Brewer who accepts pt to service for obs <Nuha Marie - Last Filed: 12/10/17 22:19> Heart Score/ECG Review - ECG Intrepretation Comment:: 12/10/17 19:40 sinus at 78, 1st degree av block, nl axis, poor r wave progression, lvh, t wave inversions to avl, abnl ekg <Nuha Marie - Last Filed: 12/10/17 22:19>
[2017-12-10] MEDS ORDERED: ACETAMINOPHEN 1000 MG/100 ML VIAL (NON FORMULARY) IVPB ONE (18:33)
[2017-12-10] MEDS ORDERED: ACETAMINOPHEN 325 MG TABLET (FP) PO ONE (18:44)
[2017-12-10] MEDS ORDERED: ACETAMINOPHEN 325 MG TABLET (FP) ONE (18:46)
[2017-12-10 18:59] LABS: BASO % 0.1 % (0-2.0); EOS % 0.3 % (0-4.5); HEMATOCRIT 28.8 % (35.4-49); LYMPH % 2.8 % (8-40); MCH 30.5 pg (25.7-33.7); MCHC 34.8 g/dl (32.0-35.9); MEAN CELL VOLUME 87.7 fl (80-96); MEAN PLT VOLUME 6.9 fl (7.5-11.1); MONO % 7.7 % (3.8-10.2); NEUT % 89.1 % (42.8-82.8); PLATELET COUNT 110 K/MM3 (134-434); RBC 3.28 M/mm3 (4.00-5.60); RDW 15.1 % (11.9-15.9)
[2017-12-10 19:13] LABS: INR 1.04 (0.82-1.09); PROTHROMBIN TIME (PATIENT) 11.7 SEC (9.98-11.88)
[2017-12-10 19:33] LABS: ALBUMIN 3.4 g/dl (3.4-5.0); ANION GAP 9 (8-16); BLOOD UREA NITROGEN 26 mg/dL (7-18); CALCIUM 8.1 mg/dL (8.5-10.1); CHLORIDE 96 mmol/L (98-107); CO2 29 mmol/L (21-32); CREATININE 3.4 mg/dL (0.7-1.3); GLUCOSE,RANDOM 240 mg/dL (74-106); SGOT/AST 44 U/L (15-37); SGPT/ALT 37 U/L (12-78); SODIUM 134 mmol/L (136-145)
[2017-12-10 19:34] LABS: ALK PHOS 130 U/L (45-117); BILIRUBIN,TOTAL 0.7 mg/dL (0.2-1.0); TOT PROT 7.1 g/dl (6.4-8.2)
--- NOTE | 2017-12-10 20:35 | PDOC ---
*Physical Exam - Vital Signs Last Vital Signs Temp Pulse Resp BP Pulse Ox 97.7 F 83 18 155/67 100 12/10/17 18:31 12/10/17 18:31 12/10/17 18:31 12/10/17 18:31 12/10/17 18:31 - Physical Exam Comments: 12/10/17 20:30 GENERAL: Awake, alert, and fully oriented, in no acute distress HEAD: No signs of trauma, normocephalic, atraumatic EYES: PERRLA, EOMI, sclera anicteric, conjunctiva clear LUNGS: No distress, speaks full sentences, clear to auscultation bilaterally HEART: Regular rate and rhythm, normal S1 and S2, no murmurs, rubs or gallops, peripheral pulses normal and equal bilaterally. ABDOMEN: Soft, nontender, normoactive bowel sounds. No guarding, no rebound. No masses L ARM: Neurovascularly intact, tender in humerus NEUROLOGICAL: Cranial nerves II through XII grossly intact. Normal speech, normal gait, no focal sensorimotor deficits SKIN: Warm, Dry, normal turgor, no rashes or lesions noted. ED Treatment Course - LABORATORY CBC & Chemistry Diagram: 12/10/17 18:42 12/10/17 18:42 - ADDITIONAL ORDERS Additional order review: Laboratory Results 12/10/17 12/10/17 12/10/17 18:42 18:42 18:42 PT with INR 11.70 INR 1.04 Sodium 134 L Potassium 4.0 Chloride 96 L Carbon Dioxide 29 Anion Gap 9 BUN 26 H Creatinine 3.4 H D Creat Clearance w eGFR 17.79 Random Glucose 240 H D Calcium 8.1 L Total Bilirubin 0.7 D AST 44 H D ALT 37 D Alkaline Phosphatase 130 H Creatine Kinase 244 Creatine Kinase Index 1.0 CK-MB (CK-2) 2.540 Troponin I 0.04 D Total Protein 7.1 Albumin 3.4 12/10/17 18:42 RBC 3.28 L D MCV 87.7 MCHC 34.8 RDW 15.1 D MPV 6.9 L D Neutrophils % 89.1 H D Lymphocytes % 2.8 L D Monocytes % 7.7 Eosinophils % 0.3 D Basophils % 0.1 - Medications Given in the ED: ED Medications Discontinued Medications Generic Name Dose Route Start Last Admin Trade Name Freq PRN Reason Stop Dose Admin Acetaminophen 1,000 mg 12/10/17 18:33 12/10/17 18:51 Ofirmev Injection - IVPB 12/10/17 18:34 Not Given ONCE ONE Acetaminophen 650 mg 12/10/17 18:44 12/10/17 18:51 Tylenol - PO 12/10/17 18:45 650 mg ONCE ONE Administration Medical Decision Making - Medical Decision Making 12/10/17 20:[address] Angel. Patient is a 72M wiht history of NIDDM, HTN, CHF , ESRD with dialysis on MWF (with Left arm AV fistula ), CVA 3 yrs ago who p/w left arm pain s/p mechinical fall. Labs, x-rays pending. Laboratory Tests 12/10/17 12/10/17 12/10/17 18:42 18:42 18:42 WBC 7.0 Hgb 10.0 L D Hct 28.8 L D Plt Count 110 L D BUN 26 H Creatinine 3.4 H D Troponin I 0.04 D CBC normal. BUN/Cr as expected for dialysis patient. Troponin detectable but below threshold. Second trop added. X-rays show comminuted proximal humeral fracture. Patient uses walker to ambulate. Pending ua, second trop. Will obs patient. *DC/Admit/Observation/Transfer Diagnosis at time of Disposition: Fall, Humerus fracture - Discharge Dispostion Condition at time of disposition: Stable Admit: Yes - Referrals Referrals: Rachel Zhang MD [Non Staff, Medical] - Manas Pisano MD [Staff Physician] - Evaristo Franklin MD [Staff Physician] - - Patient Instructions Additional Instructions: Please return to the emergency department with any new or worsening symptoms or concerns. Please follow up with your primary care physician within 3 days. Please follow up with orthopedic physician within one week. - Post Discharge Activity
[2017-12-10 20:51] LABS: URINE APPEARANCE CLEAR; URINE BILIRUBIN NEGATIVE (<2.0 mg/dL); URINE BLOOD NEGATIVE (NEGATIVE); URINE COLOR YELLOW; URINE GLUCOSE (UA) 3+ (NEGATIVE); URINE KETONE TRACE (NEGATIVE); URINE LEUK ESTERASE NEGATIVE (NEGATIVE); URINE NITRITE NEGATIVE (NEGATIVE); URINE UROBILINOGEN NEGATIVE mg/dL (0.2-1.0)
[2017-12-10 21:05] LABS: URINE PROTEIN 3+ (NEGATIVE)
[2017-12-10 21:08] LABS: EPI CELLS RARE /HPF (FEW); URINE BACTERIA RARE /hpf (NONE SEEN)
[2017-12-10] MEDS ORDERED: ACETAMINOPHEN 325 MG TABLET (FP) PO SCH ×2 (22:15)
--- NOTE | 2017-12-10 22:43 | HP ---
<Medhat Fong - Last Filed: 12/10/17 22:34> CHIEF COMPLAINT: s/p fall PCP: unknown HISTORY OF PRESENT ILLNESS: 72 year old male with a history of ESRD (HD MWF), DM, HTN, CHF presents to the hospital s/p fall earlier today. He states that he finished dialysis and was walking out of the center when he tripped on the sidewalk, fell, and hit his L arm. He states that he has severe pain in his lateral upper arm near the deltoid region. Denies hitting his head, syncopizing, feeling any chest pain or shortness of breath, lightheadedness. Patient has his AV fistula in his left arm as well. Patient has never before broken a bone. ER course was notable for: (1) BUN/Cre 26/3.4 (2) (3) PAST MEDICAL HISTORY: ESRD (HD MWF), DM, HTN, CHF PAST SURGICAL HISTORY: none Social History: Smoking: none Alcohol: none Drugs: none Allergies No Known Allergies Allergy (Verified 12/10/17 18:35) HOME MEDICATIONS: Home Medications Medication Instructions Recorded Acetaminophen 650 mg PO ASDIR 12/10/17 Darbepoetin [place] in Polysorbat 20 mcg PO DAILY 12/10/17 [Aranesp] Furosemide [Lasix] 80 mg PO DAILY 12/10/17 Heparin - 500 unit SQ ONCE 12/10/17 Hydralazine HCl 10 mg PO DAILY 12/10/17 Insulin (Levemir) [Levemir Vial] 8 unit SQ HS 12/10/17 Iron Sucrose Complex [Venofer] 50 mg PO DAILY 12/10/17 Isosorbide Mononitrate 10 mg PO DAILY 12/10/17 Losartan Potassium 25 mg PO DAILY 12/10/17 Metoprolol Tartrate 25 mg PO DAILY 12/10/17 Sevelamer Carbonate [Renvela] 800 mg PO DAILY 12/10/17 REVIEW OF SYSTEMS CONSTITUTIONAL: Absent: fever, chills, diaphoresis, generalized weakness, malaise, loss of appetite, weight change HEENT: Absent: rhinorrhea, nasal congestion, throat pain, throat swelling, difficulty swallowing, mouth swelling, ear pain, eye pain, visual changes CARDIOVASCULAR: Absent: chest pain, syncope, palpitations, irregular heart rate, lightheadedness , peripheral edema RESPIRATORY: Absent: cough, shortness of breath, dyspnea with exertion, orthopnea, wheezing, stridor, hemoptysis GASTROINTESTINAL: Absent: abdominal pain, abdominal distension, nausea, vomiting, diarrhea, constipation, melena, hematochezia GENITOURINARY: Absent: dysuria, frequency, urgency, hesitancy, hematuria, flank pain, genital pain MUSCULOSKELETAL: L Arm Pain Absent: myalgia, arthralgia, joint swelling, back pain, neck pain SKIN: Absent: rash, itching, pallor HEMATOLOGIC/IMMUNOLOGIC: Absent: easy bleeding, easy bruising, lymphadenopathy, frequent infections ENDOCRINE: Absent: unexplained weight gain, unexplained weight loss, heat intolerance, cold intolerance NEUROLOGIC: Absent: headache, focal weakness or paresthesias, dizziness, unsteady gait, seizure, mental status changes, bladder or bowel incontinence PSYCHIATRIC: Absent: anxiety, depression, suicidal or homicidal ideation, hallucinations. PHYSICAL EXAMINATION Vital Signs - 24 hr 12/10/17 18:31 Temperature 97.7 F Pulse Rate 83 Respiratory 18 Rate Blood Pressure 155/67 O2 Sat by Pulse 100 Oximetry (%) GENERAL: A&Ox3, no acute distress EYES: PERRLA, EOMI ENT: Moist mucus membranes NECK: No JVD LUNGS: CTA, no wheezes HEART: RRR, mild systolic murmur noted ABDOMEN: Soft, nontender, BS present MUSCULOSKELETAL: No CVA Tenderness EXTREMITIES: 2+ pulses, no edema, L arm AV fistula auscultated and is patent. Patient's ROM and muscle strength is limited in L arm due to pain. Sensation intact. NEUROLOGICAL: Cranial nerves II-XII intact. Laboratory Results - last 24 hr 12/10/17 12/10/17 12/10/17 18:42 18:42 18:42 WBC 7.0 RBC 3.28 L D Hgb 10.0 L D Hct 28.8 L D MCV 87.7 MCH 30.5 MCHC 34.8 RDW 15.1 D Plt Count 110 L D MPV 6.9 L D Neutrophils % 89.1 H D Lymphocytes % 2.8 L D Monocytes % 7.7 Eosinophils % 0.3 D Basophils % 0.1 PT with INR 11.70 INR 1.04 Sodium Potassium Chloride Carbon Dioxide Anion Gap BUN Creatinine Creat Clearance w eGFR Random Glucose Calcium Total Bilirubin AST ALT Alkaline Phosphatase Creatine Kinase 244 Creatine Kinase Index 1.0 CK-MB (CK-2) 2.540 Troponin I 0.04 D Total Protein Albumin Urine Color Urine Appearance Urine pH Ur Specific [place] Urine Protein Urine Glucose (UA) Urine Ketones Urine Blood Urine Nitrite Urine Bilirubin Urine Urobilinogen Ur Leukocyte Esterase Urine WBC (Auto) Urine RBC (Auto) Ur Epithelial Cells Urine Bacteria 12/10/17 12/10/17 18:42 20:46 WBC RBC Hgb Hct MCV MCH MCHC RDW Plt Count MPV Neutrophils % Lymphocytes % Monocytes % Eosinophils % Basophils % PT with INR INR Sodium 134 L Potassium 4.0 Chloride 96 L Carbon Dioxide 29 Anion Gap 9 BUN 26 H Creatinine 3.4 H D Creat Clearance w eGFR 17.79 Random Glucose 240 H D Calcium 8.1 L Total Bilirubin 0.7 D AST 44 H D ALT 37 D Alkaline Phosphatase 130 H Creatine Kinase Creatine Kinase Index CK-MB (CK-2) Troponin I Total Protein 7.1 Albumin 3.4 Urine Color Yellow Urine Appearance Clear Urine pH 7.0 D Ur Specific [place] 1.014 Urine Protein 3+ H Urine Glucose (UA) 3+ H Urine Ketones Trace H Urine Blood Negative Urine Nitrite Negative Urine Bilirubin Negative Urine Urobilinogen Negative Ur Leukocyte Esterase Negative Urine WBC (Auto) 1 Urine RBC (Auto) 4 Ur Epithelial Cells Rare Urine Bacteria Rare ASSESSMENT/PLAN: 72 year old male with a history of ESRD (HD MWF), DM, HTN, CHF presents to the hospital s/p fall #L arm humeral fracture: proximal, comminuted fracture of L humerus -admit for observation -pain control -physical therapy -Ortho consult Dr. Pisano appreciated -neurovascular checks for pulse and sensation -NPO for now except meds #ESRD: patient received dialysis today, next dialysis friday -Dr. Martino consult appreciated -patient makes urine, careful with fluid hydration due to ESRD #Diabetes Mellitus: sugars are elevated -restart home levemir 8U -ISS -BGMs ACHS #FEN -no standing fluids -careful w/ electrolyte repletion due to dialysis -NPO for now #Prophylaxis -SCDs #Disposition -admit for observation in med-surg Visit type - Emergency Visit Emergency Visit: Yes Care time: The patient presented to the Emergency Department on the above date and was hospitalized for further evaluation of their emergent condition. - New Patient This patient is new to me today: Yes Date on this admission: 12/10/17 - Critical Care Critical Care patient: No Hospitalist Screening - Colonoscopy Questionnaire Colonoscopy Questionnaire: Colonoscopy Questionnaire - Patient: 50 - 75 years old and never had a screening colonoscopy: Unknown History of colon or rectal polyps, or CA: Unknown History of IBD, Crohn's disease or UC: Unknown History of abdominal radiation therapy as a child: Unknown - Relative: 1 with colon or rectal CA, or polyps at age 60 or younger: Unknown Colon or rectal CA diagnosed at age 45 or younger: Unknown Multiple relatives with colon or rectal CA: Unknown - Outcome: Screening Result: Negative Screen <Patria Brewer - Last Filed: 12/11/17 02:41> Patient is seen and examined 72 year old male with ESRD s/p fall sustaining fracture of the humerus unable to ambulate due to already poor functional status Vital Signs Temperature 97.8 F 12/11/17 02:21 Pulse Rate 70 12/11/17 02:21 Respiratory Rate 20 12/11/17 02:21 Blood Pressure 144/66 12/11/17 02:21 O2 Sat by Pulse Oximetry (%) 100 12/10/17 18:31 EXTREMITIES: 2+ pulses, no edema, L arm AV fistula auscultated and is patent.Pain on palpation of L shoulder CBC, BMP 12/10/17 18:42 12/10/17 18:42 Plan above is reviewed with the resident and agree to proceed HD per schedule Vascular checks Hospitalist Screening - Colonoscopy Questionnaire Colonoscopy Questionnaire: Colonoscopy Questionnaire
[2017-12-11 02:28] VITALS: BMI 21.2
[2017-12-11] MEDS: INSULIN SLIDING SCALE (NOVOLOG) 1 VIAL SQ SCH ×4 (06:18→21:57)
[2017-12-11] MEDS ORDERED: INSULIN SLIDING SCALE (NOVOLOG) 1 VIAL SQ SCH (07:00)
[2017-12-11 07:04] LABS: HEMATOCRIT 26.3 % (35.4-49); HEMOGLOBIN 9.1 GM/dL (11.7-16.9); MCH 30.1 pg (25.7-33.7); MCHC 34.4 g/dl (32.0-35.9); MEAN CELL VOLUME 87.3 fl (80-96); MEAN PLT VOLUME 7.1 fl (7.5-11.1); PLATELET COUNT 105 K/MM3 (134-434); RBC 3.01 M/mm3 (4.00-5.60); RDW 15.4 % (11.9-15.9)
[2017-12-11 07:45] LABS: ANION GAP 13 (8-16); BLOOD UREA NITROGEN 36 mg/dL (7-18); CALCIUM 8.3 mg/dL (8.5-10.1); CHLORIDE 97 mmol/L (98-107); CO2 28 mmol/L (21-32); CREATININE 4.3 mg/dL (0.7-1.3); GLUCOSE,RANDOM 140 mg/dL (74-106); MAGNESIUM 2.2 mg/dL (1.8-2.4); POTASSIUM 3.8 mmol/L (3.5-5.1); SODIUM 138 mmol/L (136-145)
[2017-12-11] MEDS: morphine SULFATE 4 MG/ML VIAL IVPUSH PRN ×3 (08:32→21:54)
--- NOTE | 2017-12-11 09:48 | PN ---
Progress Note (short form) - Note Progress Note: Pt seen and examined. Pt is a 72 year old Male right hand dom pt 1 day s/p fall , with c/o pain in the left upper arm/shoulder. PE LUE in sling, held in an extended position' LUE NVI + mild swelling to the left shoulder Good ROM of the left elbow, wrist, fingers Xrays Show a left proximal humerus fracture, at the humeral neck, with angulation, only mild displacement. Imp 72 yo Right hand dom M with a Left proximal humerus fracture. Rec No surgery necessary. He should be in a shoulder immobilizer with his left forearm further across the abdomen, not a sling. Ice Light activities only He should move the left elbow, wrist, fingers He can be DC'd from an orthopedic pov, no surgery
[2017-12-11] MEDS ORDERED: DARBEPOETIN ALFA PO SCH (10:00)
[2017-12-11] MEDS ORDERED: [UNRECOGNIZED DRUG - OTHER] PO SCH (10:00)
[2017-12-11] MEDS ORDERED: IRON SUCROSE COMPLEX PO SCH ×2 (10:00)
[2017-12-11] MEDS ORDERED: ISOSORBIDE MONONITRATE 10 MG TABLET PO SCH (10:00)
[2017-12-11] MEDS ORDERED: PATIENT'S OWN MEDICATION (NON-FORMULARY) (Furosemide [Lasix] 80 MG) PO SCH (10:00)
[2017-12-11] MEDS: LOSARTAN POTASSIUM 25 MG TABLET PO SCH (10:31)
[2017-12-11] MEDS ORDERED: PT OWN MED DRAWER 7, Y5N ONE (10:31)
[2017-12-11] MEDS: FUROSEMIDE 40 MG TABLET (FP) PO SCH (10:31)
[2017-12-11] MEDS: METOPROLOL TARTRATE 25 MG TABLET (FP) PO SCH (10:31)
--- NOTE | 2017-12-11 11:06 | EKG ---
Test Reason : Blood Pressure : / mmHG Vent. Rate : 078 BPM Atrial Rate : 078 BPM P-R Int : 296 ms QRS Dur : 094 ms QT Int : 408 ms P-R-T Axes : 061 010 092 degrees QTc Int : 465 ms SINUS RHYTHM WITH 1ST DEGREE A-V BLOCK MINIMAL VOLTAGE CRITERIA FOR LVH, MAY BE NORMAL VARIANT ABNORMAL QRS-T ANGLE, CONSIDER PRIMARY T WAVE ABNORMALITY ABNORMAL ECG WHEN COMPARED WITH ECG OF 07-OCT-2017 06:47, NO SIGNIFICANT CHANGE WAS FOUND Confirmed by RAÚL DUGGAN MD ([id number]) on 12/11/2017 11:06:07 AM Referred By: Confirmed By:RAÚL DUGGAN MD
[2017-12-11] MEDS ORDERED: INSULIN (NOVOLOG) ASPART 100 UNITS/ML 10ML VIAL ONE ×2 (11:57→21:14)
[2017-12-11] MEDS: hydrALAZINE HCL 10 MG TABLET PO SCH (11:57)
--- NOTE | 2017-12-11 13:27 | CON.NEP ---
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) Cardio/Vascular: Yes: CHF, HTN Renal/: Yes: Renal Failure, Renal Inusuff, Hemodialysis Endocrine: Yes: Diabetes Mellitus - Past Surgical History Past Surgical History: Yes: AV Fistula/Graft - Alcohol/Substance Use Hx Alcohol Use: No - Smoking History Smoking history: Never smoked Have you smoked in the past 12 months: No - Social History Usual Living Arrangement: Alone Home Medications - Allergies Allergies/Adverse Reactions: Allergies Allergy/AdvReac Type Severity Reaction Status Date / Time No Known Allergies Allergy Verified 12/10/17 18:35 - Home Medications Home Medications: Ambulatory Orders Acetaminophen 650 mg PO ASDIR 12/10/17 Darbepoetin [place] in Polysorbat [Aranesp] 20 mcg PO DAILY 12/10/17 Furosemide [Lasix] 80 mg PO DAILY 12/10/17 Heparin - 500 unit SQ ONCE 12/10/17 Hydralazine HCl 10 mg PO DAILY 12/10/17 Insulin (Levemir) [Levemir Vial] 8 unit SQ HS 12/10/17 Iron Sucrose Complex [Venofer] 50 mg PO DAILY 12/10/17 Isosorbide Mononitrate 10 mg PO DAILY 12/10/17 Losartan Potassium 25 mg PO DAILY 12/10/17 Metoprolol Tartrate 25 mg PO DAILY 12/10/17 Sevelamer Carbonate [Renvela] 800 mg PO DAILY 12/10/17 Nephrology Consult - Height Height: 6 ft - Weight Weight: 157 lb - BMI Body Mass Index (BMI): 21.2 - Lab Results CBC,BMP: CBC, BMP 12/11/17 06:45 12/11/17 06:45 Anion Gap: Anion Gap Anion Gap 13 (8-16) 12/11/17 06:45 - Physical Examination Vital Signs: Vital Signs Temperature 98.5 F 12/11/17 10:00 Pulse Rate 84 12/11/17 10:00 Respiratory Rate 18 12/11/17 10:00 Blood Pressure 122/64 12/11/17 10:00 O2 Sat by Pulse Oximetry (%) 99 12/11/17 02:34 Constitutional: Yes: Well Nourished, No Distress, Calm Eyes: Yes: WNL, Conjunctiva Clear, EOM Intact HENT: Yes: WNL, Atraumatic, Normocephalic Neck: Yes: WNL, Supple, Trachea Midline Cardiovascular: Yes: WNL, Regular Rate and Rhythm Respiratory: Yes: WNL, Regular, CTA Bilaterally Gastrointestinal: Yes: WNL, Normal Bowel Sounds Renal/: Yes: WNL Access for Hemodialysis: Permacath Musculoskeletal: Yes: WNL Extremities: Yes: Shortened (lue) Edema: No Integumentary: Yes: WNL Neurological: Yes: WNL, Alert, Oriented Psychiatric: Yes: WNL, Alert, Oriented Assessment/Plan esrd s/p fall no sign of fluid overload labs acceptable hypocalcemia phos normal Plan- HD in am add norahslo
--- NOTE | 2017-12-11 13:43 | PN ---
Physical Exam: SUBJECTIVE: Patient seen and examined. States arm is painful and is hungry; Denies CP, palpitation, sob, dizziness. OBJECTIVE: Vital Signs Period Temp Pulse Resp BP Sys/Reeder Pulse Ox Last 24 Hr 97.7 F-98.5 F 68-84 18-20 122-155/54-67 99-100 GENERAL: aaox3, nad, R tunnel catheter LUNGS: CTAB HEART: rrr, normal s1/s2, no m/r/g, no JVD ABDOMEN: soft, NTND, positive BS UPPER EXTREMITIES: 2+ radial pulses, L AVF +bruit, L arm in immobilizer, bent 90 at elbow LOWER EXTREMITIES: 2+ DP pulses, wwp, no edema NEUROLOGICAL: Cranial nerves II through XII grossly intact, but not formally tested. Sensation intact in all extremities. CBC, BMP 12/11/17 06:45 12/11/17 06:45 Hepatic Panel Total Bilirubin 0.7 mg/dL (0.2-1.0) D 12/10/17 18:42 AST 44 U/L (15-37) H D 12/10/17 18:42 ALT 37 U/L (12-78) D 12/10/17 18:42 Alkaline Phosphatase 130 U/L (45-117) H 12/10/17 18:42 Albumin 3.4 g/dl (3.4-5.0) 12/10/17 18:42 Active Medications Acetaminophen (Tylenol -) 650 mg PO Q4H PRN PRN Reason: PAIN Furosemide (Lasix -) 80 mg PO DAILY [facility] Last Admin: 12/11/17 10:31 Dose: 80 mg Hydralazine HCl (Apresoline -) 10 mg PO DAILY [facility] Last Admin: 12/11/17 11:57 Dose: 10 mg Insulin Aspart (Novolog Vial Sliding Scale -) 1 vial SQ ACHS [facility] PRN Reason: Protocol Last Admin: 12/11/17 11:59 Dose: 4 units Insulin Detemir (Levemir Vial) 8 units SQ HS [facility] Isosorbide Mononitrate (Ismo -) 10 mg PO DAILY [facility] Losartan Potassium (Cozaar -) 25 mg PO DAILY [facility] Last Admin: 12/11/17 10:31 Dose: 25 mg Metoprolol Tartrate (Lopressor -) 25 mg PO DAILY [facility] Last Admin: 12/11/17 10:31 Dose: 25 mg Morphine Sulfate (Morphine Sulfate) 2 mg IVPUSH Q6H PRN PRN Reason: PAIN LEVEL 6-10 Last Admin: 12/11/17 08:32 Dose: 2 mg Non-Formulary Medication (Darbepoetin [place] In Polysorbat [Aranesp]) 20 mcg PO DAILY [facility] Non-Formulary Medication (Iron Sucrose Complex [Venofer]) 50 mg PO DAILY [facility] ASSESSMENT/PLAN: 72yo man with PMH of ESRD (on HD MWF), DM, HTN, and CHF who presents to the ED s /p mechanical fall following HD yesterday and found to have L humeral fracture. #L arm humeral fracture: proximal, comminuted fracture of L humerus -Ortho consulted: no surgical intervention, keep arm in immobilizer, no weight bearing -Pain control with Morphine 2mg Q6H --> will transition to PO tomorrow -Physical therapy, non-weight bearing, light activity; move L elbow/wrist/ fingers #ESRD on HD (MWF) -Renal consulted (Dr. Martino) #Diabetes Mellitus -ISS/BGM ACHS -c/w home Levemir 8U HS #HTN - c/w home medications #FEN PO intake lytes wnl DM diet #DVT PPX - Hep SQ TID #PT, ambulates at baseline with walker -Per Ortho: Use shoulder immobilizer w his left forearm further across the abdomen, non-weight bearing, light activities only, move L elbow/wrist/fingers #Dispo: M/S, planning for d/c to rehab as will be unable to use walker Visit type - Emergency Visit Emergency Visit: No - New Patient This patient is new to me today: No - Critical Care Critical Care patient: No
--- NOTE | 2017-12-11 14:10 | PN ---
Teaching Attending Note Name of Resident: Roopa Woodward ATTENDING PHYSICIAN STATEMENT I saw and evaluated the patient. I reviewed the resident's note and discussed the case with the resident. I agree with the resident's findings and plan as documented. SUBJECTIVE:pain uncontrolled. unable to move at all due to the pain. no symptoms prior to/after the fall. relies heavily on RW to ambulate. denies CP, SOB< fever, chills, N/V/C/D OBJECTIVE: Last Vital Signs Temp Pulse Resp BP Pulse Ox 98.7 F 76 20 133/62 99 12/11/17 13:48 12/11/17 13:48 12/11/17 13:48 12/11/17 13:48 12/11/17 02:34 General NAD CV S1 s2 +murmur, +R chest wall HD catheter place, no surrounding erythema Lungs CTA B/L no wheezing/rales/rhonchi ABdomen soft NT/ND Extremities refused LUE exam. +L AVF palpable thrill, ASSESSMENT AND PLAN: 72yo M with PMH ESRD on HD, DM, HTN, CHF presented to the hospital after mechanical fall and sustained mildly displaced L humerus fracture 1. L humerus fracture- s/p mechanical fall. mildly displaced fracture. evaluated by ortho. no surgical intervention. immobilizer to L forarm across abdomen no sling. will start morphine IV for intractable pain. PT eval. will need placement as will be unable to ambulate with RW without using LUE 2. Normocytic anemia- slightly lower than baseline. some dilutional affect. check iron stuide. no indication for txn 3. ESRD on HD- has HD catheter and AV fistula. pt states he is actively dialyzed through both? will need to verify if this is accurate and if HD catheter needs to be pulled. cont HD per normal schedule (MWF) 4. DM- cont levemir, iss, bgm 5. HTN- normotensive. cont home regimen 6. DVT ppx- cosnider starting hep once Hgb is stable 7. will need MISTY placement. aviating PT eval. SW aware
[2017-12-11] MEDS: INSULIN DETEMIR 100 UNITS/ML MDV SQ SCH (21:57)
[2017-12-12] MEDS: INSULIN SLIDING SCALE (NOVOLOG) 1 VIAL SQ SCH ×4 (06:47→21:59)
[2017-12-12] MEDS ORDERED: INSULIN (NOVOLOG) ASPART 100 UNITS/ML 10ML VIAL ONE (06:49)
--- NOTE | 2017-12-12 08:01 | PN ---
Physical Exam: SUBJECTIVE: Patient seen and examined. States has pain in L arm; reiterated meds PRN and must ask for them (Last dose morphine at 23:59). Going for HD in AM. OBJECTIVE: Vital Signs Period Temp Pulse Resp BP Sys/Reeder Pulse Ox Last 24 Hr 98.5 F-98.9 F 76-84 18-20 122-148/62-68 99-99 GENERAL: aaox3, nad, R tunnel catheter LUNGS: CTAB HEART: rrr, normal s1/s2, no m/r/g, no JVD ABDOMEN: soft, NTND, positive BS UPPER EXTREMITIES: 2+ radial pulses, L AVF +bruit, L arm in immobilizer, bent 90 at elbow LOWER EXTREMITIES: 2+ DP pulses, wwp, no edema NEUROLOGICAL: Cranial nerves II through XII grossly intact, but not formally tested. Sensation intact in all extremities. CBC, BMP 12/12/17 08:55 12/11/17 06:45 Laboratory Tests 12/12/17 12/12/17 12/12/17 08:55 08:55 10:00 Iron Pending TIBC Pending Iron Saturation Pending Ferritin [phone] H Hepatitis A Ab Total Pending Hep Bs Antigen Pending Hep Bs Antibody Pending Hep B Core Total Ab Pending Hep C Ab Diagnostic Pending Microbiology 12/10/17 20:40 Urine - Urine Clean Catch Urine Culture - Final NO GROWTH OBTAINED Active Medications Acetaminophen (Tylenol -) 650 mg PO Q4H PRN PRN Reason: PAIN Docusate Sodium (Colace -) 100 mg PO DAILY [facility] Furosemide (Lasix -) 80 mg PO DAILY [facility] Last Admin: 12/11/17 10:31 Dose: 80 mg Heparin Sodium (Porcine) (Heparin -) 5,000 unit SQ TID [facility] Hydralazine HCl (Apresoline -) 10 mg PO DAILY [facility] Last Admin: 12/11/17 11:57 Dose: 10 mg Insulin Aspart (Novolog Vial Sliding Scale -) 1 vial SQ ACHS [facility] PRN Reason: Protocol Last Admin: 12/12/17 06:47 Dose: 2 units Insulin Detemir (Levemir Vial) 8 units SQ HS [facility] Last Admin: 12/11/17 21:57 Dose: Not Given Isosorbide Mononitrate (Ismo -) 10 mg PO DAILY [facility] Losartan Potassium (Cozaar -) 25 mg PO DAILY [facility] Last Admin: 12/11/17 10:31 Dose: 25 mg Metoprolol Tartrate (Lopressor -) 25 mg PO DAILY [facility] Last Admin: 12/11/17 10:31 Dose: 25 mg Oxycodone HCl (Roxicodone -) 5 mg PO Q6H PRN PRN Reason: PAIN LEVEL 6-10 ASSESSMENT/PLAN: 72yo man with PMH of ESRD (on HD MWF), DM, HTN, and CHF who presents to the ED s /p mechanical fall following HD yesterday and found to have L humeral fracture. #L arm humeral fracture: proximal, comminuted fracture of L humerus -Ortho consulted: no surgical intervention, keep arm in immobilizer, no weight bearing -Pain control with Roxicodone 5mg Q6H PRN -Physical therapy, non-weight bearing, light activity; move L elbow/wrist/ fingers #normocytic anemia -H&H stable today, will start Hep SQ for DVT PPX -Fe studies pending #ESRD on HD (MWF) -Renal consulted (Dr. Martino) -Hepatitis panel pending #Diabetes Mellitus -ISS/BGM ACHS -c/w home Levemir 8U HS #HTN - c/w home medications #FEN PO intake HD today DM diet #DVT PPX - Hep SQ TID #PT, ambulates at baseline with walker, walked 12 ft yesterday -Per Ortho: Use shoulder immobilizer w his left forearm further across the abdomen, non-weight bearing, light activities only, move L elbow/wrist/fingers #Dispo: M/S, plan to d/c rehab as will be unable to use walker Visit type - Emergency Visit Emergency Visit: No - New Patient This patient is new to me today: No - Critical Care Critical Care patient: No
[2017-12-12] MEDS: morphine SULFATE 4 MG/ML VIAL IVPUSH PRN (09:13)
[2017-12-12 09:26] LABS: HEMATOCRIT 29.3 % (35.4-49); HEMOGLOBIN 10.1 GM/dL (11.7-16.9); MCH 30.6 pg (25.7-33.7); MCHC 34.6 g/dl (32.0-35.9); MEAN CELL VOLUME 88.3 fl (80-96); MEAN PLT VOLUME 7.2 fl (7.5-11.1); PLATELET COUNT 131 K/MM3 (134-434); RBC 3.31 M/mm3 (4.00-5.60); RDW 15.7 % (11.9-15.9); WHITE BLOOD COUNT 7.4 K/mm3 (4.0-10.0)
[2017-12-12] MEDS: hydrALAZINE HCL 10 MG TABLET PO SCH (10:30)
[2017-12-12] MEDS: ISOSORBIDE MONONITRATE 20 MG TABLET PO SCH (10:30)
--- NOTE | 2017-12-12 11:04 | PN ---
Teaching Attending Note Name of Resident: Roopa Woodward ATTENDING PHYSICIAN STATEMENT I saw and evaluated the patient. I reviewed the resident's note and discussed the case with the resident. I agree with the resident's findings and plan as documented. SUBJECTIVE:pain on moving the arm. denies CP, SOB, fever, chills, N/V/C/D OBJECTIVE: Last Vital Signs Temp Pulse Resp BP Pulse Ox 98.8 F 84 18 143/80 99 12/12/17 09:50 12/12/17 10:55 12/12/17 10:55 12/12/17 10:55 12/11/17 21:00 General NAD CV S1 s2 +murmur, +R chest wall HD catheter place, no surrounding erythema Lungs CTA B/L no wheezing/rales/rhonchi ABdomen soft NT/ND Extremities refused LUE exam. +L AVF palpable thrill, ASSESSMENT AND PLAN: 72yo M with PMH ESRD on HD, DM, HTN, CHF presented to the hospital after mechanical fall and sustained mildly displaced L humerus fracture 1. L humerus fracture- s/p mechanical fall. mildly displaced fracture. evaluated by ortho. no surgical intervention. immobilizer to L forarm across abdomen no sling. transition morphine to po. arm excercises. can not bear weight in LUE 2. Normocytic anemia- Hgb stable. iron stuides pending. no indication for txn 3. ESRD on HD- has HD catheter and AV fistula. pt states he is actively dialyzed through both? will need to verify if this is accurate and if HD catheter needs to be pulled. cont HD per normal schedule (MWF) 4. DM- cont levemir, iss, bgm 5. HTN- normotensive. cont home regimen 6. DVT ppx- cosnider starting hep once Hgb is stable 7. will need MISTY placement. CM aware
[2017-12-12] MEDS: oxyCODONE HCL 5 MG TABLET PO PRN ×2 (13:56→19:45)
[2017-12-12] MEDS: LOSARTAN POTASSIUM 25 MG TABLET PO SCH (13:56)
[2017-12-12] MEDS: FUROSEMIDE 40 MG TABLET (FP) PO SCH (13:56)
[2017-12-12] MEDS: HEPARIN NA (PORCINE) 5,000 UNITS/ML 1ML VIAL SQ SCH ×2 (13:57→21:59)
[2017-12-12] MEDS: METOPROLOL TARTRATE 25 MG TABLET (FP) PO SCH (13:57)
--- NOTE | 2017-12-12 15:08 | PN ---
Progress Note (short form) - Note Progress Note: Renal follow up for ESRD on HD Pt seen and examined during dialysis reports LE pain catheter with good flow UF goal ~3L Vital Signs Temperature 98.8 F 12/12/17 09:50 Pulse Rate 101 H 12/12/17 13:21 Respiratory Rate 18 12/12/17 13:21 Blood Pressure 130/60 12/12/17 13:21 O2 Sat by Pulse Oximetry (%) 99 12/11/17 21:00 Intake & Output 12/09/17 12/10/17 12/11/17 12/12/17 23:59 23:59 23:59 23:59 Intake Total 900 100 Output Total 550 Balance 350 100 Weight 77.111 kg 71.214 kg 71.804 kg NAD Awake and alert RRR CTA soft NT/ND No LE edema, clubbing or cyanosis CBC, BMP 12/12/17 08:55 12/11/17 06:45 Current Medications Acetaminophen (Tylenol -) 650 mg PO Q4H PRN PRN Reason: PAIN Docusate Sodium (Colace -) 100 mg PO DAILY [facility] Furosemide (Lasix -) 80 mg PO DAILY [facility] Last Admin: 12/12/17 13:56 Dose: 80 mg Heparin Sodium (Porcine) (Heparin -) 5,000 unit SQ TID [facility] Last Admin: 12/12/17 13:57 Dose: 5,000 unit Hydralazine HCl (Apresoline -) 10 mg PO DAILY [facility] Last Admin: 12/12/17 10:30 Dose: Not Given Insulin Aspart (Novolog Vial Sliding Scale -) 1 vial SQ ACHS [facility] PRN Reason: Protocol Last Admin: 12/12/17 12:00 Dose: Not Given Insulin Detemir (Levemir Vial) 8 units SQ HS [facility] Last Admin: 12/11/17 21:57 Dose: Not Given Isosorbide Mononitrate (Ismo -) 10 mg PO DAILY [facility] Last Admin: 12/12/17 10:30 Dose: Not Given Losartan Potassium (Cozaar -) 25 mg PO DAILY [facility] Last Admin: 12/12/17 13:56 Dose: 25 mg Metoprolol Tartrate (Lopressor -) 25 mg PO DAILY [facility] Last Admin: 12/12/17 13:57 Dose: 25 mg Oxycodone HCl (Roxicodone -) 5 mg PO Q6H PRN PRN Reason: PAIN LEVEL 6-10 Last Admin: 12/12/17 13:56 Dose: 5 mg 72 year old gentleman with PMhx of ESRD secondary to diabetic nephropathy, Hypertension, Lumbar Radiculopathy, CKD related Anemia who presented s/p mechanical fall with humerus fracture. #ESRD on Hd #Mechanical Fall #Humerus Fracture #Anemia #Hypertension tolerated dialysis well, discontinued ~30 mins early because of LE pain will consult Neurology for evaluation of pain fracture management as per ortho will continue EDWINA with HD Thank you Ant Martino DO
[2017-12-12] MEDS ORDERED: PT OWN MED DRAWER 7, Y5N ONE (17:57)
[2017-12-12] MEDS: INSULIN DETEMIR 100 UNITS/ML MDV SQ SCH (21:59)
[2017-12-13] MEDS: HEPARIN NA (PORCINE) 5,000 UNITS/ML 1ML VIAL SQ SCH ×3 (06:00→21:42)
[2017-12-13] MEDS: INSULIN SLIDING SCALE (NOVOLOG) 1 VIAL SQ SCH ×4 (06:08→21:42)
[2017-12-13 06:10] LABS: SERUM IRON SATURATION 22 % (15-55); TOTAL IRON BINDING CAPACITY 227 ug/dL (250-450); UIBC 177 ug/dL (111-343)
[2017-12-13 08:36] LABS: BASO % 0.5 % (0-2.0); EOS % 3.4 % (0-4.5); HEMATOCRIT 24.6 % (35.4-49); HEMOGLOBIN 8.7 GM/dL (11.7-16.9); MCH 30.9 pg (25.7-33.7); MCHC 35.4 g/dl (32.0-35.9); MEAN CELL VOLUME 87.2 fl (80-96); MEAN PLT VOLUME 7.1 fl (7.5-11.1); MONO % 13.4 % (3.8-10.2); NEUT % 53.7 % (42.8-82.8); PLATELET COUNT 124 K/MM3 (134-434); RBC 2.82 M/mm3 (4.00-5.60); RDW 15.5 % (11.9-15.9)
[2017-12-13 09:03] LABS: CHLORIDE 101 mmol/L (98-107); SODIUM 139 mmol/L (136-145)
[2017-12-13 09:21] LABS: ANION GAP 8 (8-16); BLOOD UREA NITROGEN 51 mg/dL (7-18); CO2 30 mmol/L (21-32); CREATININE 4.7 mg/dL (0.7-1.3); GLUCOSE,RANDOM 101 mg/dL (74-106); MAGNESIUM 2.2 mg/dL (1.8-2.4); PHOSPHOROUS 4.6 mg/dL (2.5-4.9)
[2017-12-13] MEDS: oxyCODONE HCL 5 MG TABLET PO PRN (09:23)
[2017-12-13] MEDS: FUROSEMIDE 40 MG TABLET (FP) PO SCH (09:32)
--- NOTE | 2017-12-13 09:32 | PN ---
Progress Note (short form) - Note Progress Note: c/o hematuria which he noticed this AM. also c/o foot pain which hes been experiencing intermittently for the past few months. was told to see neurologist but never followed up. dneis CP, SOB, fever, chills, N/V/C/D Current Medications Generic Name Dose Route Start Last Admin Trade Name Freq PRN Reason Stop Dose Admin Acetaminophen 650 mg 12/11/17 07:12 Tylenol - PO Q4H PRN PAIN Docusate Sodium 100 mg 12/13/17 10:00 Colace - PO DAILY ANDREW Furosemide 80 mg 12/11/17 10:00 12/12/17 13:56 Lasix - PO 80 mg DAILY ANDREW Administration Heparin Sodium (Porcine) 5,000 unit 12/12/17 14:00 12/13/17 06:00 Heparin - SQ 5,000 unit TID ANDREW Administration Hydralazine HCl 10 mg 12/11/17 10:00 12/12/17 10:30 Apresoline - PO Not Given DAILY ANDREW Insulin Aspart 1 vial 12/11/17 07:00 12/13/17 06:08 Novolog Vial Sliding Scale - SQ Not Given ACHS [facility] Protocol Insulin Detemir 8 units 12/11/17 22:00 12/12/17 21:59 Levemir Vial SQ 8 units HS ANDREW Administration Isosorbide Mononitrate 10 mg 12/11/17 10:52 12/12/17 10:30 Ismo - PO Not Given DAILY ANDREW Losartan Potassium 25 mg 12/11/17 10:00 12/12/17 13:56 Cozaar - PO 25 mg DAILY ANDREW Administration Metoprolol Tartrate 25 mg 12/11/17 10:00 12/12/17 13:57 Lopressor - PO 25 mg DAILY ANDREW Administration Oxycodone HCl 5 mg 12/12/17 10:28 12/13/17 09:23 Roxicodone - PO 5 mg Q6H PRN Administration PAIN LEVEL 6-10 Last Vital Signs Temp Pulse Resp BP Pulse Ox 98.3 F 73 18 127/60 99 12/13/17 06:00 12/13/17 06:00 12/13/17 06:00 12/13/17 06:00 12/12/17 21:00 General NAD CV S1 s2 +murmur, +R chest wall HD catheter place, no surrounding erythema Lungs CTA B/L no wheezing/rales/rhonchi ABdomen soft NT/ND Extremities refused LUE exam. +L AVF palpable thrill, CBCD WBC 7.0 K/mm3 (4.0-10.0) 12/13/17 07:30 RBC 2.82 M/mm3 (4.00-5.60) L 12/13/17 07:30 Hgb 8.7 GM/dL (11.7-16.9) L D 12/13/17 07:30 Hct 24.6 % (35.4-49) L D 12/13/17 07:30 MCV 87.2 fl (80-96) 12/13/17 07:30 MCHC 35.4 g/dl (32.0-35.9) 12/13/17 07:30 RDW 15.5 % (11.9-15.9) 12/13/17 07:30 Plt Count 124 K/MM3 (134-434) L 12/13/17 07:30 MPV 7.1 fl (7.5-11.1) L 12/13/17 07:30 CMP Sodium 139 mmol/L (136-145) 12/13/17 07:30 Potassium 4.0 mmol/L (3.5-5.1) 12/13/17 07:30 Chloride 101 mmol/L (98-107) 12/13/17 07:30 Carbon Dioxide 30 mmol/L (21-32) 12/13/17 07:30 Anion Gap 8 (8-16) 12/13/17 07:30 BUN 51 mg/dL (7-18) H D 12/13/17 07:30 Creatinine 4.7 mg/dL (0.7-1.3) H 12/13/17 07:30 Creat Clearance w eGFR 17.79 (>60) 12/10/17 18:42 Calcium 8.0 mg/dL (8.5-10.1) L 12/13/17 07:30 Total Bilirubin 0.7 mg/dL (0.2-1.0) D 12/10/17 18:42 AST 44 U/L (15-37) H D 12/10/17 18:42 ALT 37 U/L (12-78) D 12/10/17 18:42 Alkaline Phosphatase 130 U/L (45-117) H 12/10/17 18:42 Total Protein 7.1 g/dl (6.4-8.2) 12/10/17 18:42 Albumin 3.4 g/dl (3.4-5.0) 12/10/17 18:42 ASSESSMENT AND PLAN: 72yo M with PMH ESRD on HD, DM, HTN, CHF presented to the hospital after mechanical fall and sustained mildly displaced L humerus fracture 1. L humerus fracture- s/p mechanical fall. mildly displaced fracture. evaluated by ortho. no surgical intervention. immobilizer to L forarm across abdomen no sling. pain controlled. arm excercises. can not bear weight in LUE 2. Normocytic anemia- Hgb stable. iron stuides pending. no indication for txn 3. ESRD on HD- has HD catheter and AV fistula. is currently being dialyzed via both as fistula is still maturing. cont HD per normal schedule (MWF) 4. hematuria- small Hgb drop. check UA 5. B/L foot pain- likely neuropathic. neurology consulted as has not complied with follow up 6. DM- cont levemir, iss, bgm 7. HTN- normotensive. cont home regimen 8. DVT ppx- hep sw 9. will need [facility] placement. accepted at [facility]. plan for d/c tomorrow Visit type - Emergency Visit Emergency Visit: Yes ED Registration Date: 12/11/17 Care time: The patient presented to the Emergency Department on the above date and was hospitalized for further evaluation of their emergent condition. - New Patient This patient is new to me today: No - Critical Care Critical Care patient: No - Discharge Referral Referred to [facility] No
[2017-12-13] MEDS: LOSARTAN POTASSIUM 25 MG TABLET PO SCH (09:36)
[2017-12-13] MEDS: METOPROLOL TARTRATE 25 MG TABLET (FP) PO SCH (09:37)
[2017-12-13] MEDS: DOCUSATE SODIUM 100 MG CAPSULE (FP) PO SCH (09:38)
[2017-12-13] MEDS ORDERED: PT OWN MED DRAWER 7, Y5N ONE (09:51)
[2017-12-13] MEDS: hydrALAZINE HCL 10 MG TABLET PO SCH (10:00)
[2017-12-13] MEDS: ISOSORBIDE MONONITRATE 20 MG TABLET PO SCH (10:02)
--- NOTE | 2017-12-13 13:07 | PN ---
Progress Note (short form) - Note Progress Note: Renal follow up for ESRD on HD Pt seen and examined at the bedside reports pain in arm and b/l legs no sob, chest pain s/p dialysis yesterday Vital Signs Temperature 98.3 F 12/13/17 06:00 Pulse Rate 72 12/13/17 10:23 Respiratory Rate 19 12/13/17 10:23 Blood Pressure 127/53 12/13/17 10:23 O2 Sat by Pulse Oximetry (%) 99 12/13/17 09:00 Intake & Output 12/10/17 12/11/17 12/12/17 12/13/17 23:59 23:59 23:59 23:59 Intake Total 900 800 300 Output Total 550 700 300 Balance 350 100 0 Weight 77.111 kg 71.214 kg 71.804 kg 70.624 kg NAD Awake and alert RRR CTA soft NT/ND No LE edema, clubbing or cyanosis CBC, BMP 12/13/17 07:30 12/13/17 07:30 Current Medications Acetaminophen (Tylenol -) 650 mg PO Q4H PRN PRN Reason: PAIN Docusate Sodium (Colace -) 100 mg PO DAILY [facility] Last Admin: 12/13/17 09:38 Dose: 100 mg Furosemide (Lasix -) 80 mg PO DAILY [facility] Last Admin: 12/13/17 09:32 Dose: 80 mg Heparin Sodium (Porcine) (Heparin -) 5,000 unit SQ TID [facility] Last Admin: 12/13/17 06:00 Dose: 5,000 unit Hydralazine HCl (Apresoline -) 10 mg PO DAILY [facility] Last Admin: 12/13/17 10:00 Dose: 10 mg Insulin Aspart (Novolog Vial Sliding Scale -) 1 vial SQ ACHS [facility] PRN Reason: Protocol Last Admin: 12/13/17 11:54 Dose: 4 units Insulin Detemir (Levemir Vial) 8 units SQ HS [facility] Last Admin: 12/12/17 21:59 Dose: 8 units Isosorbide Mononitrate (Ismo -) 10 mg PO DAILY [facility] Last Admin: 12/13/17 10:02 Dose: 10 mg Losartan Potassium (Cozaar -) 25 mg PO DAILY [facility] Last Admin: 12/13/17 09:36 Dose: 25 mg Metoprolol Tartrate (Lopressor -) 25 mg PO DAILY [facility] Last Admin: 12/13/17 09:37 Dose: 25 mg Oxycodone HCl (Roxicodone -) 5 mg PO Q6H PRN PRN Reason: PAIN LEVEL 6-10 Last Admin: 12/13/17 09:23 Dose: 5 mg 72 year old gentleman with PMhx of ESRD secondary to diabetic nephropathy, Hypertension, Lumbar Radiculopathy, CKD related Anemia who presented s/p mechanical fall with humerus fracture. #ESRD on Hd #Mechanical Fall #Humerus Fracture #Anemia #Hypertension no indication for [employer] today pain control and PT as tolerated restart gabapentin for LE neuropathic pain Neurology consult planed continue present BP meds Thank you Ant Martino DO
[2017-12-13] MEDS: GABAPENTIN 100 MG CAPSULE (FP) PO SCH ×2 (14:47→21:42)
[2017-12-13] MEDS: ACETAMINOPHEN 325 MG TABLET (FP) PO PRN (14:48)
[2017-12-13] MEDS ORDERED: oxyCODONE HCL 5 MG TABLET PO ONE (15:00)
[2017-12-13 16:03] LABS: URINE APPEARANCE CLOUDY; URINE BILIRUBIN NEGATIVE (<2.0 mg/dL); URINE BLOOD 3+ (NEGATIVE); URINE COLOR DKYELLOW; URINE GLUCOSE (UA) 2+ (NEGATIVE); URINE KETONE NEGATIVE (NEGATIVE); URINE NITRITE NEGATIVE (NEGATIVE); URINE UROBILINOGEN NEGATIVE mg/dL (0.2-1.0)
[2017-12-13 16:05] LABS: URINE LEUK ESTERASE 3+ (NEGATIVE); URINE PROTEIN 3+ (NEGATIVE)
[2017-12-13 16:13] LABS: EPI CELLS RARE /HPF (FEW); URINE MUCUS RARE
[2017-12-13] MEDS: CEFTRIAXONE 2 GM-D5W BAG 2 GM/50 ML BAG IVPB SCH (16:50)
[2017-12-13] MEDS ORDERED: INSULIN (NOVOLOG) ASPART 100 UNITS/ML 10ML VIAL ONE (21:38)
[2017-12-13] MEDS: INSULIN DETEMIR 100 UNITS/ML MDV SQ SCH (21:41)
[2017-12-14] MEDS: INSULIN SLIDING SCALE (NOVOLOG) 1 VIAL SQ SCH ×4 (06:28→21:11)
[2017-12-14] MEDS: HEPARIN NA (PORCINE) 5,000 UNITS/ML 1ML VIAL SQ SCH ×3 (06:28→21:09)
[2017-12-14 06:40] LABS: HBSAG SCREEN Negative (Negative); HEP A AB, IGM Negative (Negative); HEP B CORE AB, TOT Positive (Negative)
[2017-12-14 09:00] LABS: HEMATOCRIT 21.9 % (35.4-49); HEMOGLOBIN 7.9 GM/dL (11.7-16.9); MCH 31.1 pg (25.7-33.7); MCHC 35.9 g/dl (32.0-35.9); MEAN CELL VOLUME 86.6 fl (80-96); MEAN PLT VOLUME 7.5 fl (7.5-11.1); PLATELET COUNT 119 K/MM3 (134-434); RBC 2.53 M/mm3 (4.00-5.60); RDW 15.3 % (11.9-15.9); WHITE BLOOD COUNT 6.2 K/mm3 (4.0-10.0)
[2017-12-14 09:38] LABS: URINE APPEARANCE CLOUDY; URINE BILIRUBIN NEGATIVE (<2.0 mg/dL); URINE BLOOD 2+ (NEGATIVE); URINE COLOR YELLOW; URINE GLUCOSE (UA) 1+ (NEGATIVE); URINE KETONE NEGATIVE (NEGATIVE); URINE NITRITE NEGATIVE (NEGATIVE); URINE UROBILINOGEN NEGATIVE mg/dL (0.2-1.0)
[2017-12-14 09:40] LABS: URINE LEUK ESTERASE 3+ (NEGATIVE); URINE PROTEIN 2+ (NEGATIVE)
[2017-12-14] MEDS ORDERED: PT OWN MED DRAWER 7, Y5N ONE (10:09)
--- NOTE | 2017-12-14 10:11 | PN ---
Teaching Attending Note Name of Resident: Abel Flower ATTENDING PHYSICIAN STATEMENT I saw and evaluated the patient. I reviewed the resident's note and discussed the case with the resident. I agree with the resident's findings and plan as documented. SUBJECTIVE:did not noticed hematuria this AM. no blood in stools. states pain is controlled iwth medication. denies CP, SOB, fever, chills, N/V/C/D, melena, BRBPR. had colonoscopy 3 years ago and reports it as negative. very upset about having blood drawn multiple times in the day. states his blood is dropping because we are drawing blood 7x/day. explained to him that we have only been checking 1-2x/day and the necessity to monitor Hgb due to risks assoc if its too low. verbalized understanding but unclear if he will allow repeat blood draw in the evening OBJECTIVE: Last Vital Signs Temp Pulse Resp BP Pulse Ox 98.4 F 75 18 150/95 98 12/14/17 08:31 12/14/17 08:31 12/14/17 08:31 12/14/17 08:31 12/14/17 09:00 General NAD Abdomen soft NT/ND ASSESSMENT AND PLAN: 72yo M with PMH ESRD on HD, DM, HTN, CHF presented to the hospital after mechanical fall and sustained mildly displaced L humerus fracture 1. L humerus fracture- s/p mechanical fall. mildly displaced fracture. evaluated by ortho. no surgical intervention. immobilizer to L forarm across abdomen no sling. pain controlled. arm excercises. can not bear weight in LUE 2. Normocytic anemia-trending down. UA negative for RBC. sent repeat this AM as pt reports he was unsure. pending. will check FOBT. did have negative colonoscopy 3 years ago. repeat Hgb this afternoon. stressed importance of monitor blood counts and txn as needed. 3. ESRD on HD- has HD catheter and AV fistula. is currently being dialyzed via both as fistula is still maturing. cont HD per normal schedule (MWF) 4. hematuria- myoglobin seen on UA no RBC. 5. UTI- asymptomatic. Cx reported as negative but obtained after abx given. on ceftriaxone day 2. will complete 5 day course. 6. B/L foot pain- likely neuropathic. neurology consulted as has not complied with follow up 7. DM- cont levemir, iss, bgm 8. HTN- normotensive. cont home regimen 9. DVT ppx- hep sw 10. accepted with bed at [facility]. Discharge currently on hold due to acute blood drop. will need closer monitoring. if remains stable tomorrow possible discharge tomorrow after HD.
[2017-12-14] MEDS: FUROSEMIDE 40 MG TABLET (FP) PO SCH (10:30)
[2017-12-14] MEDS: METOPROLOL TARTRATE 25 MG TABLET (FP) PO SCH (10:30)
[2017-12-14] MEDS: GABAPENTIN 100 MG CAPSULE (FP) PO SCH ×2 (10:30→21:10)
[2017-12-14] MEDS: ISOSORBIDE MONONITRATE 20 MG TABLET PO SCH (10:30)
[2017-12-14] MEDS: DOCUSATE SODIUM 100 MG CAPSULE (FP) PO SCH (10:30)
[2017-12-14] MEDS: LOSARTAN POTASSIUM 25 MG TABLET PO SCH (10:30)
[2017-12-14] MEDS: hydrALAZINE HCL 10 MG TABLET PO SCH (10:31)
[2017-12-14] MEDS: CEFTRIAXONE 2 GM-D5W BAG 2 GM/50 ML BAG IVPB SCH (10:38)
--- NOTE | 2017-12-14 10:42 | PN ---
Progress Note (short form) - Note Progress Note: Pt seen, doing ok, + c/o pain left upper arm. In shoulder immobilizer. LUE is grossly NVI + mod swelling, and ecchymoses Good ROM at the elbow distal Imp Doing fine, L proximal humerus fracture Rec Can DC from an ortho pov Con't with shoulder immobilizer F/U as put pt in ~ 1 week
--- NOTE | 2017-12-14 10:54 | PN ---
Physical Exam: SUBJECTIVE: Patient seen and examined at bedside. Pt states he has dysuria for a few days now but is now improving. Did not urinate today yet though and is unable to assess whether urine is red/bloody today or not. Denies fevers, chills , chest pain, sob, light-headedness. Pt states he has pain in his arm which is about the same as yesterday. OBJECTIVE: Vital Signs Temperature 98.4 F 12/14/17 08:31 Pulse Rate 75 12/14/17 08:31 Respiratory Rate 18 12/14/17 08:31 Blood Pressure 150/95 12/14/17 08:31 O2 Sat by Pulse Oximetry (%) 98 12/14/17 09:00 GENERAL: The patient is awake, alert, and fully oriented, in no acute distress. EYES:sclera anicteric, conjunctiva clear. ENT: Ears normal, nares patent LUNGS: Breath sounds equal, clear to auscultation bilaterally, no wheezes, no crackles, no accessory muscle use. HEART: Regular rate and rhythm, S1, S2. ABDOMEN: Soft, nontender, nondistended, normoactive bowel sounds EXTREMITIES: warm, well-perfused, no edema. NEUROLOGICAL: Normal speech, gait not observed. PSYCH: Stoic affect. SKIN: Warm, dry Laboratory Results - last 24 hr 12/12/17 12/13/17 12/13/17 10:00 11:43 13:30 WBC RBC Hgb Hct MCV MCH MCHC RDW Plt Count MPV POC Glucometer 204 Urine Color Dkyellow Urine Appearance Cloudy Urine pH 7.0 Ur Specific [place] 1.013 Urine Protein 3+ H Urine Glucose (UA) 2+ H Urine Ketones Negative Urine Blood 3+ H Urine Nitrite Negative Urine Bilirubin Negative Urine Urobilinogen Negative Ur Leukocyte Esterase 3+ H Urine WBC (Auto) 37 Urine RBC (Auto) 2 Ur Epithelial Cells Rare Urine Mucus Rare Hep A IgM Ab Confirm Negative Hepatitis A Ab Total Positive H Hep Bs Antigen Negative Hep Bs Antibody Reactive Hep B Core Total Ab Positive H 12/13/17 12/13/17 12/14/17 16:56 21:40 06:27 WBC RBC Hgb Hct MCV MCH MCHC RDW Plt Count MPV POC Glucometer 146 201 123 Urine Color Urine Appearance Urine pH Ur Specific [place] Urine Protein Urine Glucose (UA) Urine Ketones Urine Blood Urine Nitrite Urine Bilirubin Urine Urobilinogen Ur Leukocyte Esterase Urine WBC (Auto) Urine RBC (Auto) Ur Epithelial Cells Urine Mucus Hep A IgM Ab Confirm Hepatitis A Ab Total Hep Bs Antigen Hep Bs Antibody Hep B Core Total Ab 12/14/17 12/14/17 07:00 07:00 WBC 6.2 RBC 2.53 L Hgb 7.9 L Hct 21.9 L MCV 86.6 MCH 31.1 MCHC 35.9 RDW 15.3 Plt Count 119 L MPV 7.5 POC Glucometer Urine Color Yellow Urine Appearance Cloudy Urine pH 6.0 Ur Specific [place] 1.012 Urine Protein 2+ H Urine Glucose (UA) 1+ H Urine Ketones Negative Urine Blood 2+ H Urine Nitrite Negative Urine Bilirubin Negative Urine Urobilinogen Negative Ur Leukocyte Esterase 3+ H Urine WBC (Auto) 367 Urine RBC (Auto) 3 Ur Epithelial Cells Urine Mucus Hep A IgM Ab Confirm Hepatitis A Ab Total Hep Bs Antigen Hep Bs Antibody Hep B Core Total Ab Active Medications Generic Name Dose Route Start Last Admin Trade Name Freq PRN Reason Stop Dose Admin Acetaminophen 650 mg 12/11/17 07:12 12/13/17 14:48 Tylenol - PO 650 mg Q4H PRN Administration PAIN Docusate Sodium 100 mg 12/13/17 10:00 12/14/17 10:30 Colace - PO 100 mg DAILY ANDREW Administration Furosemide 80 mg 12/11/17 10:00 12/14/17 10:30 Lasix - PO 80 mg DAILY ANDREW Administration Gabapentin 100 mg 12/13/17 13:15 12/14/17 10:30 Neurontin - PO 100 mg BID ANDREW Administration Heparin Sodium (Porcine) 5,000 unit 12/12/17 14:00 12/14/17 06:28 Heparin - SQ 5,000 unit TID ANDREW Administration Hydralazine HCl 10 mg 12/11/17 10:00 12/14/17 10:31 Apresoline - PO 10 mg DAILY ANDREW Administration CEFTRIAXONE IN IS-OSM DEXTROSE 2 gm in 50 mls @ 100 mls/hr 12/13/17 16:45 04/25 10:38 Ceftriaxone 2 Gm-D5w Bag IVPB 100 mls/hr DAILY ANDREW Administration Insulin Aspart 1 vial 12/11/17 07:00 12/14/17 06:28 Novolog Vial Sliding Scale - SQ Not Given ACHS [facility] Protocol Insulin Detemir 8 units 12/11/17 22:00 12/13/17 21:41 Levemir Vial SQ 8 units HS ANDREW Administration Isosorbide Mononitrate 10 mg 12/11/17 10:52 12/14/17 10:30 Ismo - PO 10 mg DAILY ANDREW Administration Losartan Potassium 25 mg 12/11/17 10:00 12/14/17 10:30 Cozaar - PO 25 mg DAILY ANDREW Administration Metoprolol Tartrate 25 mg 12/11/17 10:00 12/14/17 10:30 Lopressor - PO 25 mg DAILY ANDREW Administration Oxycodone HCl 5 mg 12/12/17 10:28 12/13/17 09:23 Roxicodone - PO 5 mg Q6H PRN Administration PAIN LEVEL 6-10 ASSESSMENT/PLAN: 72 y/o M w/PMH of ESRD on HD (MWF), HTN, DM, CHF presents to the ER s/p mechanical fall and found to have displaced L humerus fracture. -L displaced humerus fracture s/p mechanical fall -Cleared from ortho perspective at this time. -to f/u with ortho in 1 week. -c/w shoulder immobilizer use. -Anemia -normocytic -Hgb continues to drop, monitor CBC, transfuse if Hgb <7 -no signs of acute bleeding at this time. -f/u FOBT -UTI -c/w ceftriaxone, day 2 -pt symptomatically improving with less dysuria now -ESRD on HD -c/w HD MWF -LE neuropathic pain -c/w gabapentin 100 mg bid -HTN -c/w lopressor, cozaar -CHF -not in acute exacerbation -c/w lasix -DM -c/w levemir 8 units sq qhs -BGMs, ISS ACHS -DVT ppx -heparin SQ -FEN -no fluids -monitor lytes -diabetic diet -Dispo: -will continue to monitor on m/s. Has placement in [facility], continue to monitor H/H, if stable will d/c to [facility] tomorrow. Visit type - Emergency Visit Emergency Visit: Yes ED Registration Date: 12/11/17 Care time: The patient presented to the Emergency Department on the above date and was hospitalized for further evaluation of their emergent condition. - New Patient This patient is new to me today: Yes Date on this admission: 12/14/17 - Critical Care Critical Care patient: No
[2017-12-14] MEDS ORDERED: INSULIN (NOVOLOG) ASPART 100 UNITS/ML 10ML VIAL ONE ×2 (11:20→21:11)
[2017-12-14 16:37] LABS: HEMATOCRIT 21.6 % (35.4-49); HEMOGLOBIN 7.6 GM/dL (11.7-16.9); MCH 30.8 pg (25.7-33.7); MCHC 35.1 g/dl (32.0-35.9); MEAN CELL VOLUME 87.8 fl (80-96); PLATELET COUNT 124 K/MM3 (134-434); RBC 2.46 M/mm3 (4.00-5.60); RDW 15.6 % (11.9-15.9); WHITE BLOOD COUNT 5.7 K/mm3 (4.0-10.0)
[2017-12-14] MEDS: INSULIN DETEMIR 100 UNITS/ML MDV SQ SCH (21:09)
[2017-12-14] MEDS: oxyCODONE HCL 5 MG TABLET PO PRN (21:12)
[2017-12-15] MEDS ORDERED: SODIUM CHLORIDE 250 ML IV PRN ×3 (00:47→13:30)
[2017-12-15] MEDS: HEPARIN NA (PORCINE) 5,000 UNITS/ML 1ML VIAL SQ SCH ×2 (05:35→15:05)
[2017-12-15] MEDS: INSULIN SLIDING SCALE (NOVOLOG) 1 VIAL SQ SCH ×3 (06:04→16:44)
[2017-12-15] MEDS: ACETAMINOPHEN 325 MG TABLET (FP) PO PRN (07:30)
[2017-12-15] MEDS: oxyCODONE HCL 5 MG TABLET PO PRN (07:30)
[2017-12-15 08:20] LABS: HEMATOCRIT 22.4 % (35.4-49); MCH 30.8 pg (25.7-33.7); MCHC 35.9 g/dl (32.0-35.9); MEAN CELL VOLUME 85.9 fl (80-96); MEAN PLT VOLUME 7.2 fl (7.5-11.1); PLATELET COUNT 132 K/MM3 (134-434); RDW 15.2 % (11.9-15.9); WHITE BLOOD COUNT 6.2 K/mm3 (4.0-10.0)
--- NOTE | 2017-12-15 08:29 | PN ---
Progress Note (short form) - Note Progress Note: Ortho Pt seen and examined s/p left proximal humerus fx immobilizer intact, good rom of elbow, wrist and hand, nvi a/p Keep immobilizer intact NWB LUE ROM for elbow, wrist an hand d/c planning d/w Dr. Franklin
--- NOTE | 2017-12-15 08:34 | PN ---
Physical Exam: SUBJECTIVE: Patient seen and examined OBJECTIVE: Vital Signs Period Temp Pulse Resp BP Sys/Reeder Pulse Ox Last 24 Hr 97.9 F-99.1 F 75-80 18-20 108-144/60-67 96-98 GENERAL: The patient is awake, alert, and fully oriented, in no acute distress. HEAD: Normal with no signs of trauma. EYES: PERRL, extraocular movements intact, sclera anicteric, conjunctiva clear. No ptosis. ENT: Ears normal, nares patent, oropharynx clear without exudates, moist mucous membranes. NECK: Trachea midline, full range of motion, supple. LUNGS: Breath sounds equal, clear to auscultation bilaterally, no wheezes, no crackles, no accessory muscle use. HEART: Regular rate and rhythm, S1, S2 without murmur, rub or gallop. ABDOMEN: Soft, nontender, nondistended, normoactive bowel sounds, no guarding, no rebound, no hepatosplenomegaly, no masses. EXTREMITIES: 2+ pulses, warm, well-perfused, no edema. NEUROLOGICAL: Cranial nerves II through XII grossly intact. Normal speech, gait not observed. PSYCH: Normal mood, normal affect. SKIN: Warm, dry, normal turgor, no rashes or lesions noted Laboratory Results - last 24 hr 12/12/17 12/14/17 12/14/17 10:00 07:00 07:00 WBC 6.2 RBC 2.53 L Hgb 7.9 L Hct 21.9 L MCV 86.6 MCH 31.1 MCHC 35.9 RDW 15.3 Plt Count 119 L MPV 7.5 POC Glucometer Urine Color Yellow Urine Appearance Cloudy Urine pH 6.0 Ur Specific [place] 1.012 Urine Protein 2+ H Urine Glucose (UA) 1+ H Urine Ketones Negative Urine Blood 2+ H Urine Nitrite Negative Urine Bilirubin Negative Urine Urobilinogen Negative Ur Leukocyte Esterase 3+ H Urine WBC (Auto) 367 Urine RBC (Auto) 3 Hep C Ab Diagnostic >11.0 Crossmatch 12/14/17 12/14/17 12/14/17 11:17 16:11 16:25 WBC 5.7 RBC 2.46 L Hgb 7.6 L Hct 21.6 L MCV 87.8 MCH 30.8 MCHC 35.1 RDW 15.6 Plt Count 124 L MPV 7.0 L POC Glucometer 217 153 Urine Color Urine Appearance Urine pH Ur Specific [place] Urine Protein Urine Glucose (UA) Urine Ketones Urine Blood Urine Nitrite Urine Bilirubin Urine Urobilinogen Ur Leukocyte Esterase Urine WBC (Auto) Urine RBC (Auto) Hep C Ab Diagnostic Crossmatch 12/14/17 12/15/17 12/15/17 21:09 05:32 07:33 WBC 6.2 RBC 2.60 L Hgb 8.0 L Hct 22.4 L MCV 85.9 MCH 30.8 MCHC 35.9 RDW 15.2 Plt Count 132 L MPV 7.2 L POC Glucometer 211 132 Urine Color Urine Appearance Urine pH Ur Specific [place] Urine Protein Urine Glucose (UA) Urine Ketones Urine Blood Urine Nitrite Urine Bilirubin Urine Urobilinogen Ur Leukocyte Esterase Urine WBC (Auto) Urine RBC (Auto) Hep C Ab Diagnostic Crossmatch 12/15/17 07:33 WBC RBC Hgb Hct MCV MCH MCHC RDW Plt Count MPV POC Glucometer Urine Color Urine Appearance Urine pH Ur Specific [place] Urine Protein Urine Glucose (UA) Urine Ketones Urine Blood Urine Nitrite Urine Bilirubin Urine Urobilinogen Ur Leukocyte Esterase Urine WBC (Auto) Urine RBC (Auto) Hep C Ab Diagnostic Crossmatch See Detail Active Medications Generic Name Dose Route Start Last Admin Trade Name Freq PRN Reason Stop Dose Admin Acetaminophen 650 mg 12/11/17 07:12 12/15/17 07:30 Tylenol - PO 650 mg Q4H PRN Administration PAIN Docusate Sodium 100 mg 12/13/17 10:00 12/14/17 10:30 Colace - PO 100 mg DAILY ANDREW Administration Epoetin [place] 20,000 unit 12/15/17 06:00 Procrit - SQ 12/15/17 06:01 ONCE ONE Furosemide 80 mg 12/11/17 10:00 12/14/17 10:30 Lasix - PO 80 mg DAILY ANDREW Administration Gabapentin 100 mg 12/13/17 13:15 12/14/17 21:10 Neurontin - PO 100 mg BID ANDREW Administration Heparin Sodium (Porcine) 5,000 unit 12/12/17 14:00 12/15/17 05:35 Heparin - SQ 5,000 unit TID ANDREW Administration Hydralazine HCl 10 mg 12/11/17 10:00 12/14/17 10:31 Apresoline - PO 10 mg DAILY ANDREW Administration CEFTRIAXONE IN IS-OSM DEXTROSE 2 gm in 50 mls @ 100 mls/hr 12/13/17 16:45 04/25 10:38 Ceftriaxone 2 Gm-D5w Bag IVPB 100 mls/hr DAILY ANDREW Administration Sodium Chloride 250 mls @ 3,000 mls/hr 12/15/17 00:44 Normal Saline - IV 12/16/17 00:44 PRN PRN Hypotension during Dialysis Sodium Chloride 250 mls @ 3,000 mls/hr 12/15/17 00:47 Normal Saline - IV 12/16/17 00:47 PRN PRN Hypotension during Dialysis Insulin Aspart 1 vial 12/11/17 07:00 12/15/17 06:04 Novolog Vial Sliding Scale - SQ Not Given ACHS [facility] Protocol Insulin Detemir 8 units 12/11/17 22:00 12/14/17 21:09 Levemir Vial SQ 8 units HS ANDREW Administration Isosorbide Mononitrate 10 mg 12/11/17 10:52 12/14/17 10:30 Ismo - PO 10 mg DAILY ANDREW Administration Losartan Potassium 25 mg 12/11/17 10:00 12/14/17 10:30 Cozaar - PO 25 mg DAILY ANDREW Administration Metoprolol Tartrate 25 mg 12/11/17 10:00 12/14/17 10:30 Lopressor - PO 25 mg DAILY ANDREW Administration Oxycodone HCl 5 mg 12/12/17 10:28 12/15/17 07:30 Roxicodone - PO 5 mg Q6H PRN Administration PAIN LEVEL 6-10 ASSESSMENT/PLAN:
[2017-12-15] MEDS ORDERED: PT OWN MED DRAWER 7, Y5N ONE (09:33)
[2017-12-15] MEDS: DOCUSATE SODIUM 100 MG CAPSULE (FP) PO SCH (09:51)
[2017-12-15] MEDS: GABAPENTIN 100 MG CAPSULE (FP) PO SCH (09:51)
[2017-12-15] MEDS: CEFTRIAXONE 2 GM-D5W BAG 2 GM/50 ML BAG IVPB SCH (09:51)
[2017-12-15] MEDS: hydrALAZINE HCL 10 MG TABLET PO SCH (09:52)
[2017-12-15] MEDS: ISOSORBIDE MONONITRATE 20 MG TABLET PO SCH (09:52)
[2017-12-15] MEDS: LOSARTAN POTASSIUM 25 MG TABLET PO SCH (09:52)
[2017-12-15] MEDS: METOPROLOL TARTRATE 25 MG TABLET (FP) PO SCH (09:52)
[2017-12-15] MEDS ORDERED: EPOETIN ALFA 20,000 UNIT/1 ML VIAL SQ ONE (11:30)
[2017-12-15 11:50] LABS: ANION GAP 16 (8-16); BLOOD UREA NITROGEN 93 mg/dL (7-18); CALCIUM 7.8 mg/dL (8.5-10.1); CHLORIDE 99 mmol/L (98-107); CO2 22 mmol/L (21-32); CREATININE 7.1 mg/dL (0.7-1.3); GLUCOSE,RANDOM 189 mg/dL (74-106); PHOSPHOROUS 6.5 mg/dL (2.5-4.9); POTASSIUM 4.9 mmol/L (3.5-5.1); SODIUM 137 mmol/L (136-145)
--- NOTE | 2017-12-15 12:02 | PN ---
Progress Note (short form) - Note Progress Note: Renal follow up for ESRD on HD Pt seen and examined during dialysis BP stable, Goal UF is 2.5L, BFR 350 catheter with good flow pt without any acute complaints denies any sob, chest pain, abd pain Vital Signs Temperature 99.1 F 12/15/17 06:04 Pulse Rate 89 12/15/17 10:00 Respiratory Rate 20 12/15/17 10:00 Blood Pressure 138/72 12/15/17 10:00 O2 Sat by Pulse Oximetry (%) 96 12/14/17 21:00 NAD Awake and alert RRR CTA soft NT/ND No LE edema, clubbing or cyanosis CBC, BMP 12/15/17 07:33 12/15/17 10:45 Current Medications Acetaminophen (Tylenol -) 650 mg PO Q4H PRN PRN Reason: PAIN Last Admin: 12/15/17 07:30 Dose: 650 mg Docusate Sodium (Colace -) 100 mg PO DAILY [facility] Last Admin: 12/15/17 09:51 Dose: 100 mg Furosemide (Lasix -) 80 mg PO DAILY [facility] Last Admin: 12/14/17 10:30 Dose: 80 mg Gabapentin (Neurontin -) 100 mg PO BID [facility] Last Admin: 12/15/17 09:51 Dose: 100 mg Heparin Sodium (Porcine) (Heparin -) 5,000 unit SQ TID [facility] Last Admin: 12/15/17 05:35 Dose: 5,000 unit Hydralazine HCl (Apresoline -) 10 mg PO DAILY [facility] Last Admin: 12/15/17 09:52 Dose: 10 mg CEFTRIAXONE IN IS-OSM DEXTROSE (Ceftriaxone 2 Gm-D5w Bag) 2 gm in 50 mls @ 100 mls/hr IVPB DAILY [facility] Last Admin: 12/15/17 09:51 Dose: 100 mls/hr Sodium Chloride (Normal Saline -) 250 mls @ 3,000 mls/hr IV PRN PRN PRN Reason: Hypotension during Dialysis Stop: 12/16/17 10:27 Sodium Chloride (Normal Saline -) 250 mls @ 3,000 mls/hr IV PRN PRN PRN Reason: Hypotension during Dialysis Stop: 12/16/17 00:47 Insulin Aspart (Novolog Vial Sliding Scale -) 1 vial SQ ACHS [facility] PRN Reason: Protocol Last Admin: 12/15/17 06:04 Dose: Not Given Insulin Detemir (Levemir Vial) 8 units SQ HS [facility] Last Admin: 12/14/17 21:09 Dose: 8 units Isosorbide Mononitrate (Ismo -) 10 mg PO DAILY [facility] Last Admin: 12/15/17 09:52 Dose: 10 mg Losartan Potassium (Cozaar -) 25 mg PO DAILY [facility] Last Admin: 12/15/17 09:52 Dose: 25 mg Metoprolol Tartrate (Lopressor -) 25 mg PO DAILY [facility] Last Admin: 12/15/17 09:52 Dose: 25 mg Oxycodone HCl (Roxicodone -) 5 mg PO Q6H PRN PRN Reason: PAIN LEVEL 6-10 Last Admin: 12/15/17 07:30 Dose: 5 mg 72 year old gentleman with PMhx of ESRD secondary to diabetic nephropathy, Hypertension, Lumbar Radiculopathy, CKD related Anemia who presented s/p mechanical fall with humerus fracture. #ESRD on Hd #Mechanical Fall #Humerus Fracture #Anemia #Hypertension tolerating dialysis well today pain is well controlled neurology consult pending rehab placement on discharge will continue EDWINA with HD no acute indication for transfusion Thank you Ant Martino DO
[2017-12-15 12:12] VITALS: TEMP 98.2
--- NOTE | 2017-12-15 13:31 | PN ---
Teaching Attending Note Name of Resident: Roopa Woodward ATTENDING PHYSICIAN STATEMENT I saw and evaluated the patient. I reviewed the resident's note and discussed the case with the resident. I agree with the resident's findings and plan as documented. SUBJECTIVE:states dysuria has resolved. no complaints. denies Cp, SOB, fever, chills, N/V/C/D OBJECTIVE: Last Vital Signs Temp Pulse Resp BP Pulse Ox 98.2 F 72 18 118/65 96 12/15/17 10:40 12/15/17 12:15 12/15/17 12:15 12/15/17 12:15 12/14/17 21:00 General NAD Abdomen soft NT/ND ASSESSMENT AND PLAN: 72yo M with PMH ESRD on HD, DM, HTN, CHF presented to the hospital after mechanical fall and sustained mildly displaced L humerus fracture 1. L humerus fracture- s/p mechanical fall. mildly displaced fracture. evaluated by ortho. no surgical intervention. immobilizer to L forarm across abdomen no sling. pain controlled. arm excercises. can not bear weight in LUE 2. Normocytic anemia- now stable. rpeat UA with no hematuria. no indication for txn today. EDWINA with HD 3. ESRD on HD- has HD catheter and AV fistula. is currently being dialyzed via both as fistula is still maturing. cont HD per normal schedule (MWF) 4. hematuria- myoglobin seen on UA no RBC. 5. UTI- symptomatic. Cx reported as negative but obtained after abx given. on ceftriaxone day 3. transition to keflex to complete 7 day 6. B/L foot pain- likely neuropathic. neurology consulted as has not complied with follow up 7. DM- cont levemir, iss, bgm 8. HTN- normotensive. cont home regimen 9. DVT ppx- hep sw 10. d/c to [facility]
[2017-12-15 14:01] VITALS: PULSE 78
--- NOTE | 2017-12-15 14:45 | DS ---
Physical Exam: SUBJECTIVE: Patient seen and examined. L arm pain well controlled with Percocet. Denies any dysuria or hematuria. No sob, CP, fever, chills, abdominal pain. OBJECTIVE: Vital Signs Period Temp Pulse Resp BP Sys/Reeder Pulse Ox Last 24 Hr 97.9 F-99.1 F 70-89 18-20 89-144/47-80 96 PHYSICAL EXAM GENERAL: aaox3, nad, R tunnel catheter LUNGS: CTAB HEART: rrr, normal s1/s2, no m/r/g, no JVD ABDOMEN: soft, NTND, positive BS : no suprapubic ttp UPPER EXTREMITIES: 2+ radial pulses, L AVF +bruit, L arm in immobilizer, bent 90 at elbow LOWER EXTREMITIES: 2+ DP pulses, wwp, no edema NEUROLOGICAL: Cranial nerves II through XII grossly intact, but not formally tested. Sensation intact in all extremities. LABS CBC, BMP 12/15/17 07:33 12/15/17 10:45 Hepatic Panel Total Bilirubin 0.7 mg/dL (0.2-1.0) D 12/10/17 18:42 AST 44 U/L (15-37) H D 12/10/17 18:42 ALT 37 U/L (12-78) D 12/10/17 18:42 Alkaline Phosphatase 130 U/L (45-117) H 12/10/17 18:42 Albumin 3.4 g/dl (3.4-5.0) 12/10/17 18:42 Urine Test Results Urine Color Yellow 12/14/17 07:00 Urine Appearance Cloudy 12/14/17 07:00 Urine pH 6.0 (5.0-8.0) 12/14/17 07:00 Ur Specific [place] 1.012 (1.001-1.035) 12/14/17 07:00 Urine Protein 2+ (NEGATIVE) H 12/14/17 07:00 Urine Glucose (UA) 1+ (NEGATIVE) H 12/14/17 07:00 Urine Ketones Negative (NEGATIVE) 12/14/17 07:00 Urine Blood 2+ (NEGATIVE) H 12/14/17 07:00 Urine Nitrite Negative (NEGATIVE) 12/14/17 07:00 Urine Bilirubin Negative (<2.0 mg/dL) 12/14/17 07:00 Ur Leukocyte Esterase 3+ (NEGATIVE) H 12/14/17 07:00 Ur Epithelial Cells Rare /HPF (FEW) 12/13/17 13:30 Urine Bacteria Rare /hpf (NONE SEEN) 12/10/17 20:46 Urine Mucus Rare 12/13/17 13:30 Microbiology 12/10/17 20:40 Urine - Urine Clean Catch Urine Culture - Final NO GROWTH OBTAINED Active Medications Acetaminophen (Tylenol -) 650 mg PO Q4H PRN PRN Reason: PAIN Last Admin: 12/15/17 07:30 Dose: 650 mg Cephalexin HCl (Keflex -) 500 mg PO BID [facility] Docusate Sodium (Colace -) 100 mg PO DAILY [facility] Last Admin: 12/15/17 09:51 Dose: 100 mg Furosemide (Lasix -) 80 mg PO DAILY [facility] Last Admin: 12/14/17 10:30 Dose: 80 mg Gabapentin (Neurontin -) 100 mg PO BID [facility] Last Admin: 12/15/17 09:51 Dose: 100 mg Heparin Sodium (Porcine) (Heparin -) 5,000 unit SQ TID [facility] Last Admin: 12/15/17 05:35 Dose: 5,000 unit Hydralazine HCl (Apresoline -) 10 mg PO DAILY [facility] Last Admin: 12/15/17 09:52 Dose: 10 mg Sodium Chloride (Normal Saline -) 250 mls @ 3,000 mls/hr IV PRN PRN PRN Reason: Hypotension during Dialysis Stop: 12/16/17 10:27 Sodium Chloride (Normal Saline -) 250 mls @ 3,000 mls/hr IV PRN PRN PRN Reason: Hypotension during Dialysis Stop: 12/16/17 00:47 Insulin Aspart (Novolog Vial Sliding Scale -) 1 vial SQ ACHS [facility] PRN Reason: Protocol Last Admin: 12/15/17 12:18 Dose: Not Given Insulin Detemir (Levemir Vial) 8 units SQ HS [facility] Last Admin: 12/14/17 21:09 Dose: 8 units Isosorbide Mononitrate (Ismo -) 10 mg PO DAILY [facility] Last Admin: 12/15/17 09:52 Dose: 10 mg Losartan Potassium (Cozaar -) 25 mg PO DAILY [facility] Last Admin: 12/15/17 09:52 Dose: 25 mg Metoprolol Tartrate (Lopressor -) 25 mg PO DAILY [facility] Last Admin: 12/15/17 09:52 Dose: 25 mg Oxycodone HCl (Roxicodone -) 5 mg PO Q6H PRN PRN Reason: PAIN LEVEL 6-10 Last Admin: 12/15/17 07:30 Dose: 5 mg HOSPITAL COURSE: Date of Admission:12/11/17 Date of Discharge: 12/15/17 Pre-admission Course: 72 year old man with PMH of ESRD (recently started HD, MWF), DM, HTN, CHF who presents s/p mechanical fall earlier today. He states that he finished his routine HD and was walking out of the center when he tripped on the sidewalk, fell, and hit his L arm. He states that he has severe pain in his lateral upper arm near the deltoid region. Denies hitting his head, syncopizing, feeling any chest pain or shortness of breath, lightheadedness, or dizziness prior to falling. He denies any LOC. Patient ambulated with a rolling walker at baseline. Approximately 4 months ago he had an AV fistula placed in his Left arm , but is still receiving HD via R TLC as well as L AVF. Patient has never before broken a bone. ER course was notable for: (1) BUN/Cre 26/3.4 (2) L humerus XRAY: acute, comminuted fracture in the surgical neck of the left humerus Subsequent Hospital Course: Orthopedics was consulted for L humeral fracture, and recommended no surgical intervention at this time. Ortho recommendations included conservative management using a shoulder immobilizer with no weight bearing on the left arm. He was instructed to do light activity including movement of L elbow, wrist, and fingers. Physical therapy was consulted, and has been working with him daily. Nephrology was consulted. His routine HD was continued here on MWF. His R tunneled catheter and L AVF are both used during the sesion while his graft is maturing. His last HD session was today (12/15), in which 2kg of fluids were removed. His DM was controlled with Levemir 8U HS in addition to Novolog sliding scale. His HTN was controlled with his regular home medications. On 12/13 he complained of dysuria. UA was suggestive of infection. He was treated with Ceftriaxone 2gm daily for 3 days, and discharged on Kelfex 500mg BID to complete a 7 day course. Renal and Bladder ultrasound revealed no hydronephrosis or concerning pathology. Today on discharge he denies any dysuria or urinary symptoms. He has been voiding without issue. He has complained of bilateral foot pain, which is likely neuropathic in etiology. He was started on Gabapentin 100mg BID, and recommended to follow-up with Neurology as an OP. Consults: Renal: Dr. Gracia, Dr. Martino Orthopedics: Dr. Franklin Imaging: EXAM#: TYPE/EXAM: RESULT: RAD/CHEST X-RAY PORTABLE* [id number] RAD/ELBOW-LEFT [id number] RAD/FOREARM- LEFT RAD/HUMERUS-LEFT RAD/SHOULDER-LEFT INDICATION: Status post fall with left shoulder pain. TECHNIQUE:1. Single AP portable view of the chest. 2. Internal rotation, external rotation intrinsic scapular Y views of the left shoulder. 3. AP and lateral views of the left humerus. 4. AP, oblique and lateral views of the left elbow. 5. AP and lateral views of the left forearm. COMPARISON: 10/07/2017 chest x-ray. No prior x-rays of the left shoulder, humerus, elbow or forearm. FINDINGS: Left shoulder, humerus, elbow and forearm x-rays - There is an acute, comminuted fracture in the surgical neck of the left humerus with fracture lines extending into the humeral head including the base of the greater trochanter. There is mild medial displacement of the distal fracture fragment. There is no left glenohumeral dislocation. The left and coracoclavicular intervals are maintained. There is no evidence of acute fracture, dislocation or joint effusion in the left elbow or left forearm. There is anatomic alignment of the left forearm and left elbow. There is mild spurring along the lateral humeral epicondyle which is compatible with epicondylitis. There is enthesopathy at the insertion of the triceps tendon onto the olecranon. There are arterial vascular calcifications overlying the distal radius and ulna. Chest x-ray - There is a right IJ approach permacath with the catheter tip terminating over the right atrium, unchanged. There is no evidence of airspace consolidation or pulmonary vascular congestion. There is blunting of the right lateral costophrenic angle compatible with small chronic right pleural effusion versus other pleural thickening, unchanged. There is no definable pneumothorax. The cardiomediastinal silhouette is magnified because of magnification from AP portable technique, but is unchanged in size from 09/09/2017. No abnormal deviation of the trachea. IMPRESSION: Left upper extremity x-rays - 1. Mildly displaced, acute, comminuted fracture in the surgical lack of the left humerus as described above. 2. No evidence of acute fracture or dislocation in the left elbow or left forearm. Chronic lateral epicondylitis. Chest x-ray - 1. No evidence of acute infiltrate or pulmonary vascular congestion. No definable pneumothorax. 2. Chronic small right pleural effusion versus other chronic pleural thickening , similar to 2017 chest x-ray. EXAM#: TYPE/EXAM: RESULT: [id number] US/KIDNEY / RENAL US, [id number] US/ PELVIC / BLADDER US INDICATION: Hematuria. TECHNIQUE: Real-time grayscale and color Doppler sonogram of the kidneys, bladder and prostate gland was performed by the technologist. Images are submitted for review. COMPARISON: No prior sonogram. Correlation made to the 09/05/2017 CT abdomen/ pelvis. FINDINGS: This examination is technically limited secondary to patient's inability to breath-hold and facilitate technologist with body movement. Additionally, the patient is unable to maintain a distended urinary bladder during this exam, further limiting evaluation. The right kidney measures 8.7 cm in length and left kidney measures 9.6 cm in length. There is increased echogenicity of bilateral renal cortices suggesting medical-renal disease. No hydronephrosis or shadowing calculus identified within either kidney. CT is much more sensitive in detecting small renal calculi. There is a 0.9 x 0.9 cm cortical cyst in the upper pole of the right kidney. The spleen is enlarged measuring 14.8 x 4.7 x 15.5 cm. The prevoid urinary bladder is collapsed with a calculated volume of 10 mL and can otherwise not be evaluated. Distal ureteral jets could not be obtained. The prostate gland is not visualized. IMPRESSION: 1. No hydronephrosis. Bilateral echogenic kidneys reflecting nonspecific medical-renal disease. 2. A subcentimeter right renal cyst. 3. Nondistended urinary bladder resulting in nondiagnostic sonogram. Prostate gland not visualized. 4. Splenomegaly. Minutes to complete discharge: 45 Discharge Summary Reason For Visit: FRACTURE OF HUMERUS Current Active Problems Fall (Acute) Humerus fracture (Acute) Condition: Stable - Instructions Diet, Activity, Other Instructions: You were admitted to the hospital after falling and found to have a fracture of your left humerus (left upper arm bone). You were also found to a urinary tract infection that is being treated with antibiotics. You are being transferred to [facility] rehab facility to increase your strength while your arm is healing. Follow their recommendations regarding diet, exercise , and medication. Recommendations: -Follow a low carbohydrate and low sugar diet for your diabetes. -You will continue receiving dialysis at [facility]. Your last session was today, . -Use the shoulder immobilizer keeping your Left forearm across your abdomen as instructed by Orthopedics. This will help your bone to heal correctly. You should do light exercises, including moving your Left elbow, wrist, and fingers. Do not bear weight with your Left arm, including using your walker. Medications: -Continue taking your home medications as directed with the following additions: 1) Take Keflex 500mg two times per day (12 hours apart) for 4 more days. Your first dose will be tomorrow morning. Your last dose will be on 12/19 in the evening. 2) Take Percocet 5-325 every 6 hours as needed for your pain. Do not exceed more than 4 doses per day. 3) Take Gabapentin 100mg twice per day for your peripheral neuropathy. Here is a list of your current medications: Acetaminophen (Tylenol -) 650 mg PO Q4H PRN PRN Reason: PAIN Last Admin: 12/15/17 07:30 Dose: 650 mg Cephalexin HCl (Keflex -) 500 mg PO BID [facility] Docusate Sodium (Colace -) 100 mg PO DAILY [facility] Last Admin: 12/15/17 09:51 Dose: 100 mg Furosemide (Lasix -) 80 mg PO DAILY [facility] Last Admin: 12/14/17 10:30 Dose: 80 mg Gabapentin (Neurontin -) 100 mg PO BID [facility] Last Admin: 12/15/17 09:51 Dose: 100 mg Heparin Sodium (Porcine) (Heparin -) 5,000 unit SQ TID [facility] Last Admin: 12/15/17 05:35 Dose: 5,000 unit Hydralazine HCl (Apresoline -) 10 mg PO DAILY [facility] Last Admin: 12/15/17 09:52 Dose: 10 mg Insulin Detemir (Levemir Vial) 8 units SQ HS [facility] Last Admin: 12/14/17 21:09 Dose: 8 units Isosorbide Mononitrate (Ismo -) 10 mg PO DAILY [facility] Last Admin: 12/15/17 09:52 Dose: 10 mg Losartan Potassium (Cozaar -) 25 mg PO DAILY [facility] Last Admin: 12/15/17 09:52 Dose: 25 mg Metoprolol Tartrate (Lopressor -) 25 mg PO DAILY [facility] Last Admin: 12/15/17 09:52 Dose: 25 mg Oxycodone HCl (Roxicodone -) 5 mg PO Q6H PRN PRN Reason: PAIN LEVEL 6-10 Last Admin: 12/15/17 07:30 Dose: 5 mg Follow-ups: -Make an appointment to see your Orthopedist (Dr. Franklin or Dr. Pisano) within 1 week of discharge from rehab. -Make an appointment within 1 week of discharge for post-hospitalization evaluation. -Make an appointment to see Dr. Garay (Neurologist) in 1-2 weeks after discharge from rehab to discuss your peripheral neuropathy and if the Gabapentin medication is helping. Please return to the emergency department with any new, worsening, or concerning symptoms. Referrals: Rachel Zhang MD [Non Staff, Medical] - Sanju Garay DO [Staff Physician] - Manas Pisano MD [Staff Physician] - Evaristo Franklin MD [Staff Physician] - Disposition: [facility] - Home Medications Comprehensive Discharge Medication List: Ambulatory Orders Acetaminophen 650 mg PO ASDIR 12/10/17 Darbepoetin [place] in Polysorbat [Aranesp] 20 mcg PO DAILY 12/10/17 Furosemide [Lasix] 80 mg PO DAILY 12/10/17 Heparin - 500 unit SQ ONCE 12/10/17 Hydralazine HCl 10 mg PO DAILY 12/10/17 Insulin (Levemir) [Levemir Vial] 8 unit SQ HS 12/10/17 Iron Sucrose Complex [Venofer] 50 mg PO DAILY 12/10/17 Isosorbide Mononitrate 10 mg PO DAILY 12/10/17 Losartan Potassium 25 mg PO DAILY 12/10/17 Metoprolol Tartrate 25 mg PO DAILY 12/10/17 Sevelamer Carbonate [Renvela] 800 mg PO DAILY 12/10/17 This patient is new to me today: No Emergency Visit: No Critical Care patient: No - Discharge Referral [facility]erred to [facility] No
[2017-12-15 14:55] VITALS: BP 120/58
[2017-12-15] MEDS: FUROSEMIDE 40 MG TABLET (FP) PO SCH (15:05)
[2017-12-15] MEDS: ALBUMIN HUMAN 25% 12.5 GM/50 ML VIAL IVPB SCH ×3 (17:28→17:33)
[2017-12-15] MEDS ORDERED: CEPHALEXIN MONOHYDRATE 500 MG CAPSULE (UD) PO SCH (22:00)
[2017-12-15] MEDS ORDERED: FERROUS SO4 325 MG TABLET (FP) PO SCH (22:00)
== END 2017-12-15 17:57 | DRG 562 ==
LOC: JER 17:17 → JERBED 22:00 → J6S 12-11 02:04 → OBSVTOIN 12-11 10:47
PROVIDERS: ADMIT Internal Medicine; ATTEND Internal Medicine
PROC: 5A1D90Z Performance of Urinary Filtration, Continuous, Greater than 18 hours Per Day (ICD-10-PCS; principal; 2017-12-15)
DX: S42.202A Unspecified fracture of upper end of left humerus, initial encounter for closed fracture (principal); N18.6 End stage renal disease; I13.2 Hypertensive heart and chronic kidney disease with heart failure and with stage 5 chronic kidney disease, or end stage renal disease; N39.0 Urinary tract infection, site not specified; W19.XXXA Unspecified fall, initial encounter; Y93.9 Activity, unspecified; Y92.480 Sidewalk as the place of occurrence of the external cause; Y99.8 Other external cause status; E11.22 Type 2 diabetes mellitus with diabetic chronic kidney disease; Z99.2 Dependence on renal dialysis; I50.9 Heart failure, unspecified; R31.9 Hematuria, unspecified; E11.21 Type 2 diabetes mellitus with diabetic nephropathy; D63.1 Anemia in chronic kidney disease; M54.16 Radiculopathy, lumbar region; E83.51 Hypocalcemia
CPT/HCPCS: 36415; 71045-TC-FY; 73030-TC-LT-FY; 73060-TC-LT-FY; 73070-TC-LT-FY; 73090-TC-LT-FY; 76775-TC; 76856-TC; 80048; 80053; 81003; 81015; 82550; 82553; 82728; 82962; 83540; 83550; 83735; 84100; 84484; 85025; 85027; 85610; 86704; 86706; 86708; 86850; 86900; 86901; 86922; 87086; 87340; 93005; 93010; 97116-GP; 97162-GP; 99283-25; G0378; J0885; J1644; P9047

== ENCOUNTER 2018-05-25 14:14 | Inpatient (IN) | payer OTHER, MEDICARE ==
--- NOTE | 2018-05-25 14:34 | PDOC ---
History of Present Illness <Kailee Puga - Last Filed: 05/25/18 14:36> <Hector Alfredo - Last Filed: 05/25/18 18:26> - General History Source: Patient Exam Limitations: No Limitations - History of Present Illness Initial Comments: 05/25/18 14:33 The patient is a 72M with a PMH of NIDDM, HTN, CHF, ESRD with dialysis on MWF ( with Left arm AV fistula ), CVA 3 yrs ago who presents to the ER sent by his wildlife officer, Dr. Martino, for a "dialysis shunt problem". The patient states that he was at dialysis today and they were not able to access his shunt. He denies any symptoms. <Maciej Dupree - Last Filed: 05/25/18 18:40> - General Stated Complaint: Dialysis Shunt Problem Time Seen by Provider: 05/25/18 14:22 Past History <Kailee Puga - Last Filed: 05/25/18 14:36> <Hector Alfredo - Last Filed: 05/25/18 18:26> - Past Medical History Anemia: Yes Cardiac Disorders: Yes (CHF) COPD: No Diabetes: Yes Disorders: Yes (kidney failure, left arm fistula (not on dialysis yet)) HTN: Yes Hypercholesterolemia: Yes - Suicide/Smoking/Psychosocial Hx Smoking History: Unknown if ever smoked Have you smoked in the past 12 months: No Hx Alcohol Use: No Drug/Substance Use Hx: No Substance Use Type: None <Maciej Dupree - Last Filed: 05/25/18 18:40> - Past Medical History Allergies/Adverse Reactions: Allergies Allergy/AdvReac Type Severity Reaction Status Date / Time No Known Allergies Allergy Verified 05/25/18 14:28 Home Medications: Ambulatory Orders Darbepoetin [place] in Polysorbat [Aranesp] 20 mcg PO DAILY 12/10/17 Furosemide [Lasix] 80 mg PO DAILY 12/10/17 Hydralazine HCl 10 mg PO DAILY 12/10/17 Insulin (Levemir) [Levemir Vial] 8 unit SQ HS 12/10/17 Isosorbide Mononitrate 10 mg PO DAILY 12/10/17 Losartan Potassium 25 mg PO DAILY 12/10/17 Metoprolol Tartrate 25 mg PO DAILY 12/10/17 Sevelamer Carbonate [Renvela -] 800 mg PO DAILY 12/10/17 Acetaminophen [Tylenol .Regular Strength -] 650 mg PO Q4H PRN tablet 12/15/17 Cephalexin Monohydrate [Keflex -] 500 mg PO BID capsule 12/15/17 Ferrous Sulfate [Feosol] 325 mg PO BID ud 12/15/17 Gabapentin [Neurontin -] 100 mg PO BID capsule 12/15/17 oxyCODONE HCL [Roxicodone -] 5 mg PO Q6H PRN tablet MDD 20 12/15/17 Lidocaine 5% Top. Ointment [Xylocaine 5% Top. Ointment -] 1 applic TP DAILY #1 tube 03/12/18 Review of Systems - Review of Systems Able to Perform ROS?: Yes Comments:: 05/25/18 14:47 GENERAL/CONSTITUTIONAL: No fever or chills. No weakness. HEAD, EYES, EARS, NOSE AND THROAT: No change in vision. No ear pain or discharge. No sore throat. CARDIOVASCULAR: No chest pain, palpitations, or lightheadedness. RESPIRATORY: No cough, wheezing, shortness of breath, or hemoptysis. GASTROINTESTINAL: No nausea, vomiting, diarrhea, constipation, or abdominal pain. GENITOURINARY: No dysuria, frequency, hematuria, or change in urination. MUSCULOSKELETAL: No joint or muscle swelling or pain. No neck or back pain. SKIN: No rash or lesions. NEUROLOGIC: No headache, numbness, tingling, focal weakness, loss of consciousness, or change in strength/sensation. ENDOCRINE: No increased thirst. No abnormal weight change. HEMATOLOGIC/LYMPHATIC: No anemia, easy bleeding, or history of blood clots. ALLERGIC/IMMUNOLOGIC: No hives or skin allergy. Is the patient limited German proficient: No <Maciej Dupree - Last Filed: 05/25/18 18:40> *Physical Exam - Vital Signs Last Vital Signs Temp Pulse Resp BP Pulse Ox 97.9 F 58 L 18 164/75 99 05/25/18 14:30 05/25/18 14:30 05/25/18 14:30 05/25/18 14:30 05/25/18 14:30 <Kailee Puga - Last Filed: 05/25/18 14:36> - Vital Signs Last Vital Signs Temp Pulse Resp BP Pulse Ox 97.9 F 58 L 18 164/75 99 05/25/18 14:30 05/25/18 14:30 05/25/18 14:30 05/25/18 14:30 05/25/18 14:30 <Hector Alfredo - Last Filed: 05/25/18 18:26> - Vital Signs Last Vital Signs Temp Pulse Resp BP Pulse Ox 97.9 F 58 L 18 164/75 99 05/25/18 14:30 05/25/18 14:30 05/25/18 14:30 05/25/18 14:30 05/25/18 14:30 - Physical Exam Comments: 05/25/18 14:47 GENERAL: Well developed, well nourished. Awake and alert. No acute distress. HEENT: Normocephalic, atraumatic. Hearing grossly normal. Moist mucous membranes. PERRLA, EOMI. No conjunctival pallor. Sclera are non-icteric. NECK: Supple. Full ROM. No JVD. CARDIOVASCULAR: Regular rate and rhythm. No murmurs, rubs, or gallops. PULMONARY: No evidence of respiratory distress. Lungs clear to auscultation bilaterally. No wheezing, rales or rhonchi. ABDOMINAL: Soft. Non-tender. Non-distended. No rebound or guarding. GENITOURINARY: No CVA tenderness bilaterally. MUSCULOSKELETAL: Normal range of motion at all joints. No bony deformities or tenderness. EXTREMITIES: No cyanosis. No clubbing. No edema. No calf tenderness or swelling. SKIN: Warm and dry. Normal capillary refill. No rashes. No jaundice. NEUROLOGICAL: Alert, awake, appropriate. Cranial nerves 2-12 grossly intact. Normal speech. Gait is normal without ataxia. PSYCHIATRIC: Cooperative. Good eye contact. Appropriate mood and affect. <Maciej Dupree - Last Filed: 05/25/18 18:40> ED Treatment Course - Consult/PCP Case discussed with personal care physician: Ant Martino (Paged Dr. Martino's office. Awaiting call back.) <Kailee Puga - Last Filed: 05/25/18 14:36> - LABORATORY CBC & Chemistry Diagram: 05/25/18 15:35 05/25/18 15:35 - ADDITIONAL ORDERS Additional order review: Laboratory Results 05/25/18 05/25/18 15:35 15:35 PT with INR 11.40 INR 1.01 Sodium 141 Potassium 5.1 Chloride 105 Carbon Dioxide 23 Anion Gap 13 BUN 81 H Creatinine 9.0 H* Creat Clearance w eGFR 5.79 Random Glucose 196 H Calcium 8.2 L Total Bilirubin 0.5 AST 14 L ALT 18 Alkaline Phosphatase 107 Total Protein 7.0 Albumin 3.4 05/25/18 15:35 RBC 3.46 L MCV 90.1 MCHC 34.6 RDW 15.6 MPV 7.3 L Neutrophils % 58.5 Lymphocytes % 28.1 Monocytes % 7.5 Eosinophils % 5.0 H Basophils % 0.9 - Medications Given in the ED: ED Medications Discontinued Medications Generic Name Dose Route Start Last Admin Trade Name Lvq PRN Reason Stop Dose Admin Acetaminophen 650 mg 05/25/18 14:45 05/25/18 15:09 Tylenol - PO 05/25/18 14:46 650 mg ONCE ONE Administration <Hector Alfredo - Last Filed: 05/25/18 18:26> - LABORATORY CBC & Chemistry Diagram: 05/25/18 15:35 05/25/18 15:35 <Maciej Dupree - Last Filed: 05/25/18 18:40> Medical Decision Making - Medical Decision Making 05/25/18 17:[address] Flower's answering service, awaiting call back. 05/25/18 18:19 Second call placed to Dr. Flower's answering service, awaiting call back. 05/25/18 18:[address] Martino's answering service, awaiting call back <Hector Alfredo - Last Filed: 05/25/18 18:26> - Medical Decision Making 05/25/18 14:50 The patient is a 72M with an extensive PMH including ESRD on dialysis who presents to the ER with a shunt that is not accessible. I have d/w Dr. Martino who agrees with labs and reevaluation. Pending EKG and labs. 05/25/18 17:34 K is 5.1. EKG unremarkable. Dr. Flower paged. Pending call back. 05/25/18 18:36 I have d/w Dr. Flower who wants the pt NPO at midnight. I have endorsed the patient to Dr. Richards for admission. <Maciej Dupree - Last Filed: 05/25/18 18:40> *DC/Admit/Observation/Transfer <Kailee Puga - Last Filed: 05/25/18 14:36> - Attestations Scribe Attestion: 05/25/18 17:28 Documentation prepared by Hector Alfredo, acting as site medical director for Adam Addison MD. <Hector Alfredo - Last Filed: 05/25/18 18:26> - Discharge Dispostion Decision to Admit order: Yes <Maciej Dupree - Last Filed: 05/25/18 18:40> Diagnosis at time of Disposition: AV fistula occlusion Qualifiers: Encounter type: initial encounter Qualified Code(s): T82.898A - Other specified complication of vascular prosthetic devices, implants and grafts, initial encounter - Discharge Dispostion Condition at time of disposition: Guarded - Referrals Referrals: Ant Martino MD [Primary Care Provider] - - Patient Instructions - Post Discharge Activity
--- NOTE | 2018-05-25 14:40 | PDOC ---
Attending Attestation - HPI HPI: The patient is a 72 year old male, with a PMHx of HTN, CHF, CVA, NIDDM, ESRD ( dialysis M,W,F) , who came from dialysis today. Patient states that they weren t able to access his port on his left arm dialysis shunt and was referred to the ED. Patient does not have any other acute complaints or symptoms. Auto Radio Mechanic: Gunner Cain D.O. <Kailee Puga - Last Filed: 05/25/18 16:02> - Resident Resident Name: Maciej Dupree - ED Attending Attestation I have performed the following: I have examined & evaluated the patient, The case was reviewed & discussed with the resident, I agree w/resident's findings & plan, Exceptions are as noted - Physicial Exam PE: 05/25/18 16:37 Agree with residents PE 05/25/18 16:38 - Medical Decision Making 05/25/18 16:38 72 years old with nonfunctioning dialysis shunt presents to the emergency department for evaluation blood work EKG Based on blood work will discuss case with vascular surgeon. <Adam Addison - Last Filed: 05/25/18 16:39> Heart Score/ECG Review - ECG Impressions Comment:: 05/25/18 16:39 Sinus rhythm with no ST elevations noted T-wave inversions no peaked T's FL interval 276 QRS 94 QTc 451 <Adam Addison - Last Filed: 05/25/18 16:39>
[2018-05-25] MEDS ORDERED: ACETAMINOPHEN 325 MG TABLET (FP) PO ONE (14:45)
[2018-05-25] MEDS ORDERED: ACETAMINOPHEN 325 MG TABLET (FP) ONE (15:02)
[2018-05-25 15:58] LABS: BASO % 0.9 % (0-2.0); HEMATOCRIT 31.2 % (35.4-49); HEMOGLOBIN 10.8 GM/dL (11.7-16.9); LYMPH % 28.1 % (8-40); MCH 31.2 pg (25.7-33.7); MCHC 34.6 g/dl (32.0-35.9); MEAN CELL VOLUME 90.1 fl (80-96); MEAN PLT VOLUME 7.3 fl (7.5-11.1); MONO % 7.5 % (3.8-10.2); NEUT % 58.5 % (42.8-82.8); PLATELET COUNT 136 K/MM3 (134-434); RBC 3.46 M/mm3 (4.00-5.60); RDW 15.6 % (11.9-15.9)
[2018-05-25 16:12] LABS: INR 1.01 (0.83-1.09); PROTHROMBIN TIME (PATIENT) 11.4 SEC (9.7-13.0)
[2018-05-25 16:24] LABS: ALBUMIN 3.4 g/dl (3.4-5.0); ANION GAP 13 MMOL/L (8-16); BILIRUBIN,TOTAL 0.5 mg/dL (0.2-1); BLOOD UREA NITROGEN 81 mg/dL (7-18); CALCIUM 8.2 mg/dL (8.5-10.1); CHLORIDE 105 mmol/L (98-107); CO2 23 mmol/L (21-32); GLUCOSE,RANDOM 196 mg/dL (74-106); POTASSIUM 5.1 mmol/L (3.5-5.1); SGOT/AST 14 U/L (15-37); SGPT/ALT 18 U/L (13-61); SODIUM 141 mmol/L (136-145)
[2018-05-25 16:25] LABS: ALK PHOS 107 U/L (45-117)
--- NOTE | 2018-05-25 17:13 | EKG ---
Test Reason : Blood Pressure : / mmHG Vent. Rate : 059 BPM Atrial Rate : 059 BPM P-R Int : 276 ms QRS Dur : 094 ms QT Int : 456 ms P-R-T Axes : 027 008 074 degrees QTc Int : 451 ms SINUS BRADYCARDIA WITH 1ST DEGREE A-V BLOCK CANNOT RULE OUT ANTERIOR INFARCT , AGE UNDETERMINED ABNORMAL ECG WHEN COMPARED WITH ECG OF 10-DEC-2017 18:29, NO SIGNIFICANT CHANGE WAS FOUND Confirmed by LENY DIETRICH, ANALY ([id number]) on 05/25/2018 5:13:05 PM Referred By: Confirmed By:ANALY MICHELE MD
[2018-05-25] MEDS ORDERED: LOSARTAN POTASSIUM 25 MG TABLET PO ONE (19:53)
[2018-05-25] MEDS ORDERED: ISOSORBIDE DINITRATE 10 MG TABLET (FP) PO ONE (19:54)
--- NOTE | 2018-05-25 20:34 | HP ---
Admitting History and Physical - Primary Care Physician PCP: Corey Richards - Admission History of Present Illness: 72M with a PMH of NIDDM, HTN, CHF, ESRD with dialysis on MWF (with Left arm AV fistula ), CVA 3 yrs ago who presents to the ER sent by his bathing suit maker, Dr. Martino, for a "dialysis shunt problem". The patient states that he was at dialysis today and they were not able to access his shunt. He denies any symptoms. 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: CVA (Right side CVA with residual weakness of LLE) Cardiovascular: Yes: CHF, HTN Renal/: Yes: Renal Failure, Renal Inusuff, Hemodialysis Endocrine: Yes: Diabetes Mellitus - Past Surgical History Past Surgical History: Yes: AV Fistula/Graft - Smoking History Smoking history: Unknown if ever smoked Have you smoked in the past 12 months: No - Alcohol/Substance Use Hx Alcohol Use: No Home Medications - Allergies Allergies/Adverse Reactions: Allergies Allergy/AdvReac Type Severity Reaction Status Date / Time No Known Allergies Allergy Verified 05/25/18 14:28 - Home Medications Home Medications: Ambulatory Orders Darbepoetin [place] in Polysorbat [Aranesp] 20 mcg PO DAILY 12/10/17 Furosemide [Lasix] 80 mg PO DAILY 12/10/17 Hydralazine HCl 10 mg PO DAILY 12/10/17 Insulin (Levemir) [Levemir Vial] 8 unit SQ HS 12/10/17 Isosorbide Mononitrate 10 mg PO DAILY 12/10/17 Losartan Potassium 25 mg PO DAILY 12/10/17 Metoprolol Tartrate 25 mg PO DAILY 12/10/17 Sevelamer Carbonate [Renvela -] 800 mg PO DAILY 12/10/17 Acetaminophen [Tylenol .Regular Strength -] 650 mg PO Q4H PRN tablet 12/15/17 Ferrous Sulfate [Feosol] 325 mg PO BID ud 12/15/17 Gabapentin [Neurontin -] 100 mg PO BID capsule 12/15/17 Physical Examination Vital Signs: Vital Signs Temperature 97.9 F 05/25/18 14:30 Pulse Rate 57 L 05/25/18 19:34 Respiratory Rate 18 05/25/18 19:34 Blood Pressure 178/81 05/25/18 19:34 O2 Sat by Pulse Oximetry (%) 100 05/25/18 19:34 Constitutional: Yes: No Distress HENT: Yes: Atraumatic Neck: Yes: Supple Cardiovascular: Yes: Regular Rate and Rhythm Respiratory: Yes: CTA Bilaterally Gastrointestinal: Yes: Normal Bowel Sounds Extremities: Yes: WNL Neurological: Yes: Alert, Oriented Labs: CBC, BMP 05/25/18 15:35 05/25/18 15:35 Problem List - Problems (1) AV fistula occlusion Assessment/Plan: for OR tomorrow Code(s): T82.898A - OTH COMPLICATION OF VASCULAR PROSTH DEV/GRFT, INIT Qualifiers: Encounter type: initial encounter Qualified Code(s): T82.898A - Other specified complication of vascular prosthetic devices, implants and grafts, initial encounter (2) ESRD (end stage renal disease) Assessment/Plan: on hd renal on board Code(s): N18.6 - END STAGE RENAL DISEASE Assessment/Plan Laboratory Tests 05/25/18 05/25/18 05/25/18 15:35 15:35 15:35 WBC 5.0 RBC 3.46 L Hgb 10.8 L Hct 31.2 L D MCV 90.1 MCH 31.2 MCHC 34.6 RDW 15.6 Plt Count 136 MPV 7.3 L Absolute Neuts (auto) 2.9 Neutrophils % 58.5 Lymphocytes % 28.1 Monocytes % 7.5 Eosinophils % 5.0 H Basophils % 0.9 Nucleated RBC % 0 PT with INR 11.40 INR 1.01 Sodium 141 Potassium 5.1 Chloride 105 Carbon Dioxide 23 Anion Gap 13 BUN 81 H Creatinine 9.0 H* Creat Clearance w eGFR 5.79 Random Glucose 196 H Calcium 8.2 L Total Bilirubin 0.5 AST 14 L ALT 18 Alkaline Phosphatase 107 Total Protein 7.0 Albumin 3.4 Blood Type Antibody Screen 05/25/18 15:35 WBC RBC Hgb Hct MCV MCH MCHC RDW Plt Count MPV Absolute Neuts (auto) Neutrophils % Lymphocytes % Monocytes % Eosinophils % Basophils % Nucleated RBC % PT with INR INR Sodium Potassium Chloride Carbon Dioxide Anion Gap BUN Creatinine Creat Clearance w eGFR Random Glucose Calcium Total Bilirubin AST ALT Alkaline Phosphatase Total Protein Albumin Blood Type O POSITIVE Antibody Screen Negative Active Medications Generic Name Dose Route Start Last Admin Trade Name Freq PRN Reason Stop Dose Admin Acetaminophen 650 mg 05/26/18 16:52 Tylenol - PO Q6H PRN FEVER Fentanyl 25 mcg 09/18/18 16:52 Sublimaze Injection - IVPUSH [id number] PRN PAIN-PACU ORDER X 4 DOSES ONLY Furosemide 80 mg 05/27/18 10:00 Lasix - PO DAILY [facility] Gabapentin 100 mg 05/26/18 22:00 Neurontin - PO BID [facility] [place] Heparin Sodium (Porcine) 1,000 unit 05/26/18 16:52 Heparin - IVPUSH 05/26/18 16:53 ONCE ONE Hydralazine HCl 10 mg 05/27/18 10:00 Apresoline - PO DAILY [facility] [place] Sodium Chloride 250 mls @ 3,000 mls/hr 05/26/18 16:52 Normal Saline - IV 05/27/18 07:47 PRN PRN Hypotension during Dialysis Sodium Chloride 1,000 mls @ 75 mls/hr 05/26/18 16:52 Normal Saline - IV ASDIR [facility] [place] Isosorbide Mononitrate 10 mg 05/27/18 10:00 Ismo - PO DAILY [facility] [place] Losartan Potassium 25 mg 05/27/18 10:00 Cozaar - PO DAILY [facility] [place] Metoprolol Tartrate 25 mg 05/27/18 10:00 Lopressor - PO DAILY [facility] Ondansetron HCl 4 mg 05/26/18 16:52 Zofran Injection IVPUSH Q6H PRN NAUSEA AND/OR VOMITING Oxycodone HCl 5 mg 05/26/18 16:52 Roxicodone - PO 05/27/18 14:44 Q4H PRN PAIN LEVEL 1-5 Promethazine HCl 12.5 mg 05/26/18 16:52 Phenergan Injection - IVPUSH Q6H PRN NAUSEA-FOR RESCUE AFTER 15 MIN Sevelamer Carbonate 800 mg 05/27/18 08:00 Renvela - PO DAILY@0800 [facility]
[2018-05-25] MEDS ORDERED: ACETAMINOPHEN 325 MG TABLET (FP) PO PRN (20:35)
[2018-05-25] MEDS: SODIUM CHLORIDE 1,000 ML IV SCH (22:07)
[2018-05-25] MEDS: GABAPENTIN 100 MG CAPSULE (FP) PO SCH (22:08)
[2018-05-26 06:40] VITALS: BMI 21.1
--- NOTE | 2018-05-26 07:39 | SPA.PREOP ---
- PRE-OP NOTE Dx: AVF occlusion Planned Procedure: Suction thrmobectomy / venogram Surgeon: Chato Flower Consent: To be obtained after surgeon explains all risks, benefits and alternatives. Last Vital Signs Temp Pulse Resp BP Pulse Ox 97.5 F L 58 L 18 147/67 100 05/26/18 06:00 05/26/18 06:00 05/26/18 06:00 05/26/18 06:00 05/25/18 21:00 Lab Results WBC 5.0 K/mm3 (4.0-10.0) 05/25/18 15:35 RBC 3.46 M/mm3 (4.00-5.60) L 05/25/18 15:35 Hgb 10.8 GM/dL (11.7-16.9) L 05/25/18 15:35 Hct 31.2 % (35.4-49) L D 05/25/18 15:35 MCV 90.1 fl (80-96) 05/25/18 15:35 MCHC 34.6 g/dl (32.0-35.9) 05/25/18 15:35 RDW 15.6 % (11.9-15.9) 05/25/18 15:35 Plt Count 136 K/MM3 (134-434) 05/25/18 15:35 Sodium 141 mmol/L (136-145) 05/25/18 15:35 Potassium 5.1 mmol/L (3.5-5.1) 05/25/18 15:35 Chloride 105 mmol/L (98-107) 05/25/18 15:35 Carbon Dioxide 23 mmol/L (21-32) 05/25/18 15:35 Anion Gap 13 MMOL/L (8-16) 05/25/18 15:35 BUN 81 mg/dL (7-18) H 05/25/18 15:35 Creatinine 9.0 mg/dL (0.55-1.3) H* 05/25/18 15:35 Random Glucose 196 mg/dL (74-106) H 05/25/18 15:35 Calcium 8.2 mg/dL (8.5-10.1) L 05/25/18 15:35 Blood Type O POSITIVE 05/25/18 15:35 Antibody Screen Negative 05/25/18 15:35 INR 1.01 (0.83-1.09) 05/25/18 15:35 - ASSESSMENT/PLAN 1. NPO 2. GI/DVT PPX 3. Medical optimization / clearance 4. Going to OR today at 2PM Visit type - Case Type Case Type: ED Admission - Emergency Emergency Visit: Yes ED Registration Date: 05/25/18 Care time: The patient presented to the Emergency Department on the above date and was hospitalized for further evaluation of their emergent condition. - New patient This patient is new to me today: Yes Date on this admission: 05/26/18
[2018-05-26] MEDS ORDERED: SODIUM CHLORIDE 250 ML IV PRN ×2 (07:47→18:30)
[2018-05-26] MEDS ORDERED: HEPARIN NA (PORCINE) 5,000 UNITS/ML 1ML VIAL IVPUSH ONE ×2 (07:47→18:30)
[2018-05-26] MEDS ORDERED: SEVELAMER CARBONATE 800 MG TAB (FP) PO SCH (08:00)
[2018-05-26 09:02] LABS: HEMATOCRIT 28.8 % (35.4-49); MCH 31.2 pg (25.7-33.7); MCHC 34.7 g/dl (32.0-35.9); MEAN CELL VOLUME 89.8 fl (80-96); MEAN PLT VOLUME 7.1 fl (7.5-11.1); PLATELET COUNT 137 K/MM3 (134-434); RBC 3.21 M/mm3 (4.00-5.60); RDW 15.2 % (11.9-15.9); WHITE BLOOD COUNT 5.4 K/mm3 (4.0-10.0)
[2018-05-26 09:29] LABS: ANION GAP 12 MMOL/L (8-16); BLOOD UREA NITROGEN 78 mg/dL (7-18); CALCIUM 7.7 mg/dL (8.5-10.1); CHLORIDE 110 mmol/L (98-107); CO2 20 mmol/L (21-32); GLUCOSE,RANDOM 135 mg/dL (74-106); PHOSPHOROUS 5.9 mg/dL (2.5-4.9); SODIUM 142 mmol/L (136-145)
[2018-05-26 09:35] LABS: CREATININE 8.7 mg/dL (0.55-1.3)
[2018-05-26] MEDS ORDERED: hydrALAZINE HCL 10 MG TABLET PO SCH (10:00)
[2018-05-26] MEDS ORDERED: FUROSEMIDE 40 MG TABLET (FP) PO SCH (10:00)
[2018-05-26] MEDS ORDERED: LOSARTAN POTASSIUM 25 MG TABLET PO SCH (10:00)
[2018-05-26] MEDS ORDERED: ISOSORBIDE MONONITRATE 10 MG TABLET PO SCH (10:00)
[2018-05-26] MEDS ORDERED: METOPROLOL TARTRATE 25 MG TABLET (FP) PO SCH (10:00)
[2018-05-26] MEDS: SODIUM CHLORIDE 1,000 ML IV SCH (10:58)
[2018-05-26] MEDS: GABAPENTIN 100 MG CAPSULE (FP) PO SCH (11:00)
[2018-05-26] MEDS ORDERED: HEPARIN NA (PORCINE) 5,000 UNITS/ML 1ML VIAL ONE (12:47)
[2018-05-26] MEDS ORDERED: LIDOCAINE HCL 2% (20ML MULTI-DOSE VIAL) NR ONE (12:47)
--- NOTE | 2018-05-26 12:49 | CONSULT ---
Consult - text type - Consultation Consultation Note: Renal Consult for ESRD on HD This is a 72 year old gentleman with hx of ESRD on HD (MWF), Suspected diabetic nephropathy, Hypertension, Hx of Hep C, Chronic decontaminating presented from outpatient dialysis unit with a clotted AV Access. Pt last had dialysis on . No SOB/CP/Abd pain/N/V/D. Report he is really hungry. for OR declott today. PMhx: as above Allergies: NKDA Family Hx: NC Social Hx: No T/A/D ROS: as per HPI Home Medications Medication Instructions Recorded Darbepoetin [place] in Polysorbat 20 mcg PO DAILY 12/10/17 [Aranesp] Furosemide [Lasix] 80 mg PO DAILY 12/10/17 Hydralazine HCl 10 mg PO DAILY 12/10/17 Insulin (Levemir) [Levemir Vial] 8 unit SQ HS 12/10/17 Isosorbide Mononitrate 10 mg PO DAILY 12/10/17 Losartan Potassium 25 mg PO DAILY 12/10/17 Metoprolol Tartrate 25 mg PO DAILY 12/10/17 Sevelamer Carbonate [Renvela -] 800 mg PO DAILY 12/10/17 Acetaminophen [Tylenol .Regular 650 mg PO Q4H PRN tablet 12/15/17 Strength -] Ferrous Sulfate [Feosol] 325 mg PO BID ud 12/15/17 Gabapentin [Neurontin -] 100 mg PO BID capsule 12/15/17 Vital Signs Temperature 97.6 F 05/26/18 09:27 Pulse Rate 65 05/26/18 09:27 Respiratory Rate 18 05/26/18 09:27 Blood Pressure 146/74 05/26/18 09:27 O2 Sat by Pulse Oximetry (%) 99 05/26/18 09:00 Intake & Output 05/23/18 05/24/18 05/25/18 05/26/18 23:59 23:59 23:59 23:59 Intake Total 850 Output Total 300 Balance 550 Weight 70.579 kg NAD awake and alert RRR, No M/R CTA, no rales soft NT/ND No Le edema, clubbing CBC, BMP 05/26/18 08:55 05/26/18 08:55 Current Medications Acetaminophen (Tylenol -) 650 mg PO Q6H PRN PRN Reason: FEVER Furosemide (Lasix -) 80 mg PO DAILY [facility] Last Admin: 05/26/18 10:59 Dose: Not Given Gabapentin (Neurontin -) 100 mg PO BID [facility] Last Admin: 05/26/18 11:00 Dose: Not Given Heparin Sodium (Porcine) (Heparin -) 1,000 unit IVPUSH ONCE ONE Stop: 05/26/18 07:48 Hydralazine HCl (Apresoline -) 10 mg PO DAILY [facility] Last Admin: 05/26/18 10:58 Dose: Not Given Sodium Chloride (Normal Saline -) 1,000 mls @ 75 mls/hr IV ASDIR [facility] Last Admin: 05/26/18 10:58 Dose: 75 mls/hr Sodium Chloride (Normal Saline -) 250 mls @ 3,000 mls/hr IV PRN PRN PRN Reason: Hypotension during Dialysis Stop: 05/27/18 07:47 Isosorbide Mononitrate (Ismo -) 10 mg PO DAILY [facility] Last Admin: 05/26/18 10:59 Dose: Not Given Losartan Potassium (Cozaar -) 25 mg PO DAILY [facility] Last Admin: 05/26/18 10:59 Dose: Not Given Metoprolol Tartrate (Lopressor -) 25 mg PO DAILY [facility] Last Admin: 05/26/18 10:59 Dose: Not Given Sevelamer Carbonate (Renvela -) 800 mg PO DAILY@0800 [facility] Last Admin: 05/26/18 09:35 Dose: Not Given 72 year old gentleman with hx of ESRD on HD (MWF), Suspected diabetic nephropathy, Hypertension, Hx of Hep C, Chronic decontaminating presented from outpatient dialysis unit with a clotted AV Access. #Clotted AV Access #ESRD on HD #Hypertension #CKD related Anemia #Renal Osteodystrophy #Chronic Deconditioning For OR declott today will have dialysis today as inpatient following OR Continue present BP meds, hold before dialysis Will give EDWINA with HD continue phos binder with meals Outpatient physical therapy referral Thank you Stable for discharge home s/p dialysis Ant Martino DO
[2018-05-26] MEDS ORDERED: PROMETHAZINE HCL 25 MG/1 ML VIAL IVPUSH PRN ×2 (14:45→16:52)
[2018-05-26] MEDS ORDERED: oxyCODONE HCL 5 MG TABLET PO PRN ×2 (14:45→16:52)
[2018-05-26] MEDS ORDERED: ONDANSETRON 4 MG/2 ML VIAL IVPUSH PRN ×2 (14:45→16:52)
[2018-05-26] MEDS ORDERED: MIDAZOLAM HCL 2 MG/2 ML SINGLE DOSE VIAL ONE (14:55)
[2018-05-26] MEDS ORDERED: PROPOFOL 20 ML ONE (14:55)
[2018-05-26] MEDS ORDERED: ceFAZolin SODIUM 1 GM VIAL IVPB ONE (15:12)
[2018-05-26] MEDS ORDERED: ceFAZolin SODIUM 1 GM VIAL ONE (15:18)
--- NOTE | 2018-05-26 16:14 | OP ---
Operative Note - Note: Operative Date: 05/26/18 Pre-Operative Diagnosis: clotted left avf Operation: Venogram, suction thrombectomy, venoplasty left avf Post-Operative Diagnosis: Same as Pre-op Surgeon: Chato Flower Anesthesia: Fractional Estimated Blood Loss (mls): 25 Operative Report Dictated: Yes
[2018-05-26] MEDS ORDERED: PT OWN MED DRAWER 7, Y5N ONE (16:47)
[2018-05-26] MEDS ORDERED: ACETAMINOPHEN 325 MG TABLET (FP) PO PRN (16:52)
[2018-05-26] MEDS ORDERED: SODIUM CHLORIDE 1,000 ML IV SCH (16:52)
--- NOTE | 2018-05-26 17:52 | DS ---
Physical Examination Vital Signs: Vital Signs Temperature 98.2 F 05/26/18 16:47 Pulse Rate 61 05/26/18 16:47 Respiratory Rate 16 05/26/18 16:47 Blood Pressure 171/56 05/26/18 16:47 O2 Sat by Pulse Oximetry (%) 100 05/26/18 16:30 Constitutional: Yes: No Distress HENT: Yes: Atraumatic Neck: Yes: Supple Cardiovascular: Yes: Regular Rate and Rhythm Respiratory: Yes: CTA Bilaterally Gastrointestinal: Yes: Normal Bowel Sounds Extremities: Yes: WNL Neurological: Yes: Alert, Oriented Labs: CBC, BMP 05/26/18 08:55 05/26/18 08:55 Discharge Summary Reason For Visit: ARTERIOVENOUS FISTULA; END STAGE RENAL DISEASE Current Active Problems AV fistula occlusion (Acute) Condition: Guarded - Instructions Referrals: Ant Martino MD [Primary Care Provider] - Disposition: HOME - Home Medications Comprehensive Discharge Medication List: Ambulatory Orders Darbepoetin [place] in Polysorbat [Aranesp] 20 mcg PO DAILY 12/10/17 Furosemide [Lasix] 80 mg PO DAILY 12/10/17 Hydralazine HCl 10 mg PO DAILY 12/10/17 Insulin (Levemir) [Levemir Vial] 8 unit SQ HS 12/10/17 Isosorbide Mononitrate 10 mg PO DAILY 12/10/17 Losartan Potassium 25 mg PO DAILY 12/10/17 Metoprolol Tartrate 25 mg PO DAILY 12/10/17 Sevelamer Carbonate [Renvela -] 800 mg PO DAILY 12/10/17 Acetaminophen [Tylenol .Regular Strength -] 650 mg PO Q4H PRN tablet 12/15/17 Ferrous Sulfate [Feosol] 325 mg PO BID ud 12/15/17 Gabapentin [Neurontin -] 100 mg PO BID capsule 12/15/17 ut home
[2018-05-26 18:17] VITALS: TEMP 98.4
[2018-05-26 21:01] VITALS: BP 140/62; PULSE 70
[2018-05-26] MEDS ORDERED: GABAPENTIN 100 MG CAPSULE (FP) PO SCH (22:00)
[2018-05-27] MEDS ORDERED: SEVELAMER CARBONATE 800 MG TAB (FP) PO SCH (08:00)
[2018-05-27] MEDS ORDERED: LOSARTAN POTASSIUM 25 MG TABLET PO SCH (10:00)
[2018-05-27] MEDS ORDERED: FUROSEMIDE 40 MG TABLET (FP) PO SCH (10:00)
[2018-05-27] MEDS ORDERED: hydrALAZINE HCL 10 MG TABLET PO SCH (10:00)
[2018-05-27] MEDS ORDERED: ISOSORBIDE MONONITRATE 10 MG TABLET PO SCH (10:00)
[2018-05-27] MEDS ORDERED: METOPROLOL TARTRATE 25 MG TABLET (FP) PO SCH (10:00)
[2018-05-29 00:08] LABS: HBSAG SCREEN Negative (Negative); HEP A AB, IGM Negative (Negative); HEP B CORE AB, TOT Positive (Negative)
--- NOTE | 2018-06-09 10:20 | OP ---
DATE OF OPERATION: 05/26/2018 PREOPERATIVE DIAGNOSIS: Clotted left arteriovenous fistula. POSTOPERATIVE DIAGNOSIS: Clotted left arteriovenous fistula. PROCEDURE: Venogram, suction thrombectomy, venoplasty, left arteriovenous fistula. SURGEON: Chato Blanco DO ANESTHESIA: Fractional. BLOOD LOSS: 25 mL The patient is a 72-year-old male who comes in with a clotted left AV fistula. It was decided that he would need thrombectomy. Patient was consented for the procedure, understanding all risks, benefits, and alternatives. He was then brought to the operating room. Once in the operating room, he was laid on the operating table in supine manner, and the area of the left arm was prepped and draped in a sterile surgical manner. We then went ahead and injected 5 mL of lidocaine 1% in the proximal AV fistula, and we were able to use our micropuncture needle and puncture the proximal AV fistula under ultrasound guidance. Micropuncture wire was inserted, and micropuncture sheath was inserted. We then placed our short 6-Frisian sheath. We then shot our venogram showing that the fistula was clotted. We then placed our 0.035 floppy guidewire up into the central veins. We then used our AVX suction thrombectomy catheter and performed suction thrombectomy of the entire AV fistula to the central veins. Completion venogram now showed that the distal AV fistula was patent, but it was highly stenotic. We went ahead and administered 3000 units of IV heparin to the patient. We then went ahead and used an 8 x 8 [place] balloon and performed venoplasty of the distal AV fistula. We then went ahead and injected 5 mL of lidocaine 1% at the distal AV fistula, and using a micropuncture needle, we punctured the AV fistula facing towards the arterial anastomosis, and a short 6-Frisian sheath was placed. We then went ahead and shot our venogram showing that the proximal AV fistula was clotted. We placed our 0.035 floppy guidewire into the brachial artery. We then used our AVX suction thrombectomy catheter and performed thrombectomy of the proximal AV fistula. We then went ahead and used a number 4 Gurjit and performed thrombectomy using the Gurjit at the anastomosis. Completion venogram now showed that the fistula was patent and there was a good thrill in the AV fistula, but the proximal AV fistula was stenotic. We went ahead and used a 7 x 4 [place] balloon and performed venoplasty of the proximal AV fistula. Completion venogram now showed that the fistula was patent. There was a good thrill in our AV fistula. There was good flow all the way into the central veins. We then used our 4-0 Biosyn stitch and a [id number] stitch was placed around each sheath and the sheaths were pulled. Area was wet and dried, and Dermabond was placed. The patient tolerated this procedure with no complications. Patient transferred to PACU in stable condition. CHATO BLANCO DO [id number]
== END 2018-05-26 21:33 | disposition home or self-care (01) | DRG 252 ==
LOC: JER 14:14 → JERBED 18:40 → J5S 21:24
PROVIDERS: ADMIT Internal Medicine; ATTEND Internal Medicine
PROC: 05CY3ZZ Extirpation of Matter from Upper Vein, Percutaneous Approach (ICD-10-PCS; principal; 2018-05-25)
PROC: B51NZZZ Fluoroscopy of Left Upper Extremity Veins (ICD-10-PCS; 2018-05-25)
DX: T82.868A Thrombosis due to vascular prosthetic devices, implants and grafts, initial encounter (principal); N18.6 End stage renal disease; I13.2 Hypertensive heart and chronic kidney disease with heart failure and with stage 5 chronic kidney disease, or end stage renal disease; Y84.1 Kidney dialysis as the cause of abnormal reaction of the patient, or of later complication, without mention of misadventure at the time of the procedure; I11.0 Hypertensive heart disease with heart failure; E11.22 Type 2 diabetes mellitus with diabetic chronic kidney disease; Z99.2 Dependence on renal dialysis; Z86.73 Personal history of transient ischemic attack (TIA), and cerebral infarction without residual deficits; E78.5 Hyperlipidemia, unspecified; Z79.4 Long term (current) use of insulin; Z86.19 Personal history of other infectious and parasitic diseases; E11.21 Type 2 diabetes mellitus with diabetic nephropathy; D63.1 Anemia in chronic kidney disease
CPT/HCPCS: 36415; 76000-TC-FY; 80048; 80053; 84100; 85025; 85027; 85610; 86704; 86706; 86708; 86803; 86850; 86900; 86901; 87340; 93005; 93010; 94760; 99285-25; J1644; J7030

== ENCOUNTER 2020-05-06 16:24 | Inpatient (IN) | payer OTHER ==
[2020-05-06 16:47] VITALS: BMI 23.7
--- NOTE | 2020-05-06 17:19 | PDOC ---
History of Present Illness - General Chief Complaint: AV shunt bleeding Stated Complaint: DIALYSIS SHUNT PROBLEM Time Seen by Provider: 05/06/20 16:42 History Source: Patient Exam Limitations: No Limitations - History of Present Illness Initial Comments: 05/06/20 17:37 PCP: Israel Conde HPI: 74yo M resident of [facility] h pAfib, HTN, BPH, anemia, major depressive disorder, DM2, ESRD on HD //Fri presenting from [facility] due to inability to cannulate his LUE AV fistula this afternoon. Patient alert and oriented to name, place, and year but not day / month, provides inconsistent history and appears confused. Reports that he was dialyzed today but NH staff reports cannulation was attempted and failed resulting in his transfer to the hospital. He endorses generalized weakness (c/w NH documentation) and denies other complaints. Past History - Travel History Traveled outside of the country in the last 30 days: No Close contact w/someone who was outside of country & ill: No - Medical History Allergies/Adverse Reactions: Allergies Allergy/AdvReac Type Severity Reaction Status Date / Time No Known Allergies Allergy Verified 04/29/20 17:19 Home Medications: Ambulatory Orders Sevelamer Carbonate [Renvela -] 800 mg PO TID 12/10/17 Folic Acid/Vit B Complex and C [Rose-Misbah Tablet] 0.8 mg PO DAILY 04/29/20 Acetaminophen [Tylenol] 2 tablet PO Q6H PRN 04/30/20 Apixaban [Eliquis] 2.5 mg PO BID 04/30/20 Citalopram Hydrobromide [Celexa -] 10 mg PO DAILY 04/30/20 Docusate Sodium [Colace] 100 mg PO DAILY 04/30/20 Famotidine [Acid Controller] 20 mg PO DAILY 04/30/20 Gabapentin [Neurontin] 100 mg PO TID 04/30/20 Insulin Regular, Human [Afrezza] See Protocol SQ DAILY 04/30/20 Prednisolone Acetate/Pf [Prednisolone Acet 1% Eye Drop] 1 drop OP BID 04/30/20 Tamsulosin HCl [Flomax] 0.4 mg PO DAILY 04/30/20 Metoprolol Succinate 12.5 mg PO DAILY 05/01/20 Cefpodoxime Proxetil [Vantin -] 100 mg PO ONCE #1 tablet 05/02/20 Ferrous Sulfate [Feosol] 325 mg PO BID tab 05/02/20 Insulin (Levemir) [Levemir Vial] 5 unit SQ HS #1 vial 05/02/20 Anemia: Yes Asthma: No Cancer: No Cardiac Disorders: Yes (CHF) CVA: Yes COPD: No CHF: Yes Dementia: No Diabetes: Yes Dialysis: Yes GI Disorders: No Disorders: Yes (kidney failure, left arm fistula (not on dialysis yet)) HTN: Yes Hypercholesterolemia: Yes Liver Disease: No Seizures: No Thyroid Disease: No - Surgical History Abdominal Surgery: No Appendectomy: No Cardiac Surgery: No Cholecystectomy: No Lung Surgery: No Neurologic Surgery: No Orthopedic Surgery: No - Psycho-Social/Smoking History Smoking History: Former smoker Have you smoked in the past 12 months: No Information on smoking cessation initiated: No - Substance Abuse Hx (Audit-C & DAST Scrn) How often the patient has a drink containing alcohol: Never Score: In Men: 4 or > Positive; In Women: 3 or > Positive: 0 Screen Result (Pos requires Nsg. Audit-10AR): Negative In the last yr the pt used illegal drug/Rx for NonMed reason: No Score: Yes response is considered Positive: 0 Screen Result (Positive result requires Nsg. DAST-10): Negative Review of Systems - Review of Systems Able to Perform ROS?: No (confused vs uremic?) Is the patient limited Prydeinig proficient: Yes Constitutional: No: Chills, Fever Respiratory: No: Cough, Shortness of Breath Cardiac (ROS): No: Chest Pain, Chest Tightness ABD/GI: No: Constipated, Diarrhea, Nausea, Vomiting *Physical Exam - Vital Signs Last Vital Signs Temp Pulse Resp BP Pulse Ox 98.3 F 69 20 174/71 H 100 05/06/20 16:44 05/06/20 16:44 05/06/20 16:44 05/06/20 16:44 05/06/20 16:44 - Physical Exam 05/06/20 18:15 Vitals reviewed, notable for hypertension, otherwise normal GEN: Elderly, NAD, comfortable, confused. AAOx2 (wrong day / month). HEENT: NCAT, EOMI, PERRL. Sclera anicteric, non-injected. No facial asymmetry. Moist mucous membranes. Normal voice. Trachea midline. CV: RRR, S1/S2, no murmurs / rubs / gallops appreciated. LUNG: CTABL, normal work of breathing. No wheezes, rales, rhonchi. No cough. Speaking full sentences. GI: Soft, NTND, +BS, no guarding, no rebound. No masses. EXTREMITIES: 2+ distal pulses. No clubbing / cyanosis / edema. No gross deformity in any extremity. AV fistula in LUE with pulse, no thrill, no active bleeding. 2+ radial pulse. SKIN: Warm, dry, no rashes appreciated, non-jaundiced. PSYCH: Confused, intermittently combative, making statement that are either incorrect or don't make sense, speaking in estonian curse words, greenlandic, and a slavic language. NEURO: CN grossly intact. Moving all extremities well. Normal 5+ strength and sensation throughout. ED Treatment Course - LABORATORY CBC & Chemistry Diagram: 05/06/20 18:00 05/06/20 20:30 Medical Decision Making - Medical Decision Making 05/06/20 17:42 74yo M resident of [facility] pAfib, HTN, BPH, major depressive disorder, DM2, ESRD on HD //Fri presenting from [facility] due to inability to cannulate his LUE AV fistula this afternoon. History notable for anemia previously, inability to access fistula a HD center today. Exam notable for palpable pulse, no thrill over fistula site, confused patient (uremic encephalopathy vs sun-downing vs dementia), missed HD today will evaluate for need for emergent access and HD. - CBC, CMP, Mg, Phos, Coags, T&S - EKG - US AV Fistula for patency assessment 05/06/20 18:21 Patient altered, combative with staff, swinging at myself and nurses Assistance provided for IV placement, labs collected and sent - 1mg Ativan administered prior to EKG givne continued attempts to get out of bed Patient poses a significant fall risk 05/06/20 19:16 Patient pulled his IV, continuing to be aggressive with staff and trying to get out of bed 5mg IM Haldol ordered, plan for IV placement, EKG, US after Labs c/w ESRD 05/06/20 20:[address] Cota, patient normally has difficulty with holding a conversation, pH likely higher on an ABG compared with VBG, would recommend HD tomorrow morning. Appreciate recs. Focus on access concerns - US LUE pending, patient taken to US suite. Dispo: Admit Tele 05/06/20 21:28 US wet read as proximal and mid occlusion of AV fistula Page sent for Dr. Flower, patient's vascular surgeon 05/06/20 21:[address] Flower who will evaluate the patient on inpatient basis Microblog sent for admission 05/06/20 22:17 Should be noted that repeat VBG / BMP were sent before medication for hyperkalemia to reassess acid base status Patient endorsed to Hospitalist team Discharge - Discharge Information Problems reviewed: Yes Clinical Impression/Diagnosis: ESRD (end stage renal disease), Hyperkalemia, Missed dialysis, Acidosis, metabolic AV fistula occlusion Qualifiers: Encounter type: initial encounter Qualified Code(s): T82.898A - Other specified complication of vascular prosthetic devices, implants and grafts, initial encounter Condition: Guarded - Admission Yes - Follow up/Referral - Patient Discharge Instructions - Post Discharge Activity
[2020-05-06] MEDS ORDERED: LORazepam 2 MG/ML SDV VIAL ONE (18:06)
[2020-05-06 18:36] LABS: BASO % 0.6 % (0-2.0); EOS % 4.4 % (0-4.5); HEMATOCRIT 26.9 % (35.4-49); HEMOGLOBIN 8.8 GM/dL (11.7-16.9); LYMPH % 24.8 % (8-40); MCH 32.2 pg (25.7-33.7); MCHC 32.8 g/dl (32.0-35.9); MEAN CELL VOLUME 98.2 fl (80-96); MEAN PLT VOLUME 6.9 fl (7.5-11.1); MONO % 7.3 % (3.8-10.2); NEUT % 62.9 % (42.8-82.8); PLATELET COUNT 155 K/MM3 (134-434); RBC 2.74 M/mm3 (4.00-5.60); RDW 16.2 % (11.9-15.9); WHITE BLOOD COUNT 7.1 K/mm3 (4.0-10.0)
[2020-05-06 18:44] LABS: INR 0.99 (0.83-1.09); PROTHROMBIN TIME (PATIENT) 11.7 SEC (9.7-13.0)
[2020-05-06 18:47] LABS: ACTIVATED PTT 33.5 SECONDS (25.2-36.5)
[2020-05-06 19:00] LABS: MAGNESIUM 2.5 mg/dL (1.8-2.4); PHOSPHOROUS 6.2 mg/dL (2.5-4.9)
[2020-05-06 19:04] LABS: ALBUMIN 3.2 g/dl (3.4-5.0); BILIRUBIN,TOTAL 0.4 mg/dL (0.2-1); CALCIUM 7.7 mg/dL (8.5-10.1); POTASSIUM 5.7 mmol/L (3.5-5.1); TOT PROT 6.5 g/dl (6.4-8.2)
[2020-05-06 19:10] LABS: VENOUS BASE EXCESS -10.8 mmol/L (-2-2); VENOUS O2 SATURATION 31.7 % (70-80); VENOUS PCO2 46.2 mmHg (38-52)
[2020-05-06] MEDS ORDERED: HALOPERIDOL LACTATE 5 MG/ML IM ONE (19:15)
[2020-05-06 19:18] LABS: BLOOD UREA NITROGEN 119.5 mg/dL (7-18)
[2020-05-06 19:19] LABS: CREATININE 9.5 mg/dL (0.55-1.3)
[2020-05-06] MEDS ORDERED: HALOPERIDOL LACTATE 5 MG/ML ONE (19:21)
[2020-05-06 19:24] LABS: VENOUS PH 7.18 (7.310-7.410)
[2020-05-06] MEDS ORDERED: DEXTROSE 50%-WATER - 25 GM/50 ML VIAL IVPUSH ONE (20:05)
[2020-05-06] MEDS ORDERED: INSULIN REGULAR HUMAN 100 UNITS/ML *VIAL IVPUSH ONE (20:05)
[2020-05-06] MEDS ORDERED: INSULIN REGULAR HUMAN 100 UNITS/ML *VIAL ONE (20:19)
[2020-05-06] MEDS ORDERED: DEXTROSE 50%-WATER 25 GM/50 ML DISP.SYRIN ONE (20:19)
[2020-05-06 21:01] LABS: VENOUS BASE EXCESS -9.2 mmol/L (-2-2); VENOUS O2 SATURATION 49.6 % (70-80); VENOUS PCO2 41.9 mmHg (38-52); VENOUS PH 7.239 (7.310-7.410)
[2020-05-06 21:24] LABS: CALCIUM 7.6 mg/dL (8.5-10.1)
[2020-05-06 21:38] LABS: BLOOD UREA NITROGEN 121.6 mg/dL (7-18); CREATININE 9.7 mg/dL (0.55-1.3); POTASSIUM 6.1 mmol/L (3.5-5.1)
--- NOTE | 2020-05-06 22:21 | HP ---
Admitting History and Physical - Primary Care Physician PCP: Israel Conde ([facility]) - Admission Chief Complaint: AV Fistula not working History of Present Illness: This is a 74 y/o male from [facility] with a PMHx of ESRD (HD- , , ), Anemia, pAfib (on Eliquis), CHF, CVA (residual BLE, 2014,2013), HTN, T2DM, BPH, MDD, recent admission 04/29-05/02 AV fistula Hemorrhage, Anemia, ESRD. Who presents to the ED from the dialysis center for AV Fistula non-functioning, missing dialysis. Patient is confused, and combative in the ED unable to provide HPI. 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 (Right side CVA with residual weakness of LLE) Cardiovascular: Yes: CHF, HTN Renal/: Yes: Renal Failure, Renal Inusuff, Hemodialysis Endocrine: Yes: Diabetes Mellitus - Past Surgical History Past Surgical History: Yes: AV Fistula/Graft - Smoking History Smoking history: Former smoker Have you smoked in the past 12 months: No - Alcohol/Substance Use Hx Alcohol Use: No History of Substance Use: reports: None (unknown) - Social History Usual Living Arrangement: Yes: [facility] ADL: Support Services Home Medications - Allergies Allergies/Adverse Reactions: Allergies Allergy/AdvReac Type Severity Reaction Status Date / Time No Known Allergies Allergy Verified 04/29/20 17:19 - Home Medications Home Medications: Ambulatory Orders Sevelamer Carbonate [Renvela -] 800 mg PO TID 12/10/17 Folic Acid/Vit B Complex and C [Rose-Misbah Tablet] 0.8 mg PO DAILY 04/29/20 Acetaminophen [Tylenol] 2 tablet PO Q6H PRN 04/30/20 Apixaban [Eliquis] 2.5 mg PO BID 04/30/20 Citalopram Hydrobromide [Celexa -] 10 mg PO DAILY 04/30/20 Docusate Sodium [Colace] 100 mg PO DAILY 04/30/20 Famotidine [Acid Controller] 20 mg PO DAILY 04/30/20 Gabapentin [Neurontin] 100 mg PO TID 04/30/20 Insulin Regular, Human [Afrezza] See Protocol SQ DAILY 04/30/20 Prednisolone Acetate/Pf [Prednisolone Acet 1% Eye Drop] 1 drop OP BID 04/30/20 Tamsulosin HCl [Flomax] 0.4 mg PO DAILY 04/30/20 Metoprolol Succinate 12.5 mg PO DAILY 05/01/20 Cefpodoxime Proxetil [Vantin -] 100 mg PO ONCE #1 tablet 05/02/20 Ferrous Sulfate [Feosol] 325 mg PO BID tab 05/02/20 Insulin (Levemir) [Levemir Vial] 5 unit SQ HS #1 vial 05/02/20 Family Medical History Family History: Unable to Obtain Review of Systems Unable to obtain ROS, reason: Clinical Condition Physical Examination Vital Signs: Vital Signs Temperature 98.3 F 05/06/20 16:44 Pulse Rate 69 05/06/20 16:44 Respiratory Rate 20 05/06/20 16:44 Blood Pressure 174/71 H 05/06/20 16:44 O2 Sat by Pulse Oximetry (%) 100 05/06/20 16:44 Constitutional: Yes: Thin, Other (somnolent but arousable (post medication)) Eyes: Yes: Conjunctiva Clear, PERRL HENT: Yes: Atraumatic, Normocephalic Neck: Yes: Supple, Trachea Midline Cardiovascular: Yes: Regular Rate and Rhythm, Murmur (systolic), S1, S2 Respiratory: Yes: Regular, CTA Bilaterally Gastrointestinal: Yes: Normal Bowel Sounds, Soft ...Rectal Exam: Yes: Deferred Breast(s): Yes: WNL Musculoskeletal: Yes: WNL Extremities: Yes: Other (Left- AV Fistula, no thrill contractures) Edema: No Peripheral Pulses WNL: Yes Neurological: Yes: Confusion, Lethargy Labs: CBC, BMP 05/06/20 18:00 05/06/20 20:30 Laboratory Results - last 24 hr 05/06/20 05/06/20 05/06/20 18:00 18:00 18:00 WBC 7.1 RBC 2.74 L Hgb 8.8 L Hct 26.9 L MCV 98.2 H MCH 32.2 MCHC 32.8 RDW 16.2 H Plt Count 155 MPV 6.9 L Absolute Neuts (auto) 4.5 Neutrophils % 62.9 Lymphocytes % 24.8 D Monocytes % 7.3 Eosinophils % 4.4 Basophils % 0.6 Nucleated RBC % 0 PT with INR 11.70 INR 0.99 PTT (Actin FS) 33.5 VBG pH POC VBG pCO2 POC VBG pO2 VBG HCO3 VBG O2 Sat (Gopi) VBG Base Excess Sodium 140 Potassium 5.7 H Chloride 108 H Carbon Dioxide 20 L Anion Gap 13 BUN 119.5 H* Creatinine 9.5 H* Est GFR (CKD-EPI)AfAm 5.55 Est GFR (CKD-EPI)NonAf 4.79 POC Glucometer Random Glucose 141 H Calcium 7.7 L Phosphorus Magnesium Total Bilirubin 0.4 AST 16 ALT 16 Alkaline Phosphatase 131 H Total Protein 6.5 Albumin 3.2 L Blood Type Antibody Screen 05/06/20 05/06/20 05/06/20 18:00 18:00 18:00 WBC RBC Hgb Hct MCV MCH MCHC RDW Plt Count MPV Absolute Neuts (auto) Neutrophils % Lymphocytes % Monocytes % Eosinophils % Basophils % Nucleated RBC % PT with INR INR PTT (Actin FS) VBG pH 7.180 L* POC VBG pCO2 46.2 POC VBG pO2 24.4 L VBG HCO3 16.9 L VBG O2 Sat (Gopi) 31.7 L VBG Base Excess -10.8 L Sodium Potassium Chloride Carbon Dioxide Anion Gap BUN Creatinine Est GFR (CKD-EPI)AfAm Est GFR (CKD-EPI)NonAf POC Glucometer Random Glucose Calcium Phosphorus 6.2 H Magnesium 2.5 H Total Bilirubin AST ALT Alkaline Phosphatase Total Protein Albumin Blood Type O POSITIVE Antibody Screen Negative 05/06/20 05/06/20 05/06/20 20:30 20:30 22:55 WBC RBC Hgb Hct MCV MCH MCHC RDW Plt Count MPV Absolute Neuts (auto) Neutrophils % Lymphocytes % Monocytes % Eosinophils % Basophils % Nucleated RBC % PT with INR INR PTT (Actin FS) VBG pH 7.239 L POC VBG pCO2 41.9 POC VBG pO2 31.1 VBG HCO3 17.5 L VBG O2 Sat (Gopi) 49.6 L VBG Base Excess -9.2 L Sodium 142 143 Potassium 6.1 H* 5.7 H Chloride 109 H 113 H Carbon Dioxide 19 L 18 L Anion Gap 13 13 BUN 121.6 H* 123.2 H* Creatinine 9.7 H* 9.4 H* Est GFR (CKD-EPI)AfAm 5.41 5.62 Est GFR (CKD-EPI)NonAf 4.67 4.85 POC Glucometer Random Glucose 167 H 72 L Calcium 7.6 L 7.5 L Phosphorus Magnesium Total Bilirubin 0.3 AST 17 ALT 15 Alkaline Phosphatase 110 Total Protein 5.6 L Albumin 2.7 L Blood Type Antibody Screen 05/07/20 05/07/20 05/07/20 01:32 06:30 06:30 WBC 5.4 RBC 2.62 L Hgb 8.4 L Hct 25.3 L MCV 96.4 H MCH 32.1 MCHC 33.3 RDW 16.4 H Plt Count 132 L MPV 6.7 L Absolute Neuts (auto) 3.6 Neutrophils % 67.6 Lymphocytes % 21.2 Monocytes % 6.6 Eosinophils % 3.7 Basophils % 0.9 Nucleated RBC % 0 PT with INR 12.30 INR 1.04 PTT (Actin FS) VBG pH POC VBG pCO2 POC VBG pO2 VBG HCO3 VBG O2 Sat (Gopi) VBG Base Excess Sodium Potassium Chloride Carbon Dioxide Anion Gap BUN Creatinine Est GFR (CKD-EPI)AfAm Est GFR (CKD-EPI)NonAf POC Glucometer 94 Random Glucose Calcium Phosphorus Magnesium Total Bilirubin AST ALT Alkaline Phosphatase Total Protein Albumin Blood Type Antibody Screen Intake & Output 05/04/20 05/05/20 05/06/20 05/07/20 23:59 23:59 23:59 23:59 Weight 79.379 kg Imaging - Results Chest X-ray: Pending Ultrasound: Image Reviewed EKG: Image Reviewed Problem List - Problems (1) AV fistula occlusion Assessment/Plan: LUE Arterial Duplex image, report reviewed- occlusion of mid and distal portion of AV fistula in the upper arm Vascular consulted and aware- per ED resident Neurovascular checks Monitor CBC, CMP Monitor vitals Code(s): T82.898A - OTH COMPLICATION OF VASCULAR PROSTH DEV/GRFT, INIT Qualifiers: Encounter type: initial encounter Qualified Code(s): T82.898A - Other specified complication of vascular prosthetic devices, implants and grafts, initial encounter (2) ESRD (end stage renal disease) Assessment/Plan: HD-T,T,S Appreciate Nephrology consult for HD Management Avoid Nephrotoxic drugs Monitor CBC, CMP Monitor vitals Code(s): N18.6 - END STAGE RENAL DISEASE (3) Hyperkalemia Assessment/Plan: Likely secondary to missed Dialysis Hyperkalemia Protocol given in ED, will continue as needed EKG reviewed- SR with 1st degree AV Block cannot r/o anterior infarct, age undetermined, no peaked T waves, compared to 05/25/18 study no change Cardiac monitoring Monitor CMP closely Consider Cardiology consult if condition worsens Code(s): E87.5 - HYPERKALEMIA (4) CHF (congestive heart failure) Assessment/Plan: stable No acute flare Chest Xray- pending Strict INOs Daily weight O2 prn Hold home meds for now Code(s): I50.9 - HEART FAILURE, UNSPECIFIED (5) Hypertensive cardiomyopathy Assessment/Plan: stable Will continue to monitor and treat with interventions accordingly Code(s): I11.9 - HYPERTENSIVE HEART DISEASE WITHOUT HEART FAILURE; I43 - CARDIOMYOPATHY IN DISEASES CLASSIFIED ELSEWHERE Qualifiers: Heart failure presence: without heart failure Qualified Code(s): I11.9 - Hypertensive heart disease without heart failure; I43 - Cardiomyopathy in diseases classified elsewhere; I43 - Cardiomyopathy in diseases classified elsewhere; I43 - Cardiomyopathy in diseases classified elsewhere; I43 - Cardiomyopathy in diseases classified elsewhere (6) Diabetes Assessment/Plan: stable BGMs ISS when diet resumed Monitor CMP Code(s): E11.9 - TYPE 2 DIABETES MELLITUS WITHOUT COMPLICATIONS Qualifiers: Diabetes mellitus type: type 2 Diabetes mellitus buttermaker helper insulin use: without buttermaker helper use Chronic kidney disease stage: on chronic dialysis (7) Encounter for screening laboratory testing for COVID-19 virus Assessment/Plan: Low Risk COVID PCR-pending Isolation Precautions Code(s): Z11.59 - ENCOUNTER FOR SCREENING FOR OTHER VIRAL DISEASES Assessment/Plan This is a 74 y/o male from [facility] with a PMHx of ESRD (HD- , , ), Anemia, pAfib (on Eliquis), CHF, CVA (residual BLE, 2014,2013), HTN, T2DM, BPH, MDD, recent admission 04/29-05/02 AV fistula Hemorrhage, Anemia, ESRD. Admitted to Telemetry for AV Fistula Occlusion, Hyperkalemia, ESRD for further evaluation of their emergent condition. Plan: See Problem List FEN Replete lytes prn NPO DVT ppx OOB SCDs Hold Eliquis for now Dispo: Requires Inpatient Care Visit type - Medication Review Med list reviewed for High Risk Meds patients 65 and older: Yes (med list from [place]) - Emergency Visit Emergency Visit: Yes ED Registration Date: 05/06/20 Care time: The patient presented to the Emergency Department on the above date and was hospitalized for further evaluation of their emergent condition. - New Patient This patient is new to me today: Yes Date on this admission: 05/06/20 - Critical Care Critical Care patient: No
[2020-05-06 23:35] LABS: ALBUMIN 2.7 g/dl (3.4-5.0); BILIRUBIN,TOTAL 0.3 mg/dL (0.2-1); CALCIUM 7.5 mg/dL (8.5-10.1); POTASSIUM 5.7 mmol/L (3.5-5.1); TOT PROT 5.6 g/dl (6.4-8.2)
[2020-05-06 23:44] LABS: BLOOD UREA NITROGEN 123.2 mg/dL (7-18)
[2020-05-06 23:45] LABS: CREATININE 9.4 mg/dL (0.55-1.3)
[2020-05-07] MEDS ORDERED: DEXTROSE 50%-WATER 25 GM/50 ML DISP.SYRIN IVPUSH ONE (01:46)
[2020-05-07] MEDS ORDERED: INSULIN REGULAR HUMAN 100 UNITS/ML *VIAL IVPUSH ONE (01:47)
[2020-05-07] MEDS ORDERED: DEXTROSE 50%-WATER 25 GM/50 ML DISP.SYRIN ONE (02:22)
[2020-05-07 06:54] LABS: BASO % 0.9 % (0-2.0); EOS % 3.7 % (0-4.5); HEMATOCRIT 25.3 % (35.4-49); HEMOGLOBIN 8.4 GM/dL (11.7-16.9); LYMPH % 21.2 % (8-40); MCH 32.1 pg (25.7-33.7); MCHC 33.3 g/dl (32.0-35.9); MEAN CELL VOLUME 96.4 fl (80-96); MEAN PLT VOLUME 6.7 fl (7.5-11.1); MONO % 6.6 % (3.8-10.2); NEUT % 67.6 % (42.8-82.8); PLATELET COUNT 132 K/MM3 (134-434); RBC 2.62 M/mm3 (4.00-5.60); RDW 16.4 % (11.9-15.9); WHITE BLOOD COUNT 5.4 K/mm3 (4.0-10.0)
[2020-05-07 07:06] LABS: INR 1.04 (0.83-1.09); PROTHROMBIN TIME (PATIENT) 12.3 SEC (9.7-13.0)
[2020-05-07 07:41] LABS: BILIRUBIN,TOTAL 0.4 mg/dL (0.2-1); CALCIUM 7.7 mg/dL (8.5-10.1); POTASSIUM 5.5 mmol/L (3.5-5.1); TOT PROT 6.1 g/dl (6.4-8.2)
[2020-05-07 08:05] LABS: BLOOD UREA NITROGEN 126.4 mg/dL (7-18)
[2020-05-07 08:06] LABS: CREATININE 9.9 mg/dL (0.55-1.3)
[2020-05-07] MEDS ORDERED: FERROUS SO4 325 MG TABLET (FP) ONE (08:26)
[2020-05-07] MEDS ORDERED: TAMSULOSIN HCL 0.4 MG CAP ONE (08:26)
[2020-05-07] MEDS: FERROUS SO4 325 MG TABLET (FP) PO SCH ×2 (08:29→21:58)
[2020-05-07] MEDS: TAMSULOSIN HCL 0.4 MG CAP PO SCH (08:29)
[2020-05-07] MEDS ORDERED: metoPROLOL SUCCINATE 25 MG TAB.SR.24H (FP) ONE (09:06)
[2020-05-07] MEDS ORDERED: FAMOTIDINE 20 MG TABLET ONE (09:06)
[2020-05-07] MEDS ORDERED: DOCUSATE SODIUM 100 MG CAPSULE (FP) PO ONE (09:06)
[2020-05-07] MEDS ORDERED: CITALOPRAM HYDROBROMIDE 10 MG TABLET ONE (09:07)
[2020-05-07] MEDS: DOCUSATE SODIUM 100 MG CAPSULE (FP) PO SCH (09:17)
[2020-05-07] MEDS: CITALOPRAM HYDROBROMIDE 10 MG TABLET PO SCH (09:17)
[2020-05-07] MEDS: VITAMIN B COMP W-C 1 EA TABLET (NEPHRO-VITE) PO SCH (09:18)
[2020-05-07] MEDS: FAMOTIDINE 20 MG TABLET PO SCH (09:18)
[2020-05-07] MEDS: metoPROLOL SUCCINATE 25 MG TAB.SR.24H (FP) PO SCH (09:18)
[2020-05-07] MEDS: SEVELAMER CARBONATE 800 MG TAB (FP) PO SCH ×3 (09:18→21:58)
--- NOTE | 2020-05-07 09:23 | CON.NEP ---
Consult Consult Specialty:: nephrologhy - History of Present Illness Chief Complaint: clotted access History of Present Illness: This is a 74 y/o male from [facility] with a PMHx of ESRD (HD- , , ), Anemia, pAfib (on Eliquis), CHF, CVA (residual BLE, 2014,2013), HTN, T2DM, BPH, MDD, recent admission 04/29-05/02 AV fistula Hemorrhage, Anemia, ESRD. Who presents to the ED from the dialysis center for AV Fistula non-functioning, missing dialysis. Patient is confused, and combative in the ED unable to provide HPI. Pt is unable to give history. Says he feels bad but wont specify. 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 (Right side CVA with residual weakness of LLE) Cardio/Vascular: Yes: CHF, HTN Renal/: Yes: Renal Failure, Renal Inusuff, Hemodialysis Endocrine: Yes: Diabetes Mellitus - Past Surgical History Past Surgical History: Yes: AV Fistula/Graft - Alcohol/Substance Use Hx Alcohol Use: No History of Substance Use: reports: None (unknown) - Smoking History Smoking history: Former smoker Have you smoked in the past 12 months: No - Social History Usual Living Arrangement: Alone ADL: Support Services Home Medications - Allergies Allergies/Adverse Reactions: Allergies Allergy/AdvReac Type Severity Reaction Status Date / Time No Known Allergies Allergy Verified 04/29/20 17:19 - Home Medications Home Medications: Ambulatory Orders Sevelamer Carbonate [Renvela -] 800 mg PO TID 12/10/17 Folic Acid/Vit B Complex and C [Rose-Misbah Tablet] 0.8 mg PO DAILY 04/29/20 Acetaminophen [Tylenol] 2 tablet PO Q6H PRN 04/30/20 Apixaban [Eliquis] 2.5 mg PO BID 04/30/20 Citalopram Hydrobromide [Celexa -] 10 mg PO DAILY 04/30/20 Docusate Sodium [Colace] 100 mg PO DAILY 04/30/20 Famotidine [Acid Controller] 20 mg PO DAILY 04/30/20 Gabapentin [Neurontin] 100 mg PO TID 04/30/20 Insulin Regular, Human [Afrezza] See Protocol SQ DAILY 04/30/20 Prednisolone Acetate/Pf [Prednisolone Acet 1% Eye Drop] 1 drop OP BID 04/30/20 Tamsulosin HCl [Flomax] 0.4 mg PO DAILY 04/30/20 Metoprolol Succinate 12.5 mg PO DAILY 05/01/20 Cefpodoxime Proxetil [Vantin -] 100 mg PO ONCE #1 tablet 05/02/20 Ferrous Sulfate [Feosol] 325 mg PO BID tab 05/02/20 Insulin (Levemir) [Levemir Vial] 5 unit SQ HS #1 vial 05/02/20 Review of Systems Unable to obtain ROS, reason: somnolent, ams Nephrology Consult - Height Height: 6 ft - Weight Weight: 175 lb - BMI Body Mass Index (BMI): 23.7 - Lab Results CBC,BMP: CBC, BMP 05/07/20 06:30 05/07/20 06:30 Anion Gap: Anion Gap Anion Gap 13 MMOL/L (8-16) 05/07/20 06:30 - Physical Examination Vital Signs: Vital Signs Temperature 98.0 F 05/07/20 05:48 Pulse Rate 76 05/07/20 05:48 Respiratory Rate 17 05/07/20 05:48 Blood Pressure 164/85 05/07/20 05:48 O2 Sat by Pulse Oximetry (%) 100 05/07/20 05:48 Constitutional: Yes: Well Nourished, No Distress, Calm Eyes: Yes: Conjunctiva Clear HENT: Yes: Atraumatic, Normocephalic Neck: Yes: Supple, Trachea Midline Cardiovascular: Yes: Pulse Irregular Respiratory: Yes: Regular, CTA Bilaterally Gastrointestinal: Yes: Normal Bowel Sounds Access for Hemodialysis: AV Graft Musculoskeletal: Yes: WNL Extremities: Yes: WNL, Other (avg on left upper extremity is pulsatile and has bruit and appears occluded at mid portion) Edema: No Neurological: Yes: Lethargy (did say he felt "bad") Assessment/Plan IMPRESSION esrd s/p cva htn occluded access PLAN will dialyze once access is restored by vascular whom I already spoke to [facility]
[2020-05-07] MEDS: prednisoLONE ACETATE 1% OPHTH SUSP 5 ML BOTTLE OU SCH ×2 (10:41→22:03)
[2020-05-07] MEDS ORDERED: INSULIN SLIDING SCALE (NOVOLOG) 1 VIAL SQ SCH (11:00)
--- NOTE | 2020-05-07 11:25 | PN ---
Progress Note (short form) - Note Progress Note: SUBJECTIVE: Feels okay, no complaints. No SOB/CP/cough/sputum/fever/chills. OBJECTIVE: Afebrile, Hemodynamically stable. Last Vital Signs Temp Pulse Resp BP Pulse Ox 98.4 F 78 18 183/90 H 100 05/07/20 09:00 05/07/20 09:00 05/07/20 09:00 05/07/20 09:00 05/07/20 09:00 HEENT - Atraumatic, Normocephalic. Heart - S1, S2, RRR Lungs - decreased air entry at bases Abdomen - Soft, non-tender. Bowel Sounds normal. Extremities - no edema, no calf tenderness. LUE AV fistula - mild erythema, minimal thrill Neuro - Appears mildly confused, moving all extremities. Laboratory Results - last 24 hr 05/06/20 05/06/20 05/06/20 18:00 18:00 18:00 WBC 7.1 RBC 2.74 L Hgb 8.8 L Hct 26.9 L MCV 98.2 H MCH 32.2 MCHC 32.8 RDW 16.2 H Plt Count 155 MPV 6.9 L Absolute Neuts (auto) 4.5 Neutrophils % 62.9 Lymphocytes % 24.8 D Monocytes % 7.3 Eosinophils % 4.4 Basophils % 0.6 Nucleated RBC % 0 PT with INR 11.70 INR 0.99 PTT (Actin FS) 33.5 VBG pH POC VBG pCO2 POC VBG pO2 VBG HCO3 VBG O2 Sat (Gopi) VBG Base Excess Sodium 140 Potassium 5.7 H Chloride 108 H Carbon Dioxide 20 L Anion Gap 13 BUN 119.5 H* Creatinine 9.5 H* Est GFR (CKD-EPI)AfAm 5.55 Est GFR (CKD-EPI)NonAf 4.79 POC Glucometer Random Glucose 141 H Calcium 7.7 L Phosphorus Magnesium Total Bilirubin 0.4 AST 16 ALT 16 Alkaline Phosphatase 131 H Total Protein 6.5 Albumin 3.2 L Blood Type Antibody Screen 05/06/20 05/06/20 05/06/20 18:00 18:00 18:00 WBC RBC Hgb Hct MCV MCH MCHC RDW Plt Count MPV Absolute Neuts (auto) Neutrophils % Lymphocytes % Monocytes % Eosinophils % Basophils % Nucleated RBC % PT with INR INR PTT (Actin FS) VBG pH 7.180 L* POC VBG pCO2 46.2 POC VBG pO2 24.4 L VBG HCO3 16.9 L VBG O2 Sat (Gopi) 31.7 L VBG Base Excess -10.8 L Sodium Potassium Chloride Carbon Dioxide Anion Gap BUN Creatinine Est GFR (CKD-EPI)AfAm Est GFR (CKD-EPI)NonAf POC Glucometer Random Glucose Calcium Phosphorus 6.2 H Magnesium 2.5 H Total Bilirubin AST ALT Alkaline Phosphatase Total Protein Albumin Blood Type O POSITIVE Antibody Screen Negative 05/06/20 05/06/20 05/06/20 20:30 20:30 22:55 WBC RBC Hgb Hct MCV MCH MCHC RDW Plt Count MPV Absolute Neuts (auto) Neutrophils % Lymphocytes % Monocytes % Eosinophils % Basophils % Nucleated RBC % PT with INR INR PTT (Actin FS) VBG pH 7.239 L POC VBG pCO2 41.9 POC VBG pO2 31.1 VBG HCO3 17.5 L VBG O2 Sat (Gopi) 49.6 L VBG Base Excess -9.2 L Sodium 142 143 Potassium 6.1 H* 5.7 H Chloride 109 H 113 H Carbon Dioxide 19 L 18 L Anion Gap 13 13 BUN 121.6 H* 123.2 H* Creatinine 9.7 H* 9.4 H* Est GFR (CKD-EPI)AfAm 5.41 5.62 Est GFR (CKD-EPI)NonAf 4.67 4.85 POC Glucometer Random Glucose 167 H 72 L Calcium 7.6 L 7.5 L Phosphorus Magnesium Total Bilirubin 0.3 AST 17 ALT 15 Alkaline Phosphatase 110 Total Protein 5.6 L Albumin 2.7 L Blood Type Antibody Screen 05/07/20 05/07/20 05/07/20 01:32 06:30 06:30 WBC 5.4 RBC 2.62 L Hgb 8.4 L Hct 25.3 L MCV 96.4 H MCH 32.1 MCHC 33.3 RDW 16.4 H Plt Count 132 L MPV 6.7 L Absolute Neuts (auto) 3.6 Neutrophils % 67.6 Lymphocytes % 21.2 Monocytes % 6.6 Eosinophils % 3.7 Basophils % 0.9 Nucleated RBC % 0 PT with INR 12.30 INR 1.04 PTT (Actin FS) VBG pH POC VBG pCO2 POC VBG pO2 VBG HCO3 VBG O2 Sat (Gopi) VBG Base Excess Sodium Potassium Chloride Carbon Dioxide Anion Gap BUN Creatinine Est GFR (CKD-EPI)AfAm Est GFR (CKD-EPI)NonAf POC Glucometer 94 Random Glucose Calcium Phosphorus Magnesium Total Bilirubin AST ALT Alkaline Phosphatase Total Protein Albumin Blood Type Antibody Screen 05/07/20 06:30 WBC RBC Hgb Hct MCV MCH MCHC RDW Plt Count MPV Absolute Neuts (auto) Neutrophils % Lymphocytes % Monocytes % Eosinophils % Basophils % Nucleated RBC % PT with INR INR PTT (Actin FS) VBG pH POC VBG pCO2 POC VBG pO2 VBG HCO3 VBG O2 Sat (Gopi) VBG Base Excess Sodium 143 Potassium 5.5 H Chloride 113 H Carbon Dioxide 17 L Anion Gap 13 BUN 126.4 H* Creatinine 9.9 H* Est GFR (CKD-EPI)AfAm 5.28 Est GFR (CKD-EPI)NonAf 4.55 POC Glucometer Random Glucose 90 Calcium 7.7 L Phosphorus Magnesium Total Bilirubin 0.4 AST 16 ALT 15 Alkaline Phosphatase 107 Total Protein 6.1 L Albumin 3.0 L Blood Type Antibody Screen Current Medications Generic Name Dose Route Start Last Admin Trade Name Freq PRN Reason Stop Dose Admin Citalopram Hydrobromide 10 mg 05/07/20 10:00 05/07/20 09:17 Celexa - PO 10 mg DAILY ANDREW Administration Docusate Sodium 100 mg 05/07/20 10:00 05/07/20 09:17 Colace - PO 100 mg DAILY ANDREW Administration Famotidine 20 mg 05/07/20 10:00 05/07/20 09:18 Pepcid - PO 20 mg DAILY ANDREW Administration Ferrous Sulfate 325 mg 05/07/20 08:00 05/07/20 08:29 Feosol - PO 325 mg BIDWM ANDREW Administration Gabapentin 100 mg 05/07/20 14:00 Neurontin - PO TID ANDREW Insulin Aspart 1 vial 05/07/20 11:00 Novolog Vial Sliding Scale - SQ ACHS ANDREW Protocol Insulin Detemir 5 units 05/07/20 22:00 Levemir Vial SQ HS ANDREW Metoprolol Succinate 12.5 mg 05/07/20 10:00 05/07/20 09:18 Toprol Xl - PO 12.5 mg DAILY ANDREW Administration Multivit/Ca Carb/B Cmplx/FA/Prenat 1 tablet 05/07/20 10:00 05/07/20 09:18 Nephro-Misbah - PO 1 tablet DAILY ANDREW Administration Prednisolone Acetate 1 drop 05/07/20 10:00 05/07/20 10:41 Pred Forte 1% - OU Not Given BID [facility] Sevelamer Carbonate 800 mg 05/07/20 08:00 05/07/20 09:18 Renvela - PO 800 mg TIDCM ANDREW Administration Tamsulosin HCl 0.4 mg 05/07/20 08:00 05/07/20 08:29 Flomax - PO 0.4 mg DAILY@0800 ANDREW Administration Home Medications Medication Instructions Recorded Sevelamer Carbonate [Renvela -] 800 mg PO TID 12/10/17 Folic Acid/Vit B Complex and C 0.8 mg PO DAILY 04/29/20 [Rose-Misbah Tablet] Acetaminophen [Tylenol] 2 tablet PO Q6H PRN 04/30/20 Apixaban [Eliquis] 2.5 mg PO BID 04/30/20 Citalopram Hydrobromide [Celexa -] 10 mg PO DAILY 04/30/20 Docusate Sodium [Colace] 100 mg PO DAILY 04/30/20 Famotidine [Acid Controller] 20 mg PO DAILY 04/30/20 Gabapentin [Neurontin] 100 mg PO TID 04/30/20 Insulin Regular, Human [Afrezza] See Protocol SQ DAILY 04/30/20 Prednisolone Acetate/Pf 1 drop OP BID 04/30/20 [Prednisolone Acet 1% Eye Drop] Tamsulosin HCl [Flomax] 0.4 mg PO DAILY 04/30/20 Metoprolol Succinate 12.5 mg PO DAILY 05/01/20 Cefpodoxime Proxetil [Vantin -] 100 mg PO ONCE #1 tablet 05/02/20 Ferrous Sulfate [Feosol] 325 mg PO BID tab 05/02/20 Insulin (Levemir) [Levemir Vial] 5 unit SQ HS #1 vial 05/02/20 ASSESSMENT/PLAN: 74 year old male from [facility] with history of ESRD on HD TTS, Chronic Anemia (recently admitted for bleeding from AVF site), PAF on Eliquis, Hx CVA, HTN, DM 2, BPH, sent from HD center for occluded AVF, unable to be accessed for HD 05/06. 1. AVF Occlusion Duplex LUE - shows occlusion Vascular Surgery consulted and aware of need for re-vascularization. 2. ESRD on HD TTS Unable to access AVF 05/06 Currently acidotic (metabolic acidosis), hyperkalemic, uremic sec to ESRD. Nephrology evaluated - for HD once access restored. 3. Acute Metabolic Encephalopathy (mild) secondary to Uremia Awaiting HD after re-vascularization of AVF or placement of new temporary access. 4. Chronic Anemia sec to ESRD and superimposed recent blood loss from AVF site s/p 3 units PRBCs on 04/30 - no active blood loss currently. On FeSO4 supplementation 5. DM 2 - Maintain on sliding scale. NPO currently for revascularization procedure. 6. Atrial Fibrillation - Continue Metoprolol, Eliquis held for surgical procedure by Vascular Surgery 7. BPH - continue Tamsulosin. 8. HTN - Continue Metoprolol. BP uncontrolled - Norvasc 2.5mg x 1 given, will monitor. DVT Px - SCDs. Visit type - Emergency Visit Emergency Visit: Yes ED Registration Date: 05/06/20 Care time: The patient presented to the Emergency Department on the above date and was hospitalized for further evaluation of their emergent condition. - New Patient This patient is new to me today: Yes Date on this admission: 05/07/20 - Critical Care Critical Care patient: No - Discharge Referral Referred to [facility] Med [facility] No - Medication Review Med list reviewed for High Risk Meds patients 65 and older: Yes
[2020-05-07] MEDS ORDERED: amLODIPine BESYLATE 2.5 MG TABLET (FP) PO ONE (11:36)
[2020-05-07] MEDS ORDERED: LIDOCAINE HCL 2% (20ML MULTI-DOSE VIAL) ONE (11:39)
--- NOTE | 2020-05-07 11:51 | PN ---
Progress Note (short form) - Note Progress Note: Vascular Surgery Pt seen and examined. Left femoral shiley placed. Guidewire removed. All ports flushed. Can use for HD Will declot left avg abi. NPO past midnight. Chato Flower dO
--- NOTE | 2020-05-07 11:59 | EKG ---
Test Reason : Blood Pressure : / mmHG Vent. Rate : 073 BPM Atrial Rate : 073 BPM P-R Int : 374 ms QRS Dur : 092 ms QT Int : 428 ms P-R-T Axes : 071 030 080 degrees QTc Int : 471 ms SINUS RHYTHM WITH 1ST DEGREE A-V BLOCK CANNOT RULE OUT ANTERIOR INFARCT , AGE UNDETERMINED ABNORMAL ECG WHEN COMPARED WITH ECG OF 29-APR-2020 16:16, NO SIGNIFICANT CHANGE WAS FOUND Confirmed by CHRIS CHAUDHRY MD ([id number]) on 05/07/2020 11:59:22 AM Referred By: Confirmed By:CHRIS CHAUDHRY MD
[2020-05-07] MEDS ORDERED: amLODIPine BESYLATE 2.5 MG TABLET (FP) ONE (12:04)
[2020-05-07] MEDS: GABAPENTIN 100 MG CAPSULE PO SCH ×2 (15:22→21:58)
[2020-05-07] MEDS ORDERED: SODIUM CHLORIDE 250 ML IV PRN (16:30)
[2020-05-07] MEDS ORDERED: HEPARIN NA (PORCINE) 5,000 UNITS/ML 1ML VIAL IVPUSH ONE (16:30)
[2020-05-07] MEDS: INSULIN SLIDING SCALE (NOVOLOG) 1 VIAL SQ SCH ×2 (17:42→21:58)
[2020-05-07] MEDS ORDERED: INSULIN (LEVEMIR) 100 UNITS/ML UNITS SQ SCH (22:00)
[2020-05-08] MEDS: INSULIN SLIDING SCALE (NOVOLOG) 1 VIAL SQ SCH ×4 (06:21→21:58)
[2020-05-08] MEDS: GABAPENTIN 100 MG CAPSULE PO SCH ×3 (06:21→21:53)
[2020-05-08 08:11] LABS: CALCIUM 7.5 mg/dL (8.5-10.1); CREATININE 7.1 mg/dL (0.55-1.3); POTASSIUM 4.7 mmol/L (3.5-5.1)
[2020-05-08 08:12] LABS: BLOOD UREA NITROGEN 80.9 mg/dL (7-18)
[2020-05-08] MEDS: SEVELAMER CARBONATE 800 MG TAB (FP) PO SCH ×3 (08:18→17:41)
[2020-05-08] MEDS: FERROUS SO4 325 MG TABLET (FP) PO SCH ×2 (08:18→17:41)
[2020-05-08] MEDS: TAMSULOSIN HCL 0.4 MG CAP PO SCH (08:18)
[2020-05-08] MEDS: metoPROLOL SUCCINATE 25 MG TAB.SR.24H (FP) PO SCH (09:00)
[2020-05-08] MEDS: FAMOTIDINE 20 MG TABLET PO SCH (11:41)
[2020-05-08] MEDS: DOCUSATE SODIUM 100 MG CAPSULE (FP) PO SCH (11:41)
[2020-05-08] MEDS: VITAMIN B COMP W-C 1 EA TABLET (NEPHRO-VITE) PO SCH (11:41)
[2020-05-08] MEDS: CITALOPRAM HYDROBROMIDE 10 MG TABLET PO SCH (11:41)
[2020-05-08] MEDS ORDERED: PT OWN MED DRAWER 7, Y5N ONE ×2 (12:50→13:28)
[2020-05-08] MEDS ORDERED: HEPARIN NA (PORCINE) 5,000 UNITS/ML 1ML VIAL ONE ×2 (13:14→13:57)
--- NOTE | 2020-05-08 13:19 | PN ---
Teaching Attending Note Name of Resident: Jay Reed ATTENDING PHYSICIAN STATEMENT I saw and evaluated the patient. I reviewed the resident's note and discussed the case with the resident. I agree with the resident's findings and plan as documented. SUBJECTIVE: Feels okay, no complaints. No SOB/CP/cough/sputum/fever/chills. OBJECTIVE: Afebrile, Hemodynamically stable. AAO x 3 today. Last Vital Signs Temp Pulse Resp BP Pulse Ox 98.4 F 78 18 183/90 H 100 05/07/20 09:00 05/07/20 09:00 05/07/20 09:00 05/07/20 09:00 05/07/20 09:00 Heart - S1, S2, RRR Lungs - decreased air entry at bases Abdomen - Soft, non-tender. Bowel Sounds normal. Extremities - no edema, no calf tenderness. LUE AV fistula - mild erythema, minimal thrill Neuro - AAO x 3, moving all extremities. Laboratory Results - last 24 hr 05/06/20 05/06/20 05/06/20 18:00 18:00 18:00 WBC 7.1 RBC 2.74 L Hgb 8.8 L Hct 26.9 L MCV 98.2 H MCH 32.2 MCHC 32.8 RDW 16.2 H Plt Count 155 MPV 6.9 L Absolute Neuts (auto) 4.5 Neutrophils % 62.9 Lymphocytes % 24.8 D Monocytes % 7.3 Eosinophils % 4.4 Basophils % 0.6 Nucleated RBC % 0 PT with INR 11.70 INR 0.99 PTT (Actin FS) 33.5 VBG pH POC VBG pCO2 POC VBG pO2 VBG HCO3 VBG O2 Sat (Gopi) VBG Base Excess Sodium 140 Potassium 5.7 H Chloride 108 H Carbon Dioxide 20 L Anion Gap 13 BUN 119.5 H* Creatinine 9.5 H* Est GFR (CKD-EPI)AfAm 5.55 Est GFR (CKD-EPI)NonAf 4.79 POC Glucometer Random Glucose 141 H Calcium 7.7 L Phosphorus Magnesium Total Bilirubin 0.4 AST 16 ALT 16 Alkaline Phosphatase 131 H Total Protein 6.5 Albumin 3.2 L Blood Type Antibody Screen 05/06/20 05/06/20 05/06/20 18:00 18:00 18:00 WBC RBC Hgb Hct MCV MCH MCHC RDW Plt Count MPV Absolute Neuts (auto) Neutrophils % Lymphocytes % Monocytes % Eosinophils % Basophils % Nucleated RBC % PT with INR INR PTT (Actin FS) VBG pH 7.180 L* POC VBG pCO2 46.2 POC VBG pO2 24.4 L VBG HCO3 16.9 L VBG O2 Sat (Gopi) 31.7 L VBG Base Excess -10.8 L Sodium Potassium Chloride Carbon Dioxide Anion Gap BUN Creatinine Est GFR (CKD-EPI)AfAm Est GFR (CKD-EPI)NonAf POC Glucometer Random Glucose Calcium Phosphorus 6.2 H Magnesium 2.5 H Total Bilirubin AST ALT Alkaline Phosphatase Total Protein Albumin Blood Type O POSITIVE Antibody Screen Negative 05/06/20 05/06/20 05/06/20 20:30 20:30 22:55 WBC RBC Hgb Hct MCV MCH MCHC RDW Plt Count MPV Absolute Neuts (auto) Neutrophils % Lymphocytes % Monocytes % Eosinophils % Basophils % Nucleated RBC % PT with INR INR PTT (Actin FS) VBG pH 7.239 L POC VBG pCO2 41.9 POC VBG pO2 31.1 VBG HCO3 17.5 L VBG O2 Sat (Gopi) 49.6 L VBG Base Excess -9.2 L Sodium 142 143 Potassium 6.1 H* 5.7 H Chloride 109 H 113 H Carbon Dioxide 19 L 18 L Anion Gap 13 13 BUN 121.6 H* 123.2 H* Creatinine 9.7 H* 9.4 H* Est GFR (CKD-EPI)AfAm 5.41 5.62 Est GFR (CKD-EPI)NonAf 4.67 4.85 POC Glucometer Random Glucose 167 H 72 L Calcium 7.6 L 7.5 L Phosphorus Magnesium Total Bilirubin 0.3 AST 17 ALT 15 Alkaline Phosphatase 110 Total Protein 5.6 L Albumin 2.7 L Blood Type Antibody Screen 05/07/20 05/07/20 05/07/20 01:32 06:30 06:30 WBC 5.4 RBC 2.62 L Hgb 8.4 L Hct 25.3 L MCV 96.4 H MCH 32.1 MCHC 33.3 RDW 16.4 H Plt Count 132 L MPV 6.7 L Absolute Neuts (auto) 3.6 Neutrophils % 67.6 Lymphocytes % 21.2 Monocytes % 6.6 Eosinophils % 3.7 Basophils % 0.9 Nucleated RBC % 0 PT with INR 12.30 INR 1.04 PTT (Actin FS) VBG pH POC VBG pCO2 POC VBG pO2 VBG HCO3 VBG O2 Sat (Gopi) VBG Base Excess Sodium Potassium Chloride Carbon Dioxide Anion Gap BUN Creatinine Est GFR (CKD-EPI)AfAm Est GFR (CKD-EPI)NonAf POC Glucometer 94 Random Glucose Calcium Phosphorus Magnesium Total Bilirubin AST ALT Alkaline Phosphatase Total Protein Albumin Blood Type Antibody Screen 05/07/20 06:30 WBC RBC Hgb Hct MCV MCH MCHC RDW Plt Count MPV Absolute Neuts (auto) Neutrophils % Lymphocytes % Monocytes % Eosinophils % Basophils % Nucleated RBC % PT with INR INR PTT (Actin FS) VBG pH POC VBG pCO2 POC VBG pO2 VBG HCO3 VBG O2 Sat (Gopi) VBG Base Excess Sodium 143 Potassium 5.5 H Chloride 113 H Carbon Dioxide 17 L Anion Gap 13 BUN 126.4 H* Creatinine 9.9 H* Est GFR (CKD-EPI)AfAm 5.28 Est GFR (CKD-EPI)NonAf 4.55 POC Glucometer Random Glucose 90 Calcium 7.7 L Phosphorus Magnesium Total Bilirubin 0.4 AST 16 ALT 15 Alkaline Phosphatase 107 Total Protein 6.1 L Albumin 3.0 L Blood Type Antibody Screen Current Medications Generic Name Dose Route Start Last Admin Trade Name Freq PRN Reason Stop Dose Admin Citalopram Hydrobromide 10 mg 05/07/20 10:00 05/07/20 09:17 Celexa - PO 10 mg DAILY ANDREW Administration Docusate Sodium 100 mg 05/07/20 10:00 05/07/20 09:17 Colace - PO 100 mg DAILY ANDREW Administration Famotidine 20 mg 05/07/20 10:00 05/07/20 09:18 Pepcid - PO 20 mg DAILY ANDREW Administration Ferrous Sulfate 325 mg 05/07/20 08:00 05/07/20 08:29 Feosol - PO 325 mg BIDWM ANDREW Administration Gabapentin 100 mg 05/07/20 14:00 Neurontin - PO TID ANDREW Insulin Aspart 1 vial 05/07/20 11:00 Novolog Vial Sliding Scale - SQ ACHS [facility] Protocol Insulin Detemir 5 units 05/07/20 22:00 Levemir Vial SQ HS ANDREW Metoprolol Succinate 12.5 mg 05/07/20 10:00 05/07/20 09:18 Toprol Xl - PO 12.5 mg DAILY ANDREW Administration Multivit/Ca Carb/B Cmplx/FA/Prenat 1 tablet 05/07/20 10:00 05/07/20 09:18 Nephro-Misbah - PO 1 tablet DAILY ANDREW Administration Prednisolone Acetate 1 drop 05/07/20 10:00 05/07/20 10:41 Pred Forte 1% - OU Not Given BID ANDREW Sevelamer Carbonate 800 mg 05/07/20 08:00 05/07/20 09:18 Renvela - PO 800 mg TIDCM ANDREW Administration Tamsulosin HCl 0.4 mg 05/07/20 08:00 05/07/20 08:29 Flomax - PO 0.4 mg DAILY@0800 ANDREW Administration Home Medications Medication Instructions Recorded Sevelamer Carbonate [Renvela -] 800 mg PO TID 12/10/17 Folic Acid/Vit B Complex and C 0.8 mg PO DAILY 04/29/20 [Rose-Misbah Tablet] Acetaminophen [Tylenol] 2 tablet PO Q6H PRN 04/30/20 Apixaban [Eliquis] 2.5 mg PO BID 04/30/20 Citalopram Hydrobromide [Celexa -] 10 mg PO DAILY 04/30/20 Docusate Sodium [Colace] 100 mg PO DAILY 04/30/20 Famotidine [Acid Controller] 20 mg PO DAILY 04/30/20 Gabapentin [Neurontin] 100 mg PO TID 04/30/20 Insulin Regular, Human [Afrezza] See Protocol SQ DAILY 04/30/20 Prednisolone Acetate/Pf 1 drop OP BID 04/30/20 [Prednisolone Acet 1% Eye Drop] Tamsulosin HCl [Flomax] 0.4 mg PO DAILY 04/30/20 Metoprolol Succinate 12.5 mg PO DAILY 05/01/20 Cefpodoxime Proxetil [Vantin -] 100 mg PO ONCE #1 tablet 05/02/20 Ferrous Sulfate [Feosol] 325 mg PO BID tab 05/02/20 Insulin (Levemir) [Levemir Vial] 5 unit SQ HS #1 vial 05/02/20 ASSESSMENT/PLAN: 74 year old male from [facility] with history of ESRD on HD TTS, Chronic Anemia (recently admitted for bleeding from AVF site), PAF on Eliquis, Hx CVA, HTN, DM 2, BPH, sent from HD center for occluded AVF, unable to be accessed for HD 05/06. 1. L AVF Occlusion Duplex LUE - shows occlusion Vascular Surgery consulted and aware of need for re-vascularization - apparently scheduled for procedure today. Currently NPO. 2. ESRD on HD TTS Unable to access AVF 05/06 Acidosis/Hyperkalemia/Severe Uremia resoilved s/p HD 05/07 via temporary femoral shiley placed by Vascular. 3. Acute Metabolic Encephalopathy (mild) secondary to Uremia - resolved s/p HD via Femoral Shiley. Awaiting re-vascularization of AVF by Vascular Surgery. 4. Chronic Anemia sec to ESRD and superimposed recent blood loss from AVF site s/p 3 units PRBCs on 04/30 - no active blood loss currently. On FeSO4 supplementation H/H stable 5. DM 2 - Maintain on sliding scale. NPO currently for revascularization procedure. 6. Atrial Fibrillation - Continue Metoprolol, Eliquis held for surgical procedure by Vascular Surgery 7. BPH - continue Tamsulosin. 8. HTN - Continue Metoprolol. BP uncontrolled - Norvasc 2.5mg x 1 given 05/07. Further up-titration of BP meds and monitoring by Nephrology. DVT Px - SCDs.
[2020-05-08] MEDS ORDERED: LABETALOL HCL 5 MG/1 ML (100MG/20 ML VIAL) IVPUSH ONE (13:25)
[2020-05-08] MEDS ORDERED: LIDOCAINE HCL 1%, 10 MG/ML (20ML VIAL) ONE (13:31)
[2020-05-08] MEDS ORDERED: MIDAZOLAM HCL 2 MG/2 ML SINGLE DOSE VIAL ONE ×2 (14:41)
[2020-05-08] MEDS ORDERED: LIDOCAINE HCL 1%, 10 MG/ML (20ML VIAL) INF ONE (15:04)
--- NOTE | 2020-05-08 15:17 | PN ---
Physical Exam: SUBJECTIVE: Patient seen and examined. Denies fever/chills, SOB, cough. OBJECTIVE: Vital Signs Period Temp Pulse Resp BP Sys/Reeder Pulse Ox Last 24 Hr 97.1 F-98.1 F 65-93 18-20 101-184/63-95 94-99 GENERAL: The patient is awake, alert, and fully oriented, in no acute distress. A&Ox3 today. HEAD: Normal with no signs of trauma. EYES: PERRL, extraocular movements intact, sclera anicteric, conjunctiva clear. No ptosis. ENT: Ears normal, nares patent, oropharynx clear without exudates, moist mucous membranes. NECK: Trachea midline, full range of motion, supple. LUNGS: Breath sounds equal, clear to auscultation bilaterally, no wheezes, no crackles, no accessory muscle use. HEART: Regular rate and rhythm, S1, S2 without murmur, rub or gallop. ABDOMEN: Soft, nontender, nondistended, normoactive bowel sounds, no guarding, no rebound, no hepatosplenomegaly, no masses. EXTREMITIES: 2+ pulses, warm, well-perfused, no edema. LUE with minimal bruit ausculatated. L femoral site of Shiley cath overnight. NEUROLOGICAL: Cranial nerves II through XII grossly intact. Normal speech, gait not observed. PSYCH: Normal mood, normal affect. SKIN: Warm, dry, normal turgor, no rashes or lesions noted Laboratory Results - last 24 hr 05/06/20 05/07/20 05/07/20 21:55 17:34 21:56 Sodium Potassium Chloride Carbon Dioxide Anion Gap BUN Creatinine Est GFR (CKD-EPI)AfAm Est GFR (CKD-EPI)NonAf POC Glucometer 176 165 Random Glucose Calcium COVID-19 (SARABJIT) Not detected 05/08/20 05/08/20 05/08/20 05:39 06:51 11:46 Sodium 141 Potassium 4.7 Chloride 107 Carbon Dioxide 26 Anion Gap 8 BUN 80.9 H Creatinine 7.1 H Est GFR (CKD-EPI)AfAm 7.89 Est GFR (CKD-EPI)NonAf 6.81 POC Glucometer 90 92 Random Glucose 100 Calcium 7.5 L COVID-19 (SARABJIT) Active Medications Generic Name Dose Route Start Last Admin Trade Name Freq PRN Reason Stop Dose Admin Citalopram Hydrobromide 10 mg 05/07/20 10:00 05/08/20 11:41 Celexa - PO Not Given DAILY [facility] Docusate Sodium 100 mg 05/07/20 10:00 05/08/20 11:41 Colace - PO Not Given DAILY [facility] Famotidine 20 mg 05/07/20 10:00 05/08/20 11:41 Pepcid - PO Not Given DAILY [facility] Ferrous Sulfate 325 mg 05/07/20 08:00 05/08/20 08:18 Feosol - PO Not Given BIDWM [facility] Gabapentin 100 mg 05/07/20 14:00 05/08/20 06:21 Neurontin - PO Not Given TID [facility] Insulin Aspart 1 vial 05/07/20 11:36 05/08/20 11:49 Novolog Vial Sliding Scale - SQ Not Given ACHS [facility] Protocol Metoprolol Succinate 12.5 mg 05/07/20 10:00 05/08/20 09:00 Toprol Xl - PO 12.5 mg DAILY [facility] Administration Multivit/Ca Carb/B Cmplx/FA/Prenat 1 tablet 05/07/20 10:00 05/08/20 11:41 Nephro-Misbah - PO Not Given DAILY [facility] Prednisolone Acetate 1 drop 05/07/20 10:00 05/07/20 22:03 Pred Forte 1% - OU Not Given BID [facility] Sevelamer Carbonate 800 mg 05/07/20 08:00 05/08/20 11:49 Renvela - PO Not Given TIDCM [facility] Tamsulosin HCl 0.4 mg 05/07/20 08:00 05/08/20 08:18 Flomax - PO Not Given DAILY@0800 [facility] ASSESSMENT/PLAN: 74 year old male from [facility] nursing with PMHx of ESRD on HD on , and Friday paroxysmal A fib on is, CVA, HTN, DM2, BPH presenting with unsuccessful dialysis from LUE AVF, (Recently admitted for bleeding from same AVF site). #L AVF occlusion -Duplex LUE shows occlusion -Vascular surgery consulted for re-vascularization; scheduled for procedure 05/08 NPO -Temporary Shiley catheter in L femoral placed for overnight dialysis #ESRD -Receives HD , , Fri -Received HD through Shiley cath overnight -Cr imrpoved from 9.9 to 7.1, K from 5.5 to 4.7 -Continue to monitor labs -Continue HD as scheduled upon resolution of LUE AVF #Acute metabolic encephalopathy 2/2 to uremia -Resolved -s/p hemodilaysis via Shiley catheter improved sx #Chronic anemia -Iron supplementation; stable hemodynamically and H/H -Last admission received 3u pRBC #Hx DM 2 -Held home DM meds -SSI and BGM #Hx of A fib -Held home eliquis due to surgical procedure -continue home metoprolol 12.5mgQD #Hx BPH -cont home Flomax 0.4mg #Hx of HTN -continue home metoprolol 12.5mgQD FEN: -NPO for surgical procedure -Monitor -No standing fluids PPx: SCD On eliquis for afib held for surgical procedure Dispo: Admitted to tele. Awaiting AVF revascularization. Visit type - Emergency Visit Emergency Visit: Yes ED Registration Date: 05/06/20 Care time: The patient presented to the Emergency Department on the above date and was hospitalized for further evaluation of their emergent condition. - New Patient This patient is new to me today: No - Critical Care Critical Care patient: No - Medication Review Med list reviewed for High Risk Meds patients 65 and older: Yes ATTENDING PHYSICIAN STATEMENT I saw and evaluated the patient. I reviewed the resident's note and discussed the case with the resident. I agree with the resident's findings and plan as documented. SUBJECTIVE: OBJECTIVE: ASSESSMENT AND PLAN:
--- NOTE | 2020-05-08 15:55 | OP ---
Operative Note - Note: Operative Date: 05/08/20 Pre-Operative Diagnosis: Clotted avf Operation: venogram, suction thrombectomy, venoplasty , with covered stent. Post-Operative Diagnosis: Same as Pre-op Surgeon: Chato Flower Anesthesia: MAC Estimated Blood Loss (mls): 50 Operative Report Dictated: Yes
[2020-05-08] MEDS ORDERED: PROMETHAZINE HCL 25 MG/1 ML VIAL IVPUSH PRN (16:05)
[2020-05-08] MEDS ORDERED: ONDANSETRON 4 MG/2 ML VIAL IVPUSH PRN (16:05)
[2020-05-08] MEDS ORDERED: oxyCODONE HCL 5 MG TABLET PO PRN (16:05)
--- NOTE | 2020-05-08 18:19 | PN ---
Progress Note, Physician Chief Complaint: Nonfunctioning AVG History of Present Illness: Seen and examined at the bedside earlier today awake and alert, offers no acute complaints denies any SOB, CP Abdominal pain, fever or chills for AVG declott later today - Current Medication List Current Medications: Active Medications Citalopram Hydrobromide (Celexa -) 10 mg PO DAILY [facility] Docusate Sodium (Colace -) 100 mg PO DAILY [facility] Famotidine (Pepcid -) 20 mg PO DAILY [facility] Ferrous Sulfate (Feosol -) 325 mg PO BIDWM [facility] Last Admin: 05/08/20 17:41 Dose: 325 mg Documented by: Gabapentin (Neurontin -) 100 mg PO TID [facility] Insulin Aspart (Novolog Vial Sliding Scale -) 1 vial SQ [facility]; Protocol Last Admin: 05/08/20 17:41 Dose: Not Given Documented by: Metoprolol Succinate (Toprol Xl -) 12.5 mg PO DAILY [facility] Multivit/Ca Carb/B Cmplx/FA/Prenat (Nephro-Misbah -) 1 tablet PO DAILY [facility] Prednisolone Acetate (Pred Forte 1% -) 1 drop OU BID [facility] Sevelamer Carbonate (Renvela -) 800 mg PO TIDCM [facility] Last Admin: 05/08/20 17:41 Dose: 800 mg Documented by: Tamsulosin HCl (Flomax -) 0.4 mg PO DAILY@0830 [facility] - Objective Vital Signs: Vital Signs Temperature 97.8 F 05/08/20 17:12 Pulse Rate 73 05/08/20 17:12 Respiratory Rate 20 05/08/20 17:12 Blood Pressure 161/56 L 05/08/20 17:12 O2 Sat by Pulse Oximetry (%) 100 05/08/20 17:12 Constitutional: Yes: No Distress, Calm HENT: Yes: Atraumatic Neck: Yes: Supple Cardiovascular: Yes: Regular Rate and Rhythm Respiratory: Yes: Regular Gastrointestinal: Yes: Soft Edema: No Neurological: Yes: Alert Labs: CBC, BMP 05/07/20 06:30 05/08/20 06:51 INR, PTT INR 1.04 (0.83-1.09) 05/07/20 06:30 Assessment/Plan 74 y/o male from [facility] with a PMHx of ESRD (HD- , , Sa), Anemia, pAfib (on Eliquis), CHF, CVA (residual BLE, 2014,2013), HTN, T2DM, BPH, MDD, recent admission 04/29-05/02 AV fistula Hemorrhage presents with non- functioning AVG. 1. AVG dysfunction 2. ESRD on HD 3. Anemia in CKD 4. CHF 5. CVA 6. Hypertension s/p dialysis via femoral dialysis catheter yesterday, no acute need for OPHTHALMIC ASST t denise for AVG declott today will use AVG for dialysis tomorrow. EDWINA with HD for anemia Anticipate discharge back to [place] following dialysis tomorrow. Ant Martino DO
[2020-05-08] MEDS ORDERED: INSULIN (NOVOLOG) ASPART 100 UNITS/ML 10ML VIAL ONE (20:35)
[2020-05-08] MEDS: prednisoLONE ACETATE 1% OPHTH SUSP 5 ML BOTTLE OU SCH (21:53)
[2020-05-09] MEDS: INSULIN SLIDING SCALE (NOVOLOG) 1 VIAL SQ SCH ×3 (05:59→18:00)
[2020-05-09] MEDS: GABAPENTIN 100 MG CAPSULE PO SCH ×2 (05:59→13:04)
[2020-05-09 06:45] LABS: BASO % 0.6 % (0-2.0); EOS % 2.2 % (0-4.5); HEMOGLOBIN 7.4 GM/dL (11.7-16.9); LYMPH % 18.4 % (8-40); MCH 32.2 pg (25.7-33.7); MCHC 33.7 g/dl (32.0-35.9); MEAN CELL VOLUME 95.7 fl (80-96); NEUT % 72.8 % (42.8-82.8); PLATELET COUNT 133 K/MM3 (134-434); RDW 15.7 % (11.9-15.9); WHITE BLOOD COUNT 6.8 K/mm3 (4.0-10.0)
[2020-05-09 07:17] LABS: ALBUMIN 2.7 g/dl (3.4-5.0); BILIRUBIN,TOTAL 0.4 mg/dL (0.2-1); BLOOD UREA NITROGEN 93.8 mg/dL (7-18); CALCIUM 7.4 mg/dL (8.5-10.1); MAGNESIUM 2.3 mg/dL (1.8-2.4); PHOSPHOROUS 5.8 mg/dL (2.5-4.9); TOT PROT 5.9 g/dl (6.4-8.2)
[2020-05-09 07:38] LABS: CREATININE 8.1 mg/dL (0.55-1.3)
[2020-05-09] MEDS: SEVELAMER CARBONATE 800 MG TAB (FP) PO SCH ×2 (08:00→13:00)
[2020-05-09] MEDS ORDERED: TAMSULOSIN HCL 0.4 MG CAP PO SCH (08:30)
[2020-05-09] MEDS ORDERED: FAMOTIDINE 20 MG TABLET PO SCH (10:00)
[2020-05-09] MEDS ORDERED: metoPROLOL SUCCINATE 25 MG TAB.SR.24H (FP) PO SCH (10:00)
[2020-05-09] MEDS ORDERED: CITALOPRAM HYDROBROMIDE 10 MG TABLET PO SCH (10:00)
[2020-05-09] MEDS ORDERED: VITAMIN B COMP W-C 1 EA TABLET (NEPHRO-VITE) PO SCH (10:00)
[2020-05-09] MEDS ORDERED: DOCUSATE SODIUM 100 MG CAPSULE (FP) PO SCH (10:00)
--- NOTE | 2020-05-09 10:59 | PN ---
Progress Note (short form) - Note Progress Note: 74M ESRD s/p thrombectomy of L AV graft. MAC anesthesia. No new c/o. Vital Signs Temp 97.8 F 05/09/20 09:03 Pulse 75 05/09/20 09:03 Resp 20 05/09/20 09:03 BP 166/79 05/09/20 09:03 Pulse Ox 98 05/09/20 09:03 Intake & Output 05/08/20 05/08/20 05/09/20 11:59 23:59 11:59 Intake Total 300 Output Total 50 Balance 250 Intake: IV 300 Output: Estimated Blood Loss 50 Other: Voiding Method Incontinent Incontinent Incontinent sitting, NAD RRR, CTAB CBC, BMP 05/09/20 05:46 05/09/20 05:46 - No anesthesia complications
--- NOTE | 2020-05-09 11:42 | PN ---
Progress Note (short form) - Note Progress Note: Surgery POD #1 Left UE venogram, suction thrombectomy, venoplasty , with covered stent. Patient seen and examined at bedside, currently undergoing Dialysis with no problems. Nursing reports no issues overnight and patient states he feels fine. Denies any cp, sob, N/V, fever or chills Vital Signs Period Temp Pulse Resp BP Sys/Reeder Pulse Ox Last 24 Hr 97.7 F-98.1 F 64-76 16-20 155-184/56-102 96-100 CBC, BMP 05/09/20 05:46 05/09/20 05:46 PE: A&Ox3, NAD Unlabores resp on RA Left UE currently being accessed for dialysis, no erythema, edema or d/c at site. Left forearm and hand warm and well perfused with + radial and ulnar pulses and 5/5 scientific informatics leader strength. Problem List - Problems (1) AV fistula occlusion Assessment/Plan: POD #1 doing well, using fistula without limitation. -fistula okay to use for access -medical management -re-consult surgery PRN -d/c planning, follow up with Dr Flower as outpatient. Evaluation and plan discussed with Dr Flower Code(s): T82.898A - [facility] COMPLICATION OF VASCULAR PROSTH DEV/GRFT, INIT Qualifiers: Encounter type: initial encounter Qualified Code(s): T82.898A - Other s pecified complication of vascular prosthetic devices, implants and grafts, initial encounter
[2020-05-09] MEDS ORDERED: SODIUM CHLORIDE 250 ML IV PRN ×2 (12:23)
[2020-05-09] MEDS ORDERED: EPOETIN ALFA 10,000 UNIT/1 ML VIAL IVPUSH ONE (12:30)
[2020-05-09] MEDS: FERROUS SO4 325 MG TABLET (FP) PO SCH (12:53)
[2020-05-09] MEDS ORDERED: PT OWN MED DRAWER 7, Y5N ONE (12:57)
[2020-05-09] MEDS: prednisoLONE ACETATE 1% OPHTH SUSP 5 ML BOTTLE OU SCH (13:03)
[2020-05-09 13:31] VITALS: BP 150/80; PULSE 80; TEMP 98
--- NOTE | 2020-05-09 13:46 | PN ---
Progress Note, Physician History of Present Illness: Pt seen and examined at bedside. He tolerated HD. - Current Medication List Current Medications: Active Medications Citalopram Hydrobromide (Celexa -) 10 mg PO DAILY [facility] Last Admin: 05/09/20 12:58 Dose: 10 mg Documented by: Docusate Sodium (Colace -) 100 mg PO DAILY [facility] Last Admin: 05/09/20 12:53 Dose: 100 mg Documented by: Famotidine (Pepcid -) 20 mg PO DAILY [facility] Last Admin: 05/09/20 12:53 Dose: 20 mg Documented by: Ferrous Sulfate (Feosol -) 325 mg PO BIDWM [facility] Last Admin: 05/09/20 12:53 Dose: 325 mg Documented by: Gabapentin (Neurontin -) 100 mg PO TID [facility] Last Admin: 05/09/20 13:04 Dose: 100 mg Documented by: Insulin Aspart (Novolog Vial Sliding Scale -) 1 vial SQ [facility]; Protocol Last Admin: 05/09/20 13:02 Dose: Not Given Documented by: Metoprolol Succinate (Toprol Xl -) 12.5 mg PO DAILY [facility] Last Admin: 05/09/20 12:53 Dose: 12.5 mg Documented by: Multivit/Ca Carb/B Cmplx/FA/Prenat (Nephro-Misbah -) 1 tablet PO DAILY [facility] Last Admin: 05/09/20 12:56 Dose: 1 tablet Documented by: Prednisolone Acetate (Pred Forte 1% -) 1 drop OU BID [facility] Last Admin: 05/09/20 13:03 Dose: 1 drop Documented by: Sevelamer Carbonate (Renvela -) 800 mg PO TIDCM [facility] Last Admin: 05/09/20 13:00 Dose: 800 mg Documented by: Tamsulosin HCl (Flomax -) 0.4 mg PO DAILY@0830 [facility] Last Admin: 05/09/20 12:53 Dose: 0.4 mg Documented by: - Objective Vital Signs: Vital Signs Temperature 98.0 F 05/09/20 13:30 Pulse Rate 80 05/09/20 13:30 Respiratory Rate 20 05/09/20 13:30 Blood Pressure 150/80 05/09/20 13:30 O2 Sat by Pulse Oximetry (%) 98 05/09/20 13:30 Constitutional: Yes: Anxious Eyes: Yes: Conjunctiva Clear HENT: Yes: Atraumatic Neck: Yes: Supple Cardiovascular: Yes: S1, S2 Respiratory: Yes: CTA Bilaterally Gastrointestinal: Yes: Soft Genitourinary: Yes: WNL Musculoskeletal: Yes: WNL Edema: No Neurological: Yes: Oriented Psychiatric: Yes: Agitated Labs: CBC, BMP 05/09/20 05:46 05/09/20 05:46 INR, PTT INR 1.04 (0.83-1.09) 05/07/20 06:30 Assessment/Plan Current Medications Generic Name Dose Route Start Last Admin Trade Name Hans PRN Reason Stop Dose Admin Citalopram Hydrobromide 10 mg 05/09/20 10:00 05/09/20 12:58 Celexa - PO 10 mg DAILY ANDREW Administration Docusate Sodium 100 mg 05/09/20 10:00 05/09/20 12:53 Colace - PO 100 mg DAILY ANDREW Administration Famotidine 20 mg 05/09/20 10:00 05/09/20 12:53 Pepcid - PO 20 mg DAILY ANDREW Administration Ferrous Sulfate 325 mg 05/08/20 17:30 05/09/20 12:53 Feosol - PO 325 mg BIDWM ANDREW Administration Gabapentin 100 mg 05/08/20 22:00 05/09/20 13:04 Neurontin - PO 100 mg TID ANDREW Administration Insulin Aspart 1 vial 05/08/20 16:30 05/09/20 13:02 Novolog Vial Sliding Scale - SQ Not Given ACHS ANDREW Protocol Metoprolol Succinate 12.5 mg 05/09/20 10:00 05/09/20 12:53 Toprol Xl - PO 12.5 mg DAILY ANDREW Administration Multivit/Ca Carb/B Cmplx/FA/Prenat 1 tablet 05/09/20 10:00 05/09/20 12:56 Nephro-Misbah - PO 1 tablet DAILY ANDREW Administration Prednisolone Acetate 1 drop 05/08/20 22:00 05/09/20 13:03 Pred Forte 1% - OU 1 drop BID ANDREW Administration Sevelamer Carbonate 800 mg 05/08/20 17:30 05/09/20 13:00 Renvela - PO 800 mg TIDCM ANDREW Administration Tamsulosin HCl 0.4 mg 05/09/20 08:30 05/09/20 12:53 Flomax - PO 0.4 mg DAILY@0830 ANDREW Administration 1. AVG dysfunction 2. ESRD on HD 3. Anemia in CKD 4. CHF 5. CVA 6. Hypertension Plan - HD today - pt has HD set up as outpt, discussed with hd unit - vascular input appreciated - pt s/p thombectomy - renal diet
--- NOTE | 2020-05-09 15:09 | DS ---
Physical Exam: SUBJECTIVE: Patient seen and examined OBJECTIVE: Vital Signs Period Temp Pulse Resp BP Sys/Reeder Pulse Ox Last 24 Hr 97.7 F-98.1 F 64-95 16-20 148-177/56-102 96-100 PHYSICAL EXAM GENERAL: The patient is awake, alert, and fully oriented, in no acute distress. HEAD: Normal with no signs of trauma. EYES: PERRL, extraocular movements intact, sclera anicteric, conjunctiva clear. ENT: Ears normal, nares patent, oropharynx clear without exudates, moist mucous membranes. NECK: Trachea midline, full range of motion, supple. LUNGS: Breath sounds equal, clear to auscultation bilaterally, no wheezes, no crackles, no accessory muscle use. HEART: Regular rate and rhythm, S1, S2 without murmur, rub or gallop. ABDOMEN: Soft, nontender, nondistended, normoactive bowel sounds, no guarding, no rebound, no hepatosplenomegaly, no masses. EXTREMITIES: 2+ pulses, warm, well-perfused, no edema. NEUROLOGICAL: Cranial nerves II through XII grossly intact. Normal speech, gait not observed. PSYCH: Normal mood, normal affect. SKIN: Warm, dry, normal turgor, no rashes or lesions noted. LABS Laboratory Results - last 24 hr 05/08/20 05/08/20 05/09/20 17:26 21:58 05:46 WBC 6.8 RBC 2.30 L Hgb 7.4 L Hct 22.0 L MCV 95.7 MCH 32.2 MCHC 33.7 RDW 15.7 Plt Count 133 L MPV 7.0 L Absolute Neuts (auto) 5.0 Neutrophils % 72.8 Lymphocytes % 18.4 Monocytes % 6.0 Eosinophils % 2.2 Basophils % 0.6 Nucleated RBC % 0 Sodium Potassium Chloride Carbon Dioxide Anion Gap BUN Creatinine Est GFR (CKD-EPI)AfAm Est GFR (CKD-EPI)NonAf POC Glucometer 95 165 Random Glucose Calcium Phosphorus Magnesium Total Bilirubin AST ALT Alkaline Phosphatase Total Protein Albumin 05/09/20 05/09/20 05/09/20 05:46 05:55 11:51 WBC RBC Hgb Hct MCV MCH MCHC RDW Plt Count MPV Absolute Neuts (auto) Neutrophils % Lymphocytes % Monocytes % Eosinophils % Basophils % Nucleated RBC % Sodium 141 Potassium 5.0 Chloride 109 H Carbon Dioxide 23 Anion Gap 9 BUN 93.8 H Creatinine 8.1 H* Est GFR (CKD-EPI)AfAm 6.73 Est GFR (CKD-EPI)NonAf 5.80 POC Glucometer 92 123 Random Glucose 107 H Calcium 7.4 L Phosphorus 5.8 H Magnesium 2.3 Total Bilirubin 0.4 AST 15 ALT 15 Alkaline Phosphatase 94 Total Protein 5.9 L Albumin 2.7 L HOSPITAL COURSE: Date of Admission:05/06/20 Pt presents from [facility] for failed dialysis from LUE AVF and AMS on 05/06. Duplex US showed occlusion, consulted vascular surgery to perform revascularization. Received temporary Shiley catheter in L femoral for dialysis on 05/07, showing improved labs and mentation. Pt received revascularization on 05/08 and hemodialysis from repaired AVF site on 05/09. Pt on iron supplementation. Pt diabetic and was on SSI, continued on home insulin dosage. Pt continued on Flomax on discharge. Pt to follow up with PCP, snorkelling instructor Dr. Cota and vascular surgeon Dr. Flower. Date of Discharge: 05/09/20 Minutes to complete discharge: 36 Discharge Summary Problems reviewed: Yes Reason For Visit: ARTERIOVENOUS FISTULA OCCLUSION Current Active Problems AV fistula occlusion (Acute) Acidosis, metabolic (Acute) ESRD (end stage renal disease) (Acute) Encounter for screening laboratory testing for COVID-19 virus (Acute) Hyperkalemia (Acute) Missed dialysis (Acute) Condition: Guarded - Instructions Diet, Activity, Other Instructions: You came to the hospital because your AV fistula where dialysis is completed from in your left arm had a blockage. We put a temporary dialysis site in your femoral artery, near your groin where we were able to complete dialysis from. We unblocked the clot that was in your left arm AV fistula. You received dialysis from your AV fistula before you left the hospital. Please continue to take your home medications as prescribed. Please resume your home dialysis on Friday, and Saturdays Please follow up with your primary care physician, Dr Conde within one week Please follow up with your vascular surgeon, Dr. Flower, within one week. Please follow up with your snorkelling instructor, Dr. Cota, within one week. If you have new, worsening, or concerning symptoms please call 911 or return to the ED. Referrals: Israel Conde [Other] Chato Flower DO [Staff Physician] - 1 Week Ronnell Cota MD [Staff Physician] - Disposition: [facility] - Home Medications Comprehensive Discharge Medication List: Ambulatory Orders Sevelamer Carbonate [Renvela -] 800 mg PO TID 12/10/17 Folic Acid/Vit B Complex and C [Rose-Misbah Tablet] 0.8 mg PO DAILY 04/29/20 Acetaminophen [Tylenol] 2 tablet PO Q6H PRN 04/30/20 Apixaban [Eliquis] 2.5 mg PO BID 04/30/20 Citalopram Hydrobromide [Celexa -] 10 mg PO DAILY 04/30/20 Docusate Sodium [Colace] 100 mg PO DAILY 04/30/20 Famotidine [Acid Controller] 20 mg PO DAILY 04/30/20 Gabapentin [Neurontin] 100 mg PO TID 04/30/20 Insulin Regular, Human [Afrezza] See Protocol SQ DAILY 04/30/20 Prednisolone Acetate/Pf [Prednisolone Acet 1% Eye Drop] 1 drop OP BID 04/30/20 Tamsulosin HCl [Flomax] 0.4 mg PO DAILY 04/30/20 Metoprolol Succinate 12.5 mg PO DAILY 05/01/20 Ferrous Sulfate [Feosol] 325 mg PO BID tab 05/02/20 Insulin (Levemir) [Levemir Vial] 5 unit SQ HS #1 vial 05/02/20 This patient is new to me today: No Emergency Visit: Yes ED Registration Date: 05/06/20 Care time: The patient presented to the Emergency Department on the above date and was hospitalized for further evaluation of their emergent condition. Critical Care patient: No - Discharge Referral Referred to [facility] Med [facility] No ATTENDING PHYSICIAN STATEMENT I saw and evaluated the patient. I reviewed the resident's note and discussed the case with the resident. I agree with the resident's findings and plan as documented. SUBJECTIVE: OBJECTIVE: ASSESSMENT AND PLAN:
--- NOTE | 2020-05-09 17:10 | PN ---
Teaching Attending Note Name of Resident: Jay Reed ATTENDING PHYSICIAN STATEMENT I saw and evaluated the patient. I reviewed the resident's note and discussed the case with the resident. I agree with the resident's findings and plan as documented. SUBJECTIVE: seen and examined OBJECTIVE: Last Vital Signs Temp Pulse Resp BP Pulse Ox 98.0 F 80 20 150/80 98 05/09/20 13:30 05/09/20 13:30 05/09/20 13:30 05/09/20 13:30 05/09/20 13:30 Heart - S1, S2, RRR Lungs - decreased air entry at bases Abdomen - Soft, non-tender. Bowel Sounds normal. Extremities - no edema, no calf tenderness. LUE AV fistula - mild erythema, minimal thrill Neuro - AAO x 3, moving all extremities. CBCD WBC 6.8 K/mm3 (4.0-10.0) 05/09/20 05:46 RBC 2.30 M/mm3 (4.00-5.60) L 05/09/20 05:46 Hgb 7.4 GM/dL (11.7-16.9) L 05/09/20 05:46 Hct 22.0 % (35.4-49) L 05/09/20 05:46 MCV 95.7 fl (80-96) 05/09/20 05:46 MCHC 33.7 g/dl (32.0-35.9) 05/09/20 05:46 RDW 15.7 % (11.9-15.9) 05/09/20 05:46 Plt Count 133 K/MM3 (134-434) L 05/09/20 05:46 MPV 7.0 fl (7.5-11.1) L 05/09/20 05:46 CMP Sodium 141 mmol/L (136-145) 05/09/20 05:46 Potassium 5.0 mmol/L (3.5-5.1) 05/09/20 05:46 Chloride 109 mmol/L (98-107) H 05/09/20 05:46 Carbon Dioxide 23 mmol/L (21-32) 05/09/20 05:46 Anion Gap 9 MMOL/L (8-16) 05/09/20 05:46 BUN 93.8 mg/dL (7-18) H 05/09/20 05:46 Creatinine 8.1 mg/dL (0.55-1.3) H* 05/09/20 05:46 Calcium 7.4 mg/dL (8.5-10.1) L 05/09/20 05:46 Total Bilirubin 0.4 mg/dL (0.2-1) 05/09/20 05:46 AST 15 U/L (15-37) 05/09/20 05:46 ALT 15 U/L (13-61) 05/09/20 05:46 Alkaline Phosphatase 94 U/L (45-117) 05/09/20 05:46 Total Protein 5.9 g/dl (6.4-8.2) L 05/09/20 05:46 Albumin 2.7 g/dl (3.4-5.0) L 05/09/20 05:46 ASSESSMENT AND PLAN: 74 year old male from [facility] with history of ESRD on HD TTS, Chronic Anemia (recently admitted for bleeding from AVF site), PAF on Eliquis, Hx CVA, HTN, DM 2, BPH, sent from HD center for occluded AVF, unable to be accessed for HD 05/06. # AVF Occlusion s/p revascularization and thrombectomy had HD thru AVF today metabolic encephalopathy resolved going back to SNF Inflammatory anemia ESRD on HD DM AFib (restart Eliquis) BPH HTN DVT Prophylaxis.
--- NOTE | 2020-05-11 17:51 | OP ---
DATE OF OPERATION: 05/08/2020 PREOPERATIVE DIAGNOSIS: Clotted left arteriovenous fistula. POSTOPERATIVE DIAGNOSIS: Clotted left arteriovenous fistula. PROCEDURE: Venogram, suction thrombectomy, venoplasty, covered stent placement, left arteriovenous fistula. SURGEON: Chato Blanco MD. ANESTHESIA: Fractional. BLOOD LOSS: 50 mL. INDICATION: The patient is a 74-year-old male that comes in with a clotted AV fistula. 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 Patient was consented for the procedure understanding all risks, benefits, and alternatives and taken to the operating room. DESCRIPTION OF PROCEDURE: Once in the operating room, he was laid on the operating table in a supine manner, and the area of the left arm are prepped and draped in a sterile surgical manner. We then went ahead and injected 2 mL of lidocaine 1% above the arterial anastomosis. We then went ahead and used our Micropuncture needle and punctured the fistula. A Micropuncture wire was inserted, Micropuncture sheath was inserted, and a traditional short 6-Sami sheath was inserted. We then shot a venogram by hand injection showing that the fistula was patent but in certain areas were pseudoaneurysms that were thrombosed. At this point, we placed a 0.035 floppy guidewire up into the central veins. Then we went ahead and used an AVX suction thrombectomy catheter and performed suction thrombectomy of the entire AV fistula all the way into the central vein. Thereafter, we used an 8 x 8 Rosalia balloon and prior to using the balloon, 5000 units of IV heparin were administered to the patient. After 3 minutes, we went ahead and performed venoplasty of the body of the AV fistula. The fistula was now patent but still had some residual clot in the pseudoaneurysms. At this point, we used a 7 x 5 stent and we placed it across the pseudoaneurysm and deployed it. We then ballooned it in place using a 7 x 5 Rosalia balloon. Completion venogram now showed that the fistula was patent. The pseudoaneurysms were excluded, and there was good brisk flow going into the central veins. At this point, we used a 4-0 Biosyn and a [id number] stitch was placed around the sheath, and the sheath was pulled. Area was then dried. Dermabond was placed. Patient tolerated the procedure without complications. Patient was transferred to PACU in stable condition. CHATO BLANCO DO NP/[id number]
--- NOTE | 2020-05-14 00:22 | PDOC ---
Documentation entered by Mary Grace Dillon SCRIBE, acting as scribe for Jose Roberto Rene MD. Jose Roberto Rene MD: This documentation has been prepared by the Santana horvath Sydney, SCRIBE, under my direction and personally reviewed by me in its entirety. I confirm that the documentation accurately reflects all work, treatment, procedures, and medical decision making performed by me. Attending Attestation - Resident Resident Name: TomasBrent - ED Attending Attestation I have performed the following: I have examined & evaluated the patient, The case was reviewed & discussed with the resident, I agree w/resident's findings & plan, Exceptions are as noted - HPI HPI: 05/06/20 17:30 74y M hx of dm, htn, chf, esrd on dialysis sent from dialysis as they were unable to cannulate his fistula. Pt is ao x 2, however is unclear why he is here. donies any pain, fever/chills, n/v, abd pain, cp, sob, cough. history limited from pt exam: general: no acute distress neuro: alert and oriented x 2, moving all 4 extremities spontaneously symmetrically card:L rrr, no mrg pulm: cta bl ext: access on LUE concern for possible occluded access will obtain US will r/o emergent need for dialysis - Physicial Exam PE: 05/14/20 00:23 see above - Medical Decision Making 05/06/20 18:08 pt more confused now, trying to get out of bed, moving around. ?uremia lab work obtained, iv placed will give pt some ativan Discharge - Discharge Information Problems reviewed: Yes Clinical Impression/Diagnosis: ESRD (end stage renal disease), Hyperkalemia, Missed dialysis, Acidosis, metabolic AV fistula occlusion Qualifiers: Encounter type: initial encounter Qualified Code(s): T82.898A - Other specified complication of vascular prosthetic devices, implants and grafts, initial encounter Condition: Guarded Disposition: ALF FACILITY - Follow up/Referral - Patient Discharge Instructions - Post Discharge Activity
== END 2020-05-09 17:01 | DRG 252 ==
LOC: JER 16:24 → JERBED 21:11 → J4W 05-07 12:46
PROVIDERS: ADMIT Internal Medicine; ATTEND Student in an Organized Health Care Education/Training Program
PROC: 06HN33Z Insertion of Infusion Device into Left Femoral Vein, Percutaneous Approach (ICD-10-PCS; principal; 2020-05-07)
PROC: 5A1D70Z Performance of Urinary Filtration, Intermittent, Less than 6 Hours Per Day (ICD-10-PCS; 2020-05-07)
PROC: 05CY3ZZ Extirpation of Matter from Upper Vein, Percutaneous Approach (ICD-10-PCS; 2020-05-08)
PROC: 057Y3DZ Dilation of Upper Vein with Intraluminal Device, Percutaneous Approach (ICD-10-PCS; 2020-05-08)
PROC: B50NYZZ Plain Radiography of Left Upper Extremity Veins using Other Contrast (ICD-10-PCS; 2020-05-08)
PROC: 3E04317 Introduction of Other Thrombolytic into Central Vein, Percutaneous Approach (ICD-10-PCS; 2020-05-08)
PROC: 5A1D70Z Performance of Urinary Filtration, Intermittent, Less than 6 Hours Per Day (ICD-10-PCS; 2020-05-09)
DX: T82.868A Thrombosis due to vascular prosthetic devices, implants and grafts, initial encounter (principal); N18.6 End stage renal disease; G93.41 Metabolic encephalopathy; E87.2 Acidosis; I69.351 Hemiplegia and hemiparesis following cerebral infarction affecting right dominant side; I43 Cardiomyopathy in diseases classified elsewhere; I13.2 Hypertensive heart and chronic kidney disease with heart failure and with stage 5 chronic kidney disease, or end stage renal disease; N40.0 Benign prostatic hyperplasia without lower urinary tract symptoms; I48.0 Paroxysmal atrial fibrillation; D63.1 Anemia in chronic kidney disease; E11.22 Type 2 diabetes mellitus with diabetic chronic kidney disease; E87.5 Hyperkalemia; F32.9 Major depressive disorder, single episode, unspecified; I50.9 Heart failure, unspecified; Z99.2 Dependence on renal dialysis; Y83.8 Other surgical procedures as the cause of abnormal reaction of the patient, or of later complication, without mention of misadventure at the time of the procedure
CPT/HCPCS: 36415; 71045-TC-FY; 76000-TC-FY; 80048; 80053; 82803; 82962; 83735; 84100; 85025; 85610; 85730; 86850; 86900; 86901; 93005; 93010; 93931; 94760; 97116-GP; 97161-GP; 99285-25; J0885; J1644; U0003

== ENCOUNTER 2020-05-12 12:39 | Inpatient (IN) | payer OTHER ==
[2020-05-12 12:56] VITALS: BMI 24.4
--- NOTE | 2020-05-12 13:37 | PDOC ---
History of Present Illness - General Chief Complaint: Dialysis Shunt Problem Stated Complaint: DIALYSIS SHUNT PROBLEM History Source: Patient, Detention Records Exam Limitations: Dementia - History of Present Illness Initial Comments: 05/12/20 14:35 74M resident of [facility] with PMH of ESRD on HD (Fri//Fri), dementia, Afib, HTN, BPH, anemia, DM2 presenting from [facility] due to inability to cannulate his LUE AV fistula. He was scheduled for dialysis yesterday, unable to get access. Reattempt today w/o success so sent to ED. Recently admitted 05/06 for AVF occlusion, d/c on 05/09 after revascularization and thrombectomy. Last HD was 05/09 during last admission. Patient is a poor historian, AOx2, but denies lightheadedness/dizziness, chest pain, SOB, abdominal pain. PMH: as in HPI SH: see below Meds: see med list Allergies: NKDA PCP: Israel Conde Vascular surgeon: Dr. Gypsy AGUIRRE GENERAL/CONSTITUTIONAL: No fever or chills. No weakness. HEENT: No change in vision. No ear pain or discharge. No sore throat. CARDIOVASCULAR: No chest pain or shortness of breath RESPIRATORY: No cough, wheezing, or hemoptysis. GASTROINTESTINAL: No nausea, vomiting, diarrhea or constipation. GENITOURINARY: No dysuria, frequency, or change in urination. MUSCULOSKELETAL: No joint or muscle swelling or pain. No neck or back pain. SKIN: No rash NEUROLOGIC: No headache, vertigo, loss of consciousness, or change in strength/sensation. ENDOCRINE: No increased thirst. No abnormal weight change HEMATOLOGIC/LYMPHATIC: No anemia, easy bleeding, or history of blood clots. ALLERGIC/IMMUNOLOGIC: No hives or skin allergy. PE GENERAL: Awake, alert, and oriented to self and place, not time; no acute distress HEAD: No signs of trauma, normocephalic, atraumatic EYES: PERRLA, EOMI, sclera anicteric, conjunctiva clear ENT: Auricles normal inspection, hearing grossly normal, nares patent, moist mucosa, oropharynx clear without exudates. NECK: Normal ROM, supple, no LAD, JVD, or masses HEART: Regular rate and rhythm, normal S1/S2, no murmurs, rubs or gallops, peripheral pulses normal and equal bilaterally. LUNGS: No distress, speaks full sentences, clear to auscultation bilaterally ABDOMEN: Soft, nontender. No guarding, no rebound. No masses EXTREMITIES: Normal inspection. L. arm AV fistula bruit auscultated NEUROLOGICAL: CNII-XII grossly intact. Normal speech, no focal sensorimotor deficits SKIN: Warm, Dry, normal turgor, no rashes or lesions noted Assessment and Plan 1. w/o for evaluation of emergent HD Brayden Olivo, PGY1 Emergency Medicine Past History - Medical History Allergies/Adverse Reactions: Allergies Allergy/AdvReac Type Severity Reaction Status Date / Time No Known Allergies Allergy Verified 05/07/20 09:41 Home Medications: Ambulatory Orders Sevelamer Carbonate [Renvela -] 800 mg PO TID 12/10/17 Folic Acid/Vit B Complex and C [Rose-Misbah Tablet] 0.8 mg PO DAILY 04/29/20 Acetaminophen [Tylenol] 2 tablet PO Q6H PRN 04/30/20 Apixaban [Eliquis] 2.5 mg PO BID 04/30/20 Citalopram Hydrobromide [Celexa -] 10 mg PO DAILY 04/30/20 Docusate Sodium [Colace] 100 mg PO DAILY 04/30/20 Famotidine [Acid Controller] 20 mg PO DAILY 04/30/20 Gabapentin [Neurontin] 100 mg PO TID 04/30/20 Insulin Regular, Human [Afrezza] See Protocol SQ DAILY 04/30/20 Prednisolone Acetate/Pf [Prednisolone Acet 1% Eye Drop] 1 drop OP BID 04/30/20 Tamsulosin HCl [Flomax] 0.4 mg PO DAILY 04/30/20 Metoprolol Succinate 12.5 mg PO DAILY 05/01/20 Ferrous Sulfate [Feosol] 325 mg PO BID tab 05/02/20 Insulin (Levemir) [Levemir Vial] 5 unit SQ HS #1 vial 05/02/20 Anemia: Yes Asthma: No Cancer: No Cardiac Disorders: Yes (CHF) CVA: Yes (BLE weakness) COPD: No CHF: Yes Dementia: No Diabetes: Yes Dialysis: Yes GI Disorders: No Disorders: Yes (kidney failure, left arm fistula, BPH) HTN: Yes Hypercholesterolemia: Yes Liver Disease: No Seizures: No Thyroid Disease: No - Surgical History Abdominal Surgery: No Appendectomy: No Cardiac Surgery: No Cholecystectomy: No Lung Surgery: No Neurologic Surgery: No Orthopedic Surgery: No - Psycho-Social/Smoking History Smoking History: Never smoked Have you smoked in the past 12 months: No *Physical Exam - Vital Signs Last Vital Signs Temp Pulse Resp BP Pulse Ox 98.6 F 56 L 20 161/67 100 05/12/20 12:51 05/12/20 12:51 05/12/20 12:51 05/12/20 12:51 05/12/20 12:51 ED Treatment Course - LABORATORY CBC & Chemistry Diagram: 05/12/20 15:20 05/12/20 15:20 Medical Decision Making - Medical Decision Making 05/12/20 15:03 74M resident of [facility] with PMH of ESRD on HD (Fri//Fri), dementia, Afib, HTN, BPH, anemia, DM2 presenting from [facility] due to inability to cannulate his LUE AV fistula. L. arm AV fistula bruit auscultated. -CBC, CMP, coags, T&S, EKG, U/S for AVF patency 05/12/20 16:38 -CXR: course lung findings -EKG: sinus marcelle with 1st degree AV block, HR 56, PA 302 CBC WBC 5.4 K/mm3 (4.0-10.0) 05/12/20 15:20 RBC 2.28 M/mm3 (4.00-5.60) L 05/12/20 15:20 Hgb 7.5 GM/dL (11.7-16.9) L 05/12/20 15:20 Hct 21.9 % (35.4-49) L 05/12/20 15:20 MCV 96.1 fl (80-96) H 05/12/20 15:20 MCH 32.9 pg (25.7-33.7) 05/12/20 15:20 MCHC 34.2 g/dl (32.0-35.9) 05/12/20 15:20 RDW 15.5 % (11.9-15.9) 05/12/20 15:20 Plt Count 163 K/MM3 (134-434) D 09/04/20 15:20 MPV 6.7 fl (7.5-11.1) L 05/12/20 15:20 Absolute Neuts (auto) 3.1 K/mm3 (1.5-8.0) 05/12/20 15:20 Neutrophils % 56.8 % (42.8-82.8) D 05/12/20 15:20 Lymphocytes % 30.0 % (8-40) D 05/12/20 15:20 Monocytes % 8.0 % (3.8-10.2) 05/12/20 15:20 Eosinophils % 4.4 % (0-4.5) D 05/12/20 15:20 Basophils % 0.8 % (0-2.0) 05/12/20 15:20 Nucleated RBC % 0 % (0-0) 05/12/20 15:20 CMP Sodium 136 mmol/L (136-145) 05/12/20 15:20 Potassium 4.2 mmol/L (3.5-5.1) 05/12/20 15:20 Chloride 99 mmol/L (98-107) 05/12/20 15:20 Carbon Dioxide 29 mmol/L (21-32) 05/12/20 15:20 Anion Gap 7 MMOL/L (8-16) L 05/12/20 15:20 BUN 43.7 mg/dL (7-18) H 05/12/20 15:20 Creatinine 5.5 mg/dL (0.55-1.3) H 05/12/20 15:20 Est GFR (CKD-EPI)AfAm 10.74 05/12/20 15:20 Est GFR (CKD-EPI)NonAf 9.27 05/12/20 15:20 Random Glucose 105 mg/dL (74-106) 05/12/20 15:20 Calcium 7.7 mg/dL (8.5-10.1) L 05/12/20 15:20 Total Bilirubin 0.3 mg/dL (0.2-1) 05/12/20 15:20 AST 17 U/L (15-37) 05/12/20 15:20 ALT 15 U/L (13-61) 05/12/20 15:20 Alkaline Phosphatase 105 U/L (45-117) 05/12/20 15:20 Total Protein 6.3 g/dl (6.4-8.2) L 05/12/20 15:20 Albumin 3.0 g/dl (3.4-5.0) L 05/12/20 15:20 Labs remarkable for: -low Hgb consistent with previous labs -elevated BUN and creatinine consistent with previous 05/12/20 17:38 -Doppler Ultrasound of Left AV fistula: no flow seen within stent adjacent to AV fistula consistent with occlusion -spoke with the PA with vascular surgery, would be willing to get vascular access -will be admitted to /s -signed out to night team Discharge - Discharge Information Problems reviewed: Yes Clinical Impression/Diagnosis: ESRD (end stage renal disease) AV fistula occlusion Qualifiers: Encounter type: initial encounter Qualified Code(s): T82.898A - Other specified complication of vascular prosthetic devices, implants and grafts, initial encounter - Admission Yes - Follow up/Referral - Patient Discharge Instructions - Post Discharge Activity
--- NOTE | 2020-05-12 15:10 | PDOC ---
Documentation entered by Marie Dinh SCRIBE, acting as scribe for Mary Bingham MD. Mary Bingham MD: This documentation has been prepared by the Fabrizio horvath Brenda, SCRIBE, under my direction and personally reviewed by me in its entirety. I confirm that the documentation accurately reflects all work, treatment, procedures, and medical decision making performed by me. Attending Attestation - Resident Resident Name: Brayden Olivo - ED Attending Attestation I have performed the following: I have examined & evaluated the patient, The case was reviewed & discussed with the resident, I agree w/resident's findings & plan, Exceptions are as noted - HPI HPI: 05/12/20 15:08 Agree with resident HPI - Physicial Exam PE: 05/12/20 15:08 Agree with resident exam - Medical Decision Making 05/12/20 15:08 74yo M presents to the ED 2/2 inability to access fistula at HD Last HD Friday in the hospital Plan to check labs to r/o indication of urgent HD. Case discussed with surgical SHASHI Sun, they will be placing definitive HD access EKG with no peaked T waves Anticipate admission
--- NOTE | 2020-05-12 15:22 | CONSULT ---
- Consultation REQUESTING PROVIDER: Chato Flower - Vascular Surgery CONSULT REQUEST: We have been asked to surgically evaluate this patient for ? clotted LUE AVF. Hospitalist: History Source: Transfer Record Limitations to Obtaining History: Clinical Condition, Poor Historian, Uncooperative HPI: Called to mariaa 74 yo M with PMHx as noted below. Presents to [facility] ED from HD center s/p inability to access AVF. Patient is well known to the Vascular Service. Recently admitted to hospital for AVF hemorrhage 04/29-05/02. Also during last hospital admission, patient underwent suction thrombectomy 05/09/20. His last HD session was 05/09/20. Denies n/v/f/c, CP, palpitations, SOB or SANTOS. Denies numbness/tingling to LUE PMHx: CVA (Right side CVA with residual weakness of LLE), CHF, HTN, ESRD on HD (T-Th-Sat), T2DM, MDD, BPH PSHx: LUE AVF Home Meds Sevelamer Carbonate [Renvela -] 800 mg PO TID 12/10/17 Folic Acid/Vit B Complex and C [Rose-Misbah Tablet] 0.8 mg PO DAILY 04/29/20 Acetaminophen [Tylenol] 2 tablet PO Q6H PRN 04/30/20 Apixaban [Eliquis] 2.5 mg PO BID 04/30/20 Citalopram Hydrobromide [Celexa -] 10 mg PO DAILY 04/30/20 Docusate Sodium [Colace] 100 mg PO DAILY 04/30/20 Famotidine [Acid Controller] 20 mg PO DAILY 04/30/20 Gabapentin [Neurontin] 100 mg PO TID 04/30/20 Insulin Regular, Human [Afrezza] See Protocol SQ DAILY 04/30/20 Prednisolone Acetate/Pf [Prednisolone Acet 1% Eye Drop] 1 drop OP BID 04/30/20 Tamsulosin HCl [Flomax] 0.4 mg PO DAILY 04/30/20 Metoprolol Succinate 12.5 mg PO DAILY 05/01/20 Ferrous Sulfate [Feosol] 325 mg PO BID tab 05/02/20 Insulin (Levemir) [Levemir Vial] 5 unit SQ HS #1 vial 05/02/20 Allergies: NKDA ROS: 12 systems reviewed and considered negative except for what's contained in the HPI. PE: GENERAL: awake, alert HEAD: Normal with no signs of trauma. EYES: PERRL, sclera anicteric, conjunctiva clear. NECK: Normal ROM, supple without lymphadenopathy, JVD, or masses. LUNGS: Unlabored respirations on room air HEART: RRR ABD: Soft, nontender, not distended, normoactive bowel sounds, no guarding, no rebound, no masses. No organomegaly. MUSCULOSKELETAL: Normal ROM at all joints. No bony deformities or tenderness. No CVA tenderness. LUE: palpable thrill from AC to axilla. Aneurysmal dilation/mid-biceps over fistula (most likely from habitual sticks). Warm, well-perfused. No cyanosis. Cap refill <2 seconds. No peripheral edema. Last Vital Signs Temp Pulse Resp BP Pulse Ox 98.6 F 56 L 20 161/67 100 05/12/20 12:51 05/12/20 12:51 05/12/20 12:51 05/12/20 12:51 05/12/20 12:51 CBC 05/12/20 15:20 A/P: 74 yo male with ? malfunctioning LUE AVF. Sent to ED from HD as they were unable to access AVF. Patient's last HD session was 05/09/20. He has a palpable thrill over AVF length of his biceps. Awaiting Lab values to see if he needs temporary access. -Renal Consult pending (Dr. Martino) -f/u BMP & Coags -f/u LUE AVF duplex -Covid pending; Strict isolation -Tight glycemic control; ISS -BP control -Cont medical management -Place shiley prn lab values -Vascular Surgery to cont following Above plan discussed with Dr. Flower and agrees. Problem List - Problems (1) AV fistula occlusion Code(s): T82.898A - OTH COMPLICATION OF VASCULAR PROSTH DEV/GRFT, INIT Qualifiers: Encounter type: initial encounter Qualified Code(s): T82.898A - Other specified complication of vascular prosthetic devices, implants and grafts, initial encounter (2) Missed dialysis Code(s): [id number] - (3) ESRD (end stage renal disease) Code(s): N18.6 - END STAGE RENAL DISEASE (4) Diabetes Code(s): E11.9 - TYPE 2 DIABETES MELLITUS WITHOUT COMPLICATIONS Qualifiers: Diabetes mellitus type: type 2 Diabetes mellitus care home insulin use: without termite exterminator helper use Chronic kidney disease stage: on chronic dialysis Visit type - Case Type Case Type: ED Admission - Emergency Emergency Visit: Yes Care time: The patient presented to the Emergency Department on the above date and was hospitalized for further evaluation of their emergent condition. - New patient This patient is new to me today: Yes Date on this admission: 05/12/20
[2020-05-12 15:40] LABS: BASO % 0.8 % (0-2.0); EOS % 4.4 % (0-4.5); HEMATOCRIT 21.9 % (35.4-49); HEMOGLOBIN 7.5 GM/dL (11.7-16.9); MCH 32.9 pg (25.7-33.7); MCHC 34.2 g/dl (32.0-35.9); MEAN CELL VOLUME 96.1 fl (80-96); MEAN PLT VOLUME 6.7 fl (7.5-11.1); NEUT % 56.8 % (42.8-82.8); PLATELET COUNT 163 K/MM3 (134-434); RBC 2.28 M/mm3 (4.00-5.60); RDW 15.5 % (11.9-15.9); WHITE BLOOD COUNT 5.4 K/mm3 (4.0-10.0)
[2020-05-12 16:17] LABS: BILIRUBIN,TOTAL 0.3 mg/dL (0.2-1); CALCIUM 7.7 mg/dL (8.5-10.1); CREATININE 5.5 mg/dL (0.55-1.3); POTASSIUM 4.2 mmol/L (3.5-5.1); TOT PROT 6.3 g/dl (6.4-8.2)
[2020-05-12 16:18] LABS: BLOOD UREA NITROGEN 43.7 mg/dL (7-18)
--- NOTE | 2020-05-12 16:25 | PN ---
Progress Note, Physician - Objective Vital Signs: Vital Signs Temperature 98.6 F 05/12/20 12:51 Pulse Rate 56 L 05/12/20 12:51 Respiratory Rate 20 05/12/20 12:51 Blood Pressure 161/67 05/12/20 12:51 O2 Sat by Pulse Oximetry (%) 100 05/12/20 12:51 Labs: CBC, BMP 05/12/20 15:20 05/12/20 15:20
[2020-05-12 17:07] LABS: INR 1.11 (0.83-1.09); PROTHROMBIN TIME (PATIENT) 13.1 SEC (9.7-13.0)
[2020-05-12 17:09] LABS: ACTIVATED PTT 31.8 SECONDS (25.2-36.5)
--- NOTE | 2020-05-12 18:26 | CON.NEP ---
Consult Consult Specialty:: Nephrology Referred by:: ED Reason for Consultation:: ESRD with malfunctioning AVF - History of Present Illness Chief Complaint: Unabel to do dialysis due to non-functioning AVF History of Present Illness: This is a 74 year old male with history of ESRD on HD (TTS), DM type 2, hepatitis C, CHF, CVA who was sent to the ED from dialysis for a non-functioning AVG. Pt was in dialysis yesterday and had an access infiltration when he moved his arm and then blood flow was not able to be established. He was discharged with ice pack and brought back to the dialysis unit today but they were not able to obtain blood flow from AVF. He currently offers no acute complaints. Denies any sob, cp, fever, chills, N/V/D. Doppler of AVF showed stent occlusion. 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) Cardio/Vascular: Yes: CHF, HTN Renal/: Yes: Renal Failure, Renal Inusuff, Hemodialysis Endocrine: Yes: Diabetes Mellitus - Past Surgical History Past Surgical History: Yes: AV Fistula/Graft - Alcohol/Substance Use Hx Alcohol Use: No History of Substance Use: reports: None (unknown) - Smoking History Smoking history: Never smoked Have you smoked in the past 12 months: No - Social History Usual Living Arrangement: Alone ADL: Support Services Home Medications - Allergies Allergies/Adverse Reactions: Allergies Allergy/AdvReac Type Severity Reaction Status Date / Time No Known Allergies Allergy Verified 05/07/20 09:41 - Home Medications Home Medications: Ambulatory Orders Sevelamer Carbonate [Renvela -] 800 mg PO TID 12/10/17 Folic Acid/Vit B Complex and C [Rose-Misbah Tablet] 0.8 mg PO DAILY 04/29/20 Acetaminophen [Tylenol] 2 tablet PO Q6H PRN 04/30/20 Apixaban [Eliquis] 2.5 mg PO BID 04/30/20 Citalopram Hydrobromide [Celexa -] 10 mg PO DAILY 04/30/20 Docusate Sodium [Colace] 100 mg PO DAILY 04/30/20 Famotidine [Acid Controller] 20 mg PO DAILY 04/30/20 Gabapentin [Neurontin] 100 mg PO TID 04/30/20 Insulin Regular, Human [Afrezza] See Protocol SQ DAILY 04/30/20 Prednisolone Acetate/Pf [Prednisolone Acet 1% Eye Drop] 1 drop OP BID 04/30/20 Tamsulosin HCl [Flomax] 0.4 mg PO DAILY 04/30/20 Metoprolol Succinate 12.5 mg PO DAILY 05/01/20 Ferrous Sulfate [Feosol] 325 mg PO BID tab 05/02/20 Insulin (Levemir) [Levemir Vial] 5 unit SQ HS #1 vial 05/02/20 Family Medical History Family History: Unremarkable Review of Systems - Review of Systems Constitutional: reports: No Symptoms Eyes: reports: No Symptoms HENT: reports: No Symptoms Neck: reports: No Symptoms Cardiovascular: reports: No Symptoms Respiratory: reports: No Symptoms Gastrointestinal: reports: No Symptoms Genitourinary: reports: No Symptoms Musculoskeletal: reports: No Symptoms Integumentary: reports: No Symptoms Neurological: reports: No Symptoms Endocrine: reports: No Symptoms Nephrology Consult - Height Height: 6 ft - Weight Weight: 81.647 kg - BMI Body Mass Index (BMI): 24.4 - Lab Results CBC,BMP: CBC, BMP 05/12/20 15:20 05/12/20 15:20 Anion Gap: Anion Gap Anion Gap 7 MMOL/L (8-16) L 05/12/20 15:20 - Physical Examination Vital Signs: Vital Signs Temperature 98.6 F 05/12/20 12:51 Pulse Rate 56 L 05/12/20 12:51 Respiratory Rate 20 05/12/20 12:51 Blood Pressure 161/67 05/12/20 12:51 O2 Sat by Pulse Oximetry (%) 100 05/12/20 12:51 Constitutional: Yes: No Distress, Calm, Thin Eyes: Yes: Conjunctiva Clear HENT: Yes: Atraumatic Neck: Yes: Supple Cardiovascular: Yes: Regular Rate and Rhythm Respiratory: Yes: Regular, CTA Bilaterally Gastrointestinal: Yes: Soft. No: Tenderness Access for Hemodialysis: AV Fistula (+ thrill) Extremities: No: Cyanosis, Erythema Edema: No Neurological: Yes: Alert Assessment/Plan 74 year old male with history of ESRD on HD (TTS), DM type 2, hepatitis C, CHF, CVA who was sent to the ED from dialysis for a non-functioning AVG. 1. Mal-functioning AVF 2. ESRD on HD 3. Hx of CHF w/o acute exacerbation 4. DM type 2 5. Anemia in CKD Vascular consultation appreciated. Doppler of AVF shows stent occlusion in AVF however there is an audbile thrill over AVF site. Will attempt to access AVF in HD tomorrow, if not possible will need an alternative access. There is no acute need for renal replacement therapy today. Will give EDWINA with dialysis for Anemia, check iron studies as pt likely will need iron too. No acute need for transfusion. Thank you Will follow Ant Martino DO
[2020-05-12] MEDS ORDERED: SODIUM CHLORIDE 250 ML IV PRN (18:30)
--- NOTE | 2020-05-12 20:03 | PN ---
Teaching Attending Note Name of Resident: Jay Reed ATTENDING PHYSICIAN STATEMENT I saw and evaluated the patient. I reviewed the resident's note and discussed the case with the resident. I agree with the resident's findings and plan as documented. SUBJECTIVE: 74yoM with extensive PMH including ESRD on HD TTS, chronic anemia, paroxysmal Afib on Eliquis, CHF, CVA with residual leg weakness, T2DM, and HTN who presents for evaluation of his LUE AV fistula. Patient was recently admitted 05/06-05/09 after the AVF was unable to be accessed for dialysis and underwent suction thrombectomy 05/09. During dialysis on 05/11 he had access infiltration and blood flow could not be established. He returned for dialysis today but again were unable to obtain blood flow so he was referred to the ED. Patient denies any acute complaints and his son at bedside has no additional concerns. Duplex obtained in the ED showed no definite flow within the stent adjacent to the AV fistula, however nephrology assessed patient in the ED and noted an audible thrill over the AVF site. Plan currently is to attempt access tomorrow, if unable then alternate access will be obtained. Vascular surgery is also following. OBJECTIVE: Vital Signs - 24 hr 05/12/20 12:51 Temperature 98.6 F Pulse Rate 56 L Respiratory 20 Rate Blood Pressure 161/67 O2 Sat by Pulse 100 Oximetry (%) Exam: Gen: awake, alert, NAD CV: RRR Resp: CTAB, unlabored breathing Abd: soft, NT, ND Extremities: no edema. +bruit/thrill over LUE AV fistula ASSESSMENT AND PLAN: 74yoM with extensive PMH including ESRD on HD TTS, chronic anemia, paroxysmal Afib on Eliquis, CHF, CVA with residual leg weakness, T2DM, and HTN who presents with possible AVF stent occlusion. Possible AVF stent occlusion ESRD on HD TTS - renal, vascular following - planned for HD 05/13 - continue sevelamer Chronic anemia Hgb 7.5 on admission, baseline appears to be around 8 Iron studies from 04/30 showed 26% iron saturation Epo planned with dialysis - continue iron supplementation Chronic, stable: paroxysmal Afib: Sinus marcelle on admission EKG. Continue metoprolol, Eliquis T2DM on insulin: continue levemir, ISS BPH: continue tamsulosin DVT ppx: on Eliquis
--- NOTE | 2020-05-13 01:01 | HP ---
CHIEF COMPLAINT: Failed AV fistula HISTORY OF PRESENT ILLNESS: Pt is a 74 year old male with PMHx of ESRD on HD //Fri, chronic anemia, paroxysmal afib on Eliquis, CVA, HTN, DM2, BPH presenting to the ED from [facility] for failed hemodialysis from AV fistula. Pt was discharged on 05/09 after similar presentation of thrombosed AV fistula, recannulized and HD received after one Shiley. Pt attempted dialysis on 05/11 but had access filtration, and blood flow could not be established. Dialysis was attempted again today but unsuccessful from LUE AVF. Pt denies any CP, fever, SOB, chills, n/v, or any symptoms. ER course was notable for: (1) Duplex US showed occlusion in L AVF (2) Renal evaluated and auscultated a thrill PAST MEDICAL HISTORY: As stated above PAST SURGICAL HISTORY: AVF placement Social History: Smoking: Denies Alcohol: Denies Drugs: Denies Allergies No Known Allergies Allergy (Verified 05/07/20 09:41) HOME MEDICATIONS: Home Medications Medication Instructions Recorded Sevelamer Carbonate [Renvela -] 800 mg PO TID 12/10/17 Folic Acid/Vit B Complex and C 0.8 mg PO DAILY 04/29/20 [Rose-Misbah Tablet] Acetaminophen [Tylenol] 2 tablet PO Q6H PRN 04/30/20 Apixaban [Eliquis] 2.5 mg PO BID 04/30/20 Citalopram Hydrobromide [Celexa -] 10 mg PO DAILY 04/30/20 Docusate Sodium [Colace] 100 mg PO DAILY 04/30/20 Famotidine [Acid Controller] 20 mg PO DAILY 04/30/20 Gabapentin [Neurontin] 100 mg PO TID 04/30/20 Insulin Regular, Human [Afrezza] See Protocol SQ DAILY 04/30/20 Prednisolone Acetate/Pf 1 drop OP BID 04/30/20 [Prednisolone Acet 1% Eye Drop] Tamsulosin HCl [Flomax] 0.4 mg PO DAILY 04/30/20 Metoprolol Succinate 12.5 mg PO DAILY 05/01/20 Ferrous Sulfate [Feosol] 325 mg PO BID tab 05/02/20 Insulin (Levemir) [Levemir Vial] 5 unit SQ HS #1 vial 05/02/20 REVIEW OF SYSTEMS CONSTITUTIONAL: Absent: fever, chills, diaphoresis, generalized weakness, malaise, loss of appetite, weight change HEENT: Absent: rhinorrhea, nasal congestion, throat pain, throat swelling, difficulty swallowing, mouth swelling, ear pain, eye pain, visual changes CARDIOVASCULAR: Absent: chest pain, syncope, palpitations, irregular heart rate, lightheadedness, peripheral edema RESPIRATORY: Absent: cough, shortness of breath, dyspnea with exertion, orthopnea, wheezing, stridor, hemoptysis GASTROINTESTINAL: Absent: abdominal pain, abdominal distension, nausea, vomiting, diarrhea, constipation, melena, hematochezia GENITOURINARY: Absent: dysuria, frequency, urgency, hesitancy, hematuria, flank pain, genital pain MUSCULOSKELETAL: Absent: myalgia, arthralgia, joint swelling, back pain, neck pain SKIN: Absent: rash, itching, pallor HEMATOLOGIC/IMMUNOLOGIC: Absent: easy bleeding, easy bruising, lymphadenopathy, frequent infections ENDOCRINE: Absent: unexplained weight gain, unexplained weight loss, heat intolerance, cold intolerance NEUROLOGIC: Absent: headache, focal weakness or paresthesias, dizziness, unsteady gait, seizure, mental status changes, bladder or bowel incontinence PSYCHIATRIC: Absent: anxiety, depression, suicidal or homicidal ideation, hallucinations. PHYSICAL EXAMINATION Vital Signs - 24 hr 05/12/20 05/13/20 12:51 00:45 Temperature 98.6 F 98.3 F Pulse Rate 56 L Pulse Rate [ 62 Left Apical] Respiratory 20 19 Rate Blood Pressure 161/67 Blood Pressure 136/59 L [Right Arm] O2 Sat by Pulse 100 99 Oximetry (%) GENERAL: Awake, alert, and fully oriented, in no acute distress. HEAD: Normal with no signs of trauma. EYES: Pupils equal, round and reactive to light, extraocular movements intact, sclera anicteric, conjunctiva clear. No lid lag. EARS, NOSE, THROAT: Ears normal, nares patent, oropharynx clear without exudates. Moist mucous membranes. NECK: Normal range of motion, supple without lymphadenopathy, JVD, or masses. LUNGS: Breath sounds equal, clear to auscultation bilaterally. No wheezes, and no crackles. No accessory muscle use. HEART: Regular rate and rhythm, normal S1 and S2 without murmur, rub or gallop. ABDOMEN: Soft, nontender, not distended, normoactive bowel sounds, no guarding, no rebound, no masses. No hepatomegaly or splenomegaly. MUSCULOSKELETAL: Normal range of motion at all joints. No bony deformities or tenderness. No CVA tenderness. UPPER EXTREMITIES: 2+ pulses, warm, well-perfused. No cyanosis. No clubbing. No peripheral edema. Audible thrill from LUE AVF LOWER EXTREMITIES: 2+ pulses, warm, well-perfused. No calf tenderness. No p eripheral edema. NEUROLOGICAL: Cranial nerves II-XII intact. Normal speech. Normal gait. PSYCHIATRIC: Cooperative. Good eye contact. Appropriate mood and affect. SKIN: Warm, dry, normal turgor, no rashes or lesions noted, normal capillary refill. Laboratory Results - last 24 hr 05/12/20 05/12/20 05/12/20 15:20 15:20 15:20 WBC 5.4 RBC 2.28 L Hgb 7.5 L Hct 21.9 L MCV 96.1 H MCH 32.9 MCHC 34.2 RDW 15.5 Plt Count 163 D MPV 6.7 L Absolute Neuts (auto) 3.1 Neutrophils % 56.8 D Lymphocytes % 30.0 D Monocytes % 8.0 Eosinophils % 4.4 D Basophils % 0.8 Nucleated RBC % 0 PT with INR 13.10 H INR 1.11 H PTT (Actin FS) 31.8 Sodium 136 Potassium 4.2 Chloride 99 Carbon Dioxide 29 Anion Gap 7 L BUN 43.7 H Creatinine 5.5 H Est GFR (CKD-EPI)AfAm 10.74 Est GFR (CKD-EPI)NonAf 9.27 Random Glucose 105 Calcium 7.7 L Total Bilirubin 0.3 AST 17 ALT 15 Alkaline Phosphatase 105 Total Protein 6.3 L Albumin 3.0 L Blood Type Antibody Screen 05/12/20 15:20 WBC RBC Hgb Hct MCV MCH MCHC RDW Plt Count MPV Absolute Neuts (auto) Neutrophils % Lymphocytes % Monocytes % Eosinophils % Basophils % Nucleated RBC % PT with INR INR PTT (Actin FS) Sodium Potassium Chloride Carbon Dioxide Anion Gap BUN Creatinine Est GFR (CKD-EPI)AfAm Est GFR (CKD-EPI)NonAf Random Glucose Calcium Total Bilirubin AST ALT Alkaline Phosphatase Total Protein Albumin Blood Type O POSITIVE Antibody Screen Negative ASSESSMENT/PLAN: 4 year old male from [facility] nursing with PMHx of ESRD on HD on , and Friday paroxysmal A fib on Eliquis, CVA, HTN, DM2, BPH presenting with unsuccessful dialysis from LUE AVF, (Recently admitted for similar presentation. #L AVF occlusion -Duplex LUE shows occlusion -Vascular surgery consulted for re-vascularization -Renal will attempt to use site due to audible thrill #ESRD -Receives HD , , Fri -Labs at baseline, no need for Shiley cath and dialysis tonight -Will reevaluate AM labs and determine need for temporary dialysis through Shiely cath #Acute metabolic encephalopathy 2/2 to uremia -Resolved -s/p hemodilaysis via Shiley catheter improved sx #Chronic anemia -Continue iron supplementation -Hgb 7.5/21.9 -iron studies ordered #Hx DM 2 -Ho ld home DM meds -SSI and BGM #Hx of A fib -Held home eliquis due to surgical procedure -continue home metoprolol 12.5mgQD #Hx BPH -cont home Flomax 0.4mg #Hx of HTN -continue home metoprolol 12.5mgQD FEN: -NPO for surgical procedure -Monitor -No standing fluids PPx: SCD Dispo: Admitted to med surg. Attempt HD via AVF tomorrow. Follow renal and vascual recs. Family Medical History Family History: As Documented Visit type - Medication Review Med list reviewed for High Risk Meds patients 65 and older: Yes - Emergency Visit Emergency Visit: Yes ED Registration Date: 05/12/20 Care time: The patient presented to the Emergency Department on the above date and was hospitalized for further evaluation of their emergent condition. - New Patient This patient is new to me today: No - Critical Care Critical Care patient: No ATTENDING PHYSICIAN STATEMENT I saw and evaluated the patient. I reviewed the resident's note and discussed the case with the resident. I agree with the resident's findings and plan as documented. SUBJECTIVE: OBJECTIVE: ASSESSMENT AND PLAN:
[2020-05-13 07:43] LABS: BLOOD UREA NITROGEN 51.2 mg/dL (7-18); CALCIUM 7.2 mg/dL (8.5-10.1); CREATININE 6.6 mg/dL (0.55-1.3); PHOSPHOROUS 4.9 mg/dL (2.5-4.9); POTASSIUM 4.1 mmol/L (3.5-5.1)
[2020-05-13 07:44] LABS: HEMOGLOBIN 7.3 GM/dL (11.7-16.9); MCH 33.4 pg (25.7-33.7); MCHC 34.6 g/dl (32.0-35.9); MEAN CELL VOLUME 96.3 fl (80-96); MEAN PLT VOLUME 7.3 fl (7.5-11.1); PLATELET COUNT 154 K/MM3 (134-434); RBC 2.19 M/mm3 (4.00-5.60); RDW 15.5 % (11.9-15.9); WHITE BLOOD COUNT 5.1 K/mm3 (4.0-10.0)
[2020-05-13 07:57] LABS: MAGNESIUM 2.2 mg/dL (1.8-2.4)
[2020-05-13 08:07] LABS: IRON SERUM 43 ug/dL (50-175); TOTAL IRON BINDING CAPACITY 189 ug/dL (250-450)
[2020-05-13] MEDS ORDERED: SODIUM CHLORIDE 250 ML IV PRN ×2 (11:51)
--- NOTE | 2020-05-13 11:51 | PN ---
Progress Note, Physician Chief Complaint: dysfunctional AVF History of Present Illness: Seen and examined in the ED awake and alert offers no acute complaints no sob, cp, abd pain, fever or chillls awaiting dialysis - Current Medication List Current Medications: Active Medications Epoetin Fransisco (Procrit -) 20,000 unit SQ ONCE ONE Stop: 05/13/20 08:01 Sodium Chloride (Normal Saline -) 250 mls @ 3,000 mls/hr IV PRN PRN PRN Reason: Hypotension during Dialysis Stop: 05/13/20 18:30 Insulin Aspart (Novolog Vial Sliding Scale -) 1 vial SQ HS ANDREW; Protocol - Objective Vital Signs: Vital Signs Temperature 98.3 F 05/13/20 09:10 Pulse Rate 0 L 05/13/20 09:10 Respiratory Rate 18 05/13/20 09:10 Blood Pressure 152/57 L 05/13/20 09:10 O2 Sat by Pulse Oximetry (%) 100 05/13/20 09:10 Constitutional: Yes: No Distress, Calm Eyes: Yes: Conjunctiva Clear HENT: Yes: Atraumatic Neck: Yes: Supple Respiratory: Yes: Regular, CTA Bilaterally Gastrointestinal: Yes: Soft Extremities: No: Cyanosis Edema: No Labs: CBC, BMP 05/13/20 06:50 05/13/20 06:50 INR, PTT INR 1.11 (0.83-1.09) H 05/12/20 15:20 Assessment/Plan 74 year old male with history of ESRD on HD (TTS), DM type 2, hepatitis C, CHF, CVA who was sent to the ED from dialysis for a non-functioning AVG. 1. Mal-functioning AVF 2. ESRD on HD 3. Hx of CHF w/o acute exacerbation 4. DM type 2 5. Anemia in CKD Will attempt dialysis today via AVF. Vascular on board in case he will need an alternative access. Renal diet for now. If able to complete dialysis wit existing AVF can plan discharge later today. Thank you Ant Martino DO
[2020-05-13] MEDS ORDERED: EPOETIN ALFA 20,000 UNIT/1 ML VIAL IVPUSH ONE (13:00)
--- NOTE | 2020-05-13 14:02 | PN ---
Physical Exam: SUBJECTIVE: Patient seen and examined OBJECTIVE: Vital Signs Period Temp Pulse Resp BP Sys/Reeder Pulse Ox Last 24 Hr 98.3 F-98.3 F 0-64 18-19 136-156/57-76 99-100 GENERAL: The patient is awake, alert, and fully oriented, in no acute distress. LUNGS: Breath sounds equal, clear to auscultation bilaterally, no wheezes, no crackles, no accessory muscle use. HEART: Regular rate and rhythm, S1, S2 without murmur, rub or gallop. ABDOMEN: Soft, nontender, nondistended, normoactive bowel sounds, no guarding, no rebound, no hepatosplenomegaly, no masses. EXTREMITIES: no edema, no calf tenderness. LUE AV fistula - no erythema, thrill + NEUROLOGICAL: Cranial nerves II through XII grossly intact. Normal speech, gait not observed. Laboratory Results - last 24 hr 05/12/20 05/12/20 05/12/20 15:20 15:20 15:20 WBC 5.4 RBC 2.28 L Hgb 7.5 L Hct 21.9 L MCV 96.1 H MCH 32.9 MCHC 34.2 RDW 15.5 Plt Count 163 D MPV 6.7 L Absolute Neuts (auto) 3.1 Neutrophils % 56.8 D Lymphocytes % 30.0 D Monocytes % 8.0 Eosinophils % 4.4 D Basophils % 0.8 Nucleated RBC % 0 PT with INR 13.10 H INR 1.11 H PTT (Actin FS) 31.8 Sodium 136 Potassium 4.2 Chloride 99 Carbon Dioxide 29 Anion Gap 7 L BUN 43.7 H Creatinine 5.5 H Est GFR (CKD-EPI)AfAm 10.74 Est GFR (CKD-EPI)NonAf 9.27 Random Glucose 105 Calcium 7.7 L Phosphorus Magnesium Iron TIBC Iron Saturation Unsaturated IBC Ferritin Total Bilirubin 0.3 AST 17 ALT 15 Alkaline Phosphatase 105 Total Protein 6.3 L Albumin 3.0 L COVID-19 (SARABJIT) Blood Type Antibody Screen 05/12/20 05/12/20 05/13/20 15:20 15:20 06:36 WBC RBC Hgb Hct MCV MCH MCHC RDW Plt Count MPV Absolute Neuts (auto) Neutrophils % Lymphocytes % Monocytes % Eosinophils % Basophils % Nucleated RBC % PT with INR INR PTT (Actin FS) Sodium Potassium Chloride Carbon Dioxide Anion Gap BUN Creatinine Est GFR (CKD-EPI)AfAm Est GFR (CKD-EPI)NonAf Random Glucose Calcium Phosphorus Magnesium Iron 43 L TIBC 189 L Iron Saturation 22 Unsaturated IBC 146 L Ferritin Total Bilirubin AST ALT Alkaline Phosphatase Total Protein Albumin COVID-19 (SARABJIT) Not detected Blood Type O POSITIVE Antibody Screen Negative 05/13/20 05/13/20 05/13/20 06:36 06:50 06:50 WBC 5.1 RBC 2.19 L Hgb 7.3 L Hct 21.0 L MCV 96.3 H MCH 33.4 MCHC 34.6 RDW 15.5 Plt Count 154 MPV 7.3 L Absolute Neuts (auto) Neutrophils % Lymphocytes % Monocytes % Eosinophils % Basophils % Nucleated RBC % PT with INR INR PTT (Actin FS) Sodium 139 Potassium 4.1 Chloride 102 Carbon Dioxide 29 Anion Gap 8 BUN 51.2 H Creatinine 6.6 H Est GFR (CKD-EPI)AfAm 8.62 Est GFR (CKD-EPI)NonAf 7.43 Random Glucose 101 Calcium 7.2 L Phosphorus 4.9 Magnesium 2.2 Iron TIBC Iron Saturation Unsaturated IBC Ferritin 1023.5 H Total Bilirubin AST ALT Alkaline Phosphatase Total Protein Albumin COVID-19 (SARABJIT) Blood Type Antibody Screen Active Medications Generic Name Dose Route Start Last Admin Trade Name Freq PRN Reason Stop Dose Admin Sodium Chloride 250 mls @ 3,000 mls/hr 05/13/20 11:51 Normal Saline - IV 05/14/20 11:51 PRN PRN Hypotension during Dialysis Sodium Chloride 250 mls @ 3,000 mls/hr 05/13/20 11:51 Normal Saline - IV 05/14/20 11:51 PRN PRN Hypotension during Dialysis Insulin Aspart 1 vial 05/13/20 22:00 Novolog Vial Sliding Scale - SQ HS [facility] Protocol ASSESSMENT/PLAN: 74 year old male from SNF with history of ESRD on HD TTS, Chronic Anemia (recently admitted for bleeding from AVF site), PAF on Eliquis, Hx CVA, HTN, DM 2, BPH, sent after AVF was unable to be accessed for HD # AVF Occlusion? s/p revascularization and thrombectomy last admission awaiting for HD thru AVF today may discharge back if HD was successful vs further vascular eval if not Inflammatory anemia ESRD on HD DM AFib (restart Eliquis) BPH HTN DVT Prophylaxis. Visit type - Emergency Visit Emergency Visit: Yes ED Registration Date: 05/12/20 Care time: The patient presented to the Emergency Department on the above date and was hospitalized for further evaluation of their emergent condition. - New Patient This patient is new to me today: Yes Date on this admission: 05/13/20 - Critical Care Critical Care patient: No - Discharge Referral Referred to [facility] Med P.C.: No - Medication Review Med list reviewed for High Risk Meds patients 65 and older: Yes (yes)
--- NOTE | 2020-05-13 14:20 | PN ---
Progress Note (short form) - Note Progress Note: AVF working well during dialysis today. Pt can be discharged back to rehab today after completion of his dialysis. Ant Martino DO
--- NOTE | 2020-05-13 14:59 | EKG ---
Test Reason : Blood Pressure : / mmHG Vent. Rate : 056 BPM Atrial Rate : 056 BPM P-R Int : 302 ms QRS Dur : 092 ms QT Int : 484 ms P-R-T Axes : 032 019 069 degrees QTc Int : 467 ms SINUS BRADYCARDIA WITH 1ST DEGREE A-V BLOCK OTHERWISE NORMAL ECG WHEN COMPARED WITH ECG OF 06-MAY-2020 19:45, NO SIGNIFICANT CHANGE WAS FOUND Confirmed by Brandan Scott ([id number]) on 05/13/2020 2:59:05 PM Referred By: Confirmed By:Brandan Scott
[2020-05-13] MEDS: INSULIN SLIDING SCALE (NOVOLOG) 1 VIAL SQ SCH ×2 (17:14→21:20)
[2020-05-13] MEDS: GABAPENTIN 100 MG CAPSULE PO SCH ×2 (17:14→21:21)
[2020-05-13] MEDS: DOCUSATE SODIUM 100 MG CAPSULE (FP) PO SCH (17:14)
[2020-05-13] MEDS: SEVELAMER CARBONATE 800 MG TAB (FP) PO SCH (17:25)
[2020-05-13] MEDS: APIXABAN 2.5 MG TABLET PO SCH (21:21)
[2020-05-13] MEDS ORDERED: INSULIN SLIDING SCALE (NOVOLOG) 1 VIAL SQ SCH (22:00)
[2020-05-14] MEDS: GABAPENTIN 100 MG CAPSULE PO SCH ×3 (06:40→22:19)
[2020-05-14] MEDS: INSULIN SLIDING SCALE (NOVOLOG) 1 VIAL SQ SCH ×4 (06:41→22:20)
[2020-05-14 08:24] LABS: BLOOD UREA NITROGEN 37.1 mg/dL (7-18); CALCIUM 7.2 mg/dL (8.5-10.1); CREATININE 5.5 mg/dL (0.55-1.3); POTASSIUM 3.9 mmol/L (3.5-5.1)
[2020-05-14] MEDS: metoPROLOL SUCCINATE 25 MG TAB.SR.24H (FP) PO SCH (09:03)
[2020-05-14] MEDS: VITAMIN B COMP W-C 1 EA TABLET (NEPHRO-VITE) PO SCH (09:03)
[2020-05-14] MEDS: FERROUS SO4 325 MG TABLET (FP) PO SCH (09:03)
[2020-05-14] MEDS: TAMSULOSIN HCL 0.4 MG CAP PO SCH (09:03)
[2020-05-14] MEDS: SEVELAMER CARBONATE 800 MG TAB (FP) PO SCH ×3 (09:03→16:58)
[2020-05-14] MEDS: APIXABAN 2.5 MG TABLET PO SCH ×2 (09:03→22:19)
[2020-05-14] MEDS: DOCUSATE SODIUM 100 MG CAPSULE (FP) PO SCH (09:03)
[2020-05-14] MEDS: FAMOTIDINE 20 MG TABLET PO SCH (09:04)
[2020-05-14] MEDS: CITALOPRAM HYDROBROMIDE 10 MG TABLET PO SCH (09:04)
--- NOTE | 2020-05-14 13:14 | PN ---
Physical Exam: SUBJECTIVE: Patient seen and examined at bedside. no acute complaints./ OBJECTIVE: Vital Signs Period Temp Pulse Resp BP Sys/Reeder Pulse Ox Last 24 Hr 98 F-98.4 F 60-78 18-18 116-154/43-79 96-100 GENERAL: The patient is awake, alert, and oriented, in no acute distress. HEAD: Normal with no signs of trauma. LUNGS: Breath sounds equal, clear to auscultation bilaterally, no accessory muscle use. HEART: Regular rate and rhythm, S1, S2 + systolic murmur ABDOMEN: Soft, nontender, nondistended, normoactive bowel sounds, no guarding EXTREMITIES: 2+ pulses, warm, well-perfused, no edema. LUE audible thrll SKIN: Warm, dry, normal turgor, no rashes or lesions noted Laboratory Results - last 24 hr 05/14/20 05/14/20 07:07 11:05 Sodium 142 Potassium 3.9 Chloride 104 Carbon Dioxide 29 Anion Gap 9 BUN 37.1 H Creatinine 5.5 H Est GFR (CKD-EPI)AfAm 10.74 Est GFR (CKD-EPI)NonAf 9.27 POC Glucometer 140 Random Glucose 97 Calcium 7.2 L Active Medications Generic Name Dose Route Start Last Admin Trade Name Freq PRN Reason Stop Dose Admin Apixaban 2.5 mg 05/13/20 22:00 05/14/20 09:03 Eliquis - PO 2.5 mg BID ANDREW Administration Citalopram Hydrobromide 10 mg 05/14/20 10:00 05/14/20 09:04 Celexa - PO 10 mg DAILY ANDREW Administration Docusate Sodium 100 mg 05/13/20 14:15 05/14/20 09:03 Colace - PO 100 mg DAILY ANDREW Administration Famotidine 20 mg 05/14/20 10:00 05/14/20 09:04 Pepcid - PO 20 mg DAILY ANDREW Administration Ferrous Sulfate 325 mg 05/14/20 10:00 05/14/20 09:03 Feosol - PO 325 mg DAILY ANDREW Administration Gabapentin 100 mg 05/13/20 14:15 05/14/20 06:40 Neurontin - PO 100 mg TID ANDREW Administration Insulin Aspart 1 vial 05/13/20 16:30 05/14/20 11:36 Novolog Vial Sliding Scale - SQ Not Given ACHS ANDREW Protocol Metoprolol Succinate 12.5 mg 05/14/20 10:00 05/14/20 09:03 Toprol Xl - PO 12.5 mg DAILY ANDREW Administration Multivit/Ca Carb/B Cmplx/FA/Prenat 1 tablet 05/14/20 10:00 05/14/20 09:03 Nephro-Misbah - PO 1 tablet DAILY ANDREW Administration Sevelamer Carbonate 800 mg 05/13/20 17:30 05/14/20 11:50 Renvela - PO 800 mg TIDCM ANDREW Administration Tamsulosin HCl 0.4 mg 05/14/20 08:30 05/14/20 09:03 Flomax - PO 0.4 mg DAILY@0830 ANDREW Administration ASSESSMENT/PLAN: 74yo M from [facility] ESRD on HD( TTS), Chronic Anemia (recently admitted for bleeding from AVF site), PAF on Eliquis, Hx CVA, HTN, DM 2, BPH, sent after AVF was unable to be accessed for HD AVF malfunction - had dialysis through fistula 05/13. - stable for DC back to SNF, pending ILANA Inflammatory anemia - no need to cont to check cbc ESRD on HD dialysis 05/13 renal following DM ISS and BGM AFib (on Eliquis) BPH cont flomax HTN cont toprol cont home meds DVT Prophylaxis: on Eliquis stable for DC Visit type - Emergency Visit Emergency Visit: No - New Patient This patient is new to me today: No - Critical Care Critical Care patient: No - Discharge Referral Referred to [facility] Med P.C.: No - Medication Review Med list reviewed for High Risk Meds patients 65 and older: Yes ATTENDING PHYSICIAN STATEMENT I saw and evaluated the patient. I reviewed the resident's note and discussed the case with the resident. I agree with the resident's findings and plan as documented. SUBJECTIVE: OBJECTIVE: ASSESSMENT AND PLAN:
--- NOTE | 2020-05-14 13:53 | PN ---
Teaching Attending Note Name of Resident: Parminder Guy ATTENDING PHYSICIAN STATEMENT I saw and evaluated the patient. I reviewed the resident's note and discussed the case with the resident. I agree with the resident's findings and plan as documented. SUBJECTIVE: pt seen and examined at bedside OBJECTIVE: Last Vital Signs Temp Pulse Resp BP Pulse Ox 98 F 66 18 144/62 100 05/14/20 09:56 05/14/20 09:56 05/14/20 09:56 05/14/20 09:56 05/14/20 09:56 GENERAL: The patient is awake, alert, and fully oriented, in no acute distress. LUNGS: Breath sounds equal, clear to auscultation bilaterally, no wheezes, no crackles, no accessory muscle use. HEART: Regular rate and rhythm, S1, S2 without murmur, rub or gallop. ABDOMEN: Soft, nontender, nondistended, normoactive bowel sounds, no guarding, no rebound, no hepatosplenomegaly, no masses. EXTREMITIES: no edema, no calf tenderness. LUE AV fistula - no erythema, thrill + NEUROLOGICAL: Cranial nerves II through XII grossly intact. Normal speech, gait not observed. CBCD WBC 5.1 K/mm3 (4.0-10.0) 05/13/20 06:50 RBC 2.19 M/mm3 (4.00-5.60) L 05/13/20 06:50 Hgb 7.3 GM/dL (11.7-16.9) L 05/13/20 06:50 Hct 21.0 % (35.4-49) L 05/13/20 06:50 MCV 96.3 fl (80-96) H 05/13/20 06:50 MCHC 34.6 g/dl (32.0-35.9) 05/13/20 06:50 RDW 15.5 % (11.9-15.9) 05/13/20 06:50 Plt Count 154 K/MM3 (134-434) 05/13/20 06:50 MPV 7.3 fl (7.5-11.1) L 05/13/20 06:50 CMP Sodium 142 mmol/L (136-145) 05/14/20 07:07 Potassium 3.9 mmol/L (3.5-5.1) 05/14/20 07:07 Chloride 104 mmol/L (98-107) 05/14/20 07:07 Carbon Dioxide 29 mmol/L (21-32) 05/14/20 07:07 Anion Gap 9 MMOL/L (8-16) 05/14/20 07:07 BUN 37.1 mg/dL (7-18) H 05/14/20 07:07 Creatinine 5.5 mg/dL (0.55-1.3) H 05/14/20 07:07 Calcium 7.2 mg/dL (8.5-10.1) L 05/14/20 07:07 Total Bilirubin 0.3 mg/dL (0.2-1) 05/12/20 15:20 AST 17 U/L (15-37) 05/12/20 15:20 ALT 15 U/L (13-61) 05/12/20 15:20 Alkaline Phosphatase 105 U/L (45-117) 05/12/20 15:20 Total Protein 6.3 g/dl (6.4-8.2) L 05/12/20 15:20 Albumin 3.0 g/dl (3.4-5.0) L 05/12/20 15:20 Active Medications Apixaban (Eliquis -) 2.5 mg PO BID [facility] Last Admin: 05/14/20 09:03 Dose: 2.5 mg Documented by: Citalopram Hydrobromide (Celexa -) 10 mg PO DAILY [facility] Last Admin: 05/14/20 09:04 Dose: 10 mg Documented by: Docusate Sodium (Colace -) 100 mg PO DAILY [facility] Last Admin: 05/14/20 09:03 Dose: 100 mg Documented by: Famotidine (Pepcid -) 20 mg PO DAILY [facility] Last Admin: 05/14/20 09:04 Dose: 20 mg Documented by: Ferrous Sulfate (Feosol -) 325 mg PO DAILY [facility] Last Admin: 05/14/20 09:03 Dose: 325 mg Documented by: Gabapentin (Neurontin -) 100 mg PO TID [facility] Last Admin: 05/14/20 06:40 Dose: 100 mg Documented by: Insulin Aspart (Novolog Vial Sliding Scale -) 1 vial SQ ACHS [facility]; Protocol Last Admin: 05/14/20 11:36 Dose: Not Given Documented by: Metoprolol Succinate (Toprol Xl -) 12.5 mg PO DAILY [facility] Last Admin: 05/14/20 09:03 Dose: 12.5 mg Documented by: Multivit/Ca Carb/B Cmplx/FA/Prenat (Nephro-Misbah -) 1 tablet PO DAILY [facility] Last Admin: 05/14/20 09:03 Dose: 1 tablet Documented by: Sevelamer Carbonate (Renvela -) 800 mg PO TIDCM [facility] Last Admin: 05/14/20 11:50 Dose: 800 mg Documented by: Tamsulosin HCl (Flomax -) 0.4 mg PO DAILY@0830 [facility] Last Admin: 05/14/20 09:03 Dose: 0.4 mg Documented by: ASSESSMENT AND PLAN: 74 year old male from SNF with history of ESRD on HD TTS, Chronic Anemia (recently admitted for bleeding from AVF site), PAF on Eliquis, Hx CVA, HTN, DM 2, BPH, sent after AVF was unable to be accessed for HD # AVF malfunction AVF found to be functioning well, pt had HD thru AVF successfully s/p revascularization and thrombectomy last admission awaiting DSC back to SNF Inflammatory anemia ESRD on HD DM AFib (on Eliquis) BPH HTN DVT Prophylaxis, pt on Eliquis
[2020-05-15] MEDS: INSULIN SLIDING SCALE (NOVOLOG) 1 VIAL SQ SCH ×4 (06:41→22:30)
[2020-05-15] MEDS: GABAPENTIN 100 MG CAPSULE PO SCH ×3 (06:41→22:29)
[2020-05-15] MEDS: FAMOTIDINE 20 MG TABLET PO SCH (10:06)
[2020-05-15] MEDS: FERROUS SO4 325 MG TABLET (FP) PO SCH (10:06)
[2020-05-15] MEDS: APIXABAN 2.5 MG TABLET PO SCH ×2 (10:06→22:29)
[2020-05-15] MEDS: DOCUSATE SODIUM 100 MG CAPSULE (FP) PO SCH (10:06)
[2020-05-15] MEDS: CITALOPRAM HYDROBROMIDE 10 MG TABLET PO SCH (10:06)
[2020-05-15] MEDS: TAMSULOSIN HCL 0.4 MG CAP PO SCH (10:06)
[2020-05-15] MEDS: SEVELAMER CARBONATE 800 MG TAB (FP) PO SCH ×3 (10:06→17:20)
[2020-05-15] MEDS: metoPROLOL SUCCINATE 25 MG TAB.SR.24H (FP) PO SCH (10:07)
--- NOTE | 2020-05-15 11:06 | PN ---
Progress Note, Physician Chief Complaint: dysfunctional AVF History of Present Illness: Seen and examined in the ED awake and alert offers no acute complaints no sob, cp, abd pain, fever or chillls last dialysis Friday awaiting ILANA to return to rehab - Current Medication List Current Medications: Active Medications Apixaban (Eliquis -) 2.5 mg PO BID [facility] Last Admin: 05/15/20 10:06 Dose: 2.5 mg Documented by: Citalopram Hydrobromide (Celexa -) 10 mg PO DAILY [facility] Last Admin: 05/15/20 10:06 Dose: 10 mg Documented by: Docusate Sodium (Colace -) 100 mg PO DAILY [facility] Last Admin: 05/15/20 10:06 Dose: 100 mg Documented by: Famotidine (Pepcid -) 20 mg PO DAILY [facility] Last Admin: 05/15/20 10:06 Dose: 20 mg Documented by: Ferrous Sulfate (Feosol -) 325 mg PO DAILY [facility] Last Admin: 05/15/20 10:06 Dose: 325 mg Documented by: Gabapentin (Neurontin -) 100 mg PO TID [facility] Last Admin: 05/15/20 06:41 Dose: 100 mg Documented by: Insulin Aspart (Novolog Vial Sliding Scale -) 1 vial SQ [facility]; Protocol Last Admin: 05/15/20 06:41 Dose: Not Given Documented by: Metoprolol Succinate (Toprol Xl -) 12.5 mg PO DAILY [facility] Last Admin: 05/15/20 10:07 Dose: 12.5 mg Documented by: Multivit/Ca Carb/B Cmplx/FA/Prenat (Nephro-Misbah -) 1 tablet PO DAILY [facility] Last Admin: 05/14/20 09:03 Dose: 1 tablet Documented by: Sevelamer Carbonate (Renvela -) 800 mg PO TIDCM [facility] Last Admin: 05/15/20 10:06 Dose: 800 mg Documented by: Tamsulosin HCl (Flomax -) 0.4 mg PO DAILY@0830 [facility] Last Admin: 05/15/20 10:06 Dose: 0.4 mg Documented by: - Objective Vital Signs: Vital Signs Temperature 98.7 F 05/15/20 06:00 Pulse Rate 60 05/15/20 06:00 Respiratory Rate 18 05/15/20 06:00 Blood Pressure 140/61 05/15/20 06:00 O2 Sat by Pulse Oximetry (%) 98 05/15/20 06:00 Constitutional: Yes: No Distress, Calm HENT: Yes: Atraumatic Neck: Yes: Supple Cardiovascular: Yes: Regular Rate and Rhythm Respiratory: Yes: Regular Gastrointestinal: Yes: Soft Extremities: No: Cyanosis Edema: No Neurological: Yes: Alert Labs: CBC, BMP 05/13/20 06:50 05/14/20 07:07 INR, PTT INR 1.11 (0.83-1.09) H 05/12/20 15:20 Assessment/Plan 74 year old male with history of ESRD on HD (TTS), DM type 2, hepatitis C, CHF, CVA who was sent to the ED from dialysis for a non-functioning AVG. 1. Mal-functioning AVF 2. ESRD on HD 3. Hx of CHF w/o acute exacerbation 4. DM type 2 5. Anemia in CKD Tolerated dialysis via AVF with good flow will plan on doing dialysis again tomorrow in AM Awaiting ILANA for return back to Rehab anticipate discharge tomorrow after dialysis Ant Martino DO
--- NOTE | 2020-05-15 12:44 | PN ---
Physical Exam: SUBJECTIVE: Patient seen and examined OBJECTIVE: Vital Signs Period Temp Pulse Resp BP Sys/Reeder Pulse Ox Last 24 Hr 98 F-98.7 F 60-62 18-18 115-140/47-61 98-98 GENERAL: The patient is awake, alert, and fully oriented, in no acute distress. LUNGS: Breath sounds equal, clear to auscultation bilaterally, no wheezes, no crackles, no accessory muscle use. HEART: Regular rate and rhythm, S1, S2 without murmur, rub or gallop. ABDOMEN: Soft, nontender, nondistended, normoactive bowel sounds, no guarding, no rebound, no hepatosplenomegaly, no masses. EXTREMITIES: no edema, no calf tenderness. LUE AV fistula - no erythema, thrill + NEUROLOGICAL: Cranial nerves II through XII grossly intact. Normal speech, gait not observed. Laboratory Results - last 24 hr 05/14/20 05/14/20 05/15/20 16:14 22:18 06:39 POC Glucometer 119 172 113 05/15/20 12:08 POC Glucometer 113 Active Medications Generic Name Dose Route Start Last Admin Trade Name Lvq PRN Reason Stop Dose Admin Apixaban 2.5 mg 05/13/20 22:00 05/15/20 10:06 Eliquis - PO 2.5 mg BID ANDREW Administration Citalopram Hydrobromide 10 mg 05/14/20 10:00 05/15/20 10:06 Celexa - PO 10 mg DAILY ANDREW Administration Docusate Sodium 100 mg 05/13/20 14:15 05/15/20 10:06 Colace - PO 100 mg DAILY ANDREW Administration Epoetin [place] 20,000 unit 05/16/20 08:00 Procrit - IVPUSH 05/16/20 08:01 ONCE ONE Famotidine 20 mg 05/14/20 10:00 05/15/20 10:06 Pepcid - PO 20 mg DAILY ANDREW Administration Ferrous Sulfate 325 mg 05/14/20 10:00 05/15/20 10:06 Feosol - PO 325 mg DAILY ANDREW Administration Gabapentin 100 mg 05/13/20 14:15 05/15/20 06:41 Neurontin - PO 100 mg TID ANDREW Administration Sodium Chloride 250 mls @ 3,000 mls/hr 05/15/20 11:07 Normal Saline - IV 05/16/20 11:07 PRN PRN Hypotension during Dialysis Insulin Aspart 1 vial 05/13/20 16:30 05/15/20 06:41 Novolog Vial Sliding Scale - SQ Not Given ACHS [facility] Protocol Metoprolol Succinate 12.5 mg 05/14/20 10:00 05/15/20 10:07 Toprol Xl - PO 12.5 mg DAILY ANDREW Administration Multivit/Ca Carb/B Cmplx/FA/Prenat 1 tablet 05/14/20 10:00 05/14/20 09:03 Nephro-Misbah - PO 1 tablet DAILY ANDREW Administration Sevelamer Carbonate 800 mg 05/13/20 17:30 05/15/20 10:06 Renvela - PO 800 mg TIDCM ANDREW Administration Tamsulosin HCl 0.4 mg 05/14/20 08:30 05/15/20 10:06 Flomax - PO 0.4 mg DAILY@0830 ANDREW Administration ASSESSMENT/PLAN: 74 year old male from SNF with history of ESRD on HD TTS, Chronic Anemia (recently admitted for bleeding from AVF site), PAF on Eliquis, Hx CVA, HTN, DM 2, BPH, sent after AVF was unable to be accessed for HD # AVF malfunction AVF found to be functioning well, pt had HD thru AVF successfully s/p revascularization and thrombectomy last admission Inflammatory anemia ESRD on HD DM AFib (on Eliquis) BPH HTN DVT Prophylaxis, pt on Eliquis Plan: will have HD in AM, awaiting on ILANA for DSC back to SNF Visit type - Emergency Visit Emergency Visit: Yes ED Registration Date: 05/12/20 Care time: The patient presented to the Emergency Department on the above date and was hospitalized for further evaluation of their emergent condition. - New Patient This patient is new to me today: No - Critical Care Critical Care patient: No - Discharge Referral Referred to [facility] Med P.C[facility] No - Medication Review Med list reviewed for High Risk Meds patients 65 and older: Yes (yes)
[2020-05-15] MEDS ORDERED: INSULIN (NOVOLOG) ASPART 100 UNITS/ML 10ML VIAL ONE (13:04)
[2020-05-15] MEDS: VITAMIN B COMP W-C 1 EA TABLET (NEPHRO-VITE) PO SCH (13:09)
[2020-05-16] MEDS: INSULIN SLIDING SCALE (NOVOLOG) 1 VIAL SQ SCH (06:27)
[2020-05-16] MEDS: GABAPENTIN 100 MG CAPSULE PO SCH (06:27)
[2020-05-16 08:17] LABS: BASO % 1.1 % (0-2.0); EOS % 4.8 % (0-4.5); HEMATOCRIT 21.9 % (35.4-49); HEMOGLOBIN 7.1 GM/dL (11.7-16.9); LYMPH % 28.7 % (8-40); MCH 32.9 pg (25.7-33.7); MCHC 32.7 g/dl (32.0-35.9); MEAN CELL VOLUME 100.6 fl (80-96); MEAN PLT VOLUME 7.3 fl (7.5-11.1); NEUT % 57.4 % (42.8-82.8); PLATELET COUNT 168 K/MM3 (134-434); RBC 2.18 M/mm3 (4.00-5.60); RDW 16.5 % (11.9-15.9); WHITE BLOOD COUNT 5.8 K/mm3 (4.0-10.0)
[2020-05-16 08:31] LABS: ALBUMIN 2.6 g/dl (3.4-5.0); BILIRUBIN,TOTAL 0.3 mg/dL (0.2-1); CALCIUM 7.1 mg/dL (8.5-10.1); POTASSIUM 4.6 mmol/L (3.5-5.1); TOT PROT 5.6 g/dl (6.4-8.2)
[2020-05-16 08:32] LABS: BLOOD UREA NITROGEN 74.8 mg/dL (7-18)
[2020-05-16 08:36] LABS: CREATININE 8.5 mg/dL (0.55-1.3)
--- NOTE | 2020-05-16 13:54 | DS ---
Physical Exam: SUBJECTIVE: Patient seen and examined OBJECTIVE: Vital Signs Period Temp Pulse Resp BP Sys/Reeder Pulse Ox Last 24 Hr 98 F-98.5 F 55-68 18-20 138-170/52-68 99-100 PHYSICAL EXAM GENERAL: The patient is awake, alert, and fully oriented, in no acute distress. HEAD: Normal with no signs of trauma. EYES: PERRL, extraocular movements intact, sclera anicteric, conjunctiva clear. ENT: Ears normal, nares patent, oropharynx clear without exudates, moist mucous membranes. NECK: Trachea midline, full range of motion, supple. LUNGS: Breath sounds equal, clear to auscultation bilaterally, no wheezes, no crackles, no accessory muscle use. HEART: Regular rate and rhythm, S1, S2 without murmur, rub or gallop. ABDOMEN: Soft, nontender, nondistended, normoactive bowel sounds, no guarding, no rebound, no hepatosplenomegaly, no masses. EXTREMITIES: 2+ pulses, warm, well-perfused, no edema. NEUROLOGICAL: Cranial nerves II through XII grossly intact. Normal speech, gait not observed. PSYCH: Normal mood, normal affect. SKIN: Warm, dry, normal turgor, no rashes or lesions noted. LABS Laboratory Results - last 24 hr 05/15/20 05/15/20 05/16/20 17:24 22:28 05:53 WBC RBC Hgb Hct MCV MCH MCHC RDW Plt Count MPV Absolute Neuts (auto) Neutrophils % Lymphocytes % Monocytes % Eosinophils % Basophils % Nucleated RBC % Sodium Potassium Chloride Carbon Dioxide Anion Gap BUN Creatinine Est GFR (CKD-EPI)AfAm Est GFR (CKD-EPI)NonAf POC Glucometer 185 139 114 Random Glucose Calcium Total Bilirubin AST ALT Alkaline Phosphatase Total Protein Albumin 05/16/20 05/16/20 07:25 07:25 WBC 5.8 RBC 2.18 L Hgb 7.1 L Hct 21.9 L MCV 100.6 H MCH 32.9 MCHC 32.7 RDW 16.5 H Plt Count 168 MPV 7.3 L Absolute Neuts (auto) 3.3 Neutrophils % 57.4 Lymphocytes % 28.7 Monocytes % 8.0 Eosinophils % 4.8 H Basophils % 1.1 Nucleated RBC % 0 Sodium 145 Potassium 4.6 Chloride 110 H Carbon Dioxide 26 Anion Gap 9 BUN 74.8 H Creatinine 8.5 H* Est GFR (CKD-EPI)AfAm 6.35 Est GFR (CKD-EPI)NonAf 5.47 POC Glucometer Random Glucose 112 H Calcium 7.1 L Total Bilirubin 0.3 AST 14 L ALT 15 Alkaline Phosphatase 107 Total Protein 5.6 L Albumin 2.6 L HOSPITAL COURSE: Date of Admission:05/12/20 Pt presented to the ED from [facility] for failed dialysis from E AVF. Pt admitted week prior for similar presentation and had thrombectomy and revascularization Pt had an ultrasound which showed possible occlusion. Pt was evaluated by vascular and advised if needed, Shiley catheter can be placed. Renal was able to auscultate a thrill, and hemodialysis was completed from the AVF on 05/13. Pt had another session of HD from AVF on 05/16 and was discharged back home to [facility]. Pt will need to follow up with renal and vascular, and his PCP. Date of Discharge: 05/16/20 Minutes to complete discharge: 36 Discharge Summary Problems reviewed: Yes Reason For Visit: DIABETES MELLITUS ARTERIOVENOUS FISTULA OCCLUSION Current Active Problems AV fistula occlusion (Acute) ESRD (end stage renal disease) (Acute) Condition: Good - Instructions Diet, Activity, Other Instructions: You came to the hospital because of problems with your AV fistula. You received dialysis from your AV fistula on 05/13. You are being discharged back to rehab. Please continue to take your home medications as prescribed. Please resume your dialysis on Friday, and Saturdays Please follow up with your primary care physician, Dr Conde within one week Please follow up with your vascular surgeon, Dr. Flower, within one week. Please follow up with your code and test clerk, Dr. Cota, within one week. If you have new, worsening, or concerning symptoms please call 911 or return to the ED. Referrals: Chato Flower DO [Staff Physician] - Ant Martino MD [Staff Physician] - Disposition: LONG TERM FACILITY - Home Medications Comprehensive Discharge Medication List: Ambulatory Orders Sevelamer Carbonate [Renvela -] 800 mg PO TID 12/10/17 Folic Acid/Vit B Complex and C [Rose-Misbah Tablet] 0.8 mg PO DAILY 04/29/20 Acetaminophen [Tylenol] 2 tablet PO Q6H PRN 04/30/20 Apixaban [Eliquis] 2.5 mg PO BID 04/30/20 Citalopram Hydrobromide [Celexa -] 10 mg PO DAILY 04/30/20 Docusate Sodium [Colace] 100 mg PO DAILY 04/30/20 Famotidine [Acid Controller] 20 mg PO DAILY 04/30/20 Gabapentin [Neurontin] 100 mg PO TID 04/30/20 Insulin Regular, Human [Afrezza] See Protocol SQ DAILY 04/30/20 Prednisolone Acetate/Pf [Prednisolone Acet 1% Eye Drop] 1 drop OP BID 04/30/20 Tamsulosin HCl [Flomax] 0.4 mg PO DAILY 04/30/20 Metoprolol Succinate 12.5 mg PO DAILY 05/01/20 Ferrous Sulfate [Feosol] 325 mg PO BID tab 05/02/20 Insulin (Levemir) [Levemir Vial] 5 unit SQ HS #1 vial 05/02/20 This patient is new to me today: No Emergency Visit: Yes ED Registration Date: 05/12/20 Care time: The patient presented to the Emergency Department on the above date and was hospitalized for further evaluation of their emergent condition. Critical Care patient: No - Discharge Referral Referred to [facility] Med P.C.: No ATTENDING PHYSICIAN STATEMENT I saw and evaluated the patient. I reviewed the resident's note and discussed the case with the resident. I agree with the resident's findings and plan as documented. SUBJECTIVE: OBJECTIVE: ASSESSMENT AND PLAN:
[2020-05-16] MEDS ORDERED: SODIUM CHLORIDE 250 ML IV PRN (14:27)
[2020-05-16 14:41] VITALS: TEMP 97.6
[2020-05-16] MEDS ORDERED: EPOETIN ALFA-EPBX 10,000 UNIT/ML VIAL IVPUSH ONE (15:00)
--- NOTE | 2020-05-16 16:49 | PN ---
Teaching Attending Note Name of Resident: Jay Reed ATTENDING PHYSICIAN STATEMENT I saw and evaluated the patient. I reviewed the resident's note and discussed the case with the resident. I agree with the resident's findings and plan as documented. SUBJECTIVE: Feels well, no complaints. OBJECTIVE: Afebrile, Hemodynamically stable. AAO x 3 but mildly confused. Last Vital Signs Temp Pulse Resp BP Pulse Ox 97.6 F 52 L 18 155/66 99 05/16/20 14:00 05/16/20 14:40 05/16/20 14:40 05/16/20 14:40 05/16/20 14:00 HEENT - Atraumatic, normocephalic. heart - S1, S2, RRR Lungs - clear on auscultation Abdomen - Soft, non-tender. Bowel Sounds normal. Extremities - no edema, no calf tenderness. LUE AVF. Neuro - AAO x 3. Tone/Power normal Laboratory Results - last 24 hr 05/15/20 05/15/20 05/16/20 17:24 22:28 05:53 WBC RBC Hgb Hct MCV MCH MCHC RDW Plt Count MPV Absolute Neuts (auto) Neutrophils % Lymphocytes % Monocytes % Eosinophils % Basophils % Nucleated RBC % Sodium Potassium Chloride Carbon Dioxide Anion Gap BUN Creatinine Est GFR (CKD-EPI)AfAm Est GFR (CKD-EPI)NonAf POC Glucometer 185 139 114 Random Glucose Calcium Total Bilirubin AST ALT Alkaline Phosphatase Total Protein Albumin 05/16/20 05/16/20 07:25 07:25 WBC 5.8 RBC 2.18 L Hgb 7.1 L Hct 21.9 L MCV 100.6 H MCH 32.9 MCHC 32.7 RDW 16.5 H Plt Count 168 MPV 7.3 L Absolute Neuts (auto) 3.3 Neutrophils % 57.4 Lymphocytes % 28.7 Monocytes % 8.0 Eosinophils % 4.8 H Basophils % 1.1 Nucleated RBC % 0 Sodium 145 Potassium 4.6 Chloride 110 H Carbon Dioxide 26 Anion Gap 9 BUN 74.8 H Creatinine 8.5 H* Est GFR (CKD-EPI)AfAm 6.35 Est GFR (CKD-EPI)NonAf 5.47 POC Glucometer Random Glucose 112 H Calcium 7.1 L Total Bilirubin 0.3 AST 14 L ALT 15 Alkaline Phosphatase 107 Total Protein 5.6 L Albumin 2.6 L Current Medications Generic Name Dose Route Start Last Admin Trade Name Hans PRN Reason Stop Dose Admin Apixaban 2.5 mg 05/13/20 22:00 05/15/20 22:29 Eliquis - PO 2.5 mg BID ANDREW Administration Citalopram Hydrobromide 10 mg 05/14/20 10:00 05/15/20 10:06 Celexa - PO 10 mg DAILY ANDREW Administration Docusate Sodium 100 mg 05/13/20 14:15 05/15/20 10:06 Colace - PO 100 mg DAILY ANDREW Administration Famotidine 20 mg 05/14/20 10:00 05/15/20 10:06 Pepcid - PO 20 mg DAILY ANDREW Administration Ferrous Sulfate 325 mg 05/14/20 10:00 05/15/20 10:06 Feosol - PO 325 mg DAILY ANDREW Administration Gabapentin 100 mg 05/13/20 14:15 05/16/20 06:27 Neurontin - PO 100 mg TID ANDREW Administration Insulin Aspart 1 vial 05/13/20 16:30 05/16/20 06:27 Novolog Vial Sliding Scale - SQ Not Given ACHS [facility] Protocol Metoprolol Succinate 12.5 mg 05/14/20 10:00 05/15/20 10:07 Toprol Xl - PO 12.5 mg DAILY ANDREW Administration Multivit/Ca Carb/B Cmplx/FA/Prenat 1 tablet 05/14/20 10:00 05/15/20 13:09 Nephro-Misbah - PO 1 tablet DAILY ANDREW Administration Sevelamer Carbonate 800 mg 05/13/20 17:30 05/15/20 17:20 Renvela - PO 800 mg TIDCM ANDREW Administration Tamsulosin HCl 0.4 mg 05/14/20 08:30 05/15/20 10:06 Flomax - PO 0.4 mg DAILY@0830 ANDREW Administration Home Medications Medication Instructions Recorded Sevelamer Carbonate [Renvela -] 800 mg PO TID 12/10/17 Folic Acid/Vit B Complex and C 0.8 mg PO DAILY 04/29/20 [Rose-Misbah Tablet] Acetaminophen [Tylenol] 2 tablet PO Q6H PRN 04/30/20 Apixaban [Eliquis] 2.5 mg PO BID 04/30/20 Citalopram Hydrobromide [Celexa -] 10 mg PO DAILY 04/30/20 Docusate Sodium [Colace] 100 mg PO DAILY 04/30/20 Famotidine [Acid Controller] 20 mg PO DAILY 04/30/20 Gabapentin [Neurontin] 100 mg PO TID 04/30/20 Insulin Regular, Human [Afrezza] See Protocol SQ DAILY 04/30/20 Prednisolone Acetate/Pf 1 drop OP BID 04/30/20 [Prednisolone Acet 1% Eye Drop] Tamsulosin HCl [Flomax] 0.4 mg PO DAILY 04/30/20 Metoprolol Succinate 12.5 mg PO DAILY 05/01/20 Ferrous Sulfate [Feosol] 325 mg PO BID tab 05/02/20 Insulin (Levemir) [Levemir Vial] 5 unit SQ HS #1 vial 05/02/20 ASSESSMENT AND PLAN: 74 year old male [place] resident, with history of ESRD on HD TTS, Chronic Anemia (recently admitted for bleeding from AVF site and subsequently occlusion of AVF s/p revascularization and thrombectomy), PAF on Eliquis, Hx CVA, HTN, DM 2, BPH, sent after AVF was unable to be accessed for HD 1. AVF Malfunction, now resolved. Accessed for HD yesterday - for Discharge back to SNF after repeat aceess today. 2. 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 3. DM 2 - Resume Levemir and sliding scale on discharge. 4. Atrial Fibrillation - continue Metoprolol and Eliquis 5. HTN - Continue Metoprolol 6. BPH - continue Flomax 7. Depression - continue Celexa DVT Px - on Eliquis Dispo - medically stable for discharge back to SNF
[2020-05-16 18:03] VITALS: BP 135/62; PULSE 60
--- NOTE | 2020-05-16 18:47 | PN ---
Progress Note, Physician Chief Complaint: dysfunctional AVF History of Present Illness: Seen and examined at the bedside seen during dialysis awake and alert offers no acute complaints no sob, cp, abd pain, fever or chillls tolerated dialysis well access working well - Objective Vital Signs: Vital Signs Temperature 97.6 F 05/16/20 14:00 Pulse Rate 60 05/16/20 17:03 Respiratory Rate 18 05/16/20 17:03 Blood Pressure 135/62 05/16/20 17:03 O2 Sat by Pulse Oximetry (%) 99 05/16/20 14:00 Constitutional: Yes: No Distress, Calm HENT: Yes: Atraumatic Neck: Yes: Supple, Tenderness Respiratory: Yes: Regular, CTA Bilaterally Gastrointestinal: Yes: Soft Extremities: No: Cyanosis Edema: No Neurological: Yes: Alert Labs: CBC, BMP 05/16/20 07:25 05/16/20 07:25 INR, PTT INR 1.11 (0.83-1.09) H 05/12/20 15:20 Assessment/Plan 74 year old male with history of ESRD on HD (TTS), DM type 2, hepatitis C, CHF, CVA who was sent to the ED from dialysis for a non-functioning AVG. 1. Mal-functioning AVF 2. ESRD on HD 3. Hx of CHF w/o acute exacerbation 4. DM type 2 5. Anemia in CKD Tolerated dialysis via AVF with good flow Can resume dialysis as an outpatient with next planned Tx on discharge planning as per primary Ant Martino DO
== END 2020-05-16 18:37 | DRG 314 ==
LOC: JER 12:39 → JERBED 19:07 → J6S 05-13 15:21
PROVIDERS: ADMIT Hospitalist
PROC: 5A1D70Z Performance of Urinary Filtration, Intermittent, Less than 6 Hours Per Day (ICD-10-PCS; principal; 2020-05-13)
DX: T82.898A Other specified complication of vascular prosthetic devices, implants and grafts, initial encounter (principal); N18.6 End stage renal disease; G93.41 Metabolic encephalopathy; I69.351 Hemiplegia and hemiparesis following cerebral infarction affecting right dominant side; I13.2 Hypertensive heart and chronic kidney disease with heart failure and with stage 5 chronic kidney disease, or end stage renal disease; E11.22 Type 2 diabetes mellitus with diabetic chronic kidney disease; Z99.2 Dependence on renal dialysis; F03.90 Unspecified dementia, unspecified severity, without behavioral disturbance, psychotic disturbance, mood disturbance, and anxiety; I48.91 Unspecified atrial fibrillation; N40.0 Benign prostatic hyperplasia without lower urinary tract symptoms; D64.9 Anemia, unspecified; Z79.4 Long term (current) use of insulin; Y83.8 Other surgical procedures as the cause of abnormal reaction of the patient, or of later complication, without mention of misadventure at the time of the procedure; I50.9 Heart failure, unspecified; D63.1 Anemia in chronic kidney disease; I48.0 Paroxysmal atrial fibrillation; Z79.01 Long term (current) use of anticoagulants; F32.9 Major depressive disorder, single episode, unspecified
CPT/HCPCS: 36415; 71045-TC-FY; 80048; 80053; 82728; 82962; 83540; 83550; 83735; 84100; 85025; 85027; 85610; 85730; 86850; 86900; 86901; 93005; 93010; 93971; 99285-25; J0885; Q5106; U0003

== ENCOUNTER 2020-09-05 19:04 | Inpatient (IN) | payer OTHER ==
[2020-09-05] MEDS ORDERED: ACETAMINOPHEN 1000 MG/100 ML VIAL (NON FORMULARY) IVPB ONE (20:53)
[2020-09-05] MEDS ORDERED: LACTATED RINGERS SOLUTION 1000 ML INFUS.BAG IV ONE (20:54)
[2020-09-05] MEDS ORDERED: ACETAMINOPHEN INJECTION 100 ML IVPB ONE (21:00)
[2020-09-05] MEDS ORDERED: DEXAMETHASONE SOD PHOSPHATE 10 MG/1 ML VIAL IVPUSH ONE (21:28)
[2020-09-05 21:34] LABS: BASO % 0.2 % (0-2.0); EOS % 0.3 % (0-4.5); HEMOGLOBIN 7.1 GM/dL (11.7-16.9); LYMPH % 7.1 % (8-40); MCH 29.4 pg (25.7-33.7); MCHC 33.7 g/dl (32.0-35.9); MEAN CELL VOLUME 87.3 fl (80-96); MEAN PLT VOLUME 7.6 fl (7.5-11.1); MONO % 5.8 % (3.8-10.2); NEUT % 86.6 % (42.8-82.8); PLATELET COUNT 258 K/MM3 (134-434); RDW 16.3 % (11.9-15.9); WHITE BLOOD COUNT 10.8 K/mm3 (4.0-10.0)
[2020-09-05] MEDS ORDERED: DEXAMETHASONE SOD PHOSPHATE 10 MG/1 ML VIAL ONE (21:41)
[2020-09-05 21:48] LABS: INR 1.81 (0.83-1.09); PROTHROMBIN TIME (PATIENT) 21.9 SEC (9.7-13.0)
[2020-09-05 21:51] LABS: ACTIVATED PTT 27.8 SECONDS (25.2-36.5)
[2020-09-05 21:54] LABS: POTASSIUM 3.9 mmol/L (3.5-5.1)
[2020-09-05 21:58] LABS: EPI CELLS 11 /uL (0-25.1); HYALINE CASTS 0 /uL (0-3.1); PH,URINE 8.5 (5.0-8.0); URINE APPEARANCE CLEAR; URINE BACTERIA 262 /uL (0-1359); URINE BILIRUBIN NEGATIVE (NEGATIVE); URINE COLOR YELLOW; URINE GLUCOSE (UA) 2+ (NEGATIVE); URINE KETONE NEGATIVE (NEGATIVE); URINE LEUK ESTERASE NEGATIVE (NEGATIVE); URINE NITRITE NEGATIVE (NEGATIVE); URINE PROTEIN 4+ (NEGATIVE); URINE RBC 20 /uL (0-23.9); URINE UROBILINOGEN 0.2 mg/dL (0.2-1.0); URINE WBC 4 /uL (0-25.8)
[2020-09-05 21:58] LABS: ALBUMIN 2.3 g/dl (3.4-5.0); CALCIUM 7.9 mg/dL (8.5-10.1)
[2020-09-05 22:00] LABS: BLOOD UREA NITROGEN 36.9 mg/dL (7-18)
[2020-09-05 22:01] LABS: BILIRUBIN,DIRECT 0.2 mg/dL (0.0-0.2); CREATININE 5.5 mg/dL (0.55-1.3)
[2020-09-05 22:03] LABS: BILIRUBIN,TOTAL 0.9 mg/dL (0.2-1); TOT PROT 5.9 g/dl (6.4-8.2)
[2020-09-06 00:52] LABS: ARTERIAL BLD GAS O2 SATURATION 97.3 mmHg (95-98); ARTERIAL BLOOD GAS PO2 93.9 mmHg (80-100); ARTERIAL BLOOD GAS pH 7.428 (7.350-7.450)
[2020-09-06] MEDS ORDERED: HEPARIN NA (PORCINE) 5,000 UNITS/ML 1ML VIAL SQ SCH (06:00)
[2020-09-06 06:55] LABS: BASO % 0.2 % (0-2.0); HEMATOCRIT 21.5 % (35.4-49); HEMOGLOBIN 7.2 GM/dL (11.7-16.9); LYMPH % 6.7 % (8-40); MCH 28.7 pg (25.7-33.7); MCHC 33.3 g/dl (32.0-35.9); MEAN CELL VOLUME 86.2 fl (80-96); MEAN PLT VOLUME 7.4 fl (7.5-11.1); NEUT % 90.1 % (42.8-82.8); PLATELET COUNT 224 K/MM3 (134-434); RDW 16.1 % (11.9-15.9); WHITE BLOOD COUNT 11.2 K/mm3 (4.0-10.0)
[2020-09-06 07:13] LABS: POTASSIUM 4.2 mmol/L (3.5-5.1)
[2020-09-06 07:15] LABS: INR 1.68 (0.83-1.09); PROTHROMBIN TIME (PATIENT) 20.3 SEC (9.7-13.0)
[2020-09-06 07:16] LABS: ALBUMIN 2.2 g/dl (3.4-5.0); BLOOD UREA NITROGEN 41.3 mg/dL (7-18); MAGNESIUM 2.2 mg/dL (1.8-2.4)
[2020-09-06 07:19] LABS: CREATININE 5.9 mg/dL (0.55-1.3); PHOSPHOROUS 3.6 mg/dL (2.5-4.9)
[2020-09-06 07:21] LABS: BILIRUBIN,TOTAL 0.8 mg/dL (0.2-1); TOT PROT 5.6 g/dl (6.4-8.2)
[2020-09-06] MEDS: INSULIN SLIDING SCALE (NOVOLOG) 1 VIAL SQ SCH ×4 (07:38→22:51)
[2020-09-06] MEDS: TAMSULOSIN HCL 0.4 MG CAP PO SCH (09:01)
[2020-09-06] MEDS ORDERED: FAMOTIDINE 20 MG TABLET ONE (10:52)
[2020-09-06] MEDS ORDERED: METOPROLOL TARTRATE 25 MG TABLET (FP) ONE ×2 (10:52→22:09)
[2020-09-06] MEDS ORDERED: ASCORBIC ACID 500 MG TABLET (FP) ONE ×2 (10:52→22:09)
[2020-09-06] MEDS ORDERED: CHOLECALCIFEROL (VIT D3) 1,000 UNIT (25 MCG) TABLET ONE (10:53)
[2020-09-06] MEDS ORDERED: FERROUS SO4 325 MG TABLET (FP) ONE ×2 (10:53→22:09)
[2020-09-06] MEDS ORDERED: DEXAMETHASONE SOD PHOSPHATE 4 MG/1 ML VIAL ONE (10:53)
[2020-09-06] MEDS ORDERED: APIXABAN 2.5 MG TABLET ONE ×2 (10:53→22:09)
[2020-09-06] MEDS ORDERED: ZINC SULFATE 220 MG CAPSULE (FP) ONE (10:53)
[2020-09-06] MEDS: FERROUS SO4 325 MG TABLET (FP) PO SCH ×2 (11:10→22:17)
[2020-09-06] MEDS: ZINC SULFATE 220 MG CAPSULE (FP) PO SCH (11:10)
[2020-09-06] MEDS: METOPROLOL TARTRATE 25 MG TABLET (FP) PO SCH ×2 (11:10→22:17)
[2020-09-06] MEDS: FAMOTIDINE 20 MG TABLET PO SCH (11:10)
[2020-09-06] MEDS: ASCORBIC ACID 500 MG TABLET (FP) PO SCH ×2 (11:10→22:17)
[2020-09-06] MEDS: APIXABAN 2.5 MG TABLET PO SCH ×2 (11:10→22:17)
[2020-09-06] MEDS: DEXAMETHASONE SOD PHOSPHATE 4 MG/1 ML VIAL IVPUSH SCH (11:10)
[2020-09-06] MEDS: CHOLECALCIFEROL (VIT D3) 1,000 UNIT (25 MCG) TABLET PO SCH (11:11)
[2020-09-07] MEDS: INSULIN SLIDING SCALE (NOVOLOG) 1 VIAL SQ SCH ×4 (07:30→23:04)
[2020-09-07] MEDS: METOPROLOL TARTRATE 25 MG TABLET (FP) PO SCH ×2 (09:31→23:03)
[2020-09-07] MEDS: ASCORBIC ACID 500 MG TABLET (FP) PO SCH ×2 (09:31→23:03)
[2020-09-07] MEDS: CHOLECALCIFEROL (VIT D3) 1,000 UNIT (25 MCG) TABLET PO SCH (09:31)
[2020-09-07] MEDS: ZINC SULFATE 220 MG CAPSULE (FP) PO SCH (09:31)
[2020-09-07] MEDS: TAMSULOSIN HCL 0.4 MG CAP PO SCH (09:31)
[2020-09-07] MEDS: DEXAMETHASONE SOD PHOSPHATE 4 MG/1 ML VIAL IVPUSH SCH (09:31)
[2020-09-07] MEDS: APIXABAN 2.5 MG TABLET PO SCH ×2 (09:31→23:03)
[2020-09-07] MEDS: FERROUS SO4 325 MG TABLET (FP) PO SCH ×2 (09:31→23:03)
[2020-09-07] MEDS: FAMOTIDINE 20 MG TABLET PO SCH (09:32)
[2020-09-07 14:27] LABS: BASO % 0.6 % (0-2.0); HEMATOCRIT 21.1 % (35.4-49); HEMOGLOBIN 7.1 GM/dL (11.7-16.9); LYMPH % 3.7 % (8-40); MCH 28.7 pg (25.7-33.7); MCHC 33.5 g/dl (32.0-35.9); MEAN CELL VOLUME 85.7 fl (80-96); MEAN PLT VOLUME 7.4 fl (7.5-11.1); MONO % 1.5 % (3.8-10.2); NEUT % 94.2 % (42.8-82.8); PLATELET COUNT 307 K/MM3 (134-434); RBC 2.46 M/mm3 (4.00-5.60); RDW 15.9 % (11.9-15.9); WHITE BLOOD COUNT 9.5 K/mm3 (4.0-10.0)
[2020-09-07 14:43] LABS: POTASSIUM 4.5 mmol/L (3.5-5.1)
[2020-09-07 14:47] LABS: ALBUMIN 2.2 g/dl (3.4-5.0); CALCIUM 7.9 mg/dL (8.5-10.1)
[2020-09-07 14:52] LABS: BILIRUBIN,TOTAL 0.4 mg/dL (0.2-1); TOT PROT 5.8 g/dl (6.4-8.2)
[2020-09-07 14:55] LABS: BLOOD UREA NITROGEN 69.9 mg/dL (7-18)
[2020-09-07 15:02] LABS: ANISOCYTOSIS 1+; MACROCYTOSIS 0; OVALOCYTE 1+; PLATELET ESTIMATE NORMAL
[2020-09-07] MEDS ORDERED: EPOETIN ALFA-EPBX 10,000 UNIT/ML VIAL SQ ONE (17:00)
[2020-09-08] MEDS: INSULIN SLIDING SCALE (NOVOLOG) 1 VIAL SQ SCH ×4 (06:52→22:46)
[2020-09-08] MEDS: CHOLECALCIFEROL (VIT D3) 1,000 UNIT (25 MCG) TABLET PO SCH (09:36)
[2020-09-08] MEDS: DEXAMETHASONE SOD PHOSPHATE 4 MG/1 ML VIAL IVPUSH SCH (09:36)
[2020-09-08] MEDS: FAMOTIDINE 20 MG TABLET PO SCH (09:37)
[2020-09-08] MEDS: ASCORBIC ACID 500 MG TABLET (FP) PO SCH ×2 (09:37→22:46)
[2020-09-08] MEDS: APIXABAN 2.5 MG TABLET PO SCH ×2 (09:37→22:46)
[2020-09-08] MEDS: METOPROLOL TARTRATE 25 MG TABLET (FP) PO SCH ×2 (09:37→22:46)
[2020-09-08] MEDS: TAMSULOSIN HCL 0.4 MG CAP PO SCH (09:37)
[2020-09-08] MEDS: ZINC SULFATE 220 MG CAPSULE (FP) PO SCH (09:37)
[2020-09-08] MEDS: FERROUS SO4 325 MG TABLET (FP) PO SCH ×2 (09:37→22:46)
[2020-09-09] MEDS: INSULIN SLIDING SCALE (NOVOLOG) 1 VIAL SQ SCH ×4 (06:39→22:03)
[2020-09-09] MEDS ORDERED: EPOETIN ALFA-EPBX 10,000 UNIT/ML VIAL IVPUSH ONE (08:00)
[2020-09-09] MEDS: TAMSULOSIN HCL 0.4 MG CAP PO SCH (08:51)
[2020-09-09 09:59] LABS: BASO % 0.2 % (0-2.0); EOS % 0.4 % (0-4.5); HEMATOCRIT 19.5 % (35.4-49); MCH 28.6 pg (25.7-33.7); MCHC 32.7 g/dl (32.0-35.9); MEAN CELL VOLUME 87.6 fl (80-96); MEAN PLT VOLUME 7.2 fl (7.5-11.1); NEUT % 79.4 % (42.8-82.8); PLATELET COUNT 267 K/MM3 (134-434); RBC 2.22 M/mm3 (4.00-5.60); WHITE BLOOD COUNT 9.5 K/mm3 (4.0-10.0)
[2020-09-09 10:01] LABS: HEMOGLOBIN 6.4 GM/dL (11.7-16.9)
[2020-09-09 10:23] LABS: POTASSIUM 3.8 mmol/L (3.5-5.1)
[2020-09-09 10:26] LABS: ALBUMIN 2.3 g/dl (3.4-5.0); BLOOD UREA NITROGEN 74.9 mg/dL (7-18)
[2020-09-09 10:30] LABS: BILIRUBIN,TOTAL 0.4 mg/dL (0.2-1); TOT PROT 5.7 g/dl (6.4-8.2)
[2020-09-09 11:09] LABS: CREATININE 7.4 mg/dL (0.55-1.3)
[2020-09-09] MEDS: DEXAMETHASONE SOD PHOSPHATE 4 MG/1 ML VIAL IVPUSH SCH (12:30)
[2020-09-09] MEDS: METOPROLOL TARTRATE 25 MG TABLET (FP) PO SCH ×2 (12:32→22:02)
[2020-09-09] MEDS: ASCORBIC ACID 500 MG TABLET (FP) PO SCH ×2 (12:33→22:03)
[2020-09-09] MEDS: APIXABAN 2.5 MG TABLET PO SCH ×2 (12:33→22:02)
[2020-09-09] MEDS: CHOLECALCIFEROL (VIT D3) 1,000 UNIT (25 MCG) TABLET PO SCH (12:33)
[2020-09-09] MEDS: FAMOTIDINE 20 MG TABLET PO SCH (12:33)
[2020-09-09] MEDS: FERROUS SO4 325 MG TABLET (FP) PO SCH ×2 (12:33→22:02)
[2020-09-09] MEDS: ZINC SULFATE 220 MG CAPSULE (FP) PO SCH (12:33)
[2020-09-10] MEDS: ACETAMINOPHEN 325 MG TABLET (FP) PO PRN ×2 (03:27→18:16)
[2020-09-10] MEDS: INSULIN SLIDING SCALE (NOVOLOG) 1 VIAL SQ SCH ×4 (06:57→23:04)
[2020-09-10] MEDS: FERROUS SO4 325 MG TABLET (FP) PO SCH ×2 (09:09→23:18)
[2020-09-10] MEDS: APIXABAN 2.5 MG TABLET PO SCH ×2 (09:09→23:18)
[2020-09-10] MEDS: CHOLECALCIFEROL (VIT D3) 1,000 UNIT (25 MCG) TABLET PO SCH (09:09)
[2020-09-10] MEDS: ASCORBIC ACID 500 MG TABLET (FP) PO SCH ×2 (09:09→23:18)
[2020-09-10] MEDS: METOPROLOL TARTRATE 25 MG TABLET (FP) PO SCH ×2 (09:09→23:18)
[2020-09-10] MEDS: ZINC SULFATE 220 MG CAPSULE (FP) PO SCH (09:09)
[2020-09-10] MEDS: TAMSULOSIN HCL 0.4 MG CAP PO SCH (09:09)
[2020-09-10] MEDS: FAMOTIDINE 20 MG TABLET PO SCH (09:09)
[2020-09-10] MEDS: DEXAMETHASONE SOD PHOSPHATE 4 MG/1 ML VIAL IVPUSH SCH (09:10)
[2020-09-10 09:27] LABS: BASO % 0.2 % (0-2.0); EOS % 0.8 % (0-4.5); HEMATOCRIT 25.5 % (35.4-49); HEMOGLOBIN 8.6 GM/dL (11.7-16.9); LYMPH % 16.4 % (8-40); MCH 29.2 pg (25.7-33.7); MCHC 33.7 g/dl (32.0-35.9); MEAN CELL VOLUME 86.5 fl (80-96); MEAN PLT VOLUME 7.1 fl (7.5-11.1); MONO % 6.1 % (3.8-10.2); NEUT % 76.5 % (42.8-82.8); PLATELET COUNT 289 K/MM3 (134-434); POTASSIUM 3.2 mmol/L (3.5-5.1); RBC 2.95 M/mm3 (4.00-5.60); RDW 15.5 % (11.9-15.9); WHITE BLOOD COUNT 11.8 K/mm3 (4.0-10.0)
[2020-09-10 09:35] LABS: ALBUMIN 2.4 g/dl (3.4-5.0); CALCIUM 7.8 mg/dL (8.5-10.1)
[2020-09-10 09:38] LABS: CREATININE 4.8 mg/dL (0.55-1.3)
[2020-09-10 09:40] LABS: BILIRUBIN,TOTAL 0.8 mg/dL (0.2-1); TOT PROT 5.8 g/dl (6.4-8.2)
[2020-09-10 09:43] LABS: BLOOD UREA NITROGEN 41.1 mg/dL (7-18)
[2020-09-10] MEDS ORDERED: POTASSIUM CHLORIDE TABS 20 MEQ TABLET.ER (FP) PO ONE (22:38)
[2020-09-11] MEDS: INSULIN SLIDING SCALE (NOVOLOG) 1 VIAL SQ SCH ×4 (06:56→22:03)
[2020-09-11] MEDS ORDERED: PT OWN MED DRAWER 7, Y5N ONE (08:42)
[2020-09-11 08:44] LABS: BASO % 0.4 % (0-2.0); EOS % 0.7 % (0-4.5); HEMATOCRIT 27.6 % (35.4-49); HEMOGLOBIN 9.2 GM/dL (11.7-16.9); LYMPH % 7.7 % (8-40); MCH 29.2 pg (25.7-33.7); MCHC 33.5 g/dl (32.0-35.9); MEAN CELL VOLUME 87.2 fl (80-96); MEAN PLT VOLUME 7.1 fl (7.5-11.1); NEUT % 87.2 % (42.8-82.8); PLATELET COUNT 282 K/MM3 (134-434); RBC 3.17 M/mm3 (4.00-5.60); RDW 15.9 % (11.9-15.9); WHITE BLOOD COUNT 14.2 K/mm3 (4.0-10.0)
[2020-09-11 09:00] LABS: POTASSIUM 4.1 mmol/L (3.5-5.1)
[2020-09-11] MEDS: ZINC SULFATE 220 MG CAPSULE (FP) PO SCH (09:03)
[2020-09-11] MEDS: ASCORBIC ACID 500 MG TABLET (FP) PO SCH ×2 (09:03→21:24)
[2020-09-11] MEDS: METOPROLOL TARTRATE 25 MG TABLET (FP) PO SCH ×2 (09:03→21:24)
[2020-09-11] MEDS: TAMSULOSIN HCL 0.4 MG CAP PO SCH (09:03)
[2020-09-11] MEDS: FAMOTIDINE 20 MG TABLET PO SCH (09:03)
[2020-09-11] MEDS: APIXABAN 2.5 MG TABLET PO SCH ×2 (09:03→21:24)
[2020-09-11] MEDS: ACETAMINOPHEN 325 MG TABLET (FP) PO PRN ×2 (09:04→21:24)
[2020-09-11] MEDS: FERROUS SO4 325 MG TABLET (FP) PO SCH ×2 (09:04→21:24)
[2020-09-11] MEDS: CHOLECALCIFEROL (VIT D3) 1,000 UNIT (25 MCG) TABLET PO SCH (09:04)
[2020-09-11 09:06] LABS: ALBUMIN 2.4 g/dl (3.4-5.0); BLOOD UREA NITROGEN 60.6 mg/dL (7-18); CALCIUM 7.6 mg/dL (8.5-10.1)
[2020-09-11 09:09] LABS: CREATININE 6.1 mg/dL (0.55-1.3)
[2020-09-11 09:11] LABS: BILIRUBIN,TOTAL 0.6 mg/dL (0.2-1); TOT PROT 5.9 g/dl (6.4-8.2)
[2020-09-11] MEDS ORDERED: INSULIN (NOVOLOG) ASPART 100 UNITS/ML 10ML VIAL ONE (21:53)
[2020-09-12] MEDS: INSULIN SLIDING SCALE (NOVOLOG) 1 VIAL SQ SCH ×4 (06:42→21:43)
[2020-09-12] MEDS: ACETAMINOPHEN 325 MG TABLET (FP) PO PRN ×2 (07:21→20:35)
[2020-09-12] MEDS: TAMSULOSIN HCL 0.4 MG CAP PO SCH (09:10)
[2020-09-12 10:20] LABS: BASO % 0.1 % (0-2.0); EOS % 0.3 % (0-4.5); HEMATOCRIT 27.7 % (35.4-49); HEMOGLOBIN 8.9 GM/dL (11.7-16.9); MCH 28.4 pg (25.7-33.7); MCHC 32.2 g/dl (32.0-35.9); MEAN CELL VOLUME 88.3 fl (80-96); MEAN PLT VOLUME 7.6 fl (7.5-11.1); MONO % 3.9 % (3.8-10.2); NEUT % 91.7 % (42.8-82.8); PLATELET COUNT 228 K/MM3 (134-434); RBC 3.14 M/mm3 (4.00-5.60); RDW 16.4 % (11.9-15.9); WHITE BLOOD COUNT 19.5 K/mm3 (4.0-10.0)
[2020-09-12 10:41] LABS: POTASSIUM 4.1 mmol/L (3.5-5.1)
[2020-09-12 10:43] LABS: ALBUMIN 2.2 g/dl (3.4-5.0); BLOOD UREA NITROGEN 76.5 mg/dL (7-18); CALCIUM 7.8 mg/dL (8.5-10.1)
[2020-09-12 10:48] LABS: BILIRUBIN,TOTAL 0.7 mg/dL (0.2-1); TOT PROT 5.7 g/dl (6.4-8.2)
[2020-09-12 11:03] LABS: CREATININE 7.6 mg/dL (0.55-1.3)
[2020-09-12] MEDS: CHOLECALCIFEROL (VIT D3) 1,000 UNIT (25 MCG) TABLET PO SCH (11:10)
[2020-09-12] MEDS: FERROUS SO4 325 MG TABLET (FP) PO SCH ×2 (11:11→21:41)
[2020-09-12] MEDS: METOPROLOL TARTRATE 25 MG TABLET (FP) PO SCH ×2 (11:11→21:41)
[2020-09-12] MEDS: APIXABAN 2.5 MG TABLET PO SCH ×2 (11:11→12:04)
[2020-09-12] MEDS: ASCORBIC ACID 500 MG TABLET (FP) PO SCH ×2 (11:12→21:42)
[2020-09-12] MEDS: FAMOTIDINE 20 MG TABLET PO SCH (11:12)
[2020-09-12] MEDS: ZINC SULFATE 220 MG CAPSULE (FP) PO SCH (11:12)
[2020-09-12] MEDS: PIPERACILLIN/TAZOB 2.25 GM 2.25 GM in DEXTROSE 5%-WATER - 50 ML IVPB SCH ×2 (13:15→17:29)
[2020-09-12 13:33] LABS: ANISOCYTOSIS 0; MACROCYTOSIS 0; OVALOCYTE 1+; PLATELET ESTIMATE NORMAL
[2020-09-12] MEDS ORDERED: EPOETIN ALFA-EPBX 4,000 UNIT/ML VIAL IVPUSH ONE (14:15)
[2020-09-12] MEDS ORDERED: PIPERACILLIN/TAZOBACTAM 2.25 GM VIAL IVPB ONE (15:45)
[2020-09-12] MEDS ORDERED: DEXTROSE 5%-WATER - 50 ML IVPB ONE (15:45)
[2020-09-12] MEDS: PANTOPRAZOLE SOD 40 MG SUSPENSION PACKET PO SCH (21:42)
[2020-09-12] MEDS ORDERED: PANTOPRAZOLE SODIUM 40 MG VIAL IVPUSH SCH (22:00)
[2020-09-12] MEDS: DEXTROSE 5%-0.45% SALINE 1,000 ML IV SCH (23:42)
[2020-09-13] MEDS ORDERED: PIPERACILLIN/TAZOBACTAM 2.25 GM VIAL IVPB ONE ×3 (01:48→17:24)
[2020-09-13] MEDS ORDERED: DEXTROSE 5%-WATER - 50 ML IVPB ONE ×3 (01:48→17:24)
[2020-09-13] MEDS: PIPERACILLIN/TAZOB 2.25 GM 2.25 GM in DEXTROSE 5%-WATER - 50 ML IVPB SCH ×3 (01:50→17:40)
[2020-09-13] MEDS: INSULIN SLIDING SCALE (NOVOLOG) 1 VIAL SQ SCH ×4 (06:07→21:47)
[2020-09-13] MEDS: TAMSULOSIN HCL 0.4 MG CAP PO SCH (09:02)
[2020-09-13 09:08] LABS: BASO % 0.1 % (0-2.0); EOS % 0.4 % (0-4.5); HEMATOCRIT 24.7 % (35.4-49); HEMOGLOBIN 8.1 GM/dL (11.7-16.9); LYMPH % 2.8 % (8-40); MCH 28.9 pg (25.7-33.7); MCHC 32.8 g/dl (32.0-35.9); MEAN CELL VOLUME 88.2 fl (80-96); MEAN PLT VOLUME 7.7 fl (7.5-11.1); MONO % 3.1 % (3.8-10.2); NEUT % 93.6 % (42.8-82.8); PLATELET COUNT 210 K/MM3 (134-434); RDW 16.4 % (11.9-15.9); WHITE BLOOD COUNT 19.1 K/mm3 (4.0-10.0)
[2020-09-13 09:14] LABS: POTASSIUM 3.7 mmol/L (3.5-5.1)
[2020-09-13 09:17] LABS: CALCIUM 7.7 mg/dL (8.5-10.1)
[2020-09-13] MEDS: METOPROLOL TARTRATE 25 MG TABLET (FP) PO SCH ×2 (09:20→21:47)
[2020-09-13] MEDS: FERROUS SO4 325 MG TABLET (FP) PO SCH ×2 (09:20→21:48)
[2020-09-13 09:21] LABS: CREATININE 5.1 mg/dL (0.55-1.3)
[2020-09-13] MEDS: ASCORBIC ACID 500 MG TABLET (FP) PO SCH ×2 (09:21→21:48)
[2020-09-13] MEDS: PANTOPRAZOLE SOD 40 MG SUSPENSION PACKET PO SCH ×2 (09:21→21:48)
[2020-09-13] MEDS: ZINC SULFATE 220 MG CAPSULE (FP) PO SCH (09:21)
[2020-09-13 09:22] LABS: BILIRUBIN,TOTAL 0.9 mg/dL (0.2-1); TOT PROT 5.5 g/dl (6.4-8.2)
[2020-09-13] MEDS: CHOLECALCIFEROL (VIT D3) 1,000 UNIT (25 MCG) TABLET PO SCH (09:22)
[2020-09-13 09:33] LABS: BLOOD UREA NITROGEN 41.3 mg/dL (7-18)
[2020-09-13 11:08] LABS: ANISOCYTOSIS 1+; MACROCYTOSIS 0; PLATELET ESTIMATE NORMAL
[2020-09-13] MEDS ORDERED: VANCOMYCIN 1 GM in D5W (PRE-DOCKED) 1,000 MG/250 ML IVPB ONE (13:22)
[2020-09-13 16:16] VITALS: BMI 23.8
[2020-09-13] MEDS ORDERED: INSULIN (NOVOLOG) ASPART 100 UNITS/ML 10ML VIAL ONE (17:02)
[2020-09-13 21:55] LABS: BASO % 0.1 % (0-2.0); EOS % 0.8 % (0-4.5); HEMATOCRIT 24.9 % (35.4-49); HEMOGLOBIN 7.9 GM/dL (11.7-16.9); LYMPH % 4.6 % (8-40); MCH 28.2 pg (25.7-33.7); MCHC 31.7 g/dl (32.0-35.9); MEAN CELL VOLUME 88.8 fl (80-96); MEAN PLT VOLUME 7.7 fl (7.5-11.1); MONO % 3.5 % (3.8-10.2); PLATELET COUNT 192 K/MM3 (134-434); RBC 2.81 M/mm3 (4.00-5.60); RDW 16.6 % (11.9-15.9); WHITE BLOOD COUNT 18.9 K/mm3 (4.0-10.0)
[2020-09-13 23:29] LABS: ANISOCYTOSIS 1+; MACROCYTOSIS 0; PLATELET ESTIMATE NORMAL
[2020-09-14] MEDS ORDERED: PIPERACILLIN/TAZOBACTAM 2.25 GM VIAL IVPB ONE ×3 (01:17→17:16)
[2020-09-14] MEDS ORDERED: DEXTROSE 5%-WATER - 50 ML IVPB ONE ×3 (01:18→17:16)
[2020-09-14] MEDS: PIPERACILLIN/TAZOB 2.25 GM 2.25 GM in DEXTROSE 5%-WATER - 50 ML IVPB SCH ×3 (01:27→17:27)
[2020-09-14] MEDS: ACETAMINOPHEN 325 MG TABLET (FP) PO PRN (01:27)
[2020-09-14] MEDS: DEXTROSE 5%-0.45% SALINE 1,000 ML IV SCH (01:28)
[2020-09-14] MEDS: INSULIN SLIDING SCALE (NOVOLOG) 1 VIAL SQ SCH ×4 (06:51→22:02)
[2020-09-14] MEDS ORDERED: PT OWN MED DRAWER 7, Y5N ONE (10:00)
[2020-09-14] MEDS: METOPROLOL TARTRATE 25 MG TABLET (FP) PO SCH ×2 (10:09→21:57)
[2020-09-14] MEDS: CHOLECALCIFEROL (VIT D3) 1,000 UNIT (25 MCG) TABLET PO SCH (10:09)
[2020-09-14] MEDS: TAMSULOSIN HCL 0.4 MG CAP PO SCH (10:09)
[2020-09-14] MEDS: ZINC SULFATE 220 MG CAPSULE (FP) PO SCH (10:09)
[2020-09-14] MEDS: FERROUS SO4 325 MG TABLET (FP) PO SCH ×2 (10:09→21:57)
[2020-09-14] MEDS: PANTOPRAZOLE SOD 40 MG SUSPENSION PACKET PO SCH ×2 (10:10→22:03)
[2020-09-14] MEDS: ASCORBIC ACID 500 MG TABLET (FP) PO SCH ×2 (10:10→21:57)
[2020-09-14 13:15] LABS: POTASSIUM 3.7 mmol/L (3.5-5.1)
[2020-09-14 13:17] LABS: BASO % 0.3 % (0-2.0); CALCIUM 7.6 mg/dL (8.5-10.1); EOS % 1.9 % (0-4.5); HEMATOCRIT 23.8 % (35.4-49); HEMOGLOBIN 7.8 GM/dL (11.7-16.9); MCH 28.7 pg (25.7-33.7); MCHC 32.6 g/dl (32.0-35.9); MEAN PLT VOLUME 8.1 fl (7.5-11.1); MONO % 3.7 % (3.8-10.2); NEUT % 89.1 % (42.8-82.8); PLATELET COUNT 194 K/MM3 (134-434); RBC 2.71 M/mm3 (4.00-5.60); RDW 16.9 % (11.9-15.9); WHITE BLOOD COUNT 16.4 K/mm3 (4.0-10.0)
[2020-09-14 13:18] LABS: ALBUMIN 1.9 g/dl (3.4-5.0); BLOOD UREA NITROGEN 53.7 mg/dL (7-18)
[2020-09-14 13:21] LABS: CREATININE 6.5 mg/dL (0.55-1.3)
[2020-09-14 13:22] LABS: BILIRUBIN,TOTAL 0.7 mg/dL (0.2-1); TOT PROT 5.4 g/dl (6.4-8.2)
[2020-09-15] MEDS ORDERED: PIPERACILLIN/TAZOBACTAM 2.25 GM VIAL IVPB ONE ×3 (01:30→15:55)
[2020-09-15] MEDS ORDERED: DEXTROSE 5%-WATER - 50 ML IVPB ONE ×3 (01:31→15:55)
[2020-09-15] MEDS: PIPERACILLIN/TAZOB 2.25 GM 2.25 GM in DEXTROSE 5%-WATER - 50 ML IVPB SCH ×3 (01:38→17:47)
[2020-09-15] MEDS: DEXTROSE 5%-0.45% SALINE 1,000 ML IV SCH ×2 (01:38→23:35)
[2020-09-15] MEDS: INSULIN SLIDING SCALE (NOVOLOG) 1 VIAL SQ SCH ×4 (06:42→21:53)
[2020-09-15] MEDS ORDERED: PT OWN MED DRAWER 7, Y5N ONE ×2 (09:58→21:41)
[2020-09-15] MEDS: PANTOPRAZOLE SOD 40 MG SUSPENSION PACKET PO SCH ×2 (10:10→21:56)
[2020-09-15] MEDS: ASCORBIC ACID 500 MG TABLET (FP) PO SCH ×2 (10:10→21:53)
[2020-09-15] MEDS: FERROUS SO4 325 MG TABLET (FP) PO SCH ×2 (10:10→21:53)
[2020-09-15] MEDS: METOPROLOL TARTRATE 25 MG TABLET (FP) PO SCH ×2 (10:10→21:52)
[2020-09-15] MEDS: TAMSULOSIN HCL 0.4 MG CAP PO SCH (10:10)
[2020-09-15] MEDS: CHOLECALCIFEROL (VIT D3) 1,000 UNIT (25 MCG) TABLET PO SCH (10:10)
[2020-09-15] MEDS: ZINC SULFATE 220 MG CAPSULE (FP) PO SCH (10:10)
[2020-09-15] MEDS: VANCOMYCIN 1 GM in D5W (PRE-DOCKED) 1,000 MG/250 ML IVPB ONE ×2 (12:24→16:07)
[2020-09-15] MEDS: EPOETIN ALFA-EPBX 10,000 UNIT/ML VIAL SQ ONE ×2 (15:00→16:00)
[2020-09-15] MEDS ORDERED: INSULIN (NOVOLOG) ASPART 100 UNITS/ML 10ML VIAL ONE (21:42)
[2020-09-16] MEDS ORDERED: PIPERACILLIN/TAZOBACTAM 2.25 GM VIAL IVPB ONE ×3 (01:34→17:02)
[2020-09-16] MEDS ORDERED: DEXTROSE 5%-WATER - 50 ML IVPB ONE ×3 (01:34→17:02)
[2020-09-16] MEDS: PIPERACILLIN/TAZOB 2.25 GM 2.25 GM in DEXTROSE 5%-WATER - 50 ML IVPB SCH ×3 (02:26→17:11)
[2020-09-16] MEDS: INSULIN SLIDING SCALE (NOVOLOG) 1 VIAL SQ SCH ×4 (06:33→21:16)
[2020-09-16 09:26] LABS: BASO % 0.4 % (0-2.0); EOS % 1.8 % (0-4.5); HEMOGLOBIN 7.5 GM/dL (11.7-16.9); LYMPH % 11.7 % (8-40); MCH 28.7 pg (25.7-33.7); MCHC 32.8 g/dl (32.0-35.9); MEAN CELL VOLUME 87.5 fl (80-96); MEAN PLT VOLUME 7.9 fl (7.5-11.1); MONO % 6.5 % (3.8-10.2); NEUT % 79.6 % (42.8-82.8); PLATELET COUNT 202 K/MM3 (134-434); RBC 2.62 M/mm3 (4.00-5.60); WHITE BLOOD COUNT 9.6 K/mm3 (4.0-10.0)
[2020-09-16 09:28] LABS: POTASSIUM 3.3 mmol/L (3.5-5.1)
[2020-09-16 09:39] LABS: ALBUMIN 1.9 g/dl (3.4-5.0); BLOOD UREA NITROGEN 32.2 mg/dL (7-18)
[2020-09-16 09:43] LABS: BILIRUBIN,TOTAL 0.8 mg/dL (0.2-1)
[2020-09-16 09:44] LABS: TOT PROT 5.4 g/dl (6.4-8.2)
[2020-09-16 10:00] LABS: CREATININE 4.5 mg/dL (0.55-1.3)
[2020-09-16] MEDS: ASCORBIC ACID 500 MG TABLET (FP) PO SCH (10:56)
[2020-09-16] MEDS: METOPROLOL TARTRATE 25 MG TABLET (FP) PO SCH (10:56)
[2020-09-16] MEDS: PANTOPRAZOLE SOD 40 MG SUSPENSION PACKET PO SCH (10:56)
[2020-09-16] MEDS: TAMSULOSIN HCL 0.4 MG CAP PO SCH (10:56)
[2020-09-16] MEDS: FERROUS SO4 325 MG TABLET (FP) PO SCH (10:56)
[2020-09-16] MEDS: CHOLECALCIFEROL (VIT D3) 1,000 UNIT (25 MCG) TABLET PO SCH (10:57)
[2020-09-16] MEDS ORDERED: VANCOMYCIN 1 GM in D5W (PRE-DOCKED) 1,000 MG/250 ML IVPB ONE (14:00)
[2020-09-16] MEDS ORDERED: ACETAMINOPHEN 1000 MG/100 ML VIAL (NON FORMULARY) IVPB PRN (14:54)
[2020-09-16] MEDS ORDERED: EPOETIN ALFA-EPBX 20,000 UNIT/ML VIAL SQ ONE (17:25)
[2020-09-16] MEDS: PANTOPRAZOLE SODIUM 40 MG VIAL IVPUSH SCH (21:17)
[2020-09-17] MEDS ORDERED: PIPERACILLIN/TAZOBACTAM 2.25 GM VIAL IVPB ONE ×3 (00:31→15:16)
[2020-09-17] MEDS ORDERED: DEXTROSE 5%-WATER - 50 ML IVPB ONE ×3 (00:32→15:16)
[2020-09-17] MEDS: DEXTROSE 5%-0.45% SALINE 1,000 ML IV SCH ×2 (01:05→10:36)
[2020-09-17] MEDS: PIPERACILLIN/TAZOB 2.25 GM 2.25 GM in DEXTROSE 5%-WATER - 50 ML IVPB SCH ×3 (01:06→17:05)
[2020-09-17] MEDS: INSULIN SLIDING SCALE (NOVOLOG) 1 VIAL SQ SCH ×4 (06:06→21:26)
[2020-09-17 08:40] LABS: BASO % 0.6 % (0-2.0); EOS % 1.5 % (0-4.5); HEMATOCRIT 26.7 % (35.4-49); HEMOGLOBIN 8.7 GM/dL (11.7-16.9); LYMPH % 9.6 % (8-40); MCH 28.9 pg (25.7-33.7); MCHC 32.6 g/dl (32.0-35.9); MEAN CELL VOLUME 88.5 fl (80-96); MEAN PLT VOLUME 7.6 fl (7.5-11.1); MONO % 6.1 % (3.8-10.2); NEUT % 82.2 % (42.8-82.8); PLATELET COUNT 220 K/MM3 (134-434); RBC 3.01 M/mm3 (4.00-5.60); RDW 15.7 % (11.9-15.9); WHITE BLOOD COUNT 11.4 K/mm3 (4.0-10.0)
[2020-09-17 08:59] LABS: POTASSIUM 3.3 mmol/L (3.5-5.1)
[2020-09-17 09:01] LABS: CALCIUM 7.4 mg/dL (8.5-10.1)
[2020-09-17 09:02] LABS: ALBUMIN 1.9 g/dl (3.4-5.0); BLOOD UREA NITROGEN 39.5 mg/dL (7-18)
[2020-09-17 09:06] LABS: TOT PROT 5.5 g/dl (6.4-8.2)
[2020-09-17] MEDS ORDERED: PT OWN MED DRAWER 7, Y5N ONE (10:00)
[2020-09-17] MEDS: PANTOPRAZOLE SODIUM 40 MG VIAL IVPUSH SCH ×2 (10:37→21:23)
[2020-09-17] MEDS: KCL 10 MEQ IVPB 10 MEQ/100 ML INFUS.BAG IVPB SCH ×3 (21:23→23:35)
[2020-09-17] MEDS ORDERED: INSULIN (NOVOLOG) ASPART 100 UNITS/ML 10ML VIAL ONE (21:24)
[2020-09-17] MEDS: AMINO ACIDS 4.25%/D5W 1,000 ML IV SCH (22:00)
[2020-09-17] MEDS ORDERED: ACETAMINOPHEN 1000 MG/100 ML VIAL (NON FORMULARY) IVPB PRN (22:04)
[2020-09-18] MEDS ORDERED: PIPERACILLIN/TAZOBACTAM 2.25 GM VIAL IVPB ONE ×2 (00:51→10:02)
[2020-09-18] MEDS ORDERED: DEXTROSE 5%-WATER - 50 ML IVPB ONE ×2 (00:51→10:02)
[2020-09-18] MEDS: PIPERACILLIN/TAZOB 2.25 GM 2.25 GM in DEXTROSE 5%-WATER - 50 ML IVPB SCH ×2 (01:29→12:58)
[2020-09-18] MEDS: INSULIN SLIDING SCALE (NOVOLOG) 1 VIAL SQ SCH ×4 (06:26→23:01)
[2020-09-18] MEDS: PANTOPRAZOLE SODIUM 40 MG VIAL IVPUSH SCH ×2 (12:57→23:01)
[2020-09-18] MEDS ORDERED: KCL 10 MEQ IVPB 10 MEQ/100 ML INFUS.BAG IVPB SCH (16:45)
[2020-09-18] MEDS ORDERED: INSULIN (NOVOLOG) ASPART 100 UNITS/ML 10ML VIAL ONE (17:10)
[2020-09-18] MEDS: AMINO ACIDS 4.25%/D5W 1,000 ML IV SCH (22:59)
[2020-09-19] MEDS: INSULIN SLIDING SCALE (NOVOLOG) 1 VIAL SQ SCH ×4 (06:35→22:12)
[2020-09-19] MEDS: PANTOPRAZOLE SODIUM 40 MG VIAL IVPUSH SCH ×2 (09:11→22:12)
[2020-09-19] MEDS ORDERED: INSULIN (NOVOLOG) ASPART 100 UNITS/ML 10ML VIAL ONE (14:27)
[2020-09-19] MEDS: AMINO ACIDS 4.25%/D5W 1,000 ML IV SCH (20:35)
[2020-09-20] MEDS: INSULIN SLIDING SCALE (NOVOLOG) 1 VIAL SQ SCH ×4 (06:41→21:56)
[2020-09-20] MEDS ORDERED: EPOETIN ALFA-EPBX 10,000 UNIT/ML VIAL IVPUSH ONE (09:45)
[2020-09-20] MEDS: PANTOPRAZOLE SODIUM 40 MG VIAL IVPUSH SCH ×2 (11:00→21:57)
[2020-09-20 11:40] LABS: BASO % 0.5 % (0-2.0); EOS % 1.5 % (0-4.5); HEMATOCRIT 26.1 % (35.4-49); HEMOGLOBIN 8.7 GM/dL (11.7-16.9); MCH 29.3 pg (25.7-33.7); MCHC 33.5 g/dl (32.0-35.9); MEAN CELL VOLUME 87.3 fl (80-96); MEAN PLT VOLUME 7.4 fl (7.5-11.1); MONO % 2.8 % (3.8-10.2); NEUT % 81.2 % (42.8-82.8); PLATELET COUNT 274 K/MM3 (134-434); RBC 2.99 M/mm3 (4.00-5.60); RDW 16.9 % (11.9-15.9); WHITE BLOOD COUNT 8.4 K/mm3 (4.0-10.0)
[2020-09-20] MEDS ORDERED: VANCOMYCIN 750 MG in DEXTROSE 5%-WATER - 250 ML IVPB ONE (15:00)
[2020-09-20] MEDS ORDERED: PT OWN MED DRAWER 7, Y5N ONE (15:31)
[2020-09-20] MEDS: AMINO ACIDS 4.25%/D5W 1,000 ML IV SCH (21:56)
[2020-09-21] MEDS: INSULIN SLIDING SCALE (NOVOLOG) 1 VIAL SQ SCH ×3 (06:46→17:44)
[2020-09-21] MEDS: PANTOPRAZOLE SODIUM 40 MG VIAL IVPUSH SCH (10:18)
[2020-09-21 11:40] VITALS: TEMP 98
[2020-09-21 14:37] VITALS: BP 148/64; PULSE 77
[2020-09-22] MEDS ORDERED: EPOETIN ALFA-EPBX 10,000 UNIT/ML VIAL IVPUSH ONE (07:00)
== END 2020-09-21 20:44 | disposition home or self-care (01) | DRG 871 ==
LOC: JER 19:04 → JERBED 22:30 → J6S 09-07 08:16
PROVIDERS: ADMIT Hospitalist; ATTEND Internal Medicine
PROC: 5A1D70Z Performance of Urinary Filtration, Intermittent, Less than 6 Hours Per Day (ICD-10-PCS; principal; 2020-09-07)
PROC: 5A1D70Z Performance of Urinary Filtration, Intermittent, Less than 6 Hours Per Day (ICD-10-PCS; 2020-09-09)
PROC: 30233N1 Transfusion of Nonautologous Red Blood Cells into Peripheral Vein, Percutaneous Approach (ICD-10-PCS; 2020-09-09)
PROC: 5A1D70Z Performance of Urinary Filtration, Intermittent, Less than 6 Hours Per Day (ICD-10-PCS; 2020-09-12)
PROC: 5A1D70Z Performance of Urinary Filtration, Intermittent, Less than 6 Hours Per Day (ICD-10-PCS; 2020-09-15)
PROC: 5A1D70Z Performance of Urinary Filtration, Intermittent, Less than 6 Hours Per Day (ICD-10-PCS; 2020-09-18)
DX: A41.89 Other specified sepsis (principal); N18.6 End stage renal disease; G93.41 Metabolic encephalopathy; J69.0 Pneumonitis due to inhalation of food and vomit; I13.2 Hypertensive heart and chronic kidney disease with heart failure and with stage 5 chronic kidney disease, or end stage renal disease; I69.351 Hemiplegia and hemiparesis following cerebral infarction affecting right dominant side; I43 Cardiomyopathy in diseases classified elsewhere; N39.0 Urinary tract infection, site not specified; N40.0 Benign prostatic hyperplasia without lower urinary tract symptoms; E11.22 Type 2 diabetes mellitus with diabetic chronic kidney disease; I50.9 Heart failure, unspecified; E78.5 Hyperlipidemia, unspecified; I48.0 Paroxysmal atrial fibrillation; R00.0 Tachycardia, unspecified; R41.82 Altered mental status, unspecified; E11.42 Type 2 diabetes mellitus with diabetic polyneuropathy; R09.02 Hypoxemia; L89.312 Pressure ulcer of right buttock, stage 2; D63.1 Anemia in chronic kidney disease; Z99.2 Dependence on renal dialysis
CPT/HCPCS: 36415; 36430; 36511; 36600; 70450-TC; 71045-TC-FY; 74230-TC-FY; 80053; 81003; 82248; 82272; 82550; 82553; 82728; 82803; 82962; 83605; 83615; 83735; 84100; 84484; 85025; 85379; 85610; 85730; 86140; 86704; 86706; 86769; 86803; 86850; 86900; 86901; 86922; 87040; 87086; 87186; 87340; 87804; 92611-GN; 93005; 93010; 97161-GP; 99285-25; C9803; G0480; J0131; J1100; P9038; P9058; Q5106; U0003